=== PATIENT | male | born 1970 | race Caucasian/White ===

== ENCOUNTER 2021-10-05 09:06 | Emergency (ER) | payer OTHER, SELFPAY ==
[2021-10-05 09:07] VITALS: BP 121/73; PULSE 82; RESP 18; TEMP 36.3; O2SAT 100; BMI 54.3
[2021-10-05 09:11] VITALS: BP 121/73; PULSE 82; RESP 18; TEMP 36.3; O2SAT 100
[2021-10-05 10:11] LABS: Absolute Lymphocyte Count 0.92 X10^3/uL (0.83-4.51); Basophil# 0.04 X10^3/uL; Basophil% 0.5 % (0-1); Eosinophil# 0.05 X10^3/uL; Eosinophils% 0.6 % (0-5); Hematocrit 42.5 % (40-54); Hemoglobin 14.5 g/dL (13.0-16.5); Lymphocyte # 0.92 X10^3/ul (0.83-4.51); Lymphocyte % 11.9 % (19-41); Mean Corp Hgb Conc 34.1 g/dL (32-36); Mean Corpuscular Hgb 29.4 pg (27.0-32.0); Mean Platelet Vol. 8.9 fl (6.2-12.0); Monocyte# 0.64 X10^3/uL; Monocyte% 8.3 % (0-10); NRBC Flagged by Analyzer 0 % (0-5); Neutrophil # 6.03 X10^3/uL (2.7-7.7); Neutrophil % 78.3 % (47-70); Platelet Count 269 K/mm3 (150-450); RBC Distribution Width CV 13.2 % (11.6-14.6); RBC Distribution Width SD 40.9 fl (35.1-43.9); Red Blood Count 4.94 M/mm3 (4.6-6.2); White Blood Count 7.7 K/mm3 (4.4-11.0)
[2021-10-05 10:18] LABS: International Normalized Ratio 1.1
[2021-10-05 10:19] LABS: Partial Thromboplast Time 26.5 Seconds (24.1-36.2)
--- NOTE | 2021-10-05 13:48 | EX.ED.DYSGE1 ---
HPI History of Present Illness Chief Complaint: Wound Informant: patient Onset/Context/Timing Onset: Today Current Severity: Moderate Maximum Severity: Moderate Narrative Narrative: Patient presents with bleeding from varicose vein on right leg. Patient states after getting out of the shower this morning he looked down and his right leg was bleeding. No pain to the area. He reports significant blood loss at home. EMS was a tourniquet on his leg. Patient is currently on Xarelto. [facility] Medical History Deep vein thrombosis (DVT) of right lower extremity Lymphedema Peripheral vascular disease Type 2 diabetes mellitus Venous insufficiency Home Medications aspirin 81 mg PO DAILY@0800 11/23/16 [History Last Taken Unknown] lisinopril-hydrochlorothiazide [Zestoretic 20-25 mg Tablet] 1 ea PO DAILY 11/23/16 [History Last Taken Unknown] Allergy/AdvReac Type Severity Reaction Status Date / Time No Known Allergies Allergy Verified 10/05/21 09:11 Social History Smoking Status: Unknown if ever smoked ROS ROS ED Constitutional Constitutional ED: Denies chills or fever(s) Eyes Eyes: Denies change in vision ENT ENT ED: Denies sore throat Cardiovascular Cardiovascular: Denies chest pain Respiratory/Chest Respiratory/Chest: Denies cough or dyspnea Gastrointestinal Gastrointestinal: Denies abdominal pain, diarrhea, nausea or vomiting Genitourinary Genitourinary ED: Denies dysuria Musculoskeletal Musculoskeletal: Denies back pain Integumentary Reports other Details: Varicose veins, bleeding from right lower extremity ; Denies rash Neurologic Neurologic: Denies headache(s) or weakness Allergic/Immunologic Allergic/Immunologic ED: Denies urticaria EXAM Physical Exam Const Vital Signs: 10/05/21 09:07 10/05/21 09:11 10/05/21 14:20 Temperature 97.3 F L 97.3 F L Temperature Source Temporal Temporal Pulse Rate 82 82 84 Respiratory Rate 18 18 16 Blood Pressure 121/73 H 121/73 H 114/62 Blood Pressure Mean 89 89 Pulse Ox 100 100 98 Oxygen Delivery Method Room Air Room Air Positive well nourished and well developed General Appearance ED: well developed HEENT Reports moist mucous membranes Eyes PERRL and EOMs intact bilaterally Neck no lymphadenopathy and supple Chest Wall inspection of chest normal and palpation of chest normal Resp normal respiratory effort and clear to auscultation bilaterally Cardio regular rate and regular rhythm GI non-tender Palpation: soft Extremity Extremity Narrative: Tourniquet placed to the right lower extremity. Dhaval wrap bandage in place over the right lower leg and ankle. Neuro oriented x3 Sensorium / Orientation: alert MDM MDM MDM Narrative Medical decision making narrative: Dhaval wrap was removed from the right lower extremity. Wound is cleansed. There is a very small punctate scab that when cleansed because of brisk bleeding. Direct pressure was held over this area. Tourniquet is slowly released over approximately 15 minutes. Blood pressure is held both proximal and distal to the wounds, lidocaine is infused and 2 sutures placed around the wound. Pressure dressing is then applied and leg is elevated. Over the next couple hours pressure dressing is removed and regular dressing applied. Patient's legs were brought down to bed height and then even dangled at bedside. He had no further bleeding. Patient is to leave dressing in place for the next 3 days. He is referred to vascular surgery for follow-up and evaluation of his varicose veins. Lab Data Labs: Laboratory Results - last 24 hr 10/05/21 10/05/21 10:00 10:00 WBC 7.7 RBC 4.94 Hgb 14.5 Hct 42.5 MCV 86.0 MCH 29.4 MCHC 34.1 RDW Std Deviation 40.9 RDW Coeff of Samuel 13.2 Plt Count 269 MPV 8.9 Immature Gran % (Auto) 0.400 Neut % (Auto) 78.3 H Lymph % (Auto) 11.9 L Isabella % (Auto) 8.3 Eos % (Auto) 0.6 Baso % (Auto) 0.5 Absolute Neuts (auto) 6.0 Absolute Lymphs (auto) 0.92 Nucleated RBC % 0 PT 14.0 INR 1.1 APTT 26.5 Procedures Lacerations Right lower extremity varicose vein: Laceration repair: Lidocaine, Local and Skin sutures Number of Sutures/Pray: 2 Comment: 2 cc lidocaine infused locally around the wound. A single circular stitch with 4-0 Vicryl placed. 1 single simple interrupted stitch then placed across the wound. Pressure dressing applied. Discharge Plan Triage Chief Complaint: Wound ED Provider: Patricia Culp Dx/Rx/DC Orders Clinical Impression: Varicose vein of leg Instructions: ED Varicose Veins, ED Wound Care Prescriptions: No Action lisinopril-hydrochlorothiazide [Zestoretic] 1 EACH tablet 1 ea PO DAILY RF: 0 aspirin 81 MG Tab.Chew 81 mg PO DAILY@0800 RF: 0 Primary Care Provider: Gustavo Potter Referrals: Gustavo Potter MD [Primary Care Provider] - 1 Week Kevin Merchant MD [STAFF PHYSICIAN] - 1-2 Weeks Disposition Disposition: Home, Self Care Discharge Date/Time: 10/05/21 14:21
[2021-10-05 14:20] VITALS: BP 114/62; PULSE 84; RESP 16; O2SAT 98
== END 2021-10-05 14:21 | disposition home or self-care (01) ==
PROVIDERS: Emergency Provider Emergency Medicine; PCP Family Medicine; Visit Provider Emergency Medicine
DX: I83.891 Varicose veins of right lower extremity with other complications (principal)
CPT/HCPCS: 85025; 85610; 85730; 99285; A4216

== ENCOUNTER 2022-03-04 19:47 | Emergency (ER) | payer OTHER, SELFPAY ==
[2022-03-04 19:47] VITALS: BP 128/78; PULSE 111; RESP 15; TEMP 35.8; O2SAT 95; BMI 50.1
--- NOTE | 2022-03-04 20:23 | EX.ED.DYSGE1 ---
HPI History of Present Illness Chief Complaint: Other, Pain/Inj Informant: patient and spouse/S.O. Narrative Narrative: 51-year-old male presenting to the emergency department the bleeding of his right leg. He states that he has had varicose vein bleed in the past. He is on aspirin and Xarelto. His applied compressive dressing and seems to have resolved the bleeding. [facility] Medical History Deep vein thrombosis (DVT) of right lower extremity Lymphedema Peripheral vascular disease Type 2 diabetes mellitus Venous insufficiency Home Medications aspirin 81 mg chewable tablet 81 mg PO DAILY@0800 11/23/16 [History Last Taken Unknown] lisinopril 20 mg-hydrochlorothiazide 25 mg tablet (Zestoretic) 1 ea PO DAILY 11/23/16 [History Last Taken Unknown] rivaroxaban 20 mg tablet (Xarelto) 20 tab PO QHS 03/04/22 [History Last Taken Unknown] Allergy/AdvReac Type Severity Reaction Status Date / Time No Known Allergies Allergy Verified 03/04/22 19:50 Social History (Updated 03/04/22 @ 20:[address] Harshil Casarez DO) Smoking Status: Never smoker substance use type: does not use ROS ROS ED Constitutional Constitutional ED: Denies chills or weight loss Eyes Eyes: Denies change in vision or diplopia ENT ENT ED: Denies ear pain, rhinorrhea or sore throat Cardiovascular Cardiovascular: Denies chest pain, orthopnea, palpitations or racing heartbeat Respiratory/Chest Respiratory/Chest: Denies cough, dyspnea or orthopnea Gastrointestinal Gastrointestinal: Denies abdominal pain, diarrhea, nausea or vomiting Genitourinary Genitourinary ED: Denies dysuria, hematuria or urinary frequency Musculoskeletal Musculoskeletal: Denies arthralgias or myalgias Integumentary Denies abscess or rash Neurologic Neurologic: Denies headache(s) or weakness Psychiatric Psychiatric: Denies anxiety, depression, suicidal ideation or suicidal thoughts Endocrine Endocrinology: Denies polydipsia, polyphagia or polyuria Allergic/Immunologic Allergic/Immunologic ED: Denies mouth swelling, tongue swelling or urticaria EXAM Physical Exam Const Vital Signs: 03/04/22 19:47 Temperature 96.4 F L Temperature Source Temporal Pulse Rate 111 H Respiratory Rate 15 Blood Pressure 128/78 H Blood Pressure Mean 94 Pulse Ox 95 Oxygen Delivery Method Room Air Positive well nourished, well developed and obese General Appearance ED: well developed Nutritional Appearance: obese HEENT Reports moist mucous membranes Eyes PERRL and EOMs intact bilaterally Neck no lymphadenopathy and supple Chest Wall inspection of chest normal and palpation of chest normal Resp normal respiratory effort and clear to auscultation bilaterally Cardio regular rate and regular rhythm GI non-tender Palpation: soft Extremity Extremity Narrative: There is a varicose vein on the right lower leg that has a fresh clot on it. Neuro oriented x3, CN's II-XII intact bilaterally and no sensory deficits noted Sensorium / Orientation: alert Motor Exam: strength 5/5 throughout MDM MDM MDM Narrative Medical decision making narrative: Gelfoam was applied and then Coban. Wound care discussed with patient. Return if worsening or concerns Discharge Plan Triage Chief Complaint: Other, Pain/Inj ED Provider: Harshil Casarez Dx/Rx/DC Orders Clinical Impression: Bleeding from varicose veins of right lower extremity, Anticoagulated Instructions: ED Varicose Veins Prescriptions: No Action lisinopril-hydrochlorothiazide [Zestoretic] 1 EACH tablet 1 ea PO DAILY aspirin 81 MG Tab.Chew 81 mg PO DAILY@0800 Xarelto 20 mg tablet 20 tab PO QHS Label Comments: TAKE 1 TABLET BY MOUTH EVERYDAY AT BEDTIME Primary Care Provider: Gustavo Potter Referrals: Gustavo Potter MD [Primary Care Provider] - As Needed Disposition Disposition: Home, Self Care
[2022-03-04 20:25] VITALS: PULSE 107; RESP 18
== END 2022-03-04 20:27 | disposition home or self-care (01) ==
PROVIDERS: Emergency Provider Emergency Medicine; PCP Family Medicine; Visit Provider Emergency Medicine
DX: I83.891 Varicose veins of right lower extremity with other complications (principal); E66.9 Obesity, unspecified; Z79.02 Long term (current) use of antithrombotics/antiplatelets; Z79.82 Long term (current) use of aspirin
CPT/HCPCS: 99282

== ENCOUNTER 2022-12-28 07:51 | Emergency (ER) | payer OTHER, SELFPAY ==
[2022-12-28 07:52] VITALS: BP 137/77; PULSE 94; RESP 14; TEMP 36.9; O2SAT 97; BMI 52.1
--- NOTE | 2022-12-28 08:01 | ED.VIS.LOWEX ---
HPI History of Present Illness Chief Complaint: Wound Informant: patient and spouse/S.O. Onset/Context/Timing Onset: Today Context: Sudden Onset Timing: Continuous (bleeding) Location: R ankle Current Severity: Gone Maximum Severity: Moderate Relieved by: wrapping w/ pressure dressing Associated Symptoms Associated Symptoms: Negative for Parasthesia, Weakness or Loss of Funtion Narrative Narrative: Patient has history of varicose veins, and he is anticoagulated on Xarelto because of a history of anticardiolipin antibody syndrome and a remote DVT. He was getting out of the shower this morning and as he was using a towel to dry off his right lower extremity, a varicose vein spontaneously started bleeding. He states he has had this happen before. His put a maxi pad on it and used an Dhaval wrap to wrap it very tightly. The bleeding has been controlled since then, but out of concern for this happening before and being on a blood thinner that came right to the emergency department without checking. He states his foot is starting to go numb because the Dhaval wrap is so tight, but he denies pain anywhere. [facility] Medical History Deep vein thrombosis (DVT) of right lower extremity Lymphedema Peripheral vascular disease Type 2 diabetes mellitus Venous insufficiency Home Medications aspirin 81 mg chewable tablet 81 mg PO DAILY@0800 11/23/16 [History Last Taken Unknown] lisinopril 20 mg-hydrochlorothiazide 25 mg tablet (Zestoretic) 1 ea PO DAILY 11/23/16 [History Last Taken Unknown] rivaroxaban 20 mg tablet (Xarelto) 20 tab PO QHS 03/04/22 [History Last Taken Unknown] Allergy/AdvReac Type Severity Reaction Status Date / Time No Known Allergies Allergy Verified 12/28/22 07:53 Social History (Updated 03/04/22 @ 20:[address] Harshil Casarez, ) Smoking Status: Never smoker substance use type: does not use ROS ROS ED Constitutional Constitutional ED: Denies chills or fever(s) Cardiovascular Cardiovascular: Reports leg edema Musculoskeletal Musculoskeletal: Denies extremity pain or neck pain Integumentary Reports wounds; Denies Abrasions or rash Neurologic Neurologic: Denies paresthesias or weakness EXAM Physical Exam Const Vital Signs: 12/28/22 07:52 Temperature 98.4 F Temperature Source Temporal Pulse Rate 94 Respiratory Rate 14 Blood Pressure 137/77 H Blood Pressure Mean 97 Pulse Ox 97 Oxygen Delivery Method Room Air Positive well nourished, well developed and obese General Appearance ED: well developed and NAD Nutritional Appearance: obese Neck full ROM and supple Back/Spine normal ROM and normal to inspection Extremity full ROM Extremity Narrative: No tenderness. Multiple varicosities. General Extremety ED: Yes edema General Extremity: edema bilateral lower extremity Details: moderate Neuro oriented x3, no focal motor deficits and no sensory deficits noted Sensorium / Orientation: alert Psych mental status grossly normal and thought process normal Skin Skin Narrative: Unwrapping the wound medial right ankle, there is a pinpoint area where bleeding recently came from but is not active at this time that is consistent with a bleeding superficial varicose vein. No signs of infection or ulceration. Rashes: no rashes MDM MDM MDM Narrative Medical decision making narrative: Releasing the tight Dhaval wrap resulted in relief of the paresthesias in his foot, there is a brisk cap refill all toes and no signs of acute ischemia. The varicose vein appears to have a small clot on it, it is not actively bleeding but it appears fragile so I am having nursing rewrap it without pressure with a small piece of Surgifoam, given appropriate instructions for leaving this on as long as there is no bleeding for at least 24 hours. Discharge Plan Triage Chief Complaint: Wound ED Provider: Howard Corrigan Dx/Rx/DC Orders Clinical Impression: Bleeding from varicose veins of right lower extremity Instructions: ED Varicose Veins Prescriptions: No Action lisinopril-hydrochlorothiazide [Zestoretic] 1 EACH tablet 1 ea PO DAILY aspirin 81 MG tablet,chewable 81 mg PO DAILY@0800 Xarelto 20 mg tablet 20 tab PO QHS Label Comments: TAKE 1 TABLET BY MOUTH EVERYDAY AT BEDTIME Primary Care Provider: Gustavo Potter Referrals: Gustavo Potter MD [Primary Care Provider] - As Needed (or return to ER for bleeding that you are unable to control at home) Disposition Disposition: Home, Self Care
--- NOTE | 2022-12-28 08:31 | ED.RN ---
PT WALKED TO CAR AND STARTED TO BLEED AGAIN. PRESSURE DRESSING REPLACED PER THIS RN. PT BEING OBSERVED.
== END 2022-12-28 08:11 | disposition home or self-care (01) ==
PROVIDERS: Emergency Provider Emergency Medicine; Referring Provider Emergency Medicine; Visit Provider Emergency Medicine
DX: I83.891 Varicose veins of right lower extremity with other complications (principal); D68.61 Antiphospholipid syndrome; Z79.01 Long term (current) use of anticoagulants; Z86.718 Personal history of other venous thrombosis and embolism; Z79.82 Long term (current) use of aspirin; Z79.899 Other long term (current) drug therapy
CPT/HCPCS: 99282

== ENCOUNTER 2022-12-31 10:40 | Emergency (ER) | payer OTHER, SELFPAY ==
[2022-12-31 10:41] VITALS: BP 131/86; PULSE 86; RESP 18; TEMP 36.6; O2SAT 98; BMI 52.0
--- NOTE | 2022-12-31 11:03 | EX.ED.DYSGE1 ---
HPI <APOLINAR Gann - Last Filed: 12/31/22 11:07> History of Present Illness Chief Complaint: Laceration Narrative Narrative: Patient is a 52-year-old male on aspirin, Xarelto secondary to a deep vein thrombosis presents to the emergency department for an ongoing issue of bleeding from his varicose veins from his right lower extremity. Patient states that this has been ongoing for over 1 year. He has 1 particular spot that continues to bleed every now and then. Patient states that last evening it was bleeding however he was able to get it to stop. This morning in the shower, he was bleeding and he was concerned. He denies any other injury. PFSH <APOLINAR Gann - Last Filed: 12/31/22 11:07> [facility] Medical History Deep vein thrombosis (DVT) of right lower extremity Lymphedema Peripheral vascular disease Type 2 diabetes mellitus Venous insufficiency Home Medications aspirin 81 mg chewable tablet 81 mg PO DAILY@0800 11/23/16 [History Last Taken Unknown] lisinopril 20 mg-hydrochlorothiazide 25 mg tablet (Zestoretic) 1 ea PO DAILY 11/23/16 [History Last Taken Unknown] rivaroxaban 20 mg tablet (Xarelto) 20 tab PO QHS 03/04/22 [History Last Taken Unknown] Allergy/AdvReac Type Severity Reaction Status Date / Time No Known Allergies Allergy Verified 12/31/22 10:43 Social History (Updated 03/04/22 @ 20:[address] Harshil Casarez, DO) Smoking Status: Never smoker substance use type: does not use ROS <APOLINAR Gann - Last Filed: 12/31/22 11:07> ROS ED ROS Narrative Constitutional: Negative for fever, chills, weight loss, weakness Eyes: Negative for vision loss, vision change, double vision ENT: Negative for any sore throat, ear pain, congestion Cardiovascular: Negative for any chest pain, tightness, palpitations Respiratory: Negative for any cough, sputum production, hemoptysis, dyspnea, dyspnea on exertion, orthopnea Gastrointestinal: Negative for any abdominal pain, nausea, vomiting, diarrhea, constipation, blood in stool, blood in vomit : Negative for any urinary frequency, dysuria, retention, blood in urine Muscle skeletal: Negative for any muscle joint pain, stiffness, myalgias, arthralgias, neck pain, back pain Neurological: Negative for any headache, syncope, numbness or tingling, dizziness Skin: Negative for any rashes, lumps, itching, abrasions, lacerations. Positive for bleeding to the right lower extremity Psychiatric: Negative for any depression, anxiety, stress, suicidal ideation, homicidal ideation Hematologic: Negative for any easy bruising, excessive bruising, easy bleeding Allergies: Negative for any eczema, hives, rash EXAM <APOLINAR Gann - Last Filed: 12/31/22 11:07> Physical Exam Narrative Exam Narrative: Vital signs reviewed. Extremities: No peripheral edema, no signs of gross trauma or deformity. Active full range of motion of all extremities. Patient does have vascular issues throughout his lower extremities. This is chronic. Neuro: Cranial nerves II through XII intact, no focal neurological deficits. Skin: Clean dry and intact with no rash, purpura, petechiae, vesicles or pustules. Patient does have a small area where the bleeding was coming from however it has since stopped. Patient does have multiple varicose veins. Backs/flank: No CVA tenderness, no midline spinal tenderness, no deformity. Psych: Normal mood and affect. No SI, HI or acute psychosis. Const Vital Signs: 12/31/22 10:41 Temperature 97.8 F Temperature Source Temporal Pulse Rate 86 Respiratory Rate 18 Blood Pressure 131/86 H Blood Pressure Mean 101 Pulse Ox 98 Oxygen Delivery Method Room Air <Dr. Vivek Ramirez MD - Last Filed: 12/31/22 11:22> Physical Exam Const Vital Signs: 12/31/22 10:41 Temperature 97.8 F Temperature Source Temporal Pulse Rate 86 Respiratory Rate 18 Blood Pressure 131/86 H Blood Pressure Mean 101 Pulse Ox 98 Oxygen Delivery Method Room Air MDM <APOLINAR Gann - Last Filed: 12/31/22 11:07> [facility] Treatment and Re-Evaluation :: Patient appears generally well, patient appears nontoxic, vital signs are stable. Patient presents the emergency department for bleeding from a varicose vein which has since stopped and has been to the emergency department. There is a small area, I did consider performing a suture however any suturing would cause multiple veins to be punctured. Since the bleeding is stopped, I did use 1 silver nitrate stick I rolled over the area. I placed a pressure dressing. Patient will leave this on for further remainder of the day. I was able to put some antibiotic ointment to stop the sticking. Patient does have a follow-up appointment with a vascular surgeon this upcoming week. He was given wound care instructions, he was with his all questions were answered return precautions given. <Dr. Vivek Ramirez MD - Last Filed: 12/31/22 11:22> [facility] Narrative Medical decision making narrative: I have personally performed a face to face assessment of the patient and have reviewed the NIKOLAS Note. I performed a substantive portion of the visit including all aspects of the following. My jovel findings include: History is remarkable for varicose veins with prior episodes of bleeding. Patient is on anticoagulant i.e. Xarelto. Patient presents because of spontaneous bleeding while taking a shower. He has no other complaints Exam is venous stasis dermatitis with significant varicose veins. The bleeding site was easily identified. There is no active bleeding. Medical Decision Making initial thought was to place a suture using 5 oh/4-0 Vicryl. However there is a cluster of veins adjacent to the source of bleeding. Other additions or changes: Patient was treated with pressure dressing and discharged home. He does have an appointment to see vascular surgeon regarding sclerosing of his varicose veins. Discharge Plan Triage Chief Complaint: Laceration ED Midlevel Provider: Dominick De La Cruz ED Provider: Vivek Ramirez Dx/Rx/DC Orders Clinical Impression: Bleeding, Bleeding from varicose veins of right lower extremity Instructions: ED Varicose Veins Prescriptions: No Action lisinopril-hydrochlorothiazide [Zestoretic] 1 EACH tablet 1 ea PO DAILY aspirin 81 MG tablet,chewable 81 mg PO DAILY@0800 Xarelto 20 mg tablet 20 tab PO QHS Label Comments: TAKE 1 TABLET BY MOUTH EVERYDAY AT BEDTIME Primary Care Provider: Atul Higgins Referrals: Atul Higgins DO [Primary Care Provider] - Activity Restrictions/Additional Instructions: Please follow-up with vascular surgeon as planned Disposition Disposition: Home, Self Care
[2022-12-31] MEDS: Silver Nitrate (BKC) 3 EACH TOPICAL (11:24)
== END 2022-12-31 11:26 | disposition home or self-care (01) ==
LOC: ED 11:19
PROVIDERS: Emergency Provider Emergency Medicine; Visit Provider Emergency Medicine
DX: I83.891 Varicose veins of right lower extremity with other complications (principal); Z79.82 Long term (current) use of aspirin; Z79.01 Long term (current) use of anticoagulants; Z86.718 Personal history of other venous thrombosis and embolism
CPT/HCPCS: 99282

== ENCOUNTER → 2023-01-12 | Outpatient (CLI) | payer OTHER, SELFPAY ==
--- NOTE | 2023-01-12 10:52 | VDLE_ITS ---
Reason For Study: LEG SWELLING RIGHT LEFT CFV is compressible, spontaneous, phasic, CFV is compressible, spontaneous, phasic, competent and demonstrates normal competent, and demonstrates normal augmentation. augmentation. FV is compressible, spontaneous, phasic, FV is compressible, spontaneous, phasic, competent and demonstrates normal competent and demonstrates normal augmentation. augmentation. POP V is compressible, spontaneous, phasic, POP V is compressible, spontaneous, phasic, competent and demonstrates normal competent and demonstrates normal augmentation. augmentation. Acute deep vein thrombosis is noted in the T/P Trunk is compressible. T/P Trunk. It is dilated and NONCOMPRESSIBLE. PTV is compressible. LT PerV is compressible. PTV is compressible. ASV from junction is INCOMPETENT for greater RT PerV is compressible. than 0.5 seconds and measures 0.84 x 0.86cm ASV from junction is INCOMPETENT for greater SFJ is INCOMPETENT and measures 1.37 x 1.45 than 0.5 seconds and measures 0.65cm in long cm. SFJ is INCOMPETENT and measures 1.21 x 1.19 GSV proximal thigh measures 0.34 x 0.38 cm. cm. GSV at knee measures 1.00 x 1.11 cm. GSV proximal thigh measures 0.86 x 0.97 cm. GSV INCOMPETENT throughout for greater than GSV at knee measures 0.24 x 0.23 cm. 0.5 seconds GSV INCOMPETENT throughout for greater than [employer] Supervisor Vein INCOMPETENT for greater than 0.5 seconds 0.5 seconds at mid/distal calf approximately [employer] Preparation Supervisor Vein INCOMPETENT for greater than 16cm above ankle. 0.5 seconds at distal calf approximately 6- ASV proximal thigh is INCOMPETENT for 7cm above ankle. greater than 0.5 seconds and measures 0.80 x ASV proximal thigh is INCOMPETENT for greater 0.81 cm. than 0.5 seconds and measures 1.09 x 1.28 cm. SSV proximal calf is competent and measures ASV proximal calf is INCOMPETENT for greater 0.10 x 0.11 cm. than 0.5 seconds and measures 0.55 x 0.60 cm. SSV proximal calf is competent and measures 0.31 x 0.30 cm. Procedure Exam performed in department. The exam was diagnostic. A preliminary report was called and/or faxed to Dr. Reese / Uzma HERNDON. VL/Venous Duplex US - Kenny Extrem Interpretation Summary Acute deep vein thrombosis is noted in the right tibio-peroneal trunk. Deep veins of the left lower extremity are patent and compressible segmentally. There is no evidence of left lower extremity deep vein thrombosis. The left great saphenous vein casandra ears patent and compressible segmentally. Positive for reflux in the right saphenofemoral junction, great saphenous vein, accessory saphenous vein, calf cotton stripper veins. Positive for reflux in the left saphenofemoral junction, great saphenous vein, accessory saphenous vein, calf cotton stripper veins. Ordering Physician: Es Forte Referring Physician: Atul Higgins Performed By: Charlie Baires RVT
== END | disposition home or self-care (01) ==
LOC: CVS 10:50
PROVIDERS: Referring Provider Physician Assistant; Visit Provider Physician Assistant
DX: I83.891 Varicose veins of right lower extremity with other complications (principal); I82.409 Acute embolism and thrombosis of unspecified deep veins of unspecified lower extremity; R60.0 Localized edema
CPT/HCPCS: 93970

== ENCOUNTER 2023-03-09 07:06 | Day surgery (SDC) | payer OTHER, SELFPAY ==
[2023-03-08 08:06] VITALS: BMI 51.8
[2023-03-09 07:18] LABS: Hematocrit 46.3 % (40-54); Hemoglobin 15.2 g/dL (13.0-16.5); Mean Corp Hgb Conc 32.8 g/dL (32-36); Mean Corpuscular Hgb 28.7 pg (27.0-32.0); Mean Corpuscular Volume 87.4 fL (80-94); Mean Platelet Vol. 8.5 fl (6.2-12.0); Platelet Count 321 K/mm3 (150-450); RBC Distribution Width CV 13.4 % (11.6-14.6); White Blood Count 7.1 K/mm3 (4.4-11.0)
--- NOTE | 2023-03-09 07:18 | PCM.HP.STD ---
[facility] - General General Date of Service: 03/09/23 HPI Narrative LINDA JOHNSTON, is a 52 M who presents today for venous glue ablation secondary to RLE varicosity which bleeds recurrently. Venous duplex 01/12/23 was positive for reflux in the right saphenofemoral junction, great saphenous vein, accessory saphenous vein, calf supervisor electric veins. After discussion of risks/benefits/recovery of venous ablation, he is agreeable to proceed with ablation. Patient has a history of anticardiolipin antibody clotting disorder. He has failed warfarin in the past. At the time of this most recent DVT (identified on 01/12/23 duplex), he had been taking his Xarelto as directed without missing doses, no recent injury or significant decrease in activity. He discussed with his PCP and they have decided to switch to Eliquis. Otherwise, no significant medical history. He denies CP, SOB, N/V, F/C, palpitations, new or worsening pain/swelling in BLE. [facility] Medical History Deep vein thrombosis (DVT) of right lower extremity Lymphedema Other cyst of bone, left upper arm Peripheral vascular disease Type 2 diabetes mellitus Venous insufficiency Home Medications aspirin 81 mg chewable tablet 81 mg PO DAILY@0800 11/23/16 [History Last Taken Unknown] lisinopril 20 mg-hydrochlorothiazide 25 mg tablet (Zestoretic) 1 ea PO DAILY 11/23/16 [History Last Taken 03/09/23] rivaroxaban 20 mg tablet (Xarelto) 20 tab PO QHS 03/04/22 [History Last Taken 03/08/23] atorvastatin 20 mg tablet 10 mg PO DAILY 01/05/23 [History Last Taken Unknown] coenzyme Q10 100 mg capsule (CoQ-10) 100 mg PO TID 01/05/23 [History Last Taken Unknown] omeprazole 20 mg capsule,delayed release 20 mg PO DAILY 01/05/23 [History Last Taken Unknown] tirzepatide 5 mg/0.5 mL subcutaneous pen injector (Mounjaro) 5 mg subcut QWEEK 01/05/23 [History Last Taken Unknown] Allergy/AdvReac Type Severity Reaction Status Date / Time No Known Allergies Allergy Verified 01/19/23 14:09 Family History Other Arthritis Cancer Diabetes Hypertension Surgical History H/O hernia repair (~2017) History of cancer surgery (~2017) History of sleeve gastrectomy (~2018) Social History Smoking Status: Never smoker substance use type: does not use ROS ROS Narrative ROS General General: Yes weight change; No appetite, fatigue, colon cancer, breast cancer or weakness HEENT HEENT: No difficulty swallowing, eye injury, eye surgery, swollen glands or hoarseness Endo Endocrine: Yes diabetes mellitus; No thyroid disease, thyroid cancer, Hair loss, heat intolerance or cold intolerance Skin Skin: Yes changing moles; No rash Musc Musculoskeletal: Yes arthritis; No back problems, rheumatoid arthritis, gout or joint pain Cardio Cardiovascular: Yes high blood pressure; No murmur, pacemaker, heart disease, atrial fibrillation, heart attack, heart stent, palpitations, shortness of breat with exertion or chest pain Psych Psychiatric: No depression, anxiety or hearing voices Resp Respiratory: Yes shortness of breath, Yes sleep apnea, No cough, No COPD, No asthma, No emphysema and No wheezing Gastro Gastrointestinal: No abdominal pain, No nausea or vomiting, No diarrhea, No constipation, No blood in stool, Yes acid reflux, No hemorrhoids, No ulcers, No gallbladder problem and No black,tarry stools Harman Hematologic: Yes blood thinners, Yes blood disorders, Yes bleeding, No anemia and Yes blood clots Neuro Neurologic: No system reviewed and no additional complaints, except as documented, No as per HPI, No abnormal gait, No abnormal hearing, No abnormal movements, No abnormal speech, No behavioral changes, No burning sensations, No confusion, No convulsions, No disequilibrium, No dizziness, No localized weakness, No frequent falls, No headache(s), No lack of coordination, No loss of vision, No memory loss, No numbness, No other visual disturbances, No radicular pain, No restless legs, No sensory deficit, No syncope, Yes tingling, No tremor(s), No weakness and No other Vital Signs Vital Signs Vital Signs: Weight Weight: 393 lb Body Mass Index (BMI) 51.8 Physical Exam Narrative Exam Const General: cooperative, comfortable and no acute distress Orientation: alert, awake and oriented x3 HENMT Head: normal to inspection, normocephalic and atraumatic Ears: hearing grossly normal bilaterally and external ears normal Nose: external nose normal Eyes General: appearance normal, both eyes and all related structures EOM: EOM intact bilaterally Neck Neck: normal visual inspection, trachea midline and no anterior neck swelling Resp Effort & Inspection: normal respiratory effort, able to speak in complete sentences, symmetric chest movement, no audible wheezes, not labored, no respiratory distress, no retractions, no stridor and no use of accessory muscles Auscultation: clear to auscultation bilaterally Cardio Rate: regular rate Rhythm: regular rhythm Heart Sounds: no murmurs Bruits: no carotid bruits Pulses: brachial pulses present and radial pulses present Skin General: no rashes or lesions noted, no ecchymosis, no erythema, no mottling, no petechiae, no purpura and no pallor Trauma: no lacerations or abrasions Wounds: wounds noted Other: Very small wound to medial ankle/calf with scab overlying. Varicose/reticular veins in very close proximity to this. Neuro General: patient alert, patient awake, patient oriented x3, gait normal, moves all extremities, no focal motor deficits and CN's II-XI intact bilaterally Cognition: normal cognition Speech: speech normal Sensory Exam: no sensory deficits noted Extremities Pulses: Normal: Right Dorsalis Pedis Pulse, Left Dorsalis Pedis Pulse, Right Posterior Tibial Pulse, Left Posterior Tibial Pulse, Right Radial Pulse and Left Radial Pulse Lower Extremity Edema: +1: Bilateral Veins: Bilateral: Varicose Veins, Bilateral: Reticular Veins, Bilateral: Hemosiderin and Bilateral: Lipodermatosclerosis Psych Appearance: grossly normal Mental Status: mental status grossly normal Mood: congruent mood Affect: normal affect Speech and Movement: speech and movement normal Attitude: cooperative Thought Process: normal Thought Content: normal Judgment: judgment good Results Lab / Micro Data Result Diagrams: 03/09/23 07:10 03/09/23 07:10 Assessment & Plan Assessment/Plan (1) Bleeding from varicose veins of right lower extremity: PLAN: Patient had all of his questions and concerns regarding the procedure addressed and he remains agreeable to proceed with venous ablation with glue. Follow-up in the office in 3-4 weeks after procedure.
[2023-03-09 07:33] LABS: Anion Gap 5 (5-15); BUN 18 mg/dL (7-18); BUN/Creat Ratio 18.3 RATIO (10-20); Calcium,Total 9.3 mg/dL (8.5-10.1); Chloride 100 mmol/L (98-107); Creatinine, Serum 0.98 mg/dL (0.70-1.30); EST Glomerular Filtration Rate 84 mL/min (>60); Est Glom Filt Rate - Afr Amer 102 mL/min (>60); Estimated Creatinine Clearance 97.38 ml/min; Glucose 116 mg/dL (74-106); Potassium 4.1 mmol/L (3.5-5.1); Sodium Level 137 mmol/L (136-145)
--- NOTE | 2023-03-09 09:39 | OP.PCM_ITS ---
Report of Operation Date of Procedure: 03/09/23 Pre-Operative Diagnosis: venous insufficiency with bleeding varicose veins, rig ht lower extremity Post-Operative Diagnosis: same Surgery/Procedure Performed:: glue ablation right greater saphenous vein Description of Surgical Findings:: 75 cm GSV treatment length, < 5 cc glue Surgeon: Ethan Reese Type of Anesthesia: Local and Sedation,Conscious Estimated Blood Loss (mL): 1 Description of Procedure: HPI: Patient is a 52-year-old male with chronic venous insufficiency of the right lower extremity with multiple episodes of bleeding varicosities. He had venous duplex with reflux evaluation the revealed significant diffuse reflux through multiple veins of the right lower extremity. The great saphenous vein was the vessel feeding the territory where the bleeding events had occurred and had multiple varicosities emanating from the inferior aspect. He is taken for glue ablation. Description of procedure: Upon obtaining informed consent and verification correct patient procedure site patient taken to the Legal Assistant where he was positioned prepped and draped in usual sterile fashion. Timeout was performed and conscious sedation administered with Versed. Ultrasound used to evaluate the saphenous vein along the length of this course and a satisfactory access p oint was identified in the mid calf just above the a confluence of multiple varicosities and a almond paste molder. Skin was anesthetized with 1% lidocaine and the vessel accessed in retrograde fashion with a micropuncture needle and wire under ultrasound guidance. This was then exchanged out for the 7 Telugu ablation sheath. Through this the glue delivery guide was advanced to the saphenofemoral junction. Delivery catheter was then advanced via the guide and positioned appropriately inferior to the saphenofemoral junction. Manual pressure was held with the ultrasound probe over the saphenofemoral junction as the initial aliquots of glue were infused. Manual pressure was then held for 3 minutes per novelty maker instructions. Next the glue was infused sequentially along the length of the saphenous vein down to the 5 cm katie on the guide. The guide and catheter then removed after which the sheath was withdrawn and manual pressure held until hemostasis was obtained. Dry sterile dressing and Dhaval wrap were then applied and the patient was taken to the recovery area with anticipated discharge home.
== END 2023-03-09 10:35 | disposition home or self-care (01) ==
LOC: CLSP 07:07
PROVIDERS: Referring Provider Surgery Trauma Surgery; Visit Provider Surgery Trauma Surgery
DX: I83.891 Varicose veins of right lower extremity with other complications (principal); E11.9 Type 2 diabetes mellitus without complications; I87.2 Venous insufficiency (chronic) (peripheral); Z86.718 Personal history of other venous thrombosis and embolism; Z79.82 Long term (current) use of aspirin
CPT/HCPCS: 36415; 36482; 80048; 85027; 99152; 99153; J7040; C1769

== ENCOUNTER → 2023-03-22 | Outpatient (CLI) | payer OTHER, SELFPAY ==
--- NOTE | 2023-03-22 14:40 | VDLE_ITS ---
Reason For Study: S/P Rt GSV chemical ablation RIGHT LEFT GSV is DILATED and NONCOMPRESSIBLE throughout FV is compressible, spontaneous, phasic, vessel. Mixed intraluminal echoes consistent competent and demonstrates normal with recent chemical ablation procedure. augmentation. CFV is compressible, spontaneous, phasic, competent and demonstrates normal augmentation. FV is compressible, spontaneous, phasic, competent and demonstrates normal augmentation. POP V is compressible, spontaneous, phasic, competent and demonstrates normal augmentation. T/P Trunk is compressible. PTV is compressible. RT PerV is compressible. Procedure This is a venous duplex using B-mode, color flow and spectral Doppler. Exam performed in department. The exam was diagnostic. VL/Venous Duplex US, Unilateral Interpretation Summary Deep veins of the right lower extremity are patent and compressible segmentally . There is no evidence of right lower extremity deep vein thrombosis. Right great saphenous vein occluded consistent with recent chemical ablation. Ordering Physician: Es Forte Referring Physician: Atul Higgins Performed By: Charlie Baires RVT
== END | disposition home or self-care (01) ==
LOC: CVS 14:39
PROVIDERS: Referring Provider Physician Assistant; Visit Provider Physician Assistant
DX: I83.891 Varicose veins of right lower extremity with other complications (principal)
CPT/HCPCS: 93971

== ENCOUNTER 2025-08-16 15:26 | Inpatient (IN) | payer OTHER, SELFPAY ==
[2025-08-16] VITALS (7 sets, daily range): BP systolic 108–154; BP diastolic 66–104; PULSE 82–112; RESP 14–20; TEMP 36.6–37; O2SAT 96–100; BMI 47.1; BMI 50.4
--- NOTE | 2025-08-16 15:40 | EDS_ITS ---
HPI History of Present Illness Chief Complaint: Lower Extremity Injury Informant: patient Narrative Narrative: Patient is a 54-year-old male with a history of blood clots and anti-cardiolipin antibody syndrome, presenting with left leg pain, erythema, and swelling. - Reports onset of symptoms approximately 2-3 days ago, coinciding with a period of inactivity due to illness. - Initially experienced flu-like symptoms on Monday, including nausea, fatigue, and feverishness, leading to early departure from work and prolonged rest. - Developed a fever of 102?F on (2d ago), which resolved by last night; current temperature is 98.8?F and has had no symptoms of a fever today, or other systemic symptoms. - Noticed erythema and soreness in the left leg around , with symptoms worsening over time. - Describes pain as tender and exacerbated by ambulation; erythema and swelling noted after removing compression stockings post-work today. progression has been gradual. - Denies chest pain, dyspnea, or syncope. - On Eliquis for anticoagulation due to anti-cardiolipin antibody syndrome and prior DVT. [facility] Medical History (Updated 08/16/25 @ 18:[address] Leatha Ibarra MD) Morbid obesity TOOTIE treated with BiPAP Anticardiolipin antibody syndrome Other cyst of bone, left upper arm Venous insufficiency Lymphedema Type 2 diabetes mellitus Deep vein thrombosis (DVT) of right lower extremity Peripheral vascular disease Home Medications ?Medication ?Instructions ?Recorded ?Last Taken ?Type aspirin 81 mg chewable tablet 81 mg PO DAILY@0800 03/05/04 Unknown History lisinopril 20 1 ea PO DAILY 11/23/1603/09 History mg-hydrochlorothiazide 25 mg tablet (Zestoretic) coenzyme Q10 100 mg capsule 100 mg PO TID 01/05/23 Unk nown History (CoQ-10) omeprazole 20 mg capsule,delayed 20 mg PO DAILY Unknown History release apixaban 5 mg tablet (Eliquis) 5 mg PO BID 03/29/23 Un known History atorvastatin 10 mg tablet 10 mg PO QHS 08/16/25 Unknow n History finasteride 5 mg tablet 5 mg PO DAILY 08/16/25 Unkno wn History pediatric multivitamin no.76 1 tab PO DAILY 08/16/25 U nknown History (Flintstones Complete chewable tablet) semaglutide 2 mg/dose (8 mg/3 mL) 2 mg subcut QWEEK Unknown History subcutaneous pen injector (Ozempic) tamsulosin 0.4 mg capsule 0.8 mg PO QHS 08/16/25 Unkno wn History Allergy/AdvReac Type Severity Reaction Status Date / Time No Known Allergies Allergy Verified 08/16/25 15:27 Family History (Updated 08/16/25 @ 18:[address] Leatha Ibarra MD) Mother Diabetes Father Diabetes Other Arthritis Cancer Hypertension Surgical History History of sleeve gastrectomy (~2017) History of cancer surgery (~2016) H/O hernia repair (~2016) Social History (Updated 08/16/25 @ 18:[address] Leatha Ibarra MD) household members: spouse Smoking Status: Never smoker alcohol intake: current alcohol intake frequency: holidays/special occasions only substance use type: does not use ROS ROS ED Constitutional Constitutional ED: Denies chills or fever(s) Eyes Eyes: Denies change in vision or diplopia ENT ENT ED: Denies rhinorrhea or sore throat Cardiovascular Cardiovascular: Denies chest pain or palpitations Respiratory/Chest Respiratory/Chest: Denies cough or dyspnea Gastrointestinal Gastrointestinal: Denies abdominal pain, diarrhea, nausea or vomiting Genitourinary Genitourinary ED: Denies dysuria or hematuria Musculoskeletal Musculoskeletal: Denies neck pain Integumentary Reports rash; Denies Abrasions or wounds Neurologic Neurologic: Denies paresthesias or weakness Psychiatric Psychiatric: Denies anxiety or suicidal thoughts EXAM Physical Exam Const Vital Signs: 08/16/25 15:26 08/16/25 15:53 08/16/25 16:32 Temperature 98 F 98.4 F 98.4 F Temperature Source Oral Oral Oral Pulse Rate 112 H 92 91 Respiratory Rate 20 H 16 14 Blood Pressure 124/74 H 108/66 111/77 Blood Pressure Mean 90 80 88 Pulse Ox 100 97 98 Oxygen Delivery Method Room Air Room Air Room Air Positive well nourished, well developed and obese Constitutional Narrative: Well-appearing no acute distress General Appearance ED: well developed and NAD Nutritional Appearance: obese HEENT Reports moist mucous membranes normocephalic and atraumatic Eyes PERRL and EOMs intact bilaterally Neck full ROM and supple Resp normal respiratory effort and clear to auscultation bilaterally Cardio regular rate, regular rhythm and no murmurs GI non-tender and non-distended Auscultation: normoactive bowel sounds Palpation: soft Back/Spine normal ROM and normal to inspection General Back: other FROM Extremity normal to inspection Extremity Narrative: Chronic stasis dermatitis without tenderness on the left lower leg. It is more darkened discoloration without any bright erythema. In the right lower leg there is bright erythema that is mildly tender in the distal aspect of the lower leg, less tender more proximally where the erythema becomes patchy and feathered out a little. Multiple varicose veins in the that feel like firm cords or clotted. All compartments are soft nondistended. There is no subcutaneous emphysema. There is no evidence of an abscess or obvious nidus/wound for infection. A lot of the midfoot and hindfoot is spared but in the forefoot he has erythema that is tender as well. Again no subcutaneous emphysema. Full range of motion of the ankle and knee without difficulty. No inguinal lymphadenopathy but his obesity limits as part of the exam not not able to feel this area reliably well. General Extremety ED: Yes edema; Negative for pulses abnormal or tenderness General Extremity: edema bilateral lower extremity Details: moderate (Symmetric to knees); Negative for pulses abnormal Neuro oriented x3, no focal motor deficits and no sensory deficits noted Sensorium / Orientation: alert Motor Exam: strength 5/5 throughout Psych mental status grossly normal and thought process normal Skin no wounds Skin Narrative: Tender erythema right lower leg and foot see above MDM MDM MDM Narrative Medical decision making narrative: Clinically, this appears more consistent with cellulitis than DVT, especially given that he is already anticoagulated on Eliquis. He does have extensive cellulitis extending up the leg, almost to the knee. The exact nidus is unclear, but he reports it began in an area of chronic stasis dermatitis with significant varicose veins. He has circumferential involvement of the lower leg. I administered a dose of empiric Zosyn 3.375 grams IV while we completed the workup. His white blood cell count is normal, with a slight leftward shift but no significant bandemia. He has a slightly elevated anion gap with a suppressed CO2, and his lactate is mildly elevated at 2.1, suggesting a possible significant bacterial infection. However, clinically, he is not septic, and his vital signs are normal. I obtained x-rays of the lower leg (four views). My interpretation shows no subcutaneous emphysema to suggest necrotizing fasciitis. Although this finding argues against necrotizing fasciitis, I cannot completely rule it out; however, I believe the risk is low. Given the aggressive nature of what appears to be a bacterial cellulitis, his recent fever up to 102?F without other significant symptoms, and his baseline lymphedema, I think it is reasonable to admit him for further monitoring and additional IV antibiotics over the next 24 hours. He is amenable to this plan, as discussed with the hospital as per. Lab Data Attestation: I reviewed the patient's lab results. Labs: Laboratory Results - last 24 hr 08/16/25 15:53 WBC 8.4 RBC 4.95 Hgb 14.4 Hct 43.0 MCV 86.9 MCH 29.1 MCHC 33.5 RDW Std Deviation 42.3 RDW Coeff of Samuel 13.3 Plt Count 278 MPV 9.8 Immature Gran % (Auto) 0.400 Neut % (Auto) 77.7 H Lymph % (Auto) 11.3 L Preble % (Auto) 9.8 Eos % (Auto) 0.4 Baso % (Auto) 0.4 Absolute Neuts (auto) 6.5 Absolute Lymphs (auto) 0.95 Nucleated RBC % 0 Sodium 135 Potassium 3.3 Chloride 96 L Carbon Dioxide 22.7 Anion Gap 16 H BUN 22 H Creatinine 1.26 H Estim Creat Clear Calc 104.45 Est GFR (MDRD) Non-Af 67 BUN/Creatinine Ratio 17.5 Glucose 161 H Lactic Acid 2.1 H* Calcium 8.6 Total Bilirubin 0.58 AST 38 ALT 22 Alkaline Phosphatase 85 Total Protein 7.1 Albumin 3.4 L Globulin 3.7 Albumin/Globulin Ratio 0.9 Radiography Diagnostic Testing: Clinical Impression(s) from Imaging Studies Tibia/Fibula X-Ray 08/16/25 16:00 IMPRESSION: Right leg soft tissue swelling. No acute osseous abnormality. Reading Location: [facility] Management Discussion w/another healthcare provider: Hospitalist Discharge Plan Dx/Rx/DC Orders Clinical Impression: Cellulitis of left lower extremity, Lymphedema of both lower extremities, Varicose veins of both lower extremities, Anticoagulated on apixaban, Anti- cardiolipin antibody syndrome Disposition Disposition: Acute Care Hospital [facility] Discharge Date/Time: 08/16/25 19:43
[2025-08-16] MEDS: Piperacil/Tazobactam 3.375 GM in 0.9% Normal Saline (50mL MB+) 50 ML IV (15:52)
--- NOTE | 2025-08-16 16:00 | RAD_ITS ---
PROCEDURE: TIBIA FIBULA 2 VIEWS 08/16/2025 REASON FOR EXAM: PAIN/SWELLING, SUSPECT INFXN TECHNIQUE: Procedure Code: RADTF Modality: DX Procedure: TIBIA FIBULA 2 VIEWS Laterality: COMPARISON: None FINDINGS: Bones: No fracture. No suspicious bone lesion. Joints: Normal alignment. Mild degenerative changes. Soft tissues: Soft tissue swelling. RAD/Tibia & Fibula 2 Views IMPRESSION: Right leg soft tissue swelling. No acute osseous abnormality. Reading Location: [facility]
[2025-08-16 16:02] LABS: Hematocrit 43.0 % (40-54); Hemoglobin 14.4 g/dL (13.0-16.5); Immature Granulocytes Count 0.030 X10^3/uL (0.0-0.0); Mean Corp Hgb Conc 33.5 g/dL (32-36); Mean Corpuscular Volume 86.9 fL (80-94); Mean Platelet Vol. 9.8 fl (6.2-12.0); NRBC Flagged by Analyzer 0 % (0-5); Platelet Count 278 K/mm3 (150-450); RBC Distribution Width CV 13.3 % (11.6-14.6); RBC Distribution Width SD 42.3 fl (35.1-43.9); Red Blood Count 4.95 M/mm3 (4.6-6.2); White Blood Count 8.4 K/mm3 (4.4-11.0)
--- OUTSIDE RECORDS SUMMARY | 2025-08-16 16:08 | XMS RPT_ITS | CCD ---
Author Organization [facility] Care Team Providers Care Remote Advisor Name Role Phone Shania Barajas Primary Care Provider [phone] ATUL HIGGINS DO Primary Care Physician Thierno WEAVER, Jennifer Unavailable Unavailable Shania Barajas MD Primary Care Provider [phone] Darleen Menon DO Unavailable [phone] Atul Higgins Primary Care Provider [phone] Dr. Atul Higgins Referring Provider [phone] KATRINA Forte Attending Provider Dr. Ethan Reese Attending Provider KATRINA Forte Referring Provider Dr. Ethan Reese Referring Provider Dr. Ethan Reese Other Provider Vivek Ramirez Attending Unavailable Atul Higgins Primary Care Unavailable BijoaquinenhEs amin Referring Unavailable Jann, Es Attending Unavailable Atul Higgins Primary Care Unavailable Atul Higgins Primary Care Unavailable Ethan Reese Attending Unavailable Ethan Reese Referring Unavailable Ethan Reese Consulting Unavailable Atul Higgins Referring Unavailable Atul Higgins Primary Care Unavailable Bijoaquinenhluis armandon, Es Attending Unavailable Madeleineenhbrennan, Es Referring Unavailable Madeleineenhbrennan, Es Attending Unavailable Atul Higgins Primary Care Unavailable Atul Higgins Primary Care Unavailable Ethan Reese Attending Unavailable Ethan Reese Referring Unavailable Howard Corrigan Attending Unavailable Howard Corrigan Referring Unavailable Atul Higgins Primary Care Unavailable Atul Higgins Referring Unavailable Ronaldo, Atul Primary Care Unavailable Ethan Reese Attending Unavailable Atul Higgins Referring Unavailable Jann, Es Attending Unavailable Higgins, Atul Primary Care Unavailable Biedenharn, Es Referring Unavailable Higgins, Atul Primary Care Unavailable Ethan Reese Attending Unavailable Jann, Es Referring Unavailable Ronaldo, Atul Primary Care Unavailable Ethan Reese Attending Unavailable Abbey SINCLAIR, Shania Sanchez Primary Care Provider [phone] Sinan DO, Darleen E Unavailable HIGGINS DO ATUL E Attending Unavailable HIGGINS DO, ATUL E Primary Care Unavailable Sinan DO, Darleen E Unavailable SINAN DARLEEN E Attending Unavailable SHANIA BARAJAS Primary Care Unavailable HIGGINS DO, ATUL E Primary Care Unavailable SAGAR SINCLAIR, DR PAPPAS Attending Unavailabl e HIGGINS DO, ATUL E Primary Care Unavailable HIGGINS DOATUL E Attending Unavailable Medications Current Medications Medication Drug Class(es) Dates Sig (Normalized) Sig (Original) 3 ML semaglutide 2.68 MG/ML Pen Injector (2 sources) Start: 01-14-2025 inject 1 dose by subcutaneous injection every week semaglutide 8 mg/3 mL (2 mg dose) subcutaneous solution Dose : 2 mg =, Subcutaneous, qWeek, in the abdomen, thigh, or upper arm dispense 90 day supply filling in lieu of pcp, # 9 mL, 1 Refill(s), [id number], 184.2, cm, 01/14/25 14:04:00 EDT, Height, kg, 01/14/25 14:04:00 EDT, Dosing Weight Start Date: 01/14/25 Status: Ordered Medication Dispense Status: Completed Quantity: 9.0 Unit: mL Total Allowed Fills: 2 Fills Dispensed: 0 Start: 01-14-2025 inject 1 dose by sub cutaneous injection every week semaglutide 8 mg/3 mL (2 mg dose) subcutaneous solution Dose : 2 mg =, Subcutaneous, qWeek, in the abdomen, thigh, or upper arm dispense 90 day supply filling in lieu of pcp, # 9 mL, 1 Refill(s), Pharmacy: [facility][id number], 184.2, cm, 01/14/25 14:04:00 EDT, Height, kg, 01/14/25 14:04:00 EDT, Dosing Weight Start Date: 01/14/25 Status: Ordered Quantity: 9.0 Unit: mL Repeat number: 2 8 hr acetaminophen 650 mg extended release oral tablet (12 sources) Start: 05-30-2019 Tylenol 8 HR A rthritis Pain 650 mg oral tablet, extended release Dose : 1,300 mg = 2 tab(s), Oral, Daily, PRN as needed for fever, # 24 tab(s), 0 Refill(s) Start Date: 05/30/19 Status: Ordered Medication Dispense Status: Completed Quantity: 24.0 Unit: tab(s) Total Allowed Fills: 1 Fills Dispensed: 0 acetaminophen (T ylenol 8 Hour) 650 MG ER tablet Take 1,300 mg by mouth. Active take 650 mg rectal route once da richard acetaminophen (TYLENOL) [address] 650 mg rectally daily 0 Active apixaban 5 mg oral tablet (12 sources) Factor Xa Inhibitor Start: 01-14-2025 Eliquis 5 mg oral tablet Dose : 5 mg = 1 tab(s), Oral, BID, TAKE 1 TABLET BY MOUTH TWICE A DAY, # 200 tab(s), 3 Refill(s), Pharmacy: [id number], 184.2, cm, 01/14/25 14:04:00 EDT, Height, 179.1, kg, 01/14/25 14:04:00 EDT, Dosing Weight Start Date: 01/14/25 Status: Ordered Medication Dispense Status: Completed Quantity: 200.0 Unit: tab(s) Total Allowed Fills: 4 Fills Dispensed: 0 Start: 01-19-2023 End: 09-07-2023 take 1 tablet by mouth twice daily Eliquis 5 MG tablet Indications: Acute deep vein thrombosis (DVT) of tibial vein of right lower extremity (HCC) TAKE 1 TABLET BY MOUTH TWICE A DAY 60 tablet 5 07/18/2023 Active aspirin 81 mg delayed release oral tablet (17 sources) Platelet Aggregation Inhibitor, Nonsteroidal Anti-inflammatory Drug Start: 05-30-2019 aspirin 81 mg ora l delayed release tablet Dose : 81 mg = 1 tab(s), Oral, Daily, 0 Refill(s) Start Date: 05/30/19 Status: Ordered Medication Dispense Status: Completed Total Allowed Fills: 1 Fills Dispensed: 0 Start: 11-23-2016 take 81 mg by mouth once daily Aspirin Active 81 MG PO DAILY@0800 November 23, 2016 1:00am take 1 tablet by lacey th once daily aspirin 81 MG tablet Indications: Preventative Take 81 mg by mouth daily 0 Active atorvastatin 10 mg oral tablet (6 sources) HMG-CoA Reductase Inhibitor Start: 01-05-2023 take 10 mg by mouth once daily Atorvastatin Active 10 MG PO DAILY January 05, 2023 12:00am Start: 11-01-2022 atorvastatin 1 0 mg oral tablet Dose : 10 mg = 1 tab(s), Oral, qDay, # 100 tab(s), 3 Refill(s), Pharmacy: [id number], Type 2 diabetes mellitus with renal complication, 184.2, cm, 10/01/24 14:07:00 EST, Height, kg, 10/01/24 14:07:00 EST, Dosing Weight Start Date: 10/01/24 Status: Ordered Medication Dispense Status: Completed Quantity: 100.0 Unit: tab(s) Total Allowed Fills: 4 Fills Dispensed: 0 Indications: Type 2 diabetes mellitus with other diabetic kidney complication; Biotin (10 sources) Start: 05-30-2019 Biotin 5000 mc g oral capsule Dose : 5,000 mcg = 1 cap(s), Oral, Daily, 0 Refill(s) Start Date: 05/30/19 Status: Ordered Start: 05-07-2019 take 1 capsule by mo [facility] once daily Biotin 5000 MCG CAPS Indications: supplement Take 1 capsule by mouth daily Indications: supplement 0 05/07/2019 Active BiPAP Machine MISC (7 sources) Calcium Carbonate (3 sources) Start: 02-27-2024 Tums mg =, Aleisha wed, qDay, 0 Refill(s) Start Date: 02/27/24 Status: Ordered Medication Dispense Status: Completed Total Allowed Fills: 1 Fills Dispensed: 0 Start: 02-27-2024 Tums mg =, Aleisha wed, qDay, 0 Refill(s) Start Date: 02/27/24 Status: Ordered Repeat number: 1 Start: 11-12-2018 take 1 tablet by lacey th three times daily calcium carbonate (TUMS) 500 MG chewable tablet Indications: supplement Take 1 tablet by mouth 3 times daily 0 11/12/2018 Active calcium citrate 500 mg oral tablet (2 sources) Start: 05-30-2019 take 1 tablet by mouth three times daily Citracal 500 mg oral tablet Dose : 500 mg =, Oral, TID, 0 Refill(s) Start Date: 05/30/19 Status: Ordered Calcium Citrate / Vitamin D (11 sources) Start: 02-26-2019 take 500 mg by mouth three times daily Calcium Citrate-Vitamin D (CALCIUM CITRATE +D PO) Indications: supplement Take 500 mg by mouth 3 times daily Indications: supplement 0 02/26/2019 Active take 500 mg by mouth three times daily Calcium Citrate-Vitamin D (CALCIUM CITRA TE + PO) Take 500 mg by mouth 3 times daily 0 Active Xdfigjp-Obkryhyyb-Bxppdgu D (CITRACAL CALCIUM+D PO) (9 sources) take 3 capsules by mouth three times daily Vavdnwr-Czntcjxkp-Jfsrhlt D (CITRACAL CALCIUM+D PO) Take 3 capsules by mouth 3 times daily. Active take 3 capsules by m outh three times daily Kybskcz-Aagntiypw-Mmngent D (CITRACAL CA LCIUM+D PO) Take 3 capsules by mouth 3 times daily. 0 Active chlorhexidine gluconate 1.2 mg/ml mouthwash (2 sources) Start: 11-19-2024 take 2 doses by mouth three times daily chlorhexidine 0.12% oral rinse liquid Dose = 2 teaspoonful(s), Oral, TID, # 473 mL, 0 Refill(s), Pharmacy: [id number], Dental caries, 184.2, cm, 11/19/24 11:48:00 EST, Height, kg, 11/19/24 11:39:00 EST, Dosing Weight Start Date: 11/19/24 Status: Ordered Medication Dispense Status: Completed Quantity: 473.0 Unit: mL Total Allowed Fills: 1 Fills Dispensed: 0 Indications: Dental caries, unspecified; CoQ10 300 mg oral capsule (3 sources) Start: 06-21-2022 CoQ10 300 mg o ral capsule Dose : 300 mg = 1 cap(s), Oral, qDay, ok for softgel / gummy if capsule not available, # 100 cap(s), 0 Refill(s), Pharmacy: [facility] #[id number], Type 2 diabetes mellitus with renal complication, 183, cm, 06/21/22 11:23:00 EDT, Height Start Date: 06/21/22 Status: Ordered Medication Dispense Status: Completed Quantity: 100.0 Unit: cap(s) Total Allowed Fills: 1 Fills Dispensed: 0 Indications: Type 2 diabetes mellitus with other diabetic kidney complication; Start: 06-21-2022 CoQ10 300 mg o ral capsule Dose : 300 mg = 1 cap(s), Oral, qDay, ok for softgel / gummy if capsule not available, # 100 cap(s), 0 Refill(s), Pharmacy: [facility] #[id number], Type 2 diabetes mellitus with renal complication, 183, cm, 06/21/22 11:23:00 EDT, Height Start Date: 06/21/22 Status: Ordered Quantity: 100.0 Unit: cap(s) Repeat number: 1 Indications: Type 2 diabetes mellitus with other diabetic kidney complication; Start: 06-21-2022 CoQ10 300 mg o ral capsule Dose : 300 mg = 1 cap(s), Oral, qDay, ok for softgel / gummy if capsule not available, # 100 cap(s), 0 Refill(s), [id number], Type 2 diabetes mellitus with renal complication, 183, cm, 06/21/22 11:23:00 EDT, Height Start Date: 06/21/22 Status: Ordered ferrous sulfate 325 mg oral tablet (1 source) Start: 08-03-2018 take 1 tablet by mouth once daily at breakfast ferrous sulfate 325 (65 Fe) MG tablet Indications: Iron Deficiency , Supplement Take 325 mg by mouth daily (with breakfast) 0 08/03/2018 Active finasteride 5 mg oral tablet (4 sources) 5-alpha Reductase Inhibitor Start: 07-09-2024 take 1 tablet by mouth once daily finasteride 5 mg oral tablet TAKE 1 TABLET BY MOUTH EVERY DAY Start Date: 07/16/24 Status: Ordered Medication Dispense Status: Completed Total Allowed Fills: 1 Fills Dispensed: 0 Flintstones with Iron oral tablet, chewable (4 sources) Start: 05-30-2019 take 1 tablet by mouth once daily Flintstones with Iron oral tablet, chewable Dose = 1 tab(s), Chewed, qDay, # 30 tab(s), 0 Refill(s) Start Date: 05/30/19 Status: Ordered Medication Dispense Status: Completed Quantity: 30.0 Unit: tab(s) Total Allowed Fills: 1 Fills Dispensed: 0 Start: 05-30-2019 take 1 tablet by lacey th once daily Flintstones with Iron oral tablet, chewable Dose = 1 tab(s), Chewed, qDay, # 30 tab(s), 0 Refill(s) Start Date: 05/30/19 Status: Ordered Quantity: 30.0 Unit: tab(s) Repeat number: 1 Start: 05-30-2019 take 1 tablet by lacey th once daily Flintstones with Iron oral tablet, chewable Dose = 1 tab(s), Chewed, qDay, # 30 tab(s), 0 Refill(s) Start Date: 05/30/19 Status: Ordered hydroCHLOROthiazide 25 mg oral tablet (2 sources) Thiazide Diuretic take 1 tablet by mouth once daily hydroCHLOROthiazide (HYDRODiuril) 25 MG tablet Take 25 mg by mouth daily. Active hydroCHLOROthiazide 25 mg / lisinopril 20 mg oral tablet (20 sources) Thiazide Diuretic, Angiotensin Converting Enzyme Inhibitor Start: 2024 take 1 tablet by mouth once daily hydrochlorothiazide-lisin opril 25 mg-20 mg oral tablet Dose = 1 tab(s), Oral, qDay, # 100 tab(s), 1 Refill(s), Pharmacy: [id number], 184.2, cm, 11/19/24 11:48:00 EST, Height, kg, 11/19/24 11:39:00 EST, Dosing Weight Start Date: 01/07/25 Status: Ordered Medication Dispense Status: Completed Quantity: 100.0 Unit: tab(s) Total Allowed Fills: 2 Fills Dispensed: 0 Start: 04-08-2016 take 1 tablet by lacey th once daily lisinopril-hydroCHLOROthiazide 20-25 MG tablet Dose = 1 tab(s), Oral, qDay, # 90 tab(s), 3 Refill(s), Pharmacy: [id number], 183, cm, 10/14/21 10:32:00 EST, Height, kg, 10/14/21 10:32:00 EST, Dosing Weight 02/16/2022 Active lisinopril 20 mg oral tablet (2 sources) Angiotensin Converting Enzyme Inhibitor take 1 tablet by mouth once daily lisinopril 20 MG tablet Take 20 mg by mouth daily. Active loratadine 10 mg oral tablet (1 source) Start: 11-12-19 take 1 tablet by mouth once daily loratadine (CLARITIN) 10 MG tablet Take 1 tablet by mouth daily 30 tablet 2 11/12/2018 Active Mounjaro 2.5 mg/0.5 mL subcutaneous solution (1 source) Start: 05-31-20 Mounjaro 2.5 mg/0.5 mL subcutaneous solution Dose : 2.5 mg =, Subcutaneous, qWeek, Provide 4 pens. Rotate injection sites, # 4 EA, 0 Refill(s), Pharmacy: [facility] #[id number], Type 2 diabetes mellitus without complication Morbid obesity, 183, cm, 05/31/22 12:58:00 EDT, Height Start Date: 05/31/22 Status: Ordered Mounjaro 5 mg/0.5 mL subcutaneous solution (1 source) Start: 11-30-19 inject 1 dose by subcutaneous injection every week Mounjaro 5 mg/0.5 mL subcutaneous solution Dose : 5 mg =, Subcutaneous, qWeek, rotate injection sites, # 6 mL, 0 Refill(s), Pharmacy: [facility] #[id number], 183, cm, 11/01/22 13:06:00 EST, Height Start Date: 11/29/22 Status: Ordered omeprazole 20 mg delayed release oral capsule (16 sources) Proton Pump Inhibitor Start: 01-15-20 omeprazole 20 mg oral delayed release capsule Dose : 20 mg = 1 cap(s), Oral, qDay, Hx sleeve gastrectomy, prophylaxis, # 90 cap(s), 1 Refill(s), Pharmacy: [id number], 184.2, cm, 01/14/25 14:04:00 EDT, Height, kg, 01/14/25 14:04:00 EDT, Dosing Weight Start Date: 01/14/25 Status: Ordered Medication Dispense Status: Completed Quantity: 90.0 Unit: cap(s) Total Allowed Fills: 2 Fills Dispensed: 0 Start: 01-10-2025 omeprazole (Pr iLOSEC) [address] capsule 09/27/2024 Active Start: 01-05-2023 take 20 mg by mouth once daily Omeprazole Active 20 MG PO DAILY January 05, 2023 12:00am Start: 11-28-2018 omeprazole 20 mg oral delayed release capsule Dose : 20 mg = 1 cap(s), Oral, qDay, # 30 cap(s), 0 Refill(s) Start Date: 05/30/19 Status: Ordered Omeprazole 20 MG Tablet Delayed Release Dispersible Active Ozempic, 0.25 or 0.5 MG/DOSE, 2 MG/3ML solution pen-injector (2 sources) Start: 04-23-2024 inject 0.5 mg by subcutaneous injection every week Ozempic, 0.25 or 0.5 MG/DOSE, 2 MG/3ML solution pen-injector INJECT 0.5 MG SUBCUTANEOUSLLY EVERY WEEK INSTRUCTED ROTATE INJECTION SITES 04/23/2024 Active Ozempic, 1 MG/DOSE, 4 MG/3ML solution pen-injector (2 sources) Start: 06-10-2024 inject 1 mg by subcutaneous injection every week Ozempic, 1 MG/DOSE, 4 MG/3ML solution pen-injector 1 MG SUBCUTANEOUS EVERY WEEK,X90 DAY(S),INSTR:FILLING IN LIEU OF PCP 06/10/2024 Active Pediatric Multiple Vitamins (CHEWABLE MULTIPLE VITAMINS PO) (2 sources) Pediatric Multip le Vitamins (CHEWABLE MULTIPLE VITAMINS PO) Active PEDIATRIC MULTIVITAMINS-IRON PO (7 sources) Start: 11-12-2018 take 1 tablet by mouth once daily PEDIATRIC MULTIVITAMINS-IRON PO Indications: supplement Take 1 tablet by mouth daily 0 11/12/2018 Active penicillin v potassium 500 mg oral tablet (2 sources) Start: 11-19-2024 take 1 tablet by mouth four times daily penicillin V potassium 500 mg oral tablet TAKE 1 TABLET BY MOUTH 4 TIMES A DAY UNTIL GONE Start Date: 11/19/24 Status: Ordered Medication Dispense Status: Completed Total Allowed Fills: 1 Fills Dispensed: 0 rivaroxaban 20 mg oral tablet (19 sources) Factor Xa Inhibitor Start: 12-08-2021 End: 01-19-2023 take 1 tablet by mouth at bedtime rivaroxaban (Xarelto) 20 MG tablet See Instructions, TAKE 1 TABLET BY MOUTH AT BEDTIME, # 90 tab(s), 3 Refill(s), Pharmacy: [id number], 183, cm, 10/14/21 10:32:00 EST, Height, 187, kg, 10/14/21 10:32:00 EST, Dosing Weight 12/08/2021 Active Start: 06-16-2017 take 1 tablet by lacey once daily at breakfast rivaroxaban (XARELTO) 20 MG TABS tablet Take 1 tablet by mouth daily (with breakfast) 90 tablet 1 06/16/2017 Active sildenafil 25 mg oral tablet (6 sources) Phosphodiesterase 5 Inhibitor Start: 02-28-2023 sildenafil 25 mg oral tablet Dose : 25 mg = 1 tab(s), Oral, qDay, 25 or 50mg dose, 1 hour before sexual activity, # 30 tab(s), 2 Refill(s), Pharmacy: [id number], 183, cm, 02/28/23 13:01:00 EDT, Height Start Date: 02/28/23 Status: Ordered Medication Dispense Status: Completed Quantity: 30.0 Unit: tab(s) Total Allowed Fills: 3 Fills Dispensed: 0 Start: 08-29-2019 take 1-5 tablets by mouth once daily as needed sildenafil 20 mg oral tablet See Instructions, 1 to 5 qd prn, # 30 tab(s), 5 Refill(s), Pharmacy: [facility]/pharmacy #[id number] Start Date: 08/29/19 Status: Ordered tamsulosin hydrochloride 0.4 mg oral capsule (6 sources) alpha-Adrenergic Mariella Start: 07-16-2024 tamsu losin 0.4 mg oral capsule Dose : 0.8 mg = 2 cap(s), TAKE 2 CAPSULE BY MOUTH EVERY DAY Start Date: 07/16/24 Status: Ordered Medication Dispense Status: Completed Total Allowed Fills: 1 Fills Dispensed: 0 Start: 07-09-2024 take 1 capsule by mo [facility] once daily tamsulosin (Flomax) 0.4 MG 24 hr capsule Take 0.8 mg by mouth Nightly. 07/09/2024 Active Start: 08-30-2023 TAMSULOSIN HCL PO 08/30/2023 Active Tirzepatide (Mounjaro) 10 MG/0.5ML solution pen-injector (2 sources) Tirzepatide (Lacey njaro) 10 MG/0.5ML solution pen-injector Active Tirzepatide (Mounjaro) 5 mg/ 0.5 mL pen injector (1 source) Start: 01-05-2023 Tirzepatide (M ounjaro) 5 mg/0.5 mL pen injector Active 5 MG SC EVERY WEEK January 05, 2023 12:00am ubidecarenone 100 mg oral capsule (3 sources) Start: 01-05-2023 Coenzyme Q10 ( Coq-10) 100 mg capsule Active 100 MG PO THREE TIMES A DAY January 05, 2023 12:00am Start: 06-21-2022 take 3 capsules by m out once daily [facility] Coenzyme Q-10 100 MG capsule TAKE 3 SOFTGELS BY MOUTH DAILY 0 06/21/2022 Active ubidecarenone 100 mg / vitamin e 5 unt oral capsule (7 sources) Start: 06-21-2022 take 3 capsules by mouth once daily [facility] Coenzyme Q-10 100 MG capsule TAKE 3 SOFTGELS BY MOUTH DAILY 06/21/2022 Active vitamin b 12 1 mg sublingual tablet (11 sources) Vitamin B12 Start: 05-07-2019 Cyanocobalamin (VITAMIN B-12) 1000 MCG SUBL Indications: supplement Place 1,000 mcg under the tongue every other day Indications: supplement 0 05/07/2019 Active Start: 02-26-2019 Cyanocobalamin (VITAMIN B-12) 500 MCG SUBL Indications: supplement Place 500 mcg under the tongue daily Indications: supplement 0 02/26/2019 Active Start: 11-12-2018 Cyanocobalamin (VITAMIN B-12) 1000 MCG SUBL Indications: supplement Place 1,000 mcg under the tongue once a week 0 11/12/2018 Active Vitamin B12 500 mcg oral tablet (4 sources) Start: 08-29-2023 Vitamin B12 50 0 mcg oral tablet Dose : 500 mcg = 1 tab(s), Oral, qDay, # 90 tab(s), 0 Refill(s), Pharmacy: [facility][id number], 183, cm, 08/29/23 13:52:00 EST, Height, kg, 08/29/23 13:52:00 EST, Dosing Weight Start Date: 08/29/23 Status: Ordered Medication Dispense Status: Completed Quantity: 90.0 Unit: tab(s) Total Allowed Fills: 1 Fills Dispensed: 0 Start: 08-29-2023 Vitamin B12 50 0 mcg oral tablet Dose : 500 mcg = 1 tab(s), Oral, qDay, # 90 tab(s), 0 Refill(s), Pharmacy: [facility]/pharm[facility] #[id number], 183, cm, 08/29/23 13:52:00 EST, Height, kg, 08/29/23 13:52:00 EST, Dosing Weight Start Date: 08/29/23 Status: Ordered Quantity: 90.0 Unit: tab(s) Repeat number: 1 Start: 05-30-2019 Vitamin B12 50 0 mcg oral tablet Dose : 500 mcg = 1 tab(s), Oral, qDay, # 30 tab(s), 0 Refill(s) Start Date: 05/30/19 Status: Ordered VITAMIN D, CHOLECALCIFEROL, PO (7 sources) Start: 11-12-2018 VITAMIN D, CHO LECALCIFEROL, PO Indications: supplement Take 4,000 Int'l Units by mouth daily 0 11/12/2018 Active Vitamin D3 (4 sources) Start: 05-30-2019 Vitamin D3 Dos e : 400 unit(s) = 1 tab(s), Oral, Daily, 0 Refill(s) Start Date: 05/30/19 Status: Ordered Medication Dispense Status: Completed Total Allowed Fills: 1 Fills Dispensed: 0 Start: 05-30-2019 Vitamin D3 Dos e : 400 unit(s) = 1 tab(s), Oral, Daily, 0 Refill(s) Start Date: 05/30/19 Status: Ordered Repeat number: 1 Start: 05-30-2019 Vitamin D3 Dos e : 400 unit(s) = 1 tab(s), Oral, Daily, 0 Refill(s) Start Date: 05/30/19 Status: Ordered Completed/Discontinued Medications Medication Drug Class(es) Dates Sig (Normalized) Sig (Original) warfarin sodium 7.5 mg oral tablet (8 sources) Vitamin K Antagonist Start: 11-23-2016 End: 10-05-2021 Warfarin (Coumadin (Pbkc)) 5 MG tablet Discontinued 5 MG PO DIRECTED November 23, 2016 1:00am October 05, 2021 4:02pm Start: 11-23-2016 End: 10-05-2021 Warfarin (Coumadin (Pbkc)) 7 .5 MG tablet Discontinued 7.5 MG PO DIRECTED November 23, 2016 1:00am October 05, 2021 4:02pm Problems Active Problems Problem Classification Problem Date Documented Date Episodic/Chronic Cancer; other and unspecified primary (20 sources) Malignant melanoma of shoulder; Translations: [Malignant melanoma of unspecified upper limb, including shoulder] Onset: 6 04-16-2016 Chronic Cancer; other and unspecified primary (3 sources) H/O Malignant melanoma 11-01-2022 Episodic Chronic ulcer of skin (4 sources) Ulcer of lower extremity; Translations: [Non-pressure chronic ulcer of unspecified part of right lower leg with fat layer exposed] 12-21-2016 Chronic Coagulation and hemorrhagic disorders (16 sources) Hypercoagulability state; Translations: [Other primary thrombophilia] Onset: 7 11-06-2018 Chronic Diabetes mellitus with complications (3 sources) Renal disorder due to type 2 diabetes mellitus; Translations: [Type 2 diabetes mellitus with other diabetic kidney complication] Chronic Diabetes mellitus without complication (20 sources) Type 2 diabetes mellitus; Translations: [Diabetes mellitus] Onset: 9 11-06-2018 Chronic Disorders of teeth and jaw (2 sources) Dental caries 11-19-2024 Episodic Esophageal disorders (11 sources) Gastroesophageal reflux disease without esophagitis; Translations: [Gastro-esophageal reflux disease without esophagitis] Onset: 0 07-02-2020 Chronic Essential hypertension (20 sources) Hypertensive disorder; Translations: [Benign essential hypertension] Onset: 9 11-06-2018 Chronic Genitourinary symptoms and ill-defined conditions (2 sources) Dribbling of urine 08-29-2023 Chronic Genitourinary symptoms and ill-defined conditions (1 source) Proteinuria; Translations: [Proteinuria, unspecified] Episodic Melanomas of skin (3 sources) Nodular malignant melanoma of skin; Translations: [Malignant melanoma of right upper limb, including shoulder] Onset: 2 08-29-2019 Chronic Nutritional deficiencies (4 sources) Iron deficiency; Translations: [Vitamin D deficiency] Chronic Osteoarthritis (4 sources) Arthritis 05-30-2019 Chronic Other aftercare (1 source) Surgical follow-up; Translations: [Encounter for surgical aftercare following surgery on the circulatory system] 03-09-2023 Episodic Other circulatory disease (2 sources) Bleeding; Translations: [Hemorrhage, not elsewhere classified] 12-31-2022 Episodic Other diseases of veins and lymphatics (4 sources) Lymphedema; Translations: [Lymphedema, not elsewhere classified] 10-05-2021 Chronic Other diseases of veins and lymphatics (4 sources) Peripheral venous insufficiency; Translations: [Venous insufficiency (chronic) (peripheral)] 10-05-2021 Episodic Other diseases of veins and lymphatics (4 sources) Stasis dermatitis 05-31-2022 Episodic Other diseases of veins and lymphatics (1 source) Venous insufficiency (chronic) (peripheral); Translations: [Venous insufficiency (chronic) (peripheral)] Onset: 3 Episodic Other liver diseases (16 sources) Steatosis of liver; Translations: [Fatty (change of) liver, not elsewhere classified] Onset: 9 11-05-2018 Chronic Other liver diseases (1 source) Enzyme level - finding; Translations: [Abnormal levels of other serum enzymes] Episodic Other non-traumatic joint disorders (4 sources) Arthritis of knee 05-11-2020 Chronic Other non-traumatic joint disorders (9 sources) Knee pain; Translations: [Knee pain] 05-09-2018 Episodic Other nutritional; endocrine; and metabolic disorders (11 sources) Body mass index 40+ - severely obese; Translations: [Morbid obesity with BMI of 60.0-69.9, adult] Onset: 9 Resolved: 9 11-05-2018 Chronic Other nutritional; endocrine; and metabolic disorders (18 sources) Morbid obesity; Translations: [Morbid (severe) obesity due to excess calories] Onset: 9 11-12-2018 Chronic Other nutritional; endocrine; and metabolic disorders (4 sources) Obesity; Translations: [Obesity, unspecified] 12-01-2016 Chronic Other screening for suspected conditions (not mental disorders or infectious disease) (5 sources) Serum potassium level below reference range; Translations: [Increased vitamin B] 11-01-2022 Episodic Phlebitis; thrombophlebitis and thromboembolism (20 sources) Deep venous thrombosis of lower extremity; Translations: [Acute embolism and thrombosis of unspecified deep veins of unspecified lower extremity] Onset: 7 12-07-2016 Episodic Phlebitis; thrombophlebitis and thromboembolism (7 sources) Acute deep venous thrombosis of tibial vein of right leg; Translations: [Acute deep vein thrombosis (DVT) of tibial vein of right lower extremity] Onset: 7 12-07-2016 Pulmonary heart disease (4 sources) H/O: pulmonary embolus 05-31-2022 Episodic Residual codes; unclassified (19 sources) Obstructive sleep apnea syndrome; Translations: [Obstructive sleep apnea (adult) (pediatric)] Onset: 9 11-06-2018 Chronic Residual codes; unclassified (4 sources) Edema of lower extremity; Translations: [Localized edema] 12-21-2016 Episodic Residual codes; unclassified (1 source) Localized edema; Translations: [Edema] 01-05-2023 Episodic Residual codes; unclassified (2 sources) Family history of colorectal cancer 11-19-2024 Episodic Unclassified (7 sources) Drug therapy finding; Translations: [On anticoagulant therapy] 11-06-2018 Unclassified (4 sources) Effusion of joint of left knee 05-11-2020 Unclassified (4 sources) History of sleeve gastrectomy 05-31-2022 Unclassified (3 sources) Grade A1 albuminuria 11-01-2022 Unclassified (1 source) Patient encounter status 05-30-2025 Varicose veins of lower extremity (17 sources) 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; Translations: [Varicose veins of right lower extremity with other complications] Onset: 3 05-31-2022 Episodic Past or Other Problems Problem Classification Problem Date Documented Date Episodic/Chronic Abdominal hernia (7 sources) Hernia of anterior abdominal wall; Translations: [Ventral hernia without obstruction or gangrene] Onset: 04-08-2018 Resolved: 11-06-2018 11-06-2018 Episodic Gastritis and duodenitis (16 sources) Superficial gastritis; Translations: [Acute superficial gastritis] Onset: 07-17-2018 07-17-2018 Episodic Nutritional deficiencies (18 sources) Deficiency of multiple nutrient elements; Translations: [Deficiency of multiple nutrient elements] Onset: 11-12-2018 11-12-2018 Episodic Other aftercare (17 sources) Drug therapy finding; Translations: [group home (current) use of anticoagulants] Onset: 11-06-2018 03-12-2022 Episodic Other nutritional; endocrine; and metabolic disorders (16 sources) Autoantibody level - finding; Translations: [Raised antibody titer] Onset: 04-08-2018 04-08-2018 Episodic Unclassified (7 sources) Preprocedural examination done; Translations: [Pre-op exam] Onset: 07-18-2018 Resolved: 08-17-2018 08-17-2018 Results Test Name Value Interpretation Reference Range Facility [id number] 06-18-2025 Vitamin B6 Lvl 7.2 UG/L Normal 3.4-65.2 [facility] Comment on above: Result Comment: This test was developed and its performance characteristics determined by [facility]. It has not been cleared or approved by the Food and Drug Administration. Deficiency: <3.4 Marginal: 3.4 - 5.1 Adequate: >5.1 Performed At: [address] [id number] Nathaniel Hussein MD Ph:[phone] Performed By: #### A DIFF, PSA, TSHR, 004818, LIPID, [id number], GFR, FES, PHOS, CBC, 482784, A1C, 009088, FERR, PRO, 894439, MG, ANEU, 186491, CMP #### [place] [address] #### PRALB, B12, FOL #### [place] [address] B1WBon 06-17-2025 Vitamin B1 Whl Bld 125.5 nmol/L Normal 66.5-200.[address] [facility] Comment on above: Result Comment: This test was developed and its performance characteristics determined by [facility]. It has not been cleared or approved by the Food and Drug Administration. Performed At: [address] [id number] Nathaniel Hussein MD Ph:[phone] Performed By: #### A DIFF, PSA, TSHR, 257104, LIPID, [id number], GFR, FES, PHOS, CBC, 656820, A1C, 029169, FERR, PRO, 804558, MG, ANEU, 551825, CMP #### [place] [address] #### PRALB, B12, FOL #### [address] [address] CUSon 06-17-2025 Copper Lvl 84 UG/DL Normal 69-132 [facility] Comment on above: Result Comment: This test was developed and its performance characteristics determined by [facility]. It has not been cleared or approved by the Food and Drug Administration. Detection Limit = 5 Performed At: [address] [id number] Nathaniel Hussein MD Ph:[phone] Performed By: #### A DIFF, PSA, TSHR, 089701, LIPID, [id number], GFR, FES, PHOS, CBC, 315549, A1C, 777354, FERR, PRO, 234099, MG, ANEU, 331198, CMP #### [address] [address] #### PRALB, B12, FOL #### [address] 06-17-2025 Zinc Lvl 91 UG/DL Normal 44-115 [facility] Comment on above: Result Comment: This test was developed and its performance characteristics determined by [facility]. It has not been cleared or approved by the Food and Drug Administration. Detection Limit = 5 Performed At: [address] [id number] Nathaniel Hussein MD Ph:[phone] Performed By: #### A DIFF, PSA, TSHR, 171116, LIPID, [id number], GFR, FES, PHOS, CBC, 687860, A1C, 673138, FERR, PRO, 989445, MG, ANEU, 951159, CMP #### [address] [address] #### PRALB, B12, FOL #### [place] [address] APOB 06-15-2025 Apolipoprotein B [Mass/Vol] 63 mg/dL Normal <90 [facility] Comment on above: Result Comment: Mayelin lubin < 90 Borderline High 90 - 99 High 100 - 130 Very High >130 ASCVD RISK THERAPEUTIC TARGET CATEGORY APO B (mg/dL) Very High Risk <80 (if extreme risk <70) High Risk <90 Moderate Risk <90 Performed At: [facility] [id number] Nathaniel Hussein MD Ph:[phone] Performed By: #### A DIFF, PSA, TSHR, 526634, LIPID, [id number], GFR, FES, PHOS, CBC, 800669, A1C, 661971, FERR, PRO, 272342, MG, ANEU, 323208, CMP #### [address] [address] #### PRALB, B12, FOL #### [address] [address] LIPOAon 06-13-2025 Lipoprotein a [Moles/Vol] 13.8 nmol/L Normal <75.0 [facility] Comment on above: Result Comment: This test was developed and its performance characteristics determined by [facility]. It has not been cleared or approved by the Food and Drug Administration. Note: Values greater than or equal to 75.0 nmol/L may indicate an independent risk factor for CHD, but must be evaluated with caution when applied to non- populations due to the influence of genetic factors on Lp(a) across ethnicities. Performed At: [facility] [id number] Gail Pappas PhD Ph:[phone] Performed By: #### A DIFF, PSA, TSHR, 740519, LIPID, [id number], GFR, FES, PHOS, CBC, 906391, A1C, 005326, FERR, PRO, 083129, MG, ANEU, 247938, CMP #### [address] [address] #### PRALB, B12, FOL #### [address] [address] .Auto Diffon 06-12-2025 Basophil, Absolute 0.1 10 3/mcL Normal 0.0-0.[address] [facility] Comment on above: Performed By: #### A DIFF, PSA, TSHR, 988965, LIPID, [id number], GFR, FES, PHOS, CBC, 453723, A1C, 593356, FERR, PRO, 578719, MG, ANEU, 644459, CMP #### [address] [address] #### PRALB B12, FOL #### [address] [address] Basophils/100 WBC (Bld) 0.8 % Normal 0.0-2.5 [facility] Comment on above: Performed By: #### A DIFF, PSA, TSHR, 331978, LIPID, [id number], GFR, FES, PHOS, CBC, 802704, A1C, 302181, FERR, PRO, 073052, MG, ANEU, 833940, CMP #### [place] [address] #### PRALB, B12, FOL #### [address] [address] Eosinophil, Absolute 0.1 10 3/mcL Normal 0.0-0.7 [facility] Comment on above: Performed By: #### A DIFF, PSA, TSHR, 498260, LIPID, [id number], GFR, FES, PHOS, CBC, 743208, A1C, 803820, FERR, PRO, 422572, MG, ANEU, 075424, CMP #### [place] [address] #### PRALB, B12, FOL #### [address] [address] Eosinophils/100 WBC (Bld) 0.9 % Normal 0.0-6.0 [facility] Comment on above: Performed By: #### A DIFF, PSA, TSHR, 404326, LIPID, [id number], GFR, FES, PHOS, CBC, 532191, A1C, 382648, FERR, PRO, 423177, MG, ANEU, 610621, CMP #### [address] [place] [address] #### PRALB, B12, FOL #### [address] [address] Lymphocyte, Absolute 1.3 10 3/mcL Normal 0.9-4.3 [facility] Comment on above: Performed By: #### A DIFF, PSA, TSHR, 855609, LIPID, [id number], GFR, FES, PHOS, CBC, 577410, A1C, 466527, FERR, PRO, 611109, MG, ANEU, 661343, CMP #### [address] [address] #### PRALB, B12, FOL #### [address] [address] Lymphocytes/100 WBC (Bld) 21.0 % Normal 20.0-40.0 [facility] Comment on above: Performed By: #### A DIFF, PSA, TSHR, 188818, LIPID, [id number], GFR, FES, PHOS, CBC, 502420, A1C, 447153, FERR, PRO, 212578, MG, ANEU, 754002, CMP #### [place] [address] #### PRALB, B12, FOL #### [address] [address] Monocyte, Absolute 0.4 10 3/mcL Normal 0.1-1.[address] [facility] Comment on above: Performed By: #### A DIFF, PSA, TSHR, 499483, LIPID, [id number], GFR, FES, PHOS, CBC, 303438, A1C, 858268, FERR, PRO, 157179, MG, ANEU, 377815, CMP #### [address] [address] #### PRALB, B12, FOL #### [address] [address] Monocytes/100 WBC (Bld) 6.9 % Normal 2.0-13.0 [facility] Comment on above: Performed By: #### A DIFF, PSA, TSHR, 690533, LIPID, [id number], GFR, FES, PHOS, CBC, 576618, A1C, 010207, FERR, PRO, 574904, MG, ANEU, 525277, CMP #### [address] [address] #### PRALB, B12, FOL #### [address] [address] Neutrophils/100 WBC (Bld) 70.4 % Normal 50.0-75.0 [facility] Comment on above: Performed By: #### A DIFF, PSA, TSHR, 852596, LIPID, [id number], GFR, FES, PHOS, CBC, 098541, A1C, 484842, FERR, PRO, 153746, MG, ANEU, 971214, CMP #### [address] [address] #### PRALB, B12, FOL #### [address] [address] .GFRon 06-12-2025 Estimated Glomerular Filtration Rate 102 ml/min/1.73sqm Normal [facility] Comment on above: Result Comment: Stages of Chronic Kidney Disease (CKD) Stage Description eGFR(ml/min/1.73 sq.m.) CKD 1 Normal kidney function or >=90 normal kindney function with possible kidney damage (ex. Proteinuria) CKD 2 Kidney damage with mild loss 60-89 of kidney function CKD 3a Mild to moderate loss of kidney 45-59 function CKD 3b Moderate to severe loss of 30-44 of kindey function CKD 4 Severe loss of kidney function 15-29 CKD 5 Kidney failure <15 Note: (go live 2024) the eGFR calculation was updated to the 2020 CKD-EPI creatinine equation without a race factor to calculate the eGFR results. Performed By: #### A DIFF, PSA, TSHR, 316000, LIPID, [id number], GFR, FES, PHOS, CBC, 685304, A1C, 118322, FERR, PRO, 463167, MG, ANEU, 006022, CMP #### [address] [address] #### PRALB, B12, FOL #### [address] [address] .NEUABSon 06-12-2025 Neutrophil, Absolute 4.5 10 3/mcL Normal 2.3-8.1 [facility] Comment on above: Performed By: #### A DIFF, PSA, TSHR, 881181, LIPID, [id number], GFR, FES, PHOS, CBC, 400003, A1C, 831721, FERR, PRO, 028536, MG, ANEU, 593134, CMP #### [address] [address] #### PRALB, B12, FOL #### [address] [address] A1Con 06-12-2025 Glucose [Mass/Vol] 134 mg/dL Normal [facility] Comment on above: Result Comment: Ilda mated Average Glucose calculated by equation ((28.7xA1C)-46.7) Estimated average glucose (eAG) is a calculated value from Hemoglobin A1C and is public service representative of the average blood glucose level in the last 2-3 month period. Normal range: less than 114 mg/dL Performed By: #### A DIFF, PSA, TSHR, 869093, LIPID, [id number], GFR, FES, PHOS, CBC, 513505, A1C, 920963, FERR, PRO, 452304, MG, ANEU, 945375, CMP #### [address] [address] #### PRALB, B12, FOL #### [address] [address] HbA1c (Bld) [Mass fraction] 6.3 % Normal 4.3-6.4 [facility] Comment on above: Performed By: #### A DIFF, PSA, TSHR, 045993, LIPID, [id number], GFR, FES, PHOS, CBC, 822529, A1C, 905228, FERR, PRO, 505673, MG, ANEU, 251691, CMP #### [address] [address] #### PRALB, B12, FOL #### [address] [address] B12on 06-12-2025 Cobalamin (Vitamin B12) [Mass/Vol] 642 pg/mL Normal 211-911 [facility] Comment on above: Performed By: #### A DIFF, PSA, TSHR, 082975, LIPID, [id number], GFR, FES, PHOS, CBC, 707925, A1C, 019407, FERR, PRO, 559521, MG, ANEU, 060618, CMP #### [address] [address] #### PRALB, B12, FOL #### [address] [address] CBCon 06-12-2025 Erythrocyte distribution width (RBC) [Ratio] 13.7 % Normal 11.5-15.5 [facility] Comment on above: Performed By: #### A DIFF, PSA, TSHR, 032794, LIPID, [id number], GFR, FES, PHOS, CBC, 458010, A1C, 109578, FERR, PRO, 835971, MG, ANEU, 026846, CMP #### [address] [address] #### PRALB, B12, FOL #### [place] [address] Hematocrit (Bld) [Volume fraction] 43.3 % Normal 40.0-52.0 [facility] Comment on above: Performed By: #### A DIFF, PSA, TSHR, 368668, LIPID, [id number], GFR, FES, PHOS, CBC, 682173, A1C, 351331, FERR, PRO, 055348, MG, ANEU, 026130, CMP #### [address] [address] #### PRALB, B12, FOL #### [place] [address] Hgb 15.0 G/dL Normal 13.0-17.5 [facility] Comment on above: Performed By: #### A DIFF, PSA, TSHR, 730772, LIPID, [id number], GFR, FES, PHOS, CBC, 136758, A1C, 587344, FERR, PRO, 465589, MG, ANEU, 942903, CMP #### [place] [address] #### PRALB, B12, FOL #### [address] [address] MCH (RBC) [Entitic mass] 30.1 pg Normal 27.0-33.0 [facility] Comment on above: Performed By: #### A DIFF, PSA, TSHR, 097820, LIPID, [id number], GFR, FES, PHOS, CBC, 606076, A1C, 413717, FERR, PRO, 966526, MG, ANEU, 289623, CMP #### [place] [address] #### PRALB, B12, FOL #### [address] [address] MCHC 34.8 G/dL Normal 32.0-36.0 [facility] Comment on above: Performed By: #### A DIFF, PSA, TSHR, 377278, LIPID, [id number], GFR, FES, PHOS, CBC, 754925, A1C, 656737, FERR, PRO, 565537, MG, ANEU, 585426, CMP #### [place] [address] #### PRALMarichuy, B12, FOL #### [address] [address] MCV (RBC) [Entitic vol] 86.6 fL Normal 81.0-100.0 [facility] Comment on above: Performed By: #### A DIFF, PSA, TSHR, 308535, LIPID, [id number], GFR, FES, PHOS, CBC, 342837, A1C, 813853, FERR, PRO, 019524, MG, ANEU, 764858, CMP #### [address] [address] #### PRALB, B12, FOL #### [address] [address] Platelet 291 10 3/mcL Normal 150-450 [facility] Comment on above: Performed By: #### A DIFF, PSA, TSHR, 562319, LIPID, [id number], GFR, FES, PHOS, CBC, 332662, A1C, 919219, FERR, PRO, 114000, MG, ANEU, 114774, CMP #### [place] [address] #### PRALB B12, FOL #### [place] [address] Platelet mean volume (Bld) [Entitic vol] 7.3 fL Normal 6.4-10.5 [facility] Comment on above: Performed By: #### A DIFF, PSA, TSHR, 446937, LIPID, [id number], GFR, FES, PHOS, CBC, 266177, A1C, 679543, FERR, PRO, 938798, MG, ANEU, 490396, CMP #### [place] [address] #### PRABRENDA B12, FOL #### [address] [address] RBC 5.00 10 6/mcL Normal 4.50-6.00 [facility] Comment on above: Performed By: #### A DIFF, PSA, TSHR, 722304, LIPID, [id number], GFR, FES, PHOS, CBC, 489809, A1C, 167529, FERR, PRO, 409191, MG, ANEU, 993037, CMP #### [place] [address] #### PRALB, B12, FOL #### [address] [address] WBC 6.3 10 3/mcL Normal 4.5-10.8 [facility] Comment on above: Performed By: #### A DIFF, PSA, TSHR, 175788, LIPID, [id number], GFR, FES, PHOS, CBC, 527163, A1C, 103657, FERR, PRO, 626967, MG, ANEU, 579865, CMP #### [place] [address] #### PRALMarichuy B12, FOL #### [address] [address] CMPon 06-12-2025 Albumin Level 3.4 G/dL Low 3.5-5.0 [facility] Comment on above: Performed By: #### A DIFF, PSA, TSHR, 356284, LIPID, [id number], GFR, FES, PHOS, CBC, 889889, A1C, 813088, FERR, PRO, 868631, MG, ANEU, 895990, CMP #### [place] [address] #### PRALMarichuy B12, FOL #### [place] [address] Albumin/Globulin [Mass ratio] 0.8 {ratio} Low 1.1-2.5 [facility] Comment on above: Performed By: #### A DIFF, PSA, TSHR, 793199, LIPID, [id number], GFR, FES, PHOS, CBC, 054653, A1C, 722800, FERR, PRO, 596845, MG, ANEU, 425408, CMP #### [place] [address] #### PRABRENDA B12, FOL #### [place] [address] ALP [Catalytic activity/Vol] 99 U/L Normal 40-135 [facility] Comment on above: Performed By: #### A DIFF, PSA, TSHR, 753826, LIPID, [id number], GFR, FES, PHOS, CBC, 356892, A1C, 571517, FERR, PRO, 342792, MG, ANEU, 934488, CMP #### [place] [address] #### PRALB, B12, FOL #### [place] [address] ALT [Catalytic activity/Vol] 31 U/L Normal 16-63 [facility] Comment on above: Performed By: #### A DIFF, PSA, TSHR, 510333, LIPID, [id number], GFR, FES, PHOS, CBC, 585931, A1C, 311210, FERR, PRO, 812927, MG, ANEU, 747968, CMP #### [place] [address] #### PRALB, B12, FOL #### [address] [address] AST [Catalytic activity/Vol] 23 U/L Normal 10-40 [facility] Comment on above: Performed By: #### A DIFF, PSA, TSHR, 066749, LIPID, [id number], GFR, FES, PHOS, CBC, 595511, A1C, 712205, FERR, PRO, 135374, MG, ANEU, 293896, CMP #### [place] [address] #### PRALB, B12, FOL #### [place] [address] Bili Total 0.7 mg/dL Normal 0.2-1.0 [facility] Comment on above: Result Comment: Use of this assay is not recommended for patients undergoing treatment with eltrombopag due to the potential for falsely elevated results. Performed By: #### A DIFF, PSA, TSHR, 470752, LIPID, [id number], GFR, FES, PHOS, CBC, 924053, A1C, 676220, FERR, PRO, 359146, MG, ANEU, 394975, CMP #### [place] [address] #### PRALB, B12, FOL #### [address] [address] BUN/Creatinine Ratio 21 ratio Normal 7-[address] [facility] Comment on above: Performed By: #### A DIFF, PSA, TSHR, 143422, LIPID, [id number], GFR, FES, PHOS, CBC, 313026, A1C, 999360, FERR, PRO, 999639, MG, ANEU, 336005, CMP #### [place] [address] #### PRALB, B12, FOL #### [address] [address] Calcium [Mass/Vol] 9.2 mg/dL Normal 8.4-10.2 [facility] Comment on above: Performed By: #### A DIFF, PSA, TSHR, 872199, LIPID, [id number], GFR, FES, PHOS, CBC, 268660, A1C, 550766, FERR, PRO, 041210, MG, ANEU, 648202, CMP #### [address] [address] #### PRALB, B12, FOL #### [address] [address] Chloride [Moles/Vol] 101 mmol/L Normal 98-[address] [facility] Comment on above: Performed By: #### A DIFF, PSA, TSHR, 985218, LIPID, [id number], GFR, FES, PHOS, CBC, 637316, A1C, 769949, FERR, PRO, 215337, MG, ANEU, 884995, CMP #### [address] [address] #### PRALB, B12, FOL #### [address] [address] CO2 [Moles/Vol] 31 mmol/L High 22-29 [facility] Comment on above: Performed By: #### A DIFF, PSA, TSHR, 997214, LIPID, [id number], GFR, FES, PHOS, CBC, 899281, A1C, 948035, FERR, PRO, 145951, MG, ANEU, 881617, CMP #### [address] [address] #### PRALB, B12, FOL #### [address] [address] Creatinine [Mass/Vol] 0.84 mg/dL Normal 0.67-1.17 [facility] Comment on above: Performed By: #### A DIFF, PSA, TSHR, 807161, LIPID, [id number], GFR, FES, PHOS, CBC, 942218, A1C, 570119, FERR, PRO, 751655, MG, ANEU, 978963, CMP #### [address] [address] #### PRALMarichuy B12, FOL #### [address] [address] Electrolyte Balance 6.0 mEq/L Normal 4.0-15.0 [facility] Comment on above: Performed By: #### A DIFF, PSA, TSHR, 250881, LIPID, [id number], GFR, FES, PHOS, CBC, 258915, A1C, 846566, FERR, PRO, 960979, MG, ANEU, 528409, CMP #### [address] [address] #### PRALB, B12, FOL #### [place] [address] Globulin 4.2 G/dL Normal 2.7-4.4 [facility] Comment on above: Performed By: #### A DIFF, PSA, TSHR, 858365, LIPID, [id number], GFR, FES, PHOS, CBC, 920680, A1C, 265919, FERR, PRO, 240742, MG, ANEU, 505979, CMP #### [address] [address] #### PRALMarichuy B12, FOL #### [address] [address] Glucose [Mass/Vol] 120 mg/dL High 70-105 [facility] Comment on above: Performed By: #### A DIFF, PSA, TSHR, 813690, LIPID, [id number], GFR, FES, PHOS, CBC, 269266, A1C, 758994, FERR, PRO, 702145, MG, ANEU, 803655, CMP #### [address] [address] #### PRALB, B12, FOL #### [address] [address] Potassium [Moles/Vol] 3.8 mmol/L Normal 3.5-5.1 [facility] Comment on above: Performed By: #### A DIFF, PSA, TSHR, 150742, LIPID, [id number], GFR, FES, PHOS, CBC, 060007, A1C, 364494, FERR, PRO, 916429, MG, ANEU, 389292, CMP #### [address] [address] #### PRALB, B12, FOL #### [address] [address] Sodium [Moles/Vol] 138 mmol/L Normal 136-145 [facility] Comment on above: Performed By: #### A DIFF, PSA, TSHR, 803429, LIPID, [id number], GFR, FES, PHOS, CBC, 218290, A1C, 899462, FERR, PRO, 059841, MG, ANEU, 350869, CMP #### [address] [address] #### PRALB, B12, FOL #### [address] [address] Total Protein 7.6 G/dL Normal 6.4-8.2 [facility] Comment on above: Performed By: #### A DIFF, PSA, TSHR, 674024, LIPID, [id number], GFR, FES, PHOS, CBC, 076782, A1C, 576642, FERR, PRO, 183796, MG, ANEU, 647894, CMP #### [address] [address] #### PRALB, B12, FOL #### [address] [address] Urea nitrogen [Mass/Vol] 18 mg/dL Normal 7-18 [facility] Comment on above: Performed By: #### A DIFF, PSA, TSHR, 461252, LIPID, [id number], GFR, FES, PHOS, CBC, 471109, A1C, 534623, FERR, PRO, 487057, MG, ANEU, 102700, CMP #### [address] [address] #### PRALB, B12, FOL #### [address] [address] [place] 06-12-2025 Ferritin [Mass/Vol] 53.0 ng/mL Normal 26.0-388.0 [facility] Comment on above: Performed By: #### A DIFF, PSA, TSHR, 258257, LIPID, [id number], GFR, FES, PHOS, CBC, 893866, A1C, 686291, FERR, PRO, 115557, MG, ANEU, 920249, CMP #### [address] [address] #### PRALB, B12, FOL #### [place] [address] FESon 06-12-2025 Iron [Mass/Vol] 88 ug/dL Normal 65-175 [facility] Comment on above: Performed By: #### A DIFF, PSA, TSHR, 945786, LIPID, [id number], GFR, FES, PHOS, CBC, 618428, A1C, 073256, FERR, PRO, 801500, MG, ANEU, 074966, CMP #### [address] [address] #### PRALB, B12, FOL #### [place] [address] Iron Sat 31 % Normal [facility] Comment on above: Performed By: #### A DIFF, PSA, TSHR, 854376, LIPID, [id number], GFR, FES, PHOS, CBC, 598445, A1C, 077591, FERR, PRO, 268980, MG, ANEU, 200563, CMP #### [address] [address] #### PRALB, B12, FOL #### [place] [address] TIBC 286 mcg/dL Normal 250-450 [facility] Comment on above: Performed By: #### A DIFF, PSA, TSHR, 127572, LIPID, [id number], GFR, FES, PHOS, CBC, 646119, A1C, 162309, FERR, PRO, 659946, MG, ANEU, 649936, CMP #### [address] [address] #### PRALB, B12, FOL #### [address] [address] FOLon 06-12-2025 Folate 9.79 ng/mL Normal 5.38-24.00 [facility] Comment on above: Performed By: #### A DIFF, PSA, TSHR, 738300, LIPID, [id number], GFR, FES, PHOS, CBC, 530970, A1C, 402539, FERR, PRO, 207986, MG, ANEU, 527218, CMP #### [address] [address] #### PRALB, B12, FOL #### [place] [id number] LABORATORYOrdered By: SYSTEM SYSTEM on 06-12-2025 Albumin BCP dye [Mass/Vol] 3.4 G/dL Low 3.5 - 5.0 G/dL AO ADM SS Albumin/Globulin [Mass ratio] 0.8 {ratio} Low 1.1 - 2.5 ratio AO ADM SS ALP [Catalytic activity/Vol] 99 U/L Normal 40 - 135 U/L AO ADM SS ALT With P-5'-P [Catalytic activity/Vol] 31 U/L Normal 16 - 63 U/L AO ADM SS AST With P-5'-P [Catalytic activity/Vol] 23 U/L Normal 10 - 40 U/L AO ADM SS Basophils (Bld) [#/Vol] 0.1 103/mcL Normal 0.0 - 0.3 10^3/mcL AO Workflow SS Basophils/100 WBC (Bld) 0.8 % Normal 0.0 - 2.5 % AO Workflow SS Bilirubin [Mass/Vol] 0.7 mg/dL Normal 0.2 - 1 .0 mg/dL AO ADM SS Comment on above: Interpretive Data: U se of this assay is not recommended for patients undergoing treatment with eltrombopag due to the potential for falsely elevated results. Calcium [Mass/Vol] 9.2 mg/dL Normal 8.4 - 10. 2 mg/dL AO ADM SS Chloride [Moles/Vol] 101 mmol/L Normal 98 - 10 7 mmol/L AO ADM SS CO2 [Moles/Vol] 31 mmol/L High 22 - 29 mmol/L AO ADM SS Cobalamin (Vitamin B12) [Mass/Vol] 642 pg/mL Normal 211 - 911 pg/mL AH ADM SS Creatinine [Mass/Vol] 0.84 mg/dL Normal 0.67 - 1.17 mg/dL AO ADM SS Electrolyte Balance 6.0 mEq/L Normal 4.0 - 15 .0 mEq/L AO ADM SS Eosinophil, Absolute 0.1 103/mcL Normal 0.0 - 0 .7 10^3/mcL AO Workflow SS Eosinophils/100 WBC (Bld) 0.9 % Normal 0.0 - 6.0 % AO Workflow SS Erythrocyte distribution width (RBC) [Ratio] 13.7 % Normal 11.5 - 15.5 % AO Workflow SS Estimated Glomerular Filtration Rate 102 ml/min/1.73sqm Invalid Interpretation Code AO Chemistry S Comment on above: Interpretive Data: Stages of Chronic Kidney Disease (CKD) Stage Description eGFR(ml/min/1.73 sq.m.) CKD 1 Normal kidney function or >=90 normal kindney function with possible kidney damage (ex. Proteinuria) CKD 2 Kidney damage with mild loss 60-89 of kidney function CKD 3a Mild to moderate loss of kidney 45-59 function CKD 3b Moderate to severe loss of 30-44 of kindey function CKD 4 Severe loss of kidney function 15-29 CKD 5 Kidney failure <15 Note: (go live 2024) the eGFR calculation was updated to the 2020 CKD-EPI creatinine equation without a race factor to calculate the eGFR results. Ferritin [Mass/Vol] 53.0 ng/mL Normal 26.0 - 3 88.0 ng/mL AO ADM SS Folate [Mass/Vol] 9.79 ng/mL Normal 5.38 - 24. 00 ng/mL AH ADM SS Globulin 4.2 G/dL Normal 2.7 - 4.4 G/dL AO ADM SS Glucose [Mass/Vol] 134 mg/dL Invalid Interpretation Code AO Chemistry S Comment on above: Interpretive Data: E stimated average glucose (eAG) is a calculated value from Hemoglobin A1C and is public service representative of the average blood glucose level in the last 2-3 month period. Normal range: less than 114 mg/dL Glucose [Mass/Vol] 120 mg/dL High 70 - 105 mg/dL AO ADM SS HbA1c (Bld) [Mass fraction] 6.3 % Normal 4.3 - 6.4 % AO ADM SS Hematocrit (Bld) [Volume fraction] 43.3 % Normal 40.0 - 52.0 % AO Workflow SS Hemoglobin (Bld) [Mass/Vol] 15.0 G/dL Normal 13.0 - 17.5 G/dL AO Workflow SS INR Coag (PPP) [Relative time] 1.3 {INR} Invalid Interpretation Code AO HemoHub SS Comment on above: Interpretive Data: Paddy dang [employer] [place] [employer] (CHEST, 1991, 102:312S-25S) recommended therapeutic range for oral anticoagulant therapy is: LOW RISK: Prophylaxis of venous thrombosis INR: 2.0-3.0 Treatment of pulmonary embolism 2.0-3.0 Prevention of systemic embolism 2.0-3.0 HIGH RISK: Mechanical prosthetic valves 2.5-3.5 Iron [Mass/Vol] 88 ug/dL Normal 65 - 175 mcg/dL AO ADM SS Iron binding capacity [Mass/Vol] 286 mcg/dL Normal 250 - 450 mcg/dL AO ADM SS Iron Sat 31 % Invalid Interpretation Code AO ADM SS Lymphocytes (Bld) [#/Vol] 1.3 103/mcL Normal 0.9 - 4.3 10^3/mcL AO Workflow SS Lymphocytes/100 WBC (Bld) 21.0 % Normal 20.0 - 40.0 % AO Workflow SS Magnesium [Mass/Vol] 2.2 mg/dL Normal 1.8 - 2 .4 mg/dL AO ADM SS MCH (RBC) [Entitic mass] 30.1 pg Normal 27.0 - 33.0 pg AO Workflow SS MCHC 34.8 G/dL Normal 32.0 - 36.0 G/dL AO Workflow SS MCV (RBC) [Entitic vol] 86.6 fL Normal 81.0 - 100.0 fL AO Workflow SS Monocytes (Bld) [#/Vol] 0.4 103/mcL Normal 0.1 - 1.4 10^3/mcL AO Workflow SS Monocytes/100 WBC (Bld) 6.9 % Normal 2.0 - 13.0 % AO Workflow SS Neutrophils (Bld) [#/Vol] 4.5 103/mcL Normal 2.3 - 8.1 10^3/mcL AO Workflow SS Neutrophils/100 WBC (Bld) 70.4 % Normal 50.0 - 75.0 % AO Workflow SS Phosphate [Mass/Vol] 3.6 mg/dL Normal 2.7 - 4 .5 mg/dL AO ADM SS Platelet mean volume (Bld) [Entitic vol] 7.3 fL Normal 6.4 - 10.5 fL AO Workflow SS Platelets (Bld) [#/Vol] 291 103/mcL Normal 150 - 450 10^3/mcL AO Workflow SS Potassium [Moles/Vol] 3.8 mmol/L Normal 3.5 - 5.1 mmol/L AO ADM SS Prealbumin [Mass/Vol] 21.6 mg/dL Normal 10.0 - 40.0 mg/dL AH ADM SS Prostate specific Ag [Mass/Vol] 0.12 ng/mL Normal 0.00 - 4.00 ng/mL AO ADM SS Protein [Mass/Vol] 7.6 G/dL Normal 6.4 - 8.2 G/dL AO ADM SS PT Coag (PPP) [Time] 15.0 s High 9.0 - 1 4.4 seconds AO HemoHub SS RBC (Bld) [#/Vol] 5.00 106/mcL Normal 4.50 - 6.0 0 10^6/mcL AO Workflow SS Sodium [Moles/Vol] 138 mmol/L Normal 136 - 145 mmol/L AO ADM SS TSH Qn 2.39 m[IU]/L Normal 0.36 - 3.74 mcIU/mL AO ADM SS Urea nitrogen [Mass/Vol] 18 mg/dL Normal 7 - 18 mg/dL AO ADM SS Urea nitrogen/Creatinine [Mass ratio] 21 ratio Normal 7 - 27 ratio AO ADM SS WBC (Bld) [#/Vol] 6.3 103/mcL Normal 4.5 - 10.8 10^3/mcL AO Workflow SS LABORATORYOrdered By: Carlos Pino on 06-12-2025 Cholesterol [Mass/Vol] 130 mg/dL Normal 0 - 200 mg/dL AO ADM SS Comment on above: Interpretive Data: C holesterol Reference Interval: Less than 200 Desirable 200-239 Borderline high risk 240 and above High risk Cholesterol in HDL [Mass/Vol] 50 mg/dL Normal 40 - 60 mg/dL AO ADM SS Cholesterol in LDL [Mass/Vol] 65 mg/dL Normal 0 - 130 mg/dL AO ADM SS Triglyceride [Mass/Vol] 77 mg/dL Normal 0 - 150 mg/dL AO ADM SS Comment on above: Interpretive Data: T riglyceride Reference Interval: Less than 150 Normal 150-199 Borderline high risk 200-499 High risk 500 or higher Very high risk LIPIDon 06-12-2025 Cholesterol [Mass/Vol] 130 mg/dL Normal 0-200 [facility] Comment on above: Result Comment: Chol esterol Reference Interval: Less than 200 Desirable 200-239 Borderline high risk 240 and above High risk Performed By: #### A DIFF, PSA, TSHR, 288033, LIPID, [id number], GFR, FES, PHOS, CBC, 837364, A1C, 702025, FERR, PRO, 300704, MG, ANEU, 891457, CMP #### [address] [address] #### PRALMarichuy, B12, FOL #### [address] [address] Cholesterol in HDL [Mass/Vol] 50 mg/dL Normal 40-60 [facility] Comment on above: Performed By: #### A DIFF, PSA, TSHR, 657523, LIPID, [id number], GFR, FES, PHOS, CBC, 149242, A1C, 945366, FERR, PRO, 886956, MG, ANEU, 490637, CMP #### [address] [address] #### PRALB, B12, FOL #### [address] [address] Cholesterol in LDL [Mass/Vol] 65 mg/dL Normal 0-130 [facility] Comment on above: Performed By: #### A DIFF, PSA, TSHR, 026308, LIPID, [id number], GFR, FES, PHOS, CBC, 589873, A1C, 628990, FERR, PRO, 175378, MG, ANEU, 105329, CMP #### [address] [address] #### PRALB, B12, FOL #### [address] [address] Triglyceride [Mass/Vol] 77 mg/dL Normal 0-150 [facility] Comment on above: Result Comment: Trig lyceride Reference Interval: Less than 150 Normal 150-199 Borderline high risk 200-499 High risk 500 or higher Very high risk Performed By: #### A DIFF, PSA, TSHR, 920017, LIPID, [id number], GFR, FES, PHOS, CBC, 851645, A1C, 308285, FERR, PRO, 850727, MG, ANEU, 550624, CMP #### [place] [address] #### PRALB, B12, FOL #### [address] [address] MGon 06-12-2025 Magnesium [Mass/Vol] 2.2 mg/dL Normal 1.8-2.[address] [facility] Comment on above: Performed By: #### A DIFF, PSA, TSHR, 970264, LIPID, [id number], GFR, FES, PHOS, CBC, 867539, A1C, 744600, FERR, PRO, 558886, MG, ANEU, 628404, CMP #### [place] [address] #### PRALB, B12, FOL #### [place] [address] PHOSon 06-12-2025 Phosphate [Mass/Vol] 3.6 mg/dL Normal 2.7-4.[address] [facility] Comment on above: Performed By: #### A DIFF, PSA, TSHR, 826712, LIPID, [id number], GFR, FES, PHOS, CBC, 836368, A1C, 946862, FERR, PRO, 285609, MG, ANEU, 356739, CMP #### [place] [address] #### PRALB, B12, FOL #### [place] [address] PRALBon 06-12-2025 Prealbumin [Mass/Vol] 21.6 mg/dL Normal 10.0-40.0 [facility] Comment on above: Performed By: #### A DIFF, PSA, TSHR, 798755, LIPID, [id number], GFR, FES, PHOS, CBC, 986276, A1C, 171153, FERR, PRO, 579249, MG, ANEU, 956033, CMP #### [address] [address] #### GRACY B12, FOL #### [address] [address] PROon 06-12-2025 PT Coag (PPP) [Time] 15.0 s High 9.0-14.[address] [facility] Comment on above: Performed By: #### A DIFF, PSA, TSHR, 205938, LIPID, [id number], GFR, FES, PHOS, CBC, 442448, A1C, 888721, FERR, PRO, 535246, MG, ANEU, 329423, CMP #### [address] [address] #### Meena DUBOSE, FOL #### [place] [address] PT International Ratio 1.3 Normal [facility] Comment on above: Result Comment: [employer] [place] [employer] (CHEST, 1992, 102:312S-25S) recommended therapeutic range for oral anticoagulant therapy is: LOW RISK: Prophylaxis of venous thrombosis INR: 2.0-3.0 Treatment of pulmonary embolism 2.0-3.0 Prevention of systemic embolism 2.0-3.0 HIGH RISK: Mechanical prosthetic valves 2.5-3.5 Performed By: #### A DIFF, PSA, TSHR, 912618, LIPID, [id number], GFR, FES, PHOS, CBC, 486862, A1C, 481028, FERR, PRO, 659057, MG, ANEU, 684903, CMP #### [address] [address] #### PRALMarichuy B12, FOL #### [address] [address] PSAon 06-12-2025 Prostate Specific Antigen 0.12 ng/mL Normal 0.00-4.00 [facility] Comment on above: Performed By: #### A DIFF, PSA, TSHR, 679331, LIPID, [id number], GFR, FES, PHOS, CBC, 996044, A1C, 043753, FERR, PRO, 411334, MG, ANEU, 733321, CMP #### [address] [address] #### PRALB, B12, FOL #### [address] [address] TSHRon 06-12-2025 TSH Qn 2.39 m[IU]/L Normal 0.36-3.74 [facility] Comment on above: Performed By: #### A DIFF, PSA, TSHR, 446675, LIPID, [id number], GFR, FES, PHOS, CBC, 713579, A1C, 081647, FERR, PRO, 303627, MG, ANEU, 898865, CMP #### [address] [address] #### PRALB, B12, FOL #### [place] [address] Final Surgical Pathology Rep [facility] 02-26-2025 Final Surgical Pathology Report . Pathology Reports Accession: Collected Date/Time: Received Date/Time: Pathologist: [id number] 02/24/2025 09:09 EDT 02/25/2025 08:36 EDT SEN CARDOZA MD Final Surgical Pathology Report DIAGNOSIS: A. TRANSVERSE COLON POLYP: - TUBULAR ADENOMA B. HEPATIC FLEXURE POLYP: - TUBULAR ADENOMA CLINICAL INFORMATION: Procedure: COLONOSCOPY WITH POLYPECTOMY Preoperative diagnosis: SCREENING, FAMILY HISTORY OF COLON CANCER Postoperative diagnosis: SCREENING, FAMILY HISTORY OF COLON CANCER SPECIMEN: A TRANSVERSE COLON POLYP B HEPATIC FLEXURE COLON POLYP GROSS DESCRIPTION: All parts labelled with patient name and [id number] A. Received in formalin labeled transverse colon polyp are 4 galicia-brown tissue fragments measuring 0.2 to 0.8 x 0.3 cm greatest dimension. Possible fragments which may not survive processing also identified. TS-1 B. Received in formalin labeled hepatic flexure colon polyp are 4 galicia-brown tissue fragments measuring 0.1 to 0.4 x 0.2 cm greatest dimension. Smallest fragment may not survive processing. TS-1 Matilde Mcdaniel, Grossing Net Front End Developer/ Dr. Harshil Hilario, Pathologist Performed by Matilde Mcdaniel MICROSCOPIC DESCRIPTION: The microscopic examination is performed, except in the case of Gross Only. Verified by Pathology Report verified by [facility] SEN CARDOZA Sign out Date: 02/26/2025 11:10 Performing Lab: [facility], [address] [place], [place] [id number] [facility] Pathology Dept Disclaimer If ancillary studies were utilized, the following Laboratory Developed Test (LDT) disclaimer will apply: Under CLIA requirements, [facility] Pathology Laboratory is qualified to perform high complexity testing. For all ancillary stains, positive and negative controls stain appropriately. Performance characteristics of immunohistochemical and chromogenic in-situ hybridization tests have been determined by [facility] Pathology Laboratory. These tests are used for clinical purposes, They should not be regarded as investigational or for research. Normal [facility] Office Visiton 10-01-2024 Follow-up visit [id number] Any Johnston 1970 Date Provider Department Center 10/01/2024 [facility] None Family History Problem Relation Age of Onset Hypertension Mother Hypertension Brother Arrhythmia Mother Comments: a-fib Obesity Mother Arthritis Mother Cancer Father's Sister Comments: Breast Heart disease Paternal Grandfather Diabetes Maternal Grandmother Hypertension Maternal Grandmother Cancer Mother's Brother Comments: Colon Heart disease Mother Cancer Father Comments: Melanoma Stroke Maternal Grandfather Hypertension Paternal Grandmother Diabetes Brother Diabetes Paternal Grandmother Family Status - Relation Status Age at Mother Alive Brother Father's Sister Paternal Grandfather Maternal Grandmother Mother's Brother Father Alive Maternal Grandfather Paternal Grandmother Brother Level of Service:38549 [place] OFFICE/OUTPATIENT ESTABLISHED LOW MDM 20 MIN Reason for Visit and Comments: Follow-up [980611] - Up coming dental work and would like to know blood thinner medication to continue or not. Getting tooth pulled. 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 Adjuvant therpay was not recommended and he has been monitored ever since. He follows routinely with dermatology. 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 He was treated with coumadin for a few years however later developed a second DVT in right leg in 2016 so the coumadin was changed to Xarelto. He then developed a 3rd episode of DVT in the right LE in December 2022, and Xarelto was changed to Eliquis. 3) s/p gastric bypass surgery Interval History: Arias Johnston is a 54 y.o. male who comes in today for routine annual follow up. He has no new concerns today and feels at his baseline. He is tolerating Eliquis well. His PCP is prescribing the refills. No new VTE. No bleeding. We reviewed his CT Scan from 02/10/23 which was negative for malignancy. He is compliant with dermatology visits and skin checks every 6 months due to his history of melanoma. He denies any unintentional weight loss, chest pain, shortness of breath, headaches, abdominal pain, or swelling. Review of Systems Constitutional: Negative for appetite change, chills, diaphoresis, fatigue, fever and unexpected weight change. HENT: Negative for dental problem, mouth sores, nosebleeds, sneezing, sore throat, tinnitus, trouble swallowing and voice change. Eyes: Negative for photophobia, pain and visual disturbance. Respiratory: Negative for cough, shortness of breath and wheezing. Cardiovascular: Negative for chest pain, palpitations and leg swelling. Gastrointestinal: Negative for abdominal distention, abdominal pain, blood in stool, constipation, diarrhea, nausea and vomiting. Endocrine: Negative for cold intolerance and heat intolerance. Genitourinary: Negative for difficulty urinating, frequency, hematuria and urgency. Musculoskeletal: Negative for arthralgias, back pain, gait problem and myalgias. Skin: Negative for pallor and rash. Allergic/Immunologic: Negative for immunocompromised state. Neurological: Negative for dizziness, syncope, weakness, light-headedness, numbness and headaches. Hematological: Negative for adenopathy. Does not bruise/bleed easily. Psychiatric/Behavioral : Negative for confusion and sleep disturbance. The patient is not nervous/anxious. All other systems reviewed and are negative. 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/2018 Diabetes mellitus (HCC) Disease of blood and blood forming organ anti cardio lipin positive anitbody GERD (gastroesophageal reflux disease) Hernia that strangulated Hepatic steatosis 11/05/2018 History of blood transfusion HTN (hypertension) Knee pain Malignant melanoma of right shoulder (HCC) stage II Multiple open wounds Obesity Pulmonary emboli (HCC) 2004 Skin cancer Stasis dermatitis Umbilical hernia, incarcerated Patient Active Problem List Diagnosis Date Noted Gastroesophageal reflux disease without esophagitis 07/02/2020 Morbid obesity (HCC) 11/12/2018 Deficiency of multiple nutrient elements 11/12/2018 HTN (hypertension) 11/06/2018 Diabetes mellitus (HCC) 11/06/2018 On anticoagulant therapy 11/06/2018 TOOTIE (obstructive sleep apnea) 11/06/2018 Hypercoagulable state (HCC) 11/06/2018 Hepatic steatosis 11/05/2018 Acute superficial gastritis without hemorrhage 07/17/2018 Anticardiolipin antibody positive 04/08/2018 Acute deep vein thrombosis (DVT) of tibial vein of right lower extremity (HCC) 12/07/2016 Deep vein thrombosis (DVT) of proximal vein of left lower extremity (HCC) 12/07/2016 Malignant melanoma of right shoulder (HCC) 04/16/2016 Family History Problem Relation Name Age of Onset Hypertension Mother Hypertension Brother Arrhythmia Mother a-fib Obesity Mother Arthritis Mother Cancer Father's Sister Breast Heart disease Paternal Grandfather Diabetes Maternal Grandmother Hypertension Maternal Grandmother Cancer Mother's Brother Colon Heart disease Mother Cancer Father Melanoma Stroke Maternal Grandfather Hypertension Paternal Grandmother Diabetes Brother Diabetes Paternal Grandmother Social History Tobacco Use Smoking status: Former Current packs/day: 0.00 Types: Cigarettes Quit date: 04/16/1998 Years since quittin.4 Smokeless tobacco: Never Tobacco comments: Quit smoking: Socially Substance Use Topics Alcohol use: Yes Alcohol/week: 2.0 standard drinks of alcohol No Known Allergies Current Outpatient Medications Medication Sig Dispense Refill finasteride (Proscar) 5 MG tablet Take 5 mg by mouth daily. lisinopril-hydroCHLORO thiazide 2 (more content not included)... Normal [facility] .Auto Diffon 02-20-2024 Basophil, Absolute 0.1 10 3/mcL Normal 0.0-0.2 [facility] ([place]) Comment on above: Performed By: #### G FR, LIPID, ADIFF, ANEU, FT4, FERR, PHOS, TSH, CBC, PSA, FES, VIDH, CMP #### [address] [address] #### B12, FOL #### [address] [address] Basophils/100 WBC (Bld) 0.9 % Normal 0.0-2.5 [facility] ([place]) Comment on above: Performed By: #### G FR, LIPID, ADIFF, ANEU, FT4, FERR, PHOS, TSH, CBC, PSA, FES, VIDH, CMP #### [address] [address] #### B12, FOL #### [address] [address] Eosinophil, Absolute 0.1 10 3/mcL Normal 0.0-0.4 [facility] ([place]) Comment on above: Performed By: #### G FR, LIPID, ADIFF, ANEU, FT4, FERR, PHOS, TSH, CBC, PSA, FES, VIDH, CMP #### [address] [address] #### B12, FOL #### [address] [address] Eosinophils/100 WBC (Bld) 1.0 % Normal 0.0-7.0 [facility] ([place]) Comment on above: Performed By: #### G FR, LIPID, ADIFF, ANEU, FT4, FERR, PHOS, TSH, CBC, PSA, FES, VIDH, CMP #### [address] [address] #### B12, FOL #### [address] [address] Lymphocyte, Absolute 1.6 10 3/mcL Normal 0.8-3.9 [facility] ([place]) Comment on above: Performed By: #### G FR, LIPID, ADIFF, ANEU, FT4, FERR, PHOS, TSH, CBC, PSA, FES, VIDH, CMP #### [address] [address] #### B12, FOL #### [address] [address] Lymphocytes/100 WBC (Bld) 24.4 % Normal 10.0-50.0 [facility] ([place]) Comment on above: Performed By: #### G FR, LIPID, ADIFF, ANEU, FT4, FERR, PHOS, TSH, CBC, PSA, FES, VIDH, CMP #### [place] [address] #### B12, FOL #### [address] [address] Monocyte, Absolute 0.6 10 3/mcL Normal 0.2-1.0 [facility] ([place]) Comment on above: Performed By: #### G FR, LIPID, ADIFF, ANEU, FT4, FERR, PHOS, TSH, CBC, PSA, FES, VIDH, CMP #### [place] [address] #### B12, FOL #### [address] [address] Monocytes/100 WBC (Bld) 9.4 % Normal 1.7-13.0 [facility] ([place]) Comment on above: Performed By: #### G FR, LIPID, ADIFF, ANEU, FT4, FERR, PHOS, TSH, CBC, PSA, FES, VIDH, CMP #### [place] [address] #### B12, FOL #### [address] [address] Neutrophils/100 WBC (Bld) 64.3 % Normal 37.0-80.0 [facility] ([place] Comment on above: Performed By: #### G FR, LIPID, ADIFF, ANEU, FT4, FERR, PHOS, TSH, CBC, PSA, FES, VIDH, CMP #### [place] [address] #### B12, FOL #### [address] [address] .GFRon 02-20-2024 GFR 108 ml/min/1.73sqm Normal [facility] ([place]) Comment on above: Result Comment: GFR Population mean for , Non- Americans Ages 20-29 = 116 mL/min/1.73 sq.m. Ages 30-39 = 107 mL/min/1.73 sq.m. Ages 40-49 = 99 mL/min/1.73 sq.m. Ages 50-59 = 93 mL/min/1.73 sq.m. Ages 60-69 = 85 mL/min/1.73 sq.m. Ages 70+ = 75 mL/min/1.73 sq.m. Chronic Kidney Disease: Less than 60 mL/min/1.73 square meters End Stage Renal Disease: Less than 15 mL/min/1.73 square meters Performed By: #### G FR, LIPID, ADIFF, ANEU, FT4, FERR, PHOS, TSH, CBC, PSA, FES, VIDH, CMP #### [address] [address] #### B12, FOL #### [place] [address] GFR Non- 89 ml/min/1.73sqm Normal [facility] ([place]) Comment on above: Result Comment: GFR Population mean for , Non- Americans Ages 20-29 = 116 mL/min/1.73 sq.m. Ages 30-39 = 107 mL/min/1.73 sq.m. Ages 40-49 = 99 mL/min/1.73 sq.m. Ages 50-59 = 93 mL/min/1.73 sq.m. Ages 60-69 = 85 mL/min/1.73 sq.m. Ages 70+ = 75 mL/min/1.73 sq.m. Chronic Kidney Disease: Less than 60 mL/min/1.73 square meters End Stage Renal Disease: Less than 15 mL/min/1.73 square meters Performed By: #### G FR, LIPID, ADIFF, ANEU, FT4, FERR, PHOS, TSH, CBC, PSA, FES, VIDH, CMP #### [address] [address] #### B12, FOL #### [address] [address] .NEUABSon 02-20-2024 Neutrophil, Absolute 4.2 10 3/mcL Normal 2.9-6.2 [facility] ([place]) Comment on above: Performed By: #### G FR, LIPID, ADIFF, ANEU, FT4, FERR, PHOS, TSH, CBC, PSA, FES, VIDH, CMP #### [address] [address] #### B12, FOL #### [address] [address] B12on 02-20-2024 Cobalamin (Vitamin B12) [Mass/Vol] 511 pg/mL Normal 211-911 [facility] ([place]) Comment on above: Performed By: #### G FR, LIPID, ADIFF, ANEU, FT4, FERR, PHOS, TSH, CBC, PSA, FES, VIDH, CMP #### [address] [address] #### B12, FOL #### [address] [address] CBCon 02-20-2024 Erythrocyte distribution width (RBC) [Ratio] 14.4 % Normal 11.5-14.5 [facility] ([place]) Comment on above: Performed By: #### G FR, LIPID, ADIFF, ANEU, FT4, FERR, PHOS, TSH, CBC, PSA, FES, VIDH, CMP #### [address] [address] #### B12, FOL #### [address] [address] Hematocrit (Bld) [Volume fraction] 43.5 % Normal 42.0-52.0 [facility] ([place]) Comment on above: Performed By: #### G FR, LIPID, ADIFF, ANEU, FT4, FERR, PHOS, TSH, CBC, PSA, FES, VIDH, CMP #### [address] [address] #### B12, FOL #### [place] [address] Hgb 14.8 G/dL Normal 14.0-18.0 [facility] ([place]) Comment on above: Performed By: #### G FR, LIPID, ADIFF, ANEU, FT4, FERR, PHOS, TSH, CBC, PSA, FES, VIDH, CMP #### [place] [address] #### B12, FOL #### [place] [address] MCH (RBC) [Entitic mass] 29.5 pg Normal 27.0-31.2 [facility] ([place]) Comment on above: Performed By: #### G FR, LIPID, ADIFF, ANEU, FT4, FERR, PHOS, TSH, CBC, PSA, FES, VIDH, CMP #### [place] [address] #### B12, FOL #### [place] [address] MCHC 34.1 G/dL Normal 31.8-35.4 [facility] ([place]) Comment on above: Performed By: #### G FR, LIPID, ADIFF, ANEU, FT4, FERR, PHOS, TSH, CBC, PSA, FES, VIDH, CMP #### [place] [address] #### B12, FOL #### [place] [address] MCV (RBC) [Entitic vol] 86.7 fL Normal 80.0-94.0 [facility] ([place]) Comment on above: Performed By: #### G FR, LIPID, ADIFF, ANEU, FT4, FERR, PHOS, TSH, CBC, PSA, FES, VIDH, CMP #### [place] [address] #### B12, FOL #### [place] [address] Platelet 317 10 3/mcL Normal 130-400 [facility] ([place]) Comment on above: Performed By: #### G FR, LIPID, ADIFF, ANEU, FT4, FERR, PHOS, TSH, CBC, PSA, FES, VIDH, CMP #### [place] [address] #### B12, FOL #### [place] [address] Platelet mean volume (Bld) [Entitic vol] 7.4 fL Normal 7.4-10.4 [facility] ([place]) Comment on above: Performed By: #### G FR, LIPID, ADIFF, ANEU, FT4, FERR, PHOS, TSH, CBC, PSA, FES, VIDH, CMP #### [place] [address] #### B12, FOL #### [place] [address] RBC 5.02 10 6/mcL Normal 4.04-6.13 [facility] ([place] Comment on above: Performed By: #### G FR, LIPID, ADIFF, ANEU, FT4, FERR, PHOS, TSH, CBC, PSA, FES, VIDH, CMP #### [place] [address] #### B12, FOL #### [place] [address] WBC 6.6 10 3/mcL Normal 4.6-10.8 [facility] [place] Comment on above: Performed By: #### G FR, LIPID, ADIFF, ANEU, FT4, FERR, PHOS, TSH, CBC, PSA, FES, VIDH, CMP #### [place] [address] #### B12, FOL #### [place] [address] CMPon 02-20-2024 Albumin Level 3.5 G/dL Normal 3.5-5.0 [facility] [place] Comment on above: Performed By: #### G FR, LIPID, ADIFF, ANEU, FT4, FERR, PHOS, TSH, CBC, PSA, FES, VIDH, CMP #### [place] [address] #### B12, FOL #### [address] [address] Albumin/Globulin [Mass ratio] 0.9 {ratio} Low 1.1-2.5 [facility] [place] Comment on above: Performed By: #### G FR, LIPID, ADIFF, ANEU, FT4, FERR, PHOS, TSH, CBC, PSA, FES, VIDH, CMP #### [place] [address] #### B12, FOL #### [address] [address] ALP [Catalytic activity/Vol] 84 U/L Normal 40-135 [facility] [place] Comment on above: Performed By: #### G FR, LIPID, ADIFF, ANEU, FT4, FERR, PHOS, TSH, CBC, PSA, FES, VIDH, CMP #### [place] [address] #### B12, FOL #### [address] [address] ALT [Catalytic activity/Vol] 32 U/L Normal 16-63 [facility] [place] Comment on above: Performed By: #### G FR, LIPID, ADIFF, ANEU, FT4, FERR, PHOS, TSH, CBC, PSA, FES, VIDH, CMP #### [place] [address] #### B12, FOL #### [place] [id number] AST [Catalytic activity/Vol] 20 U/L Normal 10-40 [facility] [place] Comment on above: Performed By: #### G FR, LIPID, ADIFF, ANEU, FT4, FERR, PHOS, TSH, CBC, PSA, FES, VIDH, CMP #### [place] [address] #### B12, FOL #### [place] [id number] Bili Total 0.8 mg/dL Normal 0.2-1.0 [facility] [place] Comment on above: Result Comment: Use of this assay is not recommended for patients undergoing treatment with eltrombopag due to the potential for falsely elevated results. Performed By: #### G FR, LIPID, ADIFF, ANEU, FT4, FERR, PHOS, TSH, CBC, PSA, FES, VIDH, CMP #### [place] [address] #### B12, FOL #### [address] [address] BUN/Creatinine Ratio 21 ratio Normal 7-27 [facility] ([place] Comment on above: Performed By: #### G FR, LIPID, ADIFF, ANEU, FT4, FERR, PHOS, TSH, CBC, PSA, FES, VIDH, CMP #### [place] [address] #### B12, FOL #### [address] [address] Calcium [Mass/Vol] 8.9 mg/dL Normal 8.4-10.2 [facility] ([place] Comment on above: Performed By: #### G FR, LIPID, ADIFF, ANEU, FT4, FERR, PHOS, TSH, CBC, PSA, FES, VIDH, CMP #### [address] [address] #### B12, FOL #### [address] [address] Chloride [Moles/Vol] 100 mmol/L Normal 98-107 [facility] [place] Comment on above: Performed By: #### G FR, LIPID, ADIFF, ANEU, FT4, FERR, PHOS, TSH, CBC, PSA, FES, VIDH, CMP #### [place] [address] #### B12, FOL #### [address] [address] CO2 [Moles/Vol] 32 mmol/L High 22-29 [facility] [place] Comment on above: Performed By: #### G FR, LIPID, ADIFF, ANEU, FT4, FERR, PHOS, TSH, CBC, PSA, FES, VIDH, CMP #### [address] [address] #### B12, FOL #### [address] [address] Creatinine [Mass/Vol] 0.89 mg/dL Normal 0.70-1.30 [facility] ([place] Comment on above: Performed By: #### G FR, LIPID, ADIFF, ANEU, FT4, FERR, PHOS, TSH, CBC, PSA, FES, VIDH, CMP #### [place] [address] #### B12, FOL #### [place] [address] Electrolyte Balance 7.0 mEq/L Normal 4.0-15.0 [facility] ([place] Comment on above: Performed By: #### G FR, LIPID, ADIFF, ANEU, FT4, FERR, PHOS, TSH, CBC, PSA, FES, VIDH, CMP #### [place] [address] #### B12, FOL #### [place] [address] Globulin 3.9 G/dL Normal [facility] [place] Comment on above: Performed By: #### G FR, LIPID, ADIFF, ANEU, FT4, FERR, PHOS, TSH, CBC, PSA, FES, VIDH, CMP #### [address] [address] #### B12, FOL #### [address] [address] Glucose [Mass/Vol] 110 mg/dL High 70-105 [facility] ([place] Comment on above: Performed By: #### G FR, LIPID, ADIFF, ANEU, FT4, FERR, PHOS, TSH, CBC, PSA, FES, VIDH, CMP #### [place] [address] #### B12, FOL #### [address] [address] Potassium [Moles/Vol] 4.5 mmol/L Normal 3.5-5.1 [facility] ([place] Comment on above: Performed By: #### G FR, LIPID, ADIFF, ANEU, FT4, FERR, PHOS, TSH, CBC, PSA, FES, VIDH, CMP #### [address] [address] #### B12, FOL #### [address] [address] Sodium [Moles/Vol] 139 mmol/L Normal 136-145 [facility] ([place] Comment on above: Performed By: #### G FR, LIPID, ADIFF, ANEU, FT4, FERR, PHOS, TSH, CBC, PSA, FES, VIDH, CMP #### [place] [address] #### B12, FOL #### [address] [address] Total Protein 7.4 G/dL Normal 6.4-8.2 [facility] [place] Comment on above: Performed By: #### G FR, LIPID, ADIFF, ANEU, FT4, FERR, PHOS, TSH, CBC, PSA, FES, VIDH, CMP #### [address] [address] #### B12, FOL #### [address] [address] Urea nitrogen [Mass/Vol] 19 mg/dL High 7-18 [facility] [place] Comment on above: Performed By: #### G FR, LIPID, ADIFF, ANEU, FT4, FERR, PHOS, TSH, CBC, PSA, FES, VIDH, CMP #### [place] [address] #### B12, FOL #### [address] [address] Perez 02-20-2024 Ferritin [Mass/Vol] 49.0 ng/mL Normal 26.0-388.0 [facility] ([place] Comment on above: Performed By: #### G FR, LIPID, ADIFF, ANEU, FT4, FERR, PHOS, TSH, CBC, PSA, FES, VIDH, CMP #### [address] [address] #### B12, FOL #### [address] 02-20-2024 Iron [Mass/Vol] 114 ug/dL Normal 65-175 [facility] [place] Comment on above: Performed By: #### G FR, LIPID, ADIFF, ANEU, FT4, FERR, PHOS, TSH, CBC, PSA, FES, VIDH, CMP #### [address] [address] #### B12, FOL #### [place] [address] Iron Sat 37 % Normal [facility] [place] Comment on above: Performed By: #### G FR, LIPID, ADIFF, ANEU, FT4, FERR, PHOS, TSH, CBC, PSA, FES, VIDH, CMP #### [place] [address] #### B12, FOL #### [place] [address] TIBC 307 mcg/dL Normal 250-450 [facility] [place] Comment on above: Performed By: #### G FR, LIPID, ADIFF, ANEU, FT4, FERR, PHOS, TSH, CBC, PSA, FES, VIDH, CMP #### [address] [address] #### B12, FOL #### [place] [address] FOLon 02-20-2024 Folate 12.01 ng/mL Normal 5.38-24.00 [facility] [place] Comment on above: Performed By: #### G FR, LIPID, ADIFF, ANEU, FT4, FERR, PHOS, TSH, CBC, PSA, FES, VIDH, CMP #### [address] [address] #### B12, FOL #### [address] [address] FT4on 02-20-2024 Free T4 [Mass/Vol] 0.89 ng/dL Normal 0.76-1.46 [facility] ([place] Comment on above: Performed By: #### G FR, LIPID, ADIFF, ANEU, FT4, FERR, PHOS, TSH, CBC, PSA, FES, VIDH, CMP #### [address] [address] #### B12, FOL #### [address] [address] LIPIDon 02-20-2024 Cholesterol [Mass/Vol] 128 mg/dL Normal 0-200 [facility] [place] Comment on above: Result Comment: Chol esterol Reference Interval: Less than 200 Desirable 200-239 Borderline high risk 240 and above High risk Performed By: #### G FR, LIPID, ADIFF, ANEU, FT4, FERR, PHOS, TSH, CBC, PSA, FES, VIDH, CMP #### [address] [address] #### B12, FOL #### [address] [address] Cholesterol in HDL [Mass/Vol] 51 mg/dL Normal 40-60 [facility] [place] Comment on above: Performed By: #### G FR, LIPID, ADIFF, ANEU, FT4, FERR, PHOS, TSH, CBC, PSA, FES, VIDH, CMP #### [address] [address] #### B12, FOL #### [address] [address] Cholesterol in LDL [Mass/Vol] 63 mg/dL Normal 0-130 [facility] [place] Comment on above: Performed By: #### G FR, LIPID, ADIFF, ANEU, FT4, FERR, PHOS, TSH, CBC, PSA, FES, VIDH, CMP #### [address] [address] #### B12, FOL #### [address] [address] Triglyceride [Mass/Vol] 69 mg/dL Normal 0-150 [facility] [place] Comment on above: Result Comment: Trig lyceride Reference Interval: Less than 150 Normal 150-199 Borderline high risk 200-499 High risk 500 or higher Very high risk Performed By: #### G FR, LIPID, ADIFF, ANEU, FT4, FERR, PHOS, TSH, CBC, PSA, FES, VIDH, CMP #### [address] [address] #### B12, FOL #### [address] [address] MALBRon 02-20-2024 U Creatinine 177.9 mg/dL Normal 39.0-259.0 [facility] [place] Comment on above: Performed By: #### G FR, LIPID, ADIFF, ANEU, FT4, FERR, PHOS, TSH, CBC, PSA, FES, VIDH, CMP #### [address] [address] #### B12, FOL #### [address] [address] U Microalb 1126 mcg/dL Normal [facility] [place] Comment on above: Performed By: #### G FR, LIPID, ADIFF, ANEU, FT4, FERR, PHOS, TSH, CBC, PSA, FES, VIDH, CMP #### [address] [address] #### B12, FOL #### [address] [address] U Ratio Alb/Cre 6 mcg/mg Normal 0-30 [facility] [place] Comment on above: Performed By: #### G FR, LIPID, ADIFF, ANEU, FT4, FERR, PHOS, TSH, CBC, PSA, FES, VIDH, CMP #### [place] [address] #### B12, FOL #### [address] [address] PHOSon 02-20-2024 Phosphate [Mass/Vol] 4.0 mg/dL Normal 2.7-4.5 [facility] ([place] Comment on above: Performed By: #### G FR, LIPID, ADIFF, ANEU, FT4, FERR, PHOS, TSH, CBC, PSA, FES, VIDH, CMP #### [address] [address] #### B12, FOL #### [address] [address] PSAon 02-20-2024 Prostate Specific Antigen 0.26 ng/mL Normal 0.00-4.00 [facility] [place] Comment on above: Performed By: #### G FR, LIPID, ADIFF, ANEU, FT4, FERR, PHOS, TSH, CBC, PSA, FES, VIDH, CMP #### [address] [address] #### B12, FOL #### [address] [address] TSHon 02-20-2024 TSH Qn 2.84 m[IU]/L Normal 0.36-3.74 [facility] [place] Comment on above: Performed By: #### G FR, LIPID, ADIFF, ANEU, FT4, FERR, PHOS, TSH, CBC, PSA, FES, VIDH, CMP #### [address] [address] #### B12, FOL #### [address] [address] VIDHon 02-20-2024 Vit. D 25-Hydroxy 45.2 ng/mL Normal [facility] [place] Comment on above: Result Comment: Inte rpretive Values Based on Total 25([place]) Vitamin D: Deficient <20 ng/mL Insufficient 20 - <30 ng/mL Sufficient 30-100 ng/mL Performed By: #### G FR, LIPID, ADIFF, ANEU, FT4, FERR, PHOS, TSH, CBC, PSA, FES, VIDH, CMP #### [address] [place] [address] [place], [place] [address] #### B12, FOL #### [address] [address] MR/BMSRicoYESENIAEj 03-29-2023 MR/BMS.NILDA [facility] [address] [place] [address] OFFICE VISIT Date of Service: 03/29/23 MR#: [id number] Acct: [id number] Name: ARIAS JOHNSTON Rep #: [id number] : 1970 Provider: Dr. Ethan Reese MD Age/Sex: 52/M Location: [facility] Status: Signed Intake Vital Signs 12/31/22 10:41 03/09/23 07:25 03/29/23 12:57 Height 6 ft 1 in 6 ft 1 in Weight: 393 lb BP 115/72 Blood Pressure Location Lt brachial Position Sitting Respiration 16 Pulse 81 Pulse Source Monitor Temp 98.2 F Temp Source Temporal Pulse Oximetry (%) 95 Oxygen Delivery Method room air Intake Visit Reasons: 3-4 WK FU Chief Complaint: testing results Allergies No Known Allergies Allergy (Verified 03/29/23 12:58) Medications aspirin 81 mg chewable tablet 81 mg PO DAILY@0800 11/23/16 [History Confirmed 03/29/23] lisinopril 20 mg-hydrochlorothiazide 25 mg tablet (Zestoretic) 1 ea PO DAILY 11/23/16 [History Confirmed 03/29/23] atorvastatin 20 mg tablet 10 mg PO DAILY 01/05/23 [History Confirmed 03/29/23] coenzyme Q10 100 mg capsule (CoQ-10) 100 mg PO TID 01/05/23 [History Confirmed 03/29/23] omeprazole 20 mg capsule,delayed release 20 mg PO DAILY 01/05/23 [History Confirmed 03/29/23] tirzepatide 5 mg/0.5 mL subcutaneous pen injector (Mounjaro) 5 mg subcut QWEEK 01/05/23 [History Confirmed 03/29/23] apixaban 5 mg tablet (Eliquis) 5 mg PO BID 03/29/23 [History Confirmed 03/29/23] [facility] Medical History Deep vein thrombosis (DVT) of right lower extremity Lymphedema Other cyst of bone, left upper arm Peripheral vascular disease Type 2 diabetes mellitus Venous insufficiency Surgical History H/O hernia repair ( 2017) History of cancer surgery ( 2017) History of sleeve gastrectomy ( 2018) Family History Other Arthritis Cancer Diabetes Hypertension Social History Smoking Status: Never smoker substance use type: does not use HPI HPI HPI: ARIAS JOHNSTON, is a 52 M who presents to the office today for follow up after right GSV chemical ablation. He has been doing well, lower leg pain/tightness resolved, no further bleeding events. Had some mild discomfort at the GSV in superior aspect of thigh which resolved after a few days. Venous duplex post procedure negative for DVT. ROS General General: Yes weight change; No appetite, fatigue, colon cancer, breast cancer or weakness HEENT HEENT: No difficulty swallowing, eye injury, eye surgery, swollen glands or hoarseness Endo Endocrine: Yes diabetes mellitus; No thyroid disease, thyroid cancer, Hair loss, heat intolerance or cold intolerance Skin Skin: Yes changing moles; No rash Musc Musculoskeletal: Yes arthritis; No back problems, rheumatoid arthritis, gout or joint pain Cardio Cardiovascular: Yes high blood pressure; No murmur, pacemaker, heart disease, atrial fibrillation, heart attack, heart stent, palpitations, shortness of breat with exertion or chest pain Psych Psychiatric: No depression, anxiety or hearing voices Resp Respiratory: Yes shortness of breath, Yes sleep apnea, No cough, No COPD, No asthma, No emphysema and No wheezing Gastro Gastrointestinal: No abdominal pain, No nausea or vomiting, No diarrhea, No constipation, No blood in stool, Yes acid reflux, No hemorrhoids, No ulcers, No gallbladder problem and No black,tarry s tools Harman Hematologic: Yes blood thinners, Yes blood disorders, Yes bleeding, No anemia and Yes blood clots Neuro Neurologic: No system reviewed and no additional complaints, except as documented, No as per HPI, No abnormal gait, No abnormal hearing, No abnormal movements, No abnormal speech, No behavioral changes, No burning sensations, No confusion, No convulsions, No disequilibrium, No dizziness, No localized weakness, No frequent falls, No headache(s), No lack of coordination, No loss of vision, No memory loss, No numbness, No other visual disturbances, No radicular pain, No restless legs, No sensory deficit, No syncope, Yes tingling, No tremor(s), No weakness and No other Exam Const General: cooperative, healthy appearing, comfortable, no acute distress and well developed Nutritional Appearance: well nourished Orientation: alert, awake and oriented x3 HENMT Head: normocephalic and atraumatic Ears: hearing grossly normal bilaterally Nose: external nose normal Eyes General: appearance normal, both eyes and all related structures EOM: EOM intact bilaterally Neck Neck: normal visual inspection, full ROM and trachea midline Resp Effort Inspection: normal respiratory eff (more content not included)... Normal [facility] Venous Duplex US, Unilateral on 03-22-2023 Venous Duplex US, Unilateral [facility] [address] [place] [address] Venous Duplex US, Unilateral 03/22/23 1459 MR#: [id number] Acct: [id number] Name: ARIAS JOHNSTON Rep #: [id number] : 1970 52 From: Ethan Reese MD Attending Dr: KATRINA Haskins Status: RE G CLI Ordering Dr: Es Forte Date: 03/22/23 Location: [facility] Sex: M C Admitted: Reason For Study: S/P Rt GSV chemical ablation RIGHT LEFT GSV is DILATED and NONCOMPRESSIBLE throughout FV is compressible, spontaneous, phasic, vessel. Mixed intraluminal echoes consistent competent and demonstrates normal with recent chemical ablation procedure. augmentation. CFV is compressible, spontaneous, phasic, competent and demonstrates normal augmentation. FV is compressible, spontaneous, phasic, competent and demonstrates normal augmentation. POP V is compressible, spontaneous, phasic, competent and demonstrates normal augmentation. T/P Trunk is compressible. PTV is compressible. RT PerV is compressible. Procedure This is a venous duplex using B-mode, color flow and spectral Doppler. Exam performed in department. The exam was diagnostic. VL/Venous Duplex US, Unilateral Interpretation Summary Deep veins of the right lower extremity are patent and compressible segmentally. There is no evidence of right lower extremity deep vein thrombosis. Right great saphenous vein occluded consistent with recent chemical ablation. Ordering Physician: Es Forte Referring Physician: Atul Higgins Performed By: Charlie Baires, T 03/22/23 1632 Date Ethan Reese MD CC: KATRINA Haskins; Dr. Atul Higgins DO Date Dictated: 03/22/23 1459 Date Transcribed: 03/22/23 163 Guide Dog Mobility Instructor: Signed Normal [facility] Basic Metabolic Profile (BMP )on 03-09-2023 BUN/CRE 18.3 RATIO Normal 10-20 [facility] Comment on above: Performed By: #### L 500.2500, L100.0500 #### [facility] [address] [place], [address] CA,Total 9.3 mg/dL Normal 8.5-10.1 [facility] Comment on above: Performed By: #### L 500.2500, L100.0500 #### [facility] [address] [place], [address] Chloride [Moles/Vol] 100 mmol/L Normal 98-107 [facility] Comment on above: Performed By: #### L 500.2500, L100.0500 #### [facility] [address] [place], [address] CO2 [Moles/Vol] 32.0 mmol/L Normal 21.0-32.0 [facility] Comment on above: Performed By: #### L 500.2500, L100.0500 #### [facility] [address] [place], [address] Creatinine [Mass/Vol] 0.98 mg/dL Normal 0.70-1.30 [facility] Comment on above: Result Comment: The validity of the calculated GFR GFRAA in patients over 70 years has not been determined. Clinical correlation is essential. Performed By: #### L 500.2500, L100.0500 #### [facility] [address] [place], [address] ECRCL 97.38 ml/min Normal [facility] Comment on above: Performed By: #### L 500.2500, L100.0500 #### [facility] [address] [place], [address] EST GFR - AA 102 mL/min Normal >60 [facility] Comment on above: Result Comment: Afri can Citizen Of [place] GFR Calc Performed By: #### L 500.2500, L100.0500 #### [facility] [address] [place], [address] GAP 5 Normal 5-15 [facility] Comment on above: Performed By: #### L 500.2500, L100.0500 #### [facility] [address] [place], [address] GFR/1.73 sq M.predicted among non-blacks MDRD (S/P/Bld) [Vol rate/Area] 84 mL/min/{1.73_m2} Normal >60 [facility] Comment on above: Result Comment: Non- GFR Calc Performed By: #### L 500.2500, L100.0500 #### [facility] [address] [place], [address] Glucose [Mass/Vol] 116 mg/dL High 74-106 [facility] Comment on above: Result Comment: Fast ing Glucose result from 100 to 125 mg/dL suggests IMPAIRED HOMEOSTASIS per A.D.A. criteria. Performed By: #### L 500.2500, L100.0500 #### [facility] [address] [place], [address] Potassium [Moles/Vol] 4.1 mmol/L Normal 3.5-5.1 [facility] Comment on above: Performed By: #### L 500.2500, L100.0500 #### [facility] [address] [place], [address] Sodium [Moles/Vol] 137 mmol/L Normal 136-145 [facility] Comment on above: Performed By: #### L 500.2500, L100.0500 #### [facility] [address] [place], [address] Urea nitrogen [Mass/Vol] 18 mg/dL Normal 7-18 [facility] Comment on above: Performed By: #### L 500.2500, L100.0500 #### [facility] [address] [place], [address] Basophil percentageOrdered B y: Ethan Reese on 03-09-2023 Chloride [Moles/Vol] 100 mmol/L 98-107 [facility] Glucose [Mass/Vol] 116 mg/dL 74-106 [facility] Comment on above: Fasting Glucose resu lt from 100 to 125 mg/dL suggests IMPAIRED HOMEOSTASIS per A.D.A. criteria. Potassium [Moles/Vol] 4.1 mmol/L 3.5-5.1 [facility] Sodium [Moles/Vol] 137 mmol/L 136-145 [facility] WBC (Bld) [#/Vol] 7.1 10*3/uL 4.4-11.0 [facility] Blood erythrocytes count (nu mber/volume)Ordered By: Ethan Reese on 03-09-2023 RBC (Bld) [#/Vol] 5.30 10*6/uL 4.6-6.2 [facility] Blood hemoglobin measurement (mass/volume)Ordered By: Ethan Reese on 03-09-2023 Hemoglobin (Bld) [Mass/Vol] 15.2 g/dL 13.0-16.5 [facility] Blood platelet mean volumeOr dered By: Ethan Reese on 03-09-2023 Platelet mean volume (Bld) [Entitic vol] 8.5 fL 6.2-12.0 [facility] CBC-Complete Blood Cnt No Di ffon 03-09-2023 Erythrocyte distribution width (RBC) [Ratio] 13.4 % Normal 11.6-14.6 [facility] Comment on above: Performed By: #### L 500.2500, L100.0500 #### [facility] [address] [place], [address] Hematocrit (Bld) [Volume fraction] 46.3 % Normal 40-54 [facility] Comment on above: Performed By: #### L 500.2500, L100.0500 #### [facility] [address] [place], [address] Hemoglobin (Bld) [Mass/Vol] 15.2 g/dL Normal 13.0-16.5 [facility] Comment on above: Performed By: #### L 500.2500, L100.0500 #### [facility] [address] [place], [address] MCH (RBC) [Entitic mass] 28.7 pg Normal 27.0-32.0 [facility] Comment on above: Performed By: #### L 500.2500, L100.0500 #### [facility] [address] [place], [address] MCHC (RBC) [Mass/Vol] 32.8 g/dL Normal 32-36 [facility] Comment on above: Performed By: #### L 500.2500, L100.0500 #### [facility] [address] [place], [address] MCV (RBC) [Entitic vol] 87.4 fL Normal 80-94 [facility] Comment on above: Performed By: #### L 500.2500, L100.0500 #### [facility] [address] [place], [address] Platelet mean volume (Bld) [Entitic vol] 8.5 fL Normal 6.2-12.0 [facility] Comment on above: Performed By: #### L 500.2500, L100.0500 #### [facility] [address] [place], [address] Platelets (Bld) [#/Vol] 321 10*3/uL Normal 150-450 [facility] Comment on above: Performed By: #### L 500.2500, L100.0500 #### [facility] [address] [place], [address] RBC (Bld) [#/Vol] 5.30 10*6/uL Normal 4.6-6.2 [facility] Comment on above: Performed By: #### L 500.2500, L100.0500 #### [facility] [address] [place], [address] RDW SD 43.0 fl Normal 35.1-43.9 [facility] Comment on above: Performed By: #### L 500.2500, L100.0500 #### [facility] [address] [place], [address] WBC (Bld) [#/Vol] 7.1 10*3/uL Normal 4.4-11.0 [facility] Comment on above: Performed By: #### L 500.2500, L100.0500 #### [facility] [address] [place], [address] Determination of erythrocyte mean corpuscular volume (MCV)Ordered By: Ethan Reese on 03-09-2023 MCV (RBC) [Entitic vol] 87.4 fL 80-94 [facility] Hematocrit Auto (Bld) [Volum e fraction]Ordered By: Ethan Reese on 03-09-2023 Hematocrit (Bld) [Volume fraction] 46.3 % 40-54 [facility] Laboratory - Chemistry and C hemistry - challengeOrdered By: Ethan Reese on 03-09-2023 CO2 [Moles/Vol] 32.0 mmol/L 21.0-32.0 [facility] Urea nitrogen/Creatinine [Mass ratio] 18.3 mg/mg 10-20 [facility] Laboratory - Hematology and Cell countsOrdered By: Ethan Reese on 03-09-2023 Erythrocyte distribution width (RBC) [Entitic vol] 43.0 fL 35.1-43.9 [facility] Erythrocyte distribution width (RBC) [Ratio] 13.4 % 11.6-14.6 [facility] MCH (RBC) [Entitic mass] 28.7 pg 27.0-32.0 [facility] MCHC Auto (RBC) [Mass/Vol]Or dered By: Ethan Reese on 03-09-2023 MCHC (RBC) [Mass/Vol] 32.8 g/dL 32-36 [facility] No Panel InformationOrdered By: Ethan Reese on 03-09-2023 Estimated Creatinine Clearance Calc 97.38 ml/min [facility] Estimated GFR (MDRD) Amer 102 mL/min >60 [facility] Comment on above: GFR Calc Estimated GFR (MDRD) Non-Af Amer 84 mL/min >60 [facility] Comment on above: Non- GFR Calc Operative Reporton 3 Operative Report [facility] Medical Records Department [address] [place] [address] Operative Report 03/09/23 0939 MR#: [id number] Acct: [id number] Name: ARIAS JOHNSTON Rep #: [id number] : 1970 52 From: Ethan Reese MD PCP: Dr. Atul Higgins, DO Status:[place] [facility] [place] Location: [facility] Report of Operation Date of Procedure: 03/09/23 Pre-Operative Diagnosis: venous insufficiency with bleeding varicose veins, right lower extremity Post-Operative Diagnosis: same Surgery/Procedure Performed:: glue ablation right greater saphenous vein Description of Surgical Findings:: 75 cm GSV treatment length, < 5 cc glue Surgeon: Ethan Reese Type of Anesthesia: Local and Sedation,Conscious Estimated Blood Loss (mL): 1 Description of Procedure: HPI: Patient is a 52-year-old male with chronic venous insufficiency of the right lower extremity with multiple episodes of bleeding varicosities. He had venous duplex with reflux evaluation the revealed significant diffuse reflux through multiple veins of the right lower extremity. The great saphenous vein was the vessel feeding the territory where the bleeding events had occurred and had multiple varicosities emanating from the inferior aspect. He is taken for glue ablation. Description of procedure: Upon obtaining informed consent and verification correct patient procedure site patient taken to the Side Panel Padder where he was positioned prepped and draped in usual sterile fashion. Timeout was performed and conscious sedation administered with Versed. 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 Skin was anesthetized with 1% lidocaine and the vessel accessed in retrograde fashion with a micropuncture needle and wire under ultrasound guidance. This was then exchanged out for the 7 Finnish ablation sheath. Through this the glue delivery guide was advanced to the saphenofemoral junction. Delivery catheter was then advanced via the guide and positioned appropriately inferior to the saphenofemoral junction. Manual pressure was held with the ultrasound probe over the saphenofemoral junction as the initial aliquots of glue were infused. Manual pressure was then held for 3 minutes per access liaison instructions. Next the glue was infused sequentially along the length of the saphenous vein down to the 5 cm katie on the guide. The guide and catheter then removed after which the sheath was withdrawn and manual pressure held until hemostasis was obtained. Dry sterile dressing and Dhaval wrap were then applied and the patient was taken to the recovery area with anticipated discharge home. 03/09/23 1236 Cosigner Signature (if applicable): CC: Dr. Ethan Reese MD; Dr. Atul Higgins DO Signed Normal [facility] Platelets bldOrdered By: Kassi Reese on 03-09-2023 Platelets (Bld) [#/Vol] 321 10*3/uL 150-450 [facility] Serum or plasma calcium jaime urement (mass/volume)Ordered By: Ethan Reese on 03-09-2023 Calcium [Mass/Vol] 9.3 mg/dL 8.5-10.1 [facility] Serum or plasma creatinine m easurement (mass/volume)Ordered By: Ethna Reese on 03-09-2023 Creatinine [Mass/Vol] 0.98 mg/dL 0.70-1.30 [facility] Comment on above: The validity of the calculated GFR & GFRAA in patients over 70 years has not been determined. Clinical correlation is essential. Serum or plasma urea nitroge n measurement (mass/volume)Ordered By: Ethan Reese on 03-09-2023 Urea nitrogen [Mass/Vol] 18 mg/dL 7-18 [facility] Thin prep Papanicolaou smear with manual screeningOrdered By: Ethan Reese on 03-09-2023 Thin prep Papanicolaou smear with manual screening 5 5-15 [facility] CBC W Auto Differential pane l (Bld)on 01-20-2023 Basophils (Bld) [#/Vol] 43 10*3/uL [facility] Basophils/100 WBC (Bld) 0.6 % [facility] Eosinophils (Bld) [#/Vol] 50 10*3/uL [facility] Eosinophils/100 WBC (Bld) 0.7 % [facility] Erythrocyte distribution width (RBC) [Ratio] 12.9 % 11.0 - 15.0 % [facility] [employer] Hematocrit (Bld) [Volume fraction] 45.3 % 38.5 - 50.0 % [facility] [employer] [facility] Hemoglobin (Bld) [Mass/Vol] 15.2 g/dL 13.2 - 17.1 g/dL [facility] Lymphocytes (Bld) [#/Vol] 1562 10*3/uL [facility] Lymphocytes/100 WBC (Bld) 22.0 % [facility] MCH (RBC) [Entitic mass] 28.6 pg 27.0 - 33.0 pg [facility] MCHC (RBC) [Mass/Vol] 33.6 g/dL 32.0 - 36.0 g/dL [facility] MCV (RBC) [Entitic vol] 85.2 fL 80.0 - 100.0 fL [facility] Monocytes (Bld) [#/Vol] 710 10*3/uL [facility] Monocytes/100 WBC (Bld) 10.0 % [facility] Neutrophils (Bld) [#/Vol] 4736 10*3/uL [facility] Neutrophils/100 WBC (Bld) 66.7 % [facility] Platelet mean volume (Bld) [Entitic vol] 9.1 fL 7.5 - 12.5 fL [facility] Platelets (Bld) [#/Vol] 368 10*3/uL [facility] RBC (Bld) [#/Vol] 5.32 10*6/uL [facility] WBC (Bld) [#/Vol] 7.1 10*3/uL [facility] Comprehensive metabolic 1998 panelon 01-20-2023 Albumin [Mass/Vol] 4.2 g/dL 3.6 - 5.1 g/dL [facility] ALP [Catalytic activity/Vol] 77 U/L 35 - 144 U/L [facility] ALT [Catalytic activity/Vol] 16 U/L 9 - 46 U/L [facility] Anion gap [Moles/Vol] 8 mmol/L [facility] AST [Catalytic activity/Vol] 18 U/L 10 - 35 U/L [facility] Bilirubin [Mass/Vol] 0.7 mg/dL 0.2 - 1 .2 mg/dL [facility] Calcium [Mass/Vol] 9.2 mg/dL 8.6 - 10. 3 mg/dL [facility] Chloride [Moles/Vol] 99 mmol/L 98 - 11 0 mmol/L [facility] CO2 [Moles/Vol] 31 mmol/L 20 - 32 mmol/L [facility] Creatinine [Mass/Vol] 0.88 mg/dL 0.70 - 1.30 mg/dL [facility] GFR/1.73 sq M.predicted among non-blacks MDRD (S/P/Bld) [Vol rate/Area] 102 mL/min/{1.73_m2} > OR = 60 mL/min/1.73m 2 [facility] Comment on above: The eGFR is based on the CKD-EPI 2020 equation. To calculate the new eGFR from a previous Creatinine or Cystatin C result, go to https://www.kidney.org/professionals/ kdoqi/gfr%5Fcalculator Glucose [Mass/Vol] 112 mg/dL High 65 - 99 mg/dL [facility] [employer] Comment on above: Fasting reference interval For someone without known diabetes, a glucose value between 100 and 125 mg/dL is consistent with prediabetes and should be confirmed with a follow-up test. Interpretation and review of laboratory results Abnormal [facility] Potassium [Moles/Vol] 4.3 mmol/L 3.5 - 5.3 mmol/L [facility] [employer] [facility] Protein [Mass/Vol] 7.4 g/dL 6.1 - 8.1 g/dL [facility] Sodium [Moles/Vol] 138 mmol/L 135 - 146 mmol/L [facility] Urea nitrogen [Mass/Vol] 20 mg/dL 7 - 25 mg/dL [facility] [employer] [facility] No Panel Informationon 01-20 [facility] MR/BMS.BVEj 01-19-2023 MR/BMS.BVS [facility] Vascular Surgery [address] [place] [address] OFFICE VISIT Date of Service: 01/19/23 MR#: [id number] Acct: [id number] Name: ARIAS JOHNSTON Daniel Rep #: [id number] : 1970 Provider: KATRINA decker Age/Sex: 52/M Location: [facility] Status: Signed Intake Vital Signs 01/19/23 14:07 Weight: 393 lb BP 126/78 H Blood Pressure Location Lt brachial Position Sitting Respiration 16 Pulse 90 Pulse Source Monitor Pulse Oximetry (%) 95 Oxygen Delivery Method room air Intake Visit Reasons: DVT FU Chief Complaint: testing results Is patient in pain?: No Allergies No Known Allergies Allergy (Verified 01/19/23 14:09) [facility] Medical History Deep vein thrombosis (DVT) of right lower extremity Lymphedema Other cyst of bone, left upper arm Peripheral vascular disease Type 2 diabetes mellitus Venous insufficiency Surgical History H/O hernia repair ( 2017) History of cancer surgery ( 2017) History of sleeve gastrectomy ( 2018) Family History Other Arthritis Cancer Diabetes Hypertension Social History Smoking Status: Never smoker substance use type: does not use HPI HPI HPI: ARIAS JOHNSTON, is a 52 M who presents to the office today for discussion of venous ablation and recommendations for anticoagulation. Patient had venous duplex performed on 01/12/23 for evaluation of his varicose veins and incidentally identified DVT in the R TP trunk. Patient has a history of anticardiolipin antibody clotting disorder. He has failed warfarin in the past. At the time of this most recent DVT, he had been taking his Xarelto as directed without missing doses, no recent injury or significant decrease in activity. He discussed with his PCP and they have decided to switch to Eliquis. Regarding the bleeding varicosity, he is here to discuss possible ablation. No worsening of his symptoms. No other interval changes to his medical history. No CP, SOB, palpitations, syncope. ROS General General: Yes weight change; No appetite, fatigue, colon cancer, breast cancer or weakness HEENT HEENT: No difficulty swallowing, eye injury, eye surgery, swollen glands or hoarseness Endo Endocrine: Yes diabetes mellitus; No thyroid disease, thyroid cancer, Hair loss, heat intolerance or cold intolerance Skin Skin: Yes changing moles; No rash Musc Musculoskeletal: Yes arthritis; No back problems, rheumatoid arthritis, gout or joint pain Cardio Cardiovascular: Yes high blood pressure; No murmur, pacemaker, heart disease, atrial fibrillation, heart attack, heart stent, palpitations, shortness of breat with exertion or chest pain Psych Psychiatric: No depression, anxiety or hearing voices Resp Respiratory: Yes shortness of breath, Yes sleep apnea, No cough, No COPD, No asthma, No emphysema and No wheezing Gastro Gastrointestinal: No abdominal pain, No nausea or vomiting, No diarrhea, No constipation, No blood in stool, Yes acid reflux, No hemorrhoids, No ulcers, No gallbladder problem and No black,tarry stools [facility]man Hematologic: Yes blood thinners, Yes blood disorders, Yes bleeding, No anemia and Yes blood clots Neuro Neurologic: No system reviewed and no additional complaints, except as documented, No as per HPI, No abnormal gait, No abnormal hearing, No abnormal movements, No abnormal speech, No behavioral changes, No burning sensations, No confusion, No convulsions, No disequilibrium, No dizziness, No localized weakness, No frequent falls, No headache(s), No lack of coordination, No loss of vision, No memory loss, No numbness, No other visual disturbances, No radicular pain, No restless legs, No sensory deficit, No syncope, Yes tingling, No tremor(s), No weakness and No other Exam Const General: cooperative, comfortable and no acute distress Orientation: alert, awake and oriented x3 HENMT Head: normal to inspection, normocephalic and atraumatic Ears: hearing grossly normal bilaterally and external ears normal Nose: external nose normal Eyes General: appearance normal, both eyes and all related structures EOM: EOM intact bilaterally Neck Neck: normal visual inspection, trachea midline and no anterior neck swelling Resp Effort Inspection: normal respiratory effort, able to speak in complete sentences, symmetric chest movement, no audible wheezes, not labored, no respiratory distress, no retractions, no stridor and no use of accessory muscles Auscultation: clear to auscultation bilaterally Cardio Rate: regular rate Rhythm: regular rhythm Heart Sounds: no murmurs Bruits: no carotid b (more content not included)... Normal [facility] Venous Duplex US - Kenny [facility] 01-12-2023 Venous Duplex US - Kenny [facility] Cardiovascular Services [address] [place] [address] Venous Duplex US - Kenny [facility] 01/12/23 1055 MR#: [id number] Acct: [id number] Name: ARIAS JOHNSTON Rep #: [id number] : 1970 52 From: Ethan Reese MD Attending Dr: KATRINA Haskins Status: RE G CLI Ordering Dr: Es Forte Date: Location: [facility] Sex: M C Admitted: Reason For Study: LEG SWELLING RIGHT LEFT CFV is compressible, spontaneous, phasic, CFV is compressible, spontaneous, phasic, competent and demonstrates normal competent, and demonstrates normal augmentation. augmentation. FV is compressible, spontaneous, phasic, FV is compressible, spontaneous, phasic, competent and demonstrates normal competent and demonstrates normal augmentation. augmentation. POP V is compressible, spontaneous, phasic, POP V is compressible, spontaneous, phasic, competent and demonstrates normal competent and demonstrates normal augmentation. augmentation. Acute deep vein thrombosis is noted in the T/P Trunk is compressible. T/P Trunk. It is dilated and NONCOMPRESSIBLE. PTV is compressible. LT PerV is compressible. PTV is compressible. ASV from junction is INCOMPETENT for greater RT PerV is compressible. than 0.5 seconds and measures 0.84 x 0.86cm ASV from junction is INCOMPETENT for greater SFJ is INCOMPETENT and measures 1.37 x 1.45 than 0.5 seconds and measures 0.65cm in long cm. SFJ is INCOMPETENT and measures 1.21 x 1.19 GSV proximal thigh measures 0.34 x 0.38 cm. cm. GSV at knee measures 1.00 x 1.11 cm. GSV proximal thigh measures 0.86 x 0.97 cm. GSV INCOMPETENT throughout for greater than GSV at knee measures 0.24 x 0.23 cm. 0.5 seconds GSV INCOMPETENT throughout for greater than Obgyn Specialist Vein INCOMPETENT for greater than 0.5 seconds 0.5 seconds at mid/distal calf approximately Obgyn Specialist Vein INCOMPETENT for greater than 16cm above ankle. 0.5 seconds at distal calf approximately 6- ASV proximal thigh is INCOMPETENT for 7cm above ankle. greater than 0.5 seconds and measures 0.80 x ASV proximal thigh is INCOMPETENT for greater 0.81 cm. than 0.5 seconds and measures 1.09 x 1.28 cm. SSV proximal calf is competent and measures ASV proximal calf is INCOMPETENT for greater 0.10 x 0.11 cm. than 0.5 seconds and measures 0.55 x 0.60 cm. SSV proximal calf is competent and measures 0.31 x 0.30 cm. Procedure Exam performed in department. The exam was diagnostic. A preliminary report was called and/or faxed to Dr. Reese / Uzma HERNDON. VL/Venous Duplex US - Kenny Extrem Interpretation Summary Acute deep vein thrombosis is noted in the right tibio-peroneal trunk. Deep veins of the left lower extremity are patent and compressible segmentally. There is no evidence of left lower extremity deep vein thrombosis. The left great saphenous vein appears patent and compressible segmentally. 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 Ordering Physician: Es Forte Referring Physician: Atul Higgins Performed By: Charlie Baires RVT 01/12/23 1438 Date Ethan Reese MD CC: KATRINA Forte; Dr. Atul Higgins, Date Dictated: 01/12/23 1055 Date Transcribed: 01/12/23 1438 Guide Dog Mobility Instructor: Jayce [facility] MR/BMSAria 01-05-2023 MR/JAZZMINE [facility] Vascular Surgery [address] [place] [address]. [address] [place] [address] OFFICE VISIT Date of Service: 01/05/23 MR#: [id number] Acct: [id number] Name: ARIAS JOHNSTON Rep #: [id number] : 1970 Provider: KATRINA decker Age/Sex: 52/M Location: [facility] Status: Signed Intake Vital Signs 12/28/22 07:52 12/31/22 10:41 01/05/23 08:53 Height 6 ft 1 in 6 ft 1 in Weight: 395 lb 394 lb 394 lb BMI 52.1 52.0 BP 137/77 H 131/86 H 109/71 Blood Pressure Location Lt brachial Position Sitting Respiration 14 18 16 Pulse 94 86 85 Pulse Source Monitor Temp 98.4 F 97.8 F Temp Source Temporal Temporal Pulse Oximetry (%) 97 98 96 Oxygen Delivery Method room air Intake Visit Reasons: VARICOSE VEINS Chief Complaint: rt leg varicose vein bleeds Is patient in pain?: No Allergies No Known Allergies Allergy (Verified 01/05/23 08:57) Medications aspirin 81 mg chewable tablet 81 mg PO DAILY@0800 11/23/16 [History Confirmed 01/05/23] lisinopril 20 mg-hydrochlorothiazide 25 mg tablet (Zestoretic) 1 ea PO DAILY 11/23/16 [History Confirmed 01/05/23] rivaroxaban 20 mg tablet (Xarelto) 20 tab PO QHS 03/04/22 [History Confirmed 01/05/23] atorvastatin 20 mg tablet 10 mg PO DAILY 01/05/23 [History Confirmed 01/05/23] coenzyme Q10 100 mg capsule (CoQ-10) 100 mg PO TID 01/05/23 [History Confirmed 01/05/23] omeprazole 20 mg capsule,delayed release 20 mg PO DAILY 01/05/23 [History Confirmed 01/05/23] tirzepatide 5 mg/0.5 mL subcutaneous pen injector (Mounjaro) 5 mg subcut QWEEK 01/05/23 [History Confirmed 01/05/23] [facility] Medical History (Updated 01/05/23 @ 09:19 by Shilpa Figueredo) Deep vein thrombosis (DVT) of right lower extremity Lymphedema Other cyst of bone, left upper arm Peripheral vascular disease Type 2 diabetes mellitus Venous insufficiency Surgical History (Updated 01/05/23 @ 09:19 by Shilpa Figueredo) H/O hernia repair ( 2017) History of cancer surgery ( 2017) History of sleeve gastrectomy ( 2018) Family History (Updated 01/05/23 @ 09:09 by Shilpa Figueredo) Other Arthritis Cancer Diabetes Hypertension Social History (Updated 03/04/22 @ 20:[address] Harshil Casarez, DO) Smoking Status: Never smoker substance use type: does not use HPI HPI HPI: ARIAS JOHNSTON, is a 52 M who presents to the office today for evaluation of bleeding varicose veins. Patient has been evaluated at the [facility] ER 4 times over the last year and reportedly been to other ERs in addition to that for this same bleeding varicosity. He has a very small, punctate wound to the R medial ankle/calf overlying a varicosity which is the source of the recurrent bleeding. He says that typically the bleeding seems to occur after showering, he questions if it is due to hot water or using towel to dry. He denies any known specific trauma to the area. He does have multiple BLE varicosities, he says they do cause some aching pain but not as bothersome for him as the recurrent bleeding. He denies any pelvic/abdominal wall varicosities. He does have BLE edema. He has worn compression in the past, but not recently. He does have a history of VTE. He had bilateral PEs back in [id number] and was ultimately diagnosed with anticardiolipin syndrome. He was initially anticoagulated with coumadin but had recurrence of DVT about 5-6 years ago and was switched to Xarelto which is currently on. He has had no known recurrence of DVT since then. He denies any history of prior venous ablation or other vascular intervention. His medical history is also significant for diabetes, obesity (hx bariatric surgery, now on Mounjaro for weight loss), diagnosis of lymphedema. He reports that he had bariatric surgery several years ago and lost a significant amount of weight after which he noted improved lower extremity edema. He used to also get recurrent cellulitis, but has had no issues since losing that weight. He denies CP, SOB, palpitations, syncope, bleeding in the stool or urine, epistaxis, N/V, F/C. ROS General General: Yes weight change; No appetite, fatigue, colon cancer, breast cancer or weakness HEENT HEENT: No difficulty swallowing, eye injury, eye surgery, swollen glands or hoarseness Endo Endocrine: Yes diabetes mellitus; No thyroid disease, thyroid cancer, Hair loss, heat intolerance or cold intolerance Skin Skin: Yes changing moles; No rash Musc Musculoskeletal: Yes arthritis; No back problems, rheumatoid arthritis, gout or joint pain Cardio Cardiovascular: Yes high blood pressure; No murmur, pacemaker, heart disease, atrial fibrillation, heart attack, heart stent, palpitations, shortness of breat with exertion or chest pain Psych Psychiatric: No depression, anxiety or hearing voices Resp Respiratory: Yes shortness of meet (more content not included)... Normal [facility] Emergency Department Summary on 12-31-2022 Emergency Department Summary [facility] Medical Records Department [address] [place] [address] Emergency Department Summary 12/31/22 MR#: [id number] Acct: [id number] Name: ARIAS JOHNSTON Rep #: [id number] : 1970 52 From: Dominick De La Cruz [employer] PCP: Dr. Atul Higgins DO Status:REG ER Location: ED HPI History of Present Illness Chief Complaint: Laceration Narrative Narrative: Patient is a 52-year-old male on aspirin, Xarelto secondary to a deep vein thrombosis presents to the emergency department for an ongoing issue of bleeding from his varicose veins from his right lower extremity. Patient states that this has been ongoing for over 1 year. He has 1 particular spot that continues to bleed every now and then. Patient states that last evening it was bleeding however he was able to get it to stop. This morning in the shower, he was bleeding and he was concerned. He denies any other injury. [facility] Medical History Deep vein thrombosis (DVT) of right lower extremity Lymphedema Peripheral vascular disease Type 2 diabetes mellitus Venous insufficiency Home Medications aspirin 81 mg chewable tablet 81 mg PO DAILY@0800 11/23/16 [History Last Taken Unknown] lisinopril 20 mg-hydrochlorothiazide 25 mg tablet (Zestoretic) 1 ea PO DAILY 11/23/16 [History Last Taken Unknown] rivaroxaban 20 mg tablet (Xarelto) 20 tab PO QHS 03/04/22 [History Last Taken Unknown] Allergy/AdvReac Type Severity Reaction Status Date / Time No Known Allergies Allergy Verified 12/31/22 10:43 Social History (Updated 03/04/22 @ 20:[address] Harshil Casarez, DO) Smoking Status: Never smoker substance use type: does not use ROS ROS ED ROS Narrative Constitutional: Negative for fever, chills, weight loss, weakness Eyes: Negative for vision loss, vision change, double vision ENT: Negative for any sore throat, ear pain, congestion Cardiovascular: Negative for any chest pain, tightness, palpitations Respiratory: Negative for any cough, sputum production, hemoptysis, dyspnea, dyspnea on exertion, orthopnea Gastrointestinal: Negative for any abdominal pain, nausea, vomiting, diarrhea, constipation, blood in stool, blood in vomit : Negative for any urinary frequency, dysuria, retention, blood in urine Muscle skeletal: Negative for any muscle joint pain, stiffness, myalgias, arthralgias, neck pain, back pain Neurological: Negative for any headache, syncope, numbness or tingling, dizziness Skin: Negative for any rashes, lumps, itching, abrasions, lacerations. Positive for bleeding to the right lower extremity Psychiatric: Negative for any depression, anxiety, stress, suicidal ideation, homicidal ideation Hematologic: Negative for any easy bruising, excessive bruising, easy bleeding Allergies: Negative for any eczema, hives, rash EXAM Physical Exam Narrative Exam Narrative: Vital signs reviewed. Extremities: No peripheral edema, no signs of gross trauma or deformity. Active full range of motion of all extremities. Patient does have vascular issues throughout his lower extremities. This is chronic. Neuro: Cranial nerves II through XII intact, no focal neurological deficits. Skin: Clean dry and intact with no rash, purpura, petechiae, vesicles or pustules. Patient does have a small area where the bleeding was coming from however it has since stopped. Patient does have multiple varicose veins. Backs/flank: No CVA tenderness, no midline spinal tenderness, no deformity. Psych: Normal mood and affect. No SI, HI or acute psychosis. Const Vital Signs: 12/31/22 10:41 Temperature 97.8 F Temperature Source Temporal Pulse Rate 86 Respiratory Rate 18 Blood Pressure 131/86 H Blood Pressure Mean 101 Pulse Ox 98 Oxygen Delivery Method Room Air Physical Exam Const Vital Signs: 12/31/22 10:41 Temperature 97.8 F Temperature Source Temporal Pulse Rate 86 Respiratory Rate 18 Blood Pressure 131/86 H Blood Pressure Mean 101 Pulse Ox 98 Oxygen Delivery Method Room Air [facility] Treatment and Re-Evaluation :: Patient appears generally well, patient appears nontoxic, vital signs are stable. Patient presents the emergency department for bleeding from a varicose vein which has since stopped and has been to the emergency department. There is a small area, I did consider performing a suture however any suturing would cause multiple veins to be punctured. Since the bleeding is stopped, I did use 1 silver nitrate stick I rolled over the area. I placed a pressure dressing. Patient will leave this on for further remainder of the day. I was able to put some antibiotic ointment to stop the sticking. Patient does have a follow-up appointment with a vascular surgeon this upcoming week. He (more content not included)... Normal [facility] Emergency Department Summary on 12-28-2022 Emergency Department Summary [facility] Medical Records Department [address] [place] [address] Emergency Department Summary 12/28/22 MR#: [id number] Acct: [id number] Name: ARIAS JOHNSTON Rep #: [id number] : 1970 52 From: Howard Corrigan MD PCP: Dr. Shania Barajas MD Status:PRE ER Location: ED HPI History of Present Illness Chief Complaint: Wound Informant: patient and spouse/S.O. Onset/Context/Timing Onset: Today Context: Sudden Onset Timing: Continuous (bleeding) Location: R ankle Current Severity: Gone Maximum Severity: Moderate Relieved by: wrapping w/ pressure dressing Associated Symptoms Associated Symptoms: Negative for Parasthesia, Weakness or Loss of Funtion Narrative Narrative: Patient has history of varicose veins, and he is anticoagulated on Xarelto because of a history of anticardiolipin antibody syndrome and a remote DVT. He was getting out of the shower this morning and as he was using a towel to dry off his right lower extremity, a varicose vein spontaneously started bleeding. He states he has had this happen before. His put a maxi pad on it and used an Dhaval wrap to wrap it very tightly. The bleeding has been controlled since then, but out of concern for this happening before and being on a blood thinner that came right to the emergency department without checking. He states his foot is starting to go numb because the Dhaval wrap is so tight, but he denies pain anywhere. [facility] Medical History Deep vein thrombosis (DVT) of right lower extremity Lymphedema Peripheral vascular disease Type 2 diabetes mellitus Venous insufficiency Home Medications aspirin 81 mg chewable tablet 81 mg PO DAILY@0800 11/23/16 [History Last Taken Unknown] lisinopril 20 mg-hydrochlorothiazide 25 mg tablet (Zestoretic) 1 ea PO DAILY 11/23/16 [History Last Taken Unknown] rivaroxaban 20 mg tablet (Xarelto) 20 tab PO QHS 03/04/22 [History Last Taken Unknown] Allergy/AdvReac Type Severity Reaction Status Date / Time No Known Allergies Allergy Verified 12/28/22 07:53 Social History (Updated 03/04/22 @ 20:[address] Harshil Casarez, DO) Smoking Status: Never smoker substance use type: does not use ROS ROS ED Constitutional Constitutional ED: Denies chills or fever(s) Cardiovascular Cardiovascular: Reports leg edema Musculoskeletal Musculoskeletal: Denies extremity pain or neck pain Integumentary Reports wounds; Denies Abrasions or rash Neurologic Neurologic: Denies paresthesias or weakness EXAM Physical Exam Const Vital Signs: 12/28/22 07:52 Temperature 98.4 F Temperature Source Temporal Pulse Rate 94 Respiratory Rate 14 Blood Pressure 137/77 H Blood Pressure Mean 97 Pulse Ox 97 Oxygen Delivery Method Room Air Positive well nourished, well developed and obese General Appearance ED: well developed and NAD Nutritional Appearance: obese Neck full ROM and supple Back/Spine normal ROM and normal to inspection Extremity full ROM Extremity Narrative: No tenderness. Multiple varicosities. General Extremety ED: Yes edema General Extremity: edema bilateral lower extremity Details: moderate Neuro oriented x3, no focal motor deficits and no sensory deficits noted Sensorium / Orientation: alert Psych mental status grossly normal and thought process normal Skin Skin Narrative: Unwrapping the wound medial right ankle, there is a pinpoint area where bleeding recently came from but is not active at this time that is consistent with a bleeding superficial varicose vein. No signs of infection or ulceration. Rashes: no rashes MDM MDM MDM Narrative Medical decision making narrative: Releasing the tight Dhaval wrap resulted in relief of the paresthesias in his foot, there is a brisk cap refill all toes and no signs of acute ischemia. The varicose vein appears to have a small clot on it, it is not actively bleeding but it appears fragile so I am having nursing rewrap it without pressure with a small piece of Surgifoam, given appropriate instructions for leaving this on as long as there is no bleeding for at least 24 hours. Discharge Plan Triage Chief Complaint: Wound ED Provider: Howard Corrigan Dx/Rx/DC Orders Clinical Impression: Bleeding from varicose veins of right lower extremity Instructions: ED Varicose Veins Prescriptions: No Action lisinopril-hydrochloro thiazide [Zestoretic] 1 EACH tablet 1 ea PO DAILY aspirin 81 MG tablet,chewable 81 mg PO DAILY@0800 Xarelto 20 mg tablet 20 tab PO QHS Label Comments: TAKE 1 TABLET BY MOUTH EVERYDAY AT BEDTIME Primary Care Provider: Shania Barajas Referrals: Shania Barajas MD [Primary Care Provider] - As Needed (or return to ER for bleeding that you are unable to control at home) (more content not included)... Normal [facility] LABORATORYOrdered By: Yenny Reese on 11-01-2022 Albumin DL <= 20 mg/L (U) [Mass/Vol] 912 mcg/dL Invalid Interpretation Code AO ADM SS Albumin/Creatinine DL <= 20 mg/L (U) [Mass ratio] 9 mcg/mg Invalid Interpretation Code 0 - 30 mcg/mg AO ADM SS Creatinine (U) [Mass/Vol] 99.6 mg/dL Invalid Interpretation Code 39.0 - 259.0 mg/dL AO ADM SS Cholesterol [Mass/Vol] 133 mg/dL Invalid Interpretation Code 0 - 200 mg/dL AO ADM SS Cholesterol in HDL [Mass/Vol] 48 mg/dL Invalid Interpretation Code 40 - 60 mg/dL AO ADM SS Cholesterol in LDL [Mass/Vol] 67 mg/dL Invalid Interpretation Code 0 - 130 mg/dL AO ADM SS Triglyceride [Mass/Vol] 89 mg/dL Invalid Interpretation Code 0 - 150 mg/dL AO ADM SS LABORATORYOrdered By: [employer] on 11-01-2022 Albumin BCP dye [Mass/Vol] 3.8 G/dL Invalid Interpretation Code 3.5 - 5.0 G/dL AO ADM SS Albumin/Globulin [Mass ratio] 1.0 {ratio} Invalid Interpretation Code 1.1 - 2.5 ratio AO ADM SS ALP [Catalytic activity/Vol] 96 U/L Invalid Interpretation Code 40 - 135 U/L AO ADM SS ALT With P-5'-P [Catalytic activity/Vol] 28 U/L Invalid Interpretation Code 16 - 63 U/L AO ADM SS AST With P-5'-P [Catalytic activity/Vol] 24 U/L Invalid Interpretation Code 10 - 40 U/L AO ADM SS Bili Indirect 0.4 mg/dL Invalid Interpretation Code AO Chemistry S Bilirubin [Mass/Vol] 0.5 mg/dL Invalid Interpretation Code 0.2 - 1.0 mg/dL AO ADM SS Bilirubin.direct [Mass/Vol] 0.1 mg/dL Invalid Interpretation Code 0.0 - 0.2 mg/dL AO ADM SS Cobalamin (Vitamin B12) [Mass/Vol] 1754 pg/mL Invalid Interpretation Code 211 - 911 pg/mL AH ADM SS Globulin 4.0 G/dL Invalid Interpretation Code AO ADM SS Protein [Mass/Vol] 7.8 G/dL Invalid Interpretation Code 6.4 - 8.2 G/dL AO ADM SS LABORATORYOrdered By: Yenny Reese on 06-01-2022 Albumin BCP dye [Mass/Vol] 3.6 G/dL Invalid Interpretation Code 3.5 - 5.0 G/dL AO ADM SS Albumin/Globulin [Mass ratio] 0.9 {ratio} Invalid Interpretation Code 1.1 - 2.5 ratio AO ADM SS ALP [Catalytic activity/Vol] 76 U/L Invalid Interpretation Code 40 - 135 U/L AO ADM SS ALT With P-5'-P [Catalytic activity/Vol] 26 U/L Invalid Interpretation Code 16 - 63 U/L AO ADM SS AST With P-5'-P [Catalytic activity/Vol] 24 U/L Invalid Interpretation Code 10 - 40 U/L AO ADM SS Bilirubin [Mass/Vol] 0.7 mg/dL Invalid Interpretation Code 0.2 - 1.0 mg/dL AO ADM SS Calcium [Mass/Vol] 9.0 mg/dL Invalid Interpretation Code 8.4 - 10.2 mg/dL AO ADM SS Chloride [Moles/Vol] 100 mmol/L Invalid Interpretation Code 98 - 107 mmol/L AO ADM SS Cholesterol [Mass/Vol] 167 mg/dL Invalid Interpretation Code 0 - 200 mg/dL AO ADM SS Cholesterol in HDL [Mass/Vol] 45 mg/dL Invalid Interpretation Code 40 - 60 mg/dL AO ADM SS Cholesterol in LDL [Mass/Vol] 109 mg/dL Invalid Interpretation Code 0 - 130 mg/dL AO ADM SS CO2 [Moles/Vol] 30 mmol/L Invalid Interpretation Code 22 - 29 mmol/L AO ADM SS Creatinine [Mass/Vol] 1.03 mg/dL Invalid Interpretation Code 0.70 - 1.30 mg/dL AO ADM SS Electrolyte Balance 7.0 mEq/L Invalid Interpretation Code 4.0 - 15.0 mEq/L AO ADM SS Free T4 [Mass/Vol] 1.03 ng/dL Invalid Interpretation Code 0.76 - 1.46 ng/dL AO ADM SS Globulin 3.8 G/dL Invalid Interpretation Code AO ADM SS Glucose [Mass/Vol] 121 mg/dL Invalid Interpretation Code 70 - 105 mg/dL AO ADM SS Potassium [Moles/Vol] 4.6 mmol/L Invalid Interpretation Code 3.5 - 5.1 mmol/L AO ADM SS Prostate specific Ag [Mass/Vol] 0.21 ng/mL Invalid Interpretation Code 0.00 - 4.00 ng/mL AO ADM SS Protein [Mass/Vol] 7.4 G/dL Invalid Interpretation Code 6.4 - 8.2 G/dL AO ADM SS Sodium [Moles/Vol] 137 mmol/L Invalid Interpretation Code 136 - 145 mmol/L AO ADM SS Triglyceride [Mass/Vol] 63 mg/dL Invalid Interpretation Code 0 - 150 mg/dL AO ADM SS TSH Qn 2.99 m[IU]/L Invalid Interpretation Code 0.36 - 3.74 mcIU/mL AO ADM SS Urea nitrogen [Mass/Vol] 15 mg/dL Invalid Interpretation Code 7 - 18 mg/dL AO ADM SS Urea nitrogen/Creatinine [Mass ratio] 15 ratio Invalid Interpretation Code 7 - 27 ratio AO ADM SS Vit. D 25-Hydroxy 51.9 ng/mL Invalid Interpretation Code AO ADM SS LABORATORYOrdered By: Radha Ayala on 06-01-2022 Basophil, Absolute 0.0 103/mcL Invalid Interpretation Code 0.0 - 0.2 10^3/mcL AO Workflow SS Basophils/100 WBC (Bld) 0.7 % Invalid Interpretation Code 0.0 - 2.5 % AO Workflow SS Eosinophil, Absolute 0.0 103/mcL Invalid Interpretation Code 0.0 - 0.4 10^3/mcL AO Workflow SS Eosinophils/100 WBC (Bld) 0.8 % Invalid Interpretation Code 0.0 - 7.0 % AO Workflow SS Erythrocyte distribution width (RBC) [Ratio] 14.3 % Invalid Interpretation Code 11.5 - 14.5 % AO Workflow SS HbA1c (Bld) [Mass fraction] 6.4 % Invalid Interpretation Code 4.3 - 6.4 % AO ADM SS Hematocrit (Bld) [Volume fraction] 44.8 % Invalid Interpretation Code 42.0 - 52.0 % AO Workflow SS Hemoglobin (Bld) [Mass/Vol] 15.1 G/dL Invalid Interpretation Code 14.0 - 18.0 G/dL AO Workflow SS Lymphocyte, Absolute 1.3 103/mcL Invalid Interpretation Code 0.8 - 3.9 10^3/mcL AO Workflow SS Lymphocytes/100 WBC (Bld) 23.2 % Invalid Interpretation Code 10.0 - 50.0 % AO Workflow SS MCH (RBC) [Entitic mass] 28.9 pg Invalid Interpretation Code 27.0 - 31.2 pg AO Workflow SS MCHC 33.8 G/dL Invalid Interpretation Code 31.8 - 35.4 G/dL AO Workflow SS MCV (RBC) [Entitic vol] 85.5 fL Invalid Interpretation Code 80.0 - 94.0 fL AO Workflow SS Monocyte, Absolute 0.6 103/mcL Invalid Interpretation Code 0.2 - 1.0 10^3/mcL AO Workflow SS Monocytes/100 WBC (Bld) 9.9 % Invalid Interpretation Code 1.7 - 13.0 % AO Workflow SS Neutrophil, Absolute 3.8 103/mcL Invalid Interpretation Code 2.9 - 6.2 10^3/mcL AO Workflow SS Neutrophils/100 WBC (Bld) 65.4 % Invalid Interpretation Code 37.0 - 80.0 % AO Workflow SS Platelet mean volume (Bld) [Entitic vol] 7.1 fL Invalid Interpretation Code 7.4 - 10.4 fL AO Workflow SS Platelets (Bld) [#/Vol] 333 103/mcL Invalid Interpretation Code 130 - 400 10^3/mcL AO Workflow SS RBC (Bld) [#/Vol] 5.24 106/mcL Invalid Interpretation Code 4.04 - 6.13 10^6/mcL AO Workflow SS WBC (Bld) [#/Vol] 5.8 103/mcL Invalid Interpretation Code 4.6 - 10.8 10^3/mcL AO Workflow SS LABORATORYOrdered By: SYSTEM SYSTEM on 06-01-2022 C peptide [Mass/Vol] 3.28 ng/mL Invalid Interpretation Code 0.81 - 3.85 ng/mL AH ADM SS Cobalamin (Vitamin B12) [Mass/Vol] 1318 pg/mL Invalid Interpretation Code 211 - 911 pg/mL AH ADM SS GFR 92 ml/min/1.73sqm Invalid Interpretation Code AO Chemistry S GFR Non- 76 ml/min/1.73sqm Invalid Interpretation Code AO Chemistry S LABORATORYOrdered By: Heather Huynh on 06-01-2022 HCV Ab IA Ql Non-Reactive (06/01/22 9:13 AM) Invalid Interpretation Code Non-Reactive AH ADM SS HCV Ab IA Ql Nonreactive: Samples with a value < 0.80 are considered nonreactive (negative) for antibodies to HCV.A negative test result does not exclude the possibility of exposure to or infection with HCV. HCV antibodies may be undetectable in some stages of the infection and in some clinical conditions. Invalid Interpretation Code Chemistry S Zinc, Serumon 10-30-2019 Zinc, Serum 89.2 ug/dL Normal 60.0-120.0 [facility] Comment on above: Result Comment: INTE RPRETIVE INFORMATION: Zinc, Serum or Plasma Elevated results may be due to skin or collection-related contamination, including the use of a noncertified metal-free collection/transport tube. If contamination concerns exist due to elevated levels of serum/plasma zinc, confirmation with a second specimen collected in a certified metal-free tube is recommended. Circulating zinc concentrations are dependent on albumin status and are depressed with malnutrition. Zinc may also be lowered with infection, inflammation, stress, oral contraceptives, and . Zinc may be elevated with zinc supplementation or fasting. Elevated zinc concentrations may interfere with copper absorption. Test developed and characteristics determined by [facility]. See Compliance Statement B: [facility] Performed by [facility], [address] [place] [id number] [email or web address], Shashi Anders MD, Lab. Director Performed By: #### H EMOG, IRON3, LIPD2, CMP3, MG3, FERR3, FOLT3, B12 #### [facility] [employer] [facility] [address] [place] [address] #### [id number] #### [facility] [address] [place] [address] #### ZINC2 #### The performing lab is in the report. CBCon 10-28-2019 Erythrocyte distribution width (RBC) [Ratio] 14.1 % 11.5 - 14.5 % [facility] Work Phone: Hematocrit (Bld) [Volume fraction] 48.3 % 40 - 52 % [facility] Work Phone: Hemoglobin (Bld) [Mass/Vol] 15.9 g/dL 13 - 18 g/dL [facility] Work Phone: Interpretation and review of laboratory results Abnormal [facility] Work Phone: MCH (RBC) [Entitic mass] 29.3 pg 26 - 34 pg [facility] Work Phone: MCHC (RBC) [Mass/Vol] 33.0 % 32 - 36 % [facility] Work Phone: MCV (RBC) [Entitic vol] 88.7 fL 80 - 98 fL [facility] Work Phone: Platelet mean volume (Bld) [Entitic vol] 7.2 fL Low 7.4 - 10.4 fL [facility] Work Phone: Platelets (Bld) [#/Vol] 354 10*3/uL 140 - 440 10*3/uL [facility] Work Phone: RBC (Bld) [#/Vol] 5.45 10*6/uL 4.4 - 5.9 10*6/uL [facility] Work Phone: WBC (Bld) [#/Vol] 5.8 10*3/uL 3.6 - 10.7 10*3/uL [facility] Work Phone: Test Performed by [facility] [employer] [facility], [address] [place] [id number] [place] [address] Work Phone: Comp Metabolic Panelon 10-28 ALP [Catalytic activity/Vol] 88 U/L Normal 38-126 [facility] Comment on above: Performed By: #### H EMOG, IRON3, LIPD2, CMP3, MG3, FERR3, FOLT3, B12 #### [facility] [employer] [address] [place] [address] #### [id number] #### [facility] [employer] [address] [place] [address] #### ZINC2 #### The performing lab is in the report. ALT [Catalytic activity/Vol] 35 U/L Normal 13-69 [facility] Comment on above: Performed By: #### H EMOG, IRON3, LIPD2, CMP3, MG3, FERR3, FOLT3, B12 #### [facility] [address] [place] [address] #### [id number] #### [facility] [address] [place] [address] #### ZINC2 #### The performing lab is in the report. Calcium [Mass/Vol] 9.2 mg/dL Normal 8.4-10.4 [facility] Comment on above: Performed By: #### H EMOG, IRON3, LIPD2, CMP3, MG3, FERR3, FOLT3, B12 #### [facility] [address] [place] [address] #### [id number] #### [address] [place] [address] #### ZINC2 #### The performing lab is in the report. Glucose [Mass/Vol] 96 mg/dL Normal 70-100 [facility] Comment on above: Performed By: #### H EMOG, IRON3, LIPD2, CMP3, MG3, FERR3, FOLT3, B12 #### [facility] [place] [address] #### [id number] #### [address] [place] [address] #### ZINC2 #### The performing lab is in the report. Urea nitrogen [Mass/Vol] 18 mg/dL Normal 7-20 [facility] Comment on above: Performed By: #### H EMOG, IRON3, LIPD2, CMP3, MG3, FERR3, FOLT3, B12 #### [facility] [place] [address] #### [id number] #### [facility] [address] [place] [address] #### ZINC2 #### The performing lab is in the report. Anion gap [Moles/Vol] 8 Normal [facility] Comment on above: Performed By: #### H EMOG, IRON3, LIPD2, CMP3, MG3, FERR3, FOLT3, B12 #### [address] [place] [address] #### [id number] #### [place] [address] [place] [address] #### ZINC2 #### The performing lab is in the report. AST [Catalytic activity/Vol] 28 U/L Normal 15-46 [facility] Comment on above: Performed By: #### H EMOG, IRON3, LIPD2, CMP3, MG3, FERR3, FOLT3, B12 #### [facility] [address] #### [id number] #### [address] [place] [address] #### ZINC2 #### The performing lab is in the report. Bilirubin [Mass/Vol] 0.6 mg/dL Normal 0.2-1.3 [facility] Comment on above: Performed By: #### H EMOG, IRON3, LIPD2, CMP3, MG3, FERR3, FOLT3, B12 #### [address] [place] [address] #### [id number] #### [address] [place] [address] #### ZINC2 #### The performing lab is in the report. CO2 [Moles/Vol] 30 mmol/L Normal 22-30 [facility] Comment on above: Performed By: #### H EMOG, IRON3, LIPD2, CMP3, MG3, FERR3, FOLT3, B12 #### [facility] [place] [address] #### [id number] #### [address] [place] [address] #### ZINC2 #### The performing lab is in the report. Creatinine [Mass/Vol] 0.77 mg/dL Normal 0.52-1.25 [facility] Comment on above: Performed By: #### H EMOG, IRON3, LIPD2, CMP3, MG3, FERR3, FOLT3, B12 #### [address] [place] [address] #### [id number] #### [place] [address] [place] [address] #### ZINC2 #### The performing lab is in the report. GFR/1.73 sq M predicted among blacks MDRD (S/P/Bld) [Vol rate/Area] mL/min/{1.73_m2} Normal >60 [facility] Comment on above: Performed By: #### H EMOG, IRON3, LIPD2, CMP3, MG3, FERR3, FOLT3, B12 #### [address] [place] [address] #### [id number] #### [address] [place] [address] #### ZINC2 #### The performing lab is in the report. GFR/1.73 sq M predicted among non-blacks MDRD (S/P/Bld) [Vol rate/Area] mL/min/{1.73_m2} Normal >60 [facility] Comment on above: Result Comment: Sour ce- MDRD equation with creatinine calibration to IDMS(NKDEP) eGFR not recommended for drug dose adjustment Performed By: #### H EMOG, IRON3, LIPD2, CMP3, MG3, FERR3, FOLT3, B12 #### [address] [place] [address] #### [id number] #### [address] [place] [address] #### ZINC2 #### The performing lab is in the report. Protein [Mass/Vol] 7.2 g/dL Normal 6.3-8.2 [facility] Comment on above: Performed By: #### H EMOG, IRON3, LIPD2, CMP3, MG3, FERR3, FOLT3, B12 #### [address] [place] [address] #### [id number] #### [place] [address] [place] [address] #### ZINC2 #### The performing lab is in the report. Chloride [Moles/Vol] 99 mmol/L Normal 98-107 [facility] Comment on above: Performed By: #### H EMOG, IRON3, LIPD2, CMP3, MG3, FERR3, FOLT3, B12 #### [facility] [address] [place] [address] #### [id number] #### [facility] [address] [place] [address] #### ZINC2 #### The performing lab is in the report. Potassium [Moles/Vol] 4.7 mmol/L Normal 3.5-5.1 [facility] Comment on above: Performed By: #### H EMOG, IRON3, LIPD2, CMP3, MG3, FERR3, FOLT3, B12 #### [facility] [address] [facility] [place] [address] #### [id number] #### [place] [address] [place] [address] #### ZINC2 #### The performing lab is in the report. Sodium [Moles/Vol] 137 mmol/L Normal 135-145 [facility] Comment on above: Performed By: #### H EMOG, IRON3, LIPD2, CMP3, MG3, FERR3, FOLT3, B12 #### [facility] [address] [facility] [place] [address] #### [id number] #### [facility] [address] [place] [address] #### ZINC2 #### The performing lab is in the report. Albumin [Mass/Vol] 4.0 g/dL Normal 3.5-5.0 [facility] Comment on above: Performed By: #### H EMOG, IRON3, LIPD2, CMP3, MG3, FERR3, FOLT3, B12 #### [facility] [address] [place] [address] #### [id number] #### [facility] [address] [place] [address] #### ZINC2 #### The performing lab is in the report. Comprehensive Metabolic Pane mallory 10-28-2019 Albumin [Mass/Vol] 4.0 g/dL 3.5 - 5 g/dL [facility] Work Phone: ALP [Catalytic activity/Vol] 88 U/L 38 - 126 U/L [facility] Work Phone: ALT [Catalytic activity/Vol] 35 U/L 13 - 69 U/L [facility] Work Phone: Anion gap [Moles/Vol] 8 mmol/L [facility] Work Phone: AST [Catalytic activity/Vol] 28 U/L 15 - 46 U/L [facility] Work Phone: Bilirubin Ql (U) 0.6 mg/dL 0.2 - 1.3 mg/dL [facility] Work Phone: Calcium [Mass/Vol] 9.2 mg/dL 8.4 - 10. 4 mg/dL [facility] Work Phone: Chloride [Moles/Vol] 99 mmol/L 98 - 10 7 mmol/L [facility] Work Phone: CO2 [Moles/Vol] 30 mmol/L 22 - 30 mmol/L [facility] Work Phone: Creatinine [Mass/Vol] 0.77 mg/dL 0.52 - 1.25 mg/dL [facility] Work Phone: EGFR IF NonAfrican Citizen Of [place] >60.0 >60 mL/min [facility] Work Phone: Comment on above: Source- MDRD equatio n with creatinine calibration to IDMS(NKDEP) eGFR not recommended for drug dose adjustment GFR/1.73 sq M predicted among blacks MDRD (S/P/Bld) [Vol rate/Area] mL/min/{1.73_m2} >60 mL/min [facility] Work Phone: Glucose [Mass/Vol] 96 mg/dL 70 - 100 mg/dL [facility] Work Phone: Potassium [Moles/Vol] 4.7 mmol/L 3.5 - 5.1 mmol/L [facility] Work Phone: Protein [Mass/Vol] 7.2 g/dL 6.3 - 8.2 g/dL [facility] Work Phone: Sodium [Moles/Vol] 137 mmol/L 135 - 145 mmol/L [facility] Work Phone: Urea nitrogen [Mass/Vol] 18 mg/dL 7 - 20 mg/dL [facility] Work Phone: Ferritinon 10-28-2019 Ferritin [Mass/Vol] 77 ng/mL Normal 18-464 [facility] Work Phone: Comment on above: Performed By: #### H EMOG, IRON3, LIPD2, CMP3, MG3, FERR3, FOLT3, B12 #### [facility] [address] [facility] [place] [address] #### VD25H #### [facility] [address] [place] [address] #### ZINC2 #### The performing lab is in the report. Test Performed by [facility], [address] [place] [address]. [address] Work Phone: Folateon 10-28-2019 Folate 11.8 ng/mL Normal 2.8-20.0 [facility] [employer] Comment on above: Performed By: #### H EMOG, IRON3, LIPD2, CMP3, MG3, FERR3, FOLT3, B12 #### [facility] [address] [place] [address]. [place] [address] #### VD25H #### [facility] [address] [place] [address] #### ZINC2 #### The performing lab is in the report. Folate 11.8 ng/mL 2.8 - 20 ng/mL [facility] Work Phone: Hemogramon 10-28-2019 Erythrocyte distribution width (RBC) [Ratio] 14.1 % Normal 11.5-14.5 [facility] [employer] Comment on above: Performed By: #### H EMOG, IRON3, LIPD2, CMP3, MG3, FERR3, FOLT3, B12 #### [facility] [address] [place] [address] #### VD25H #### [facility] [address] [place] [address] #### ZINC2 #### The performing lab is in the report. Hematocrit (Bld) [Volume fraction] 48.3 % Normal 40.0-52.0 [facility] Comment on above: Performed By: #### H EMOG, IRON3, LIPD2, CMP3, MG3, FERR3, FOLT3, B12 #### [facility] [address] [place] [address] #### VD25H #### [facility] [address] [place] [address] #### ZINC2 #### The performing lab is in the report. Hemoglobin (Bld) [Mass/Vol] 15.9 g/dL Normal 13.0-18.0 [facility] Comment on above: Performed By: #### H EMOG, IRON3, LIPD2, CMP3, MG3, FERR3, FOLT3, B12 #### [facility] [place] [address] #### VD25H #### [facility] [address] [place] [address] #### ZINC2 #### The performing lab is in the report. MCH (RBC) [Entitic mass] 29.3 pg Normal 26.0-34.0 [facility] Comment on above: Performed By: #### H EMOG, IRON3, LIPD2, CMP3, MG3, FERR3, FOLT3, B12 #### [facility] [place] [address] #### VD25H #### [facility] [address] [place] [address] #### ZINC2 #### The performing lab is in the report. MCHC (RBC) [Mass/Vol] 33.0 % Normal 32.0-36.0 [facility] Comment on above: Performed By: #### H EMOG, IRON3, LIPD2, CMP3, MG3, FERR3, FOLT3, B12 #### [facility] [address] [place] [address] #### VD25H #### [facility] [address] [facility] [place] [address] #### ZINC2 #### The performing lab is in the report. MCV (RBC) [Entitic vol] 88.7 fL Normal 80.0-98.0 [facility] Comment on above: Performed By: #### H EMOG, IRON3, LIPD2, CMP3, MG3, FERR3, FOLT3, B12 #### [facility] [address] [facility] [place] [address] #### VD25H #### [facility] [address] [place] [address] #### ZINC2 #### The performing lab is in the report. Platelet mean volume (Bld) [Entitic vol] 7.2 fL Low 7.4-10.4 [facility] Comment on above: Performed By: #### H EMOG, IRON3, LIPD2, CMP3, MG3, FERR3, FOLT3, B12 #### [facility] [address] [facility] [place] [address] #### VD25H #### [facility] [address] [facility] [place] [address] #### ZINC2 #### The performing lab is in the report. Platelets (Bld) [#/Vol] 354 10*3/uL Normal 140-440 [facility] Comment on above: Performed By: #### H EMOG, IRON3, LIPD2, CMP3, MG3, FERR3, FOLT3, B12 #### [facility] [address] [facility] [place] [address] #### VD25H #### [facility] [address] [place] [address] #### ZINC2 #### The performing lab is in the report. RBC (Bld) [#/Vol] 5.45 10*6/uL Normal 4.40-5.90 [facility] Comment on above: Performed By: #### H EMOG, IRON3, LIPD2, CMP3, MG3, FERR3, FOLT3, B12 #### [facility] [address] [facility] [place] [address] #### VD25H #### [facility] [address] [place] [address] #### ZINC2 #### The performing lab is in the report. WBC (Bld) [#/Vol] 5.8 10*3/uL Normal 3.6-10.7 [facility] Comment on above: Performed By: #### H EMOG, IRON3, LIPD2, CMP3, MG3, FERR3, FOLT3, B12 #### [facility] [address] [place] [address] #### VD25H #### [facility] [address] [place] [address] #### ZINC2 #### The performing lab is in the report. Ironon 10-28-2019 Iron [Mass/Vol] 102 ug/dL 49 - 181 ug/dL [facility] Work Phone: Test Performed by [facility], [address] [place] [address] Work Phone: Iron, Totalon 10-28-2019 Iron, Total 102 ug/dL Normal 49-181 [facility] Comment on above: Performed By: #### H EMOG, IRON3, LIPD2, CMP3, MG3, FERR3, FOLT3, B12 #### [address] [place] [address] #### VD25H #### [facility] [address] [place] [address] #### ZINC2 #### The performing lab is in the report. Lipid Panelon 10-28-2019 Cholesterol in HDL [Mass/Vol] 40 mg/dL Normal 40-60 [facility] Comment on above: Performed By: #### H EMOG, IRON3, LIPD2, CMP3, MG3, FERR3, FOLT3, B12 #### [facility] [address] [place] [address] #### VD25H #### [facility] [address] [place] [address] #### ZINC2 #### The performing lab is in the report. Cholesterol.total/Cho lesterol in HDL [Mass ratio] 4 Normal [facility] Comment on above: Result Comment: Ref Range: < 3 Low Risk for CHD 3-6 Mod Risk for CHD > 6 High Risk for CHD Performed By: #### H EMOG, IRON3, LIPD2, CMP3, MG3, FERR3, FOLT3, B12 #### [facility] [address] [place] [address] #### VD25H #### [facility] [address] [place] [address] #### ZINC2 #### The performing lab is in the report. Protein [Mass/Vol] 100 mg/dL Abnormal <100 [facility] Comment on above: Performed By: #### H EMOG, IRON3, LIPD2, CMP3, MG3, FERR3, FOLT3, B12 #### [facility] [address] [place] [address] #### VD25H #### [facility] [address] [place] [address] #### ZINC2 #### The performing lab is in the report. Triglyceride [Mass/Vol] 48 mg/dL Normal <150 [facility] Comment on above: Performed By: #### H EMOG, IRON3, LIPD2, CMP3, MG3, FERR3, FOLT3, B12 #### [facility] [place] [address] #### VD25H #### [facility] [address] [place] [address] #### ZINC2 #### The performing lab is in the report. Cholesterol [Mass/Vol] 150 mg/dL Normal < 200 [facility] Comment on above: Performed By: #### H EMOG, IRON3, LIPD2, CMP3, MG3, FERR3, FOLT3, B12 #### [facility] [place] [address] #### VD25H #### [facility] [address] [place] [address] #### ZINC2 #### The performing lab is in the report. Cholesterol [Mass/Vol] 150 mg/dL <200 [facility] Work Phone: Cholesterol in HDL [Mass/Vol] 40 mg/dL 40 - 60 mg/dL [facility] Work Phone: Cholesterol in LDL [Mass/Vol] 100 mg/dL Abnormal <100 [facility] Work Phone: Cholesterol.total/Cho lesterol in HDL [Mass ratio] 4 {ratio} [employer] Work Phone: Comment on above: Ref Range: < 3 Low Risk for CHD 3-6 Mod Risk for CHD > 6 High Risk for CHD Interpretation and review of laboratory results Abnormal [facility] Work Phone: Triglyceride [Mass/Vol] 48 mg/dL <150 [facility] Work Phone: Magnesiumon 10-28-2019 Magnesium [Mass/Vol] 2.0 mg/dL Normal 1.6-2.3 [facility] Comment on above: Performed By: #### H EMOG, IRON3, LIPD2, CMP3, MG3, FERR3, FOLT3, B12 #### [facility] [address] [place] [address] #### VD25H #### [facility] [address] [place] [address] #### ZINC2 #### The performing lab is in the report. Magnesium [Mass/Vol] 2.0 mg/dL 1.6 - 2 .3 mg/dL [facility] Work Phone: Otheron 10-28-2019 Test Performed by [facility], [address] , [address] Work Phone: Test Performed by [facility], [address] , [address] Work Phone: Vit D 25-OH, Totalon 020 Vit D 25-OH, Total 54 ng/mL Normal 30-100 [facility] Comment on above: Result Comment: Ther apy is based on measurement of Total 25- OHD with the following classification levels: Less than 20 ng/mL: Indicative of Vit D deficiency 20-30 ng/mL: Suggests Vit D insufficiency Optimal: Greater than or equal to 30 ng/mL Test performed by [employer] Competitive Immunoassay, measuring Total Vitamin D, not individual fractions. Performed By: #### H EMOG, IRON3, LIPD2, CMP3, MG3, FERR3, FOLT3, B12 #### [facility] [address] [place] [address] #### VD25H #### [facility] [address] [place] [address] #### ZINC2 #### The performing lab is in the report. Vitamin B12on 10-28-2019 Cobalamin (Vitamin B12) [Mass/Vol] 816 pg/mL Normal 239-931 [facility] Comment on above: Performed By: #### H EMOG, IRON3, LIPD2, CMP3, MG3, FERR3, FOLT3, B12 #### [facility] [address] [place] [address] #### VD25H #### [facility] [employer] [facility] [address] [place] [address] #### ZINC2 #### The performing lab is in the report. Cobalamin (Vitamin B12) [Mass/Vol] 816 pg/mL 239 - 931 pg/mL [employer] Work Phone: Vitamin D 25 Hydroxyon 10-28 Vit D, 25-Hydroxy 54 ng/mL 30 - 100 ng/mL [facility] Work Phone: Comment on above: Therapy is based on measurement of Total 25-OHD with the following classification levels: Less than 20 ng/mL: Indicative of Vit D deficiency 20-30 ng/mL: Suggests Vit D insufficiency Optimal: Greater than or equal to 30 ng/mL Test performed by [employer] Competitive Immunoassay, measuring Total Vitamin D, not individual fractions. Test Performed by [facility], [address] [place], [place] [address] [facility] Work Phone: Zinc, Serumon 05-02-2019 Zinc, Serum 79.7 ug/dL Normal 60.0-120.0 [facility] Comment on above: Result Comment: INTE RPRETIVE INFORMATION: Zinc, Serum or Plasma Elevated results may be due to skin or collection-related contamination, including the use of a noncertified metal-free collection/transport tube. If contamination concerns exist due to elevated levels of serum/plasma zinc, confirmation with a second specimen collected in a certified metal-free tube is recommended. Circulating zinc concentrations are dependent on albumin status and are depressed with malnutrition. Zinc may also be lowered with infection, inflammation, stress, oral contraceptives, and . Zinc may be elevated with zinc supplementation or fasting. Elevated zinc concentrations may interfere with copper absorption. Test developed and characteristics determined by [facility]. See Compliance Statement B: [employer] Performed by [employer], [address] [place] [id number] [email or web address], Shashi Anders MD - Lab. Director Performed By: #### H EMOG, IRON3, LIPD2, CMP3, MG3, FERR3, FOLT3, B12 #### [facility] [address] [place] [address] #### VD25H #### [facility] [address] [place] [address] #### ZINC2 #### The performing lab is in the report. CBCon 04-29-2019 Erythrocyte distribution width (RBC) [Ratio] 14.2 % 11.5 - 14.5 % [place] Hematocrit (Bld) [Volume fraction] 42.7 % 40 - 52 % [place] Hemoglobin (Bld) [Mass/Vol] 14.6 g/dL 13 - 18 g/dL [place] Interpretation and review of laboratory results Abnormal [place] MCH (RBC) [Entitic mass] 29.5 pg 26 - 34 pg [place] MCHC (RBC) [Mass/Vol] 34.3 % 32 - 36 % [place] MCV (RBC) [Entitic vol] 86.2 fL 80 - 98 fL [place] Platelet mean volume (Bld) [Entitic vol] 7.0 fL Low 7.4 - 10.4 fL [place] Platelets (Bld) [#/Vol] 358 10*3/uL 140 - 440 10*3/uL [place] RBC (Bld) [#/Vol] 4.96 10*6/uL 4.4 - 5.9 10*6/uL [place] WBC (Bld) [#/Vol] 7.7 10*3/uL 3.6 - 10.7 10*3/uL [place] Test Performed by [facility], [address] [facility]. , [address] Comp Metabolic Panelon 04-29 ALT [Catalytic activity/Vol] 28 U/L Normal 13-69 [facility] Comment on above: Performed By: #### H EMOG, IRON3, LIPD2, CMP3, MG3, FERR3, FOLT3, B12 #### [facility] [address] [place] [address] #### VD25H #### [facility] [address] [place] [address] #### ZINC2 #### The performing lab is in the report. Calcium [Mass/Vol] 9.1 mg/dL Normal 8.4-10.4 [facility] Comment on above: Performed By: #### H EMOG, IRON3, LIPD2, CMP3, MG3, FERR3, FOLT3, B12 #### [facility] [address] [place] [address] #### VD25H #### [facility] [address] [place] [address] #### ZINC2 #### The performing lab is in the report. ALP [Catalytic activity/Vol] 98 U/L Normal 38-126 [facility] Comment on above: Performed By: #### H EMOG, IRON3, LIPD2, CMP3, MG3, FERR3, FOLT3, B12 #### [facility] [address] [facility] [place] [address] #### VD25H #### [facility] [address] [place] [address] #### ZINC2 #### The performing lab is in the report. Anion gap [Moles/Vol] 10 Normal [facility] Comment on above: Performed By: #### H EMOG, IRON3, LIPD2, CMP3, MG3, FERR3, FOLT3, B12 #### [facility] [address] [place] [address] #### VD25H #### [facility] [address] [place] [address] #### ZINC2 #### The performing lab is in the report. AST [Catalytic activity/Vol] 25 U/L Normal 15-46 [facility] Comment on above: Performed By: #### H EMOG, IRON3, LIPD2, CMP3, MG3, FERR3, FOLT3, B12 #### [facility] [place] [address] #### VD25H #### [facility] [address] [place] [address] #### ZINC2 #### The performing lab is in the report. Bilirubin [Mass/Vol] 0.5 mg/dL Normal 0.2-1.3 [facility] Comment on above: Performed By: #### H EMOG, IRON3, LIPD2, CMP3, MG3, FERR3, FOLT3, B12 #### [facility] [place] [address] #### VD25H #### [place] [address] [place] [address] #### ZINC2 #### The performing lab is in the report. CO2 [Moles/Vol] 30 mmol/L Normal 22-30 [facility] Comment on above: Performed By: #### H EMOG, IRON3, LIPD2, CMP3, MG3, FERR3, FOLT3, B12 #### [facility] [address] #### VD25H #### [address] [place] [address] #### ZINC2 #### The performing lab is in the report. Creatinine [Mass/Vol] 0.73 mg/dL Normal 0.52-1.25 [facility] Comment on above: Performed By: #### H EMOG, IRON3, LIPD2, CMP3, MG3, FERR3, FOLT3, B12 #### [facility] [address] [facility] [place] [address] #### VD25H #### [facility] [address] [place] [address] #### ZINC2 #### The performing lab is in the report. GFR/1.73 sq M predicted among blacks MDRD (S/P/Bld) [Vol rate/Area] mL/min/{1.73_m2} Normal >60 [facility] Comment on above: Performed By: #### H EMOG, IRON3, LIPD2, CMP3, MG3, FERR3, FOLT3, B12 #### [address] [place] [address] #### VD25H #### [place] [address] [place] [address] #### ZINC2 #### The performing lab is in the report. GFR/1.73 sq M predicted among non-blacks MDRD (S/P/Bld) [Vol rate/Area] mL/min/{1.73_m2} Normal >60 [facility] Comment on above: Result Comment: Sour ce- MDRD equation with creatinine calibration to IDMS(NKDEP) eGFR not recommended for drug dose adjustment Performed By: #### H EMOG, IRON3, LIPD2, CMP3, MG3, FERR3, FOLT3, B12 #### [facility] [address] [facility] [place] [address] #### VD25H #### [place] [address] [place] [address] #### ZINC2 #### The performing lab is in the report. Glucose [Mass/Vol] 96 mg/dL Normal 70-100 [facility] Comment on above: Performed By: #### H EMOG, IRON3, LIPD2, CMP3, MG3, FERR3, FOLT3, B12 #### [facility] [address] [place] [address] #### VD25H #### [facility] [address] [place] [address] #### ZINC2 #### The performing lab is in the report. Protein [Mass/Vol] 7.3 g/dL Normal 6.3-8.2 [facility] Comment on above: Performed By: #### H EMOG, IRON3, LIPD2, CMP3, MG3, FERR3, FOLT3, B12 #### [facility] [address] [facility] [place] [address] #### VD25H #### [facility] [address] [place] [address] #### ZINC2 #### The performing lab is in the report. Urea nitrogen [Mass/Vol] 16 mg/dL Normal 7-20 [facility] Comment on above: Performed By: #### H EMOG, IRON3, LIPD2, CMP3, MG3, FERR3, FOLT3, B12 #### [facility] [address] [facility] [place] [address] #### VD25H #### [facility] [address] [place] [address] #### ZINC2 #### The performing lab is in the report. Chloride [Moles/Vol] 99 mmol/L Normal 98-107 [facility] Comment on above: Performed By: #### H EMOG, IRON3, LIPD2, CMP3, MG3, FERR3, FOLT3, B12 #### [facility] [address] [facility] [place] [address] #### VD25H #### [facility] [address] [place] [address] #### ZINC2 #### The performing lab is in the report. Potassium [Moles/Vol] 4.4 mmol/L Normal 3.5-5.1 [facility] Comment on above: Performed By: #### H EMOG, IRON3, LIPD2, CMP3, MG3, FERR3, FOLT3, B12 #### [facility] [address] [place] [address] #### VD25H #### [facility] [address] [place] [address] #### ZINC2 #### The performing lab is in the report. Sodium [Moles/Vol] 139 mmol/L Normal 135-145 [facility] Comment on above: Performed By: #### H EMOG, IRON3, LIPD2, CMP3, MG3, FERR3, FOLT3, B12 #### [facility] [address] [place] [address] #### VD25H #### [facility] [address] [place] [address] #### ZINC2 #### The performing lab is in the report. Albumin [Mass/Vol] 3.9 g/dL Normal 3.5-5.0 [facility] Comment on above: Performed By: #### H EMOG, IRON3, LIPD2, CMP3, MG3, FERR3, FOLT3, B12 #### [facility] [address] [place] [address] #### VD25H #### [facility] [address] [place] [address] #### ZINC2 #### The performing lab is in the report. Comprehensive Metabolic Pane mallory 04-29-2019 Albumin [Mass/Vol] 3.9 g/dL 3.5 - 5 g/dL [place] ALP [Catalytic activity/Vol] 98 U/L 38 - 126 U/L [place] ALT [Catalytic activity/Vol] 28 U/L 13 - 69 U/L [place] Anion gap [Moles/Vol] 10 mmol/L [place] AST [Catalytic activity/Vol] 25 U/L 15 - 46 U/L [place] Bilirubin Ql (U) 0.5 mg/dL 0.2 - 1.3 mg/dL [place] Calcium [Mass/Vol] 9.1 mg/dL 8.4 - 10. 4 mg/dL [place] Chloride [Moles/Vol] 99 mmol/L 98 - 10 7 mmol/L [place] CO2 [Moles/Vol] 30 mmol/L 22 - 30 mmol/L [place] Creatinine [Mass/Vol] 0.73 mg/dL 0.52 - 1.25 mg/dL [place] EGFR IF NonAfrican Citizen Of [place] >60.0 >60 mL/min [place] Comment on above: Source- MDRD equatio n with creatinine calibration to IDMS(NKDEP) eGFR not recommended for drug dose adjustment GFR/1.73 sq M predicted among blacks MDRD (S/P/Bld) [Vol rate/Area] mL/min/{1.73_m2} >60 mL/min [place] Glucose [Mass/Vol] 96 mg/dL 70 - 100 mg/dL [place] Potassium [Moles/Vol] 4.4 mmol/L 3.5 - 5.1 mmol/L [place] Protein [Mass/Vol] 7.3 g/dL 6.3 - 8.2 g/dL [place] Sodium [Moles/Vol] 139 mmol/L 135 - 145 mmol/L [place] Urea nitrogen [Mass/Vol] 16 mg/dL 7 - 20 mg/dL [place] Ferritinon 04-29-2019 Ferritin [Mass/Vol] 121 ng/mL Normal 18-464 [facility] Comment on above: Performed By: #### H EMOG, IRON3, LIPD2, CMP3, MG3, FERR3, FOLT3, B12 #### [facility] [address] [place] [address] #### VD25H #### [facility] [address] [place] [address] #### ZINC2 #### The performing lab is in the report. Ferritin [Mass/Vol] 121 ng/mL 18 - 464 ng/mL [place] Test Performed by [facility], [address] , [place], [place] [id number] [place] [address] Folateon 04-29-2019 Folate 11.0 ng/mL Normal 2.8-20.0 [facility] Comment on above: Performed By: #### H EMOG, IRON3, LIPD2, CMP3, MG3, FERR3, FOLT3, B12 #### [facility] [address] [place] [address] #### VD25H #### [address] [place] [address] #### ZINC2 #### The performing lab is in the report. Folate 11 ng/mL 2.8 - 20 ng/mL [place] Hemogramon 04-29-2019 Erythrocyte distribution width (RBC) [Ratio] 14.2 % Normal 11.5-14.5 [facility] Comment on above: Performed By: #### H EMOG, IRON3, LIPD2, CMP3, MG3, FERR3, FOLT3, B12 #### [facility] [address] [facility] [place] [address] #### VD25H #### [address] [place] [address] #### ZINC2 #### The performing lab is in the report. Hematocrit (Bld) [Volume fraction] 42.7 % Normal 40.0-52.0 [facility] Comment on above: Performed By: #### H EMOG, IRON3, LIPD2, CMP3, MG3, FERR3, FOLT3, B12 #### [facility] [address] [facility] [place] [address] #### VD25H #### [facility] [address] [place] [address] #### ZINC2 #### The performing lab is in the report. Hemoglobin (Bld) [Mass/Vol] 14.6 g/dL Normal 13.0-18.0 [facility] Comment on above: Performed By: #### H EMOG, IRON3, LIPD2, CMP3, MG3, FERR3, FOLT3, B12 #### [facility] [address] [facility] [place] [address] #### VD25H #### [address] [place] [address] #### ZINC2 #### The performing lab is in the report. MCH (RBC) [Entitic mass] 29.5 pg Normal 26.0-34.0 [facility] Comment on above: Performed By: #### H EMOG, IRON3, LIPD2, CMP3, MG3, FERR3, FOLT3, B12 #### [facility] [place] [address] #### VD25H #### [facility] [address] [facility] [place] [address] #### ZINC2 #### The performing lab is in the report. MCHC (RBC) [Mass/Vol] 34.3 % Normal 32.0-36.0 [facility] Comment on above: Performed By: #### H EMOG, IRON3, LIPD2, CMP3, MG3, FERR3, FOLT3, B12 #### [facility] [place] [address] #### VD25H #### [address] [address] #### ZINC2 #### The performing lab is in the report. MCV (RBC) [Entitic vol] 86.2 fL Normal 80.0-98.0 [facility] Comment on above: Performed By: #### H EMOG, IRON3, LIPD2, CMP3, MG3, FERR3, FOLT3, B12 #### [facility] [place] [address] #### VD25H #### [facility] [address] [place] [address] #### ZINC2 #### The performing lab is in the report. Platelet mean volume (Bld) [Entitic vol] 7.0 fL Low 7.4-10.4 [facility] Comment on above: Performed By: #### H EMOG, IRON3, LIPD2, CMP3, MG3, FERR3, FOLT3, B12 #### [facility] [place] [address] #### VD25H #### [facility] [address] [place] [address] #### ZINC2 #### The performing lab is in the report. Platelets (Bld) [#/Vol] 358 10*3/uL Normal 140-440 [facility] Comment on above: Performed By: #### H EMOG, IRON3, LIPD2, CMP3, MG3, FERR3, FOLT3, B12 #### [facility] [address] [place] [address] #### VD25H #### [facility] [address] [place] [address] #### ZINC2 #### The performing lab is in the report. RBC (Bld) [#/Vol] 4.96 10*6/uL Normal 4.40-5.90 [facility] Comment on above: Performed By: #### H EMOG, IRON3, LIPD2, CMP3, MG3, FERR3, FOLT3, B12 #### [facility] [address] [place] [address] #### VD25H #### [facility] [address] [place] [address] #### ZINC2 #### The performing lab is in the report. WBC (Bld) [#/Vol] 7.7 10*3/uL Normal 3.6-10.7 [facility] Comment on above: Performed By: #### H EMOG, IRON3, LIPD2, CMP3, MG3, FERR3, FOLT3, B12 #### [facility] [address] [place] [address] #### VD25H #### [facility] [address] [place] [address] #### ZINC2 #### The performing lab is in the report. Ironon 04-29-2019 Iron [Mass/Vol] 69 ug/dL 49 - 181 ug/dL [place], [place] Test Performed by [facility], [facility] , [place], [place] [id number] [place] [address], [place] Iron, Totalon 04-29-2019 Iron, Total 69 ug/dL Normal 49-181 [facility] Comment on above: Performed By: #### H EMOG, IRON3, LIPD2, CMP3, MG3, FERR3, FOLT3, B12 #### [facility] [address] [facility] [place] [address] #### VD25H #### [facility] [address] [place] [address] #### ZINC2 #### The performing lab is in the report. Lipid Panelon 04-29-2019 Cholesterol in HDL [Mass/Vol] 32 mg/dL Low 40-60 [facility] Comment on above: Performed By: #### H EMOG, IRON3, LIPD2, CMP3, MG3, FERR3, FOLT3, B12 #### [facility] [address] [facility] [place] [address] #### VD25H #### [address] [place] [address] #### ZINC2 #### The performing lab is in the report. Cholesterol.total/Cho lesterol in HDL [Mass ratio] 4 Normal [facility] Comment on above: Result Comment: Ref Range: < 3 Low Risk for CHD 3-6 Mod Risk for CHD > 6 High Risk for CHD Performed By: #### H EMOG, IRON3, LIPD2, CMP3, MG3, FERR3, FOLT3, B12 #### [facility] [address] [facility] [place] [address] #### VD25H #### [facility] [address] [place] [address] #### ZINC2 #### The performing lab is in the report. Protein [Mass/Vol] 79 mg/dL Normal <100 [facility] Comment on above: Performed By: #### H EMOG, IRON3, LIPD2, CMP3, MG3, FERR3, FOLT3, B12 #### [facility] [address] [facility] [place] [address] #### VD25H #### [address] [place] [address] #### ZINC2 #### The performing lab is in the report. Triglyceride [Mass/Vol] 104 mg/dL Normal <150 [facility] Comment on above: Performed By: #### H EMOG, IRON3, LIPD2, CMP3, MG3, FERR3, FOLT3, B12 #### [facility] [address] [place] [address] #### VD25H #### [facility] [address] [place] [address] #### ZINC2 #### The performing lab is in the report. Cholesterol [Mass/Vol] 132 mg/dL Normal < 200 [facility] Comment on above: Performed By: #### H EMOG, IRON3, LIPD2, CMP3, MG3, FERR3, FOLT3, B12 #### [facility] [address] [place] [address] #### VD25H #### [facility] [address] [place] [address] #### ZINC2 #### The performing lab is in the report. Cholesterol [Mass/Vol] 132 mg/dL <200 [place], [place] Cholesterol in HDL [Mass/Vol] 32 mg/dL Low 40 - 60 mg/dL [place], [place] Cholesterol in LDL [Mass/Vol] 79 mg/dL <100 [place], [place] Cholesterol.total/Cho lesterol in HDL [Mass ratio] 4 {ratio} [place], [place] Comment on above: Ref Range: < 3 Low Risk for CHD 3-6 Mod Risk for CHD > 6 High Risk for CHD Interpretation and review of laboratory results Abnormal [place], [place] Triglyceride [Mass/Vol] 104 mg/dL <150 [place], [place] Magnesiumon 04-29-2019 Magnesium [Mass/Vol] 1.9 mg/dL Normal 1.6-2.3 [facility] Comment on above: Performed By: #### H EMOG, IRON3, LIPD2, CMP3, MG3, FERR3, FOLT3, B12 #### [facility] [address] [place] [address] #### VD25H #### [facility] [address] [place] [address] #### ZINC2 #### The performing lab is in the report. Magnesium [Mass/Vol] 1.9 mg/dL 1.6 - 2 .3 mg/dL [facility], [place] Otheron 04-29-2019 Test Performed by [facility], [address] , [place], [place] [id number] [place] [address], [place] Test Performed by [facility], [address] , [address], [place] Vit D 25-OH, Totalon 019 Vit D 25-OH, Total 44 ng/mL Normal 30-100 [facility] Comment on above: Result Comment: Ther apy is based on measurement of Total 25- OHD with the following classification levels: Less than 20 ng/mL: Indicative of Vit D deficiency 20-30 ng/mL: Suggests Vit D insufficiency Optimal: Greater than or equal to 30 ng/mL Test performed by [employer] Competitive Immunoassay, measuring Total Vitamin D, not individual fractions. Performed By: #### H EMOG, IRON3, LIPD2, CMP3, MG3, FERR3, FOLT3, B12 #### [facility] [address] [place] [address] #### VD25H #### [facility] [address] [address] #### ZINC2 #### The performing lab is in the report. Vitamin B12on 04-29-2019 Cobalamin (Vitamin B12) [Mass/Vol] 838 pg/mL Normal 239-931 [facility] Comment on above: Performed By: #### H EMOG, IRON3, LIPD2, CMP3, MG3, FERR3, FOLT3, B12 #### [facility] [address] [place] [address] #### VD25H #### [facility] [address] [place] [address] #### ZINC2 #### The performing lab is in the report. Cobalamin (Vitamin B12) [Mass/Vol] 838 pg/mL 239 - 931 pg/mL [facility], [place] Vitamin D 25 Hydroxyon 04-29 Vit D, 25-Hydroxy 44 ng/mL 30 - 100 ng/mL [place], [place] Comment on above: Therapy is based on measurement of Total 25-OHD with the following classification levels: Less than 20 ng/mL: Indicative of Vit D deficiency 20-30 ng/mL: Suggests Vit D insufficiency Optimal: Greater than or equal to 30 ng/mL Test performed by [employer] Competitive Immunoassay, measuring Total Vitamin D, not individual fractions. Test Performed by [employer] [facility], [address], [place], [place] [address] [place], [place] Zinc, Serumon 03-02-2019 Zinc, Serum 82.2 ug/dL Normal 60.0-120.0 [facility] Comment on above: Result Comment: INTE RPRETIVE INFORMATION: Zinc, Serum or Plasma Elevated results may be due to skin or collection-related contamination, including the use of a noncertified metal-free collection/transport tube. If contamination concerns exist due to elevated levels of serum/plasma zinc, confirmation with a second specimen collected in a certified metal-free tube is recommended. Circulating zinc concentrations are dependent on albumin status and are depressed with malnutrition. Zinc may also be lowered with infection, inflammation, stress, oral contraceptives, and . Zinc may be elevated with zinc supplementation or fasting. Elevated zinc concentrations may interfere with copper absorption. Test developed and characteristics determined by [facility]. See Compliance Statement B: [employer] Performed by [facility], [address] [place] [address] [email or web address], Shashi Anders MD - Lab. Director Performed By: #### H EMOG, MG3, CMP3, IRON3, FERR3, B12, FOLT3 #### [facility] [address] [place] [address] Comp Metabolic Panelon 02-26 Calcium [Mass/Vol] 9.6 mg/dL Normal 8.4-10.4 [facility] Comment on above: Performed By: #### H EMOG, MG3, CMP3, IRON3, FERR3, B12, FOLT3 #### [facility] [address] [place] [address] ALP [Catalytic activity/Vol] 79 U/L Normal 38-126 [facility] Comment on above: Performed By: #### H EMOG, MG3, CMP3, IRON3, FERR3, B12, FOLT3 #### [place] [address] [place], [place] ALT [Catalytic activity/Vol] 22 U/L Normal 13-69 [facility] Comment on above: Performed By: #### H EMOG, MG3, CMP3, IRON3, FERR3, B12, FOLT3 #### [address] [place], [place] Anion gap [Moles/Vol] 14 Normal [facility] Comment on above: Performed By: #### H EMOG, MG3, CMP3, IRON3, FERR3, B12, FOLT3 #### [address] [address] [place], [place] AST [Catalytic activity/Vol] 39 U/L Normal 15-46 [facility] Comment on above: Performed By: #### H EMOG, MG3, CMP3, IRON3, FERR3, B12, FOLT3 #### [address] [place], [place] Bilirubin [Mass/Vol] 0.6 mg/dL Normal 0.2-1.3 [facility] Comment on above: Performed By: #### H EMOG, MG3, CMP3, IRON3, FERR3, B12, FOLT3 #### [address] [place], [place] CO2 [Moles/Vol] 30 mmol/L Normal 22-30 [facility] Comment on above: Performed By: #### H EMOG, MG3, CMP3, IRON3, FERR3, B12, FOLT3 #### [address] [place] [place], [place] Creatinine [Mass/Vol] 0.85 mg/dL Normal 0.52-1.25 [facility] Comment on above: Performed By: #### H EMOG, MG3, CMP3, IRON3, FERR3, B12, FOLT3 #### [address] [place] [address] [place], [place] GFR/1.73 sq M predicted among blacks MDRD (S/P/Bld) [Vol rate/Area] mL/min/{1.73_m2} Normal >60 [facility] Comment on above: Performed By: #### H EMOG, MG3, CMP3, IRON3, FERR3, B12, FOLT3 #### [address] [place] [address] [place], [place] GFR/1.73 sq M predicted among non-blacks MDRD (S/P/Bld) [Vol rate/Area] mL/min/{1.73_m2} Normal >60 [facility] Comment on above: Result Comment: Sour ce- MDRD equation with creatinine calibration to IDMS(NKDEP) eGFR not recommended for drug dose adjustment Performed By: #### H EMOG, MG3, CMP3, IRON3, FERR3, B12, FOLT3 #### [address] Glucose [Mass/Vol] 89 mg/dL Normal 70-100 [facility] Comment on above: Performed By: #### H EMOG, MG3, CMP3, IRON3, FERR3, B12, FOLT3 #### [address] Protein [Mass/Vol] 7.9 g/dL Normal 6.3-8.2 [facility] Comment on above: Performed By: #### H EMOG, MG3, CMP3, IRON3, FERR3, B12, FOLT3 #### [address] Urea nitrogen [Mass/Vol] 23 mg/dL High 7-20 [facility] Comment on above: Performed By: #### H EMOG, MG3, CMP3, IRON3, FERR3, B12, FOLT3 #### [address] Potassium [Moles/Vol] 4.6 mmol/L Normal 3.5-5.1 [facility] Comment on above: Performed By: #### H EMOG, MG3, CMP3, IRON3, FERR3, B12, FOLT3 #### [address] [address] [address] [place], [place] Sodium [Moles/Vol] 140 mmol/L Normal 135-145 [facility] Comment on above: Performed By: #### H EMOG, MG3, CMP3, IRON3, FERR3, B12, FOLT3 #### [address] [address] [place], [place] Albumin [Mass/Vol] 4.2 g/dL Normal 3.5-5.0 [facility] Comment on above: Performed By: #### H EMOG, MG3, CMP3, IRON3, FERR3, B12, FOLT3 #### [address] [address] [place], [place] Chloride [Moles/Vol] 96 mmol/L Low 98-107 [facility] Comment on above: Performed By: #### H EMOG, MG3, CMP3, IRON3, FERR3, B12, FOLT3 #### [address] [address] [place], [place] Ferritinon 02-26-2019 Ferritin [Mass/Vol] 117 ng/mL Normal 18-464 [facility] Comment on above: Performed By: #### H EMOG, MG3, CMP3, IRON3, FERR3, B12, FOLT3 #### [address] Folateon 02-26-2019 Folate 8.7 ng/mL Normal 2.8-20.0 [facility] Comment on above: Performed By: #### H EMOG, MG3, CMP3, IRON3, FERR3, B12, FOLT3 #### [address] [place] [address] [place], [place] Hemogramon 02-26-2019 Erythrocyte distribution width (RBC) [Ratio] 14.5 % Normal 11.5-14.5 [facility] Comment on above: Performed By: #### H EMOG, MG3, CMP3, IRON3, FERR3, B12, FOLT3 #### [address] [place] [address] [place], [place] Hematocrit (Bld) [Volume fraction] 44.3 % Normal 40.0-52.0 [facility] Comment on above: Performed By: #### H EMOG, MG3, CMP3, IRON3, FERR3, B12, FOLT3 #### [address] Hemoglobin (Bld) [Mass/Vol] 15.2 g/dL Normal 13.0-18.0 [facility] Comment on above: Performed By: #### H EMOG, MG3, CMP3, IRON3, FERR3, B12, FOLT3 #### [address] MCH (RBC) [Entitic mass] 30.0 pg Normal 26.0-34.0 [facility] Comment on above: Performed By: #### H EMOG, MG3, CMP3, IRON3, FERR3, B12, FOLT3 #### [address] MCHC (RBC) [Mass/Vol] 34.3 % Normal 32.0-36.0 [facility] Comment on above: Performed By: #### H EMOG, MG3, CMP3, IRON3, FERR3, B12, FOLT3 #### [address] MCV (RBC) [Entitic vol] 87.6 fL Normal 80.0-98.0 [facility] Comment on above: Performed By: #### H EMOG, MG3, CMP3, IRON3, FERR3, B12, FOLT3 #### [address] Platelet mean volume (Bld) [Entitic vol] 8.4 fL Normal 7.4-10.4 [facility] Comment on above: Performed By: #### H EMOG, MG3, CMP3, IRON3, FERR3, B12, FOLT3 #### [address] Platelets (Bld) [#/Vol] 342 10*3/uL Normal 140-440 [facility] Comment on above: Performed By: #### H EMOG, MG3, CMP3, IRON3, FERR3, B12, FOLT3 #### [address] [place] [address] [place], [place] RBC (Bld) [#/Vol] 5.05 10*6/uL Normal 4.40-5.90 [facility] Comment on above: Performed By: #### H EMOG, MG3, CMP3, IRON3, FERR3, B12, FOLT3 #### [address] [address] [place], [place] WBC (Bld) [#/Vol] 9.6 10*3/uL Normal 3.6-10.7 [facility] Comment on above: Performed By: #### H EMOG, MG3, CMP3, IRON3, FERR3, B12, FOLT3 #### [address] [address] [place], [place] Iron, Totalon 02-26-2019 Iron, Total 60 ug/dL Normal 49-181 [facility] Comment on above: Performed By: #### H EMOG, MG3, CMP3, IRON3, FERR3, B12, FOLT3 #### [address] [place], [place] Magnesiumon 02-26-2019 Magnesium [Mass/Vol] 2.0 mg/dL Normal 1.6-2.3 [facility] Comment on above: Performed By: #### H EMOG, MG3, CMP3, IRON3, FERR3, B12, FOLT3 #### [address] [place] [address] [place], [place] Vitamin B12on 02-26-2019 Cobalamin (Vitamin B12) [Mass/Vol] 657 pg/mL Normal 239-931 [facility] Comment on above: Performed By: #### H EMOG, MG3, CMP3, IRON3, FERR3, B12, FOLT3 #### [address] [address] [place], [place] Zinc, Serumon 01-11-2019 Zinc, Serum 87 ug/dL Normal 60-120 [facility] Comment on above: Result Comment: INTE RPRETIVE INFORMATION: Zinc, Serum or Plasma Circulating zinc concentrations are dependent on albumin status and are depressed with malnutrition. Zinc may also be lowered with infection, inflammation, stress, oral contraceptives, and . Zinc may be elevated with zinc supplementation or fasting. Elevated zinc concentrations may interfere with copper absorption. Test developed and characteristics determined by [facility]. See Compliance Statement B: [employer] Performed by [facility], [address] [place] [address] [email or web address], Shashi Anders MD - Lab. Director Performed By: #### H EMOG, MG3, CMP3, IRON3, FERR3, B12, FOLT3 #### [address] Comp Metabolic Panelon 01-08 ALT [Catalytic activity/Vol] 34 U/L Normal 13-69 [facility] Comment on above: Performed By: #### H EMOG, MG3, CMP3, IRON3, FERR3, B12, FOLT3 #### [address] Calcium [Mass/Vol] 9.1 mg/dL Normal 8.4-10.4 [facility] Comment on above: Performed By: #### H EMOG, MG3, CMP3, IRON3, FERR3, B12, FOLT3 #### [address] ALP [Catalytic activity/Vol] 81 U/L Normal 38-126 [facility] Comment on above: Performed By: #### H EMOG, MG3, CMP3, IRON3, FERR3, B12, FOLT3 #### [address] Anion gap [Moles/Vol] 9 Normal [facility] Comment on above: Performed By: #### H EMOG, MG3, CMP3, IRON3, FERR3, B12, FOLT3 #### [address] AST [Catalytic activity/Vol] 39 U/L Normal 15-46 [facility] Comment on above: Performed By: #### H EMOG, MG3, CMP3, IRON3, FERR3, B12, FOLT3 #### [address] [address] [place], [place] Bilirubin [Mass/Vol] 0.8 mg/dL Normal 0.2-1.3 [facility] Comment on above: Performed By: #### H EMOG, MG3, CMP3, IRON3, FERR3, B12, FOLT3 #### [address] [address] [place], [place] CO2 [Moles/Vol] 32 mmol/L High 22-30 [facility] Comment on above: Performed By: #### H EMOG, MG3, CMP3, IRON3, FERR3, B12, FOLT3 #### [address] Creatinine [Mass/Vol] 0.76 mg/dL Normal 0.52-1.25 [facility] Comment on above: Performed By: #### H EMOG, MG3, CMP3, IRON3, FERR3, B12, FOLT3 #### [address] [address] [place], [place] GFR/1.73 sq M predicted among blacks MDRD (S/P/Bld) [Vol rate/Area] mL/min/{1.73_m2} Normal >60 [facility] Comment on above: Performed By: #### H EMOG, MG3, CMP3, IRON3, FERR3, B12, FOLT3 #### [address], [place] GFR/1.73 sq M predicted among non-blacks MDRD (S/P/Bld) [Vol rate/Area] mL/min/{1.73_m2} Normal >60 [facility] Comment on above: Result Comment: Sour ce- MDRD equation with creatinine calibration to IDMS(NKDEP) eGFR not recommended for drug dose adjustment Performed By: #### H EMOG, MG3, CMP3, IRON3, FERR3, B12, FOLT3 #### [address] Glucose [Mass/Vol] 90 mg/dL Normal 70-100 [facility] Comment on above: Performed By: #### H EMOG, MG3, CMP3, IRON3, FERR3, B12, FOLT3 #### [address], [place] Protein [Mass/Vol] 7.7 g/dL Normal 6.3-8.2 [facility] Comment on above: Performed By: #### H EMOG, MG3, CMP3, IRON3, FERR3, B12, FOLT3 #### [address] [address], [place] Urea nitrogen [Mass/Vol] 17 mg/dL Normal 7-20 [facility] Comment on above: Performed By: #### H EMOG, MG3, CMP3, IRON3, FERR3, B12, FOLT3 #### [address] Potassium [Moles/Vol] 3.8 mmol/L Normal 3.5-5.1 [facility] Comment on above: Performed By: #### H EMOG, MG3, CMP3, IRON3, FERR3, B12, FOLT3 #### [address] Sodium [Moles/Vol] 139 mmol/L Normal 135-145 [facility] Comment on above: Performed By: #### H EMOG, MG3, CMP3, IRON3, FERR3, B12, FOLT3 #### [address] Albumin [Mass/Vol] 4.0 g/dL Normal 3.5-5.0 [facility] Comment on above: Performed By: #### H EMOG, MG3, CMP3, IRON3, FERR3, B12, FOLT3 #### [address] Chloride [Moles/Vol] 97 mmol/L Low 98-107 [facility] Comment on above: Performed By: #### H EMOG, MG3, CMP3, IRON3, FERR3, B12, FOLT3 #### [address] Ferritinon 01-08-2019 Ferritin [Mass/Vol] 89 ng/mL Normal 18-464 [facility] Comment on above: Performed By: #### H EMOG, MG3, CMP3, IRON3, FERR3, B12, FOLT3 #### [facility] [address] [place] [address] Folateon 01-08-2019 Folate 9.3 ng/mL Normal 2.8-20.0 [facility] Comment on above: Performed By: #### H EMOG, MG3, CMP3, IRON3, FERR3, B12, FOLT3 #### [facility] [address] [place], [place] Iron, Totalon 01-08-2019 Iron, Total 66 ug/dL Normal 49-181 [facility] Comment on above: Performed By: #### M G3, IRON3, CMP3, FERR3, FOLT3, B12 #### [address] [address] [address] [place], [place] Magnesiumon 01-08-2019 Magnesium [Mass/Vol] 2.1 mg/dL Normal 1.6-2.3 [facility] Comment on above: Performed By: #### M G3, IRON3, CMP3, FERR3, FOLT3, B12 #### [address] [address], [place] Vitamin B12on 01-08-2019 Cobalamin (Vitamin B12) [Mass/Vol] 594 pg/mL Normal 239-931 [facility] Comment on above: Performed By: #### H EMOG, MG3, CMP3, IRON3, FERR3, B12, FOLT3 #### [address] [place] [address] Zinc, Serumon 12-08-2018 Zinc, Serum 99 ug/dL Normal 60-120 [facility] Comment on above: Result Comment: INTE RPRETIVE INFORMATION: Zinc, Serum or Plasma Circulating zinc concentrations are dependent on albumin status and are depressed with malnutrition. Zinc may also be lowered with infection, inflammation, stress, oral contraceptives, and . Zinc may be elevated with zinc supplementation or fasting. Elevated zinc concentrations may interfere with copper absorption. Test developed and characteristics determined by [facility]. See Compliance Statement B: [employer]/ Performed by [facility], [address] [place] [address] [email or web address], Shashi Anders MD - Lab. Director Performed By: #### [employer] #### The performing lab is in the report. Comp Metabolic Panelon 12-06 Calcium [Mass/Vol] 9.2 mg/dL Normal 8.4-10.4 [facility] Comment on above: Performed By: #### H EMOG, MG3, CMP3, IRON3, FERR3, B12, FOLT3 #### [address] [address] [place], [place] Glucose [Mass/Vol] 116 mg/dL High 70-100 [facility] Comment on above: Performed By: #### H EMOG, MG3, CMP3, IRON3, FERR3, B12, FOLT3 #### [address] [address] [place], [place] ALP [Catalytic activity/Vol] 77 U/L Normal 38-126 [facility] Comment on above: Performed By: #### H EMOG, MG3, CMP3, IRON3, FERR3, B12, FOLT3 #### [address] ALT [Catalytic activity/Vol] 57 U/L Normal 13-69 [facility] Comment on above: Performed By: #### H EMOG, MG3, CMP3, IRON3, FERR3, B12, FOLT3 #### [address] [address] [place], [place] Anion gap [Moles/Vol] 12 Normal [facility] Comment on above: Performed By: #### H EMOG, MG3, CMP3, IRON3, FERR3, B12, FOLT3 #### [address] AST [Catalytic activity/Vol] 41 U/L Normal 15-46 [facility] Comment on above: Performed By: #### H EMOG, MG3, CMP3, IRON3, FERR3, B12, FOLT3 #### [address], [place] Bilirubin [Mass/Vol] 1.0 mg/dL Normal 0.2-1.3 [facility] Comment on above: Performed By: #### H EMOG, MG3, CMP3, IRON3, FERR3, B12, FOLT3 #### [address] CO2 [Moles/Vol] 31 mmol/L High 22-30 [facility] Comment on above: Performed By: #### H EMOG, MG3, CMP3, IRON3, FERR3, B12, FOLT3 #### [address] Creatinine [Mass/Vol] 0.78 mg/dL Normal 0.52-1.25 [facility] Comment on above: Performed By: #### H EMOG, MG3, CMP3, IRON3, FERR3, B12, FOLT3 #### [address] GFR/1.73 sq M predicted among blacks MDRD (S/P/Bld) [Vol rate/Area] mL/min/{1.73_m2} Normal >60 [facility] Comment on above: Performed By: #### H EMOG, MG3, CMP3, IRON3, FERR3, B12, FOLT3 #### [address] GFR/1.73 sq M predicted among non-blacks MDRD (S/P/Bld) [Vol rate/Area] mL/min/{1.73_m2} Normal >60 [facility] Comment on above: Result Comment: Sour ce- MDRD equation with creatinine calibration to IDMS(NKDEP) eGFR not recommended for drug dose adjustment Performed By: #### H EMOG, MG3, CMP3, IRON3, FERR3, B12, FOLT3 #### [address] Protein [Mass/Vol] 7.8 g/dL Normal 6.3-8.2 [facility] Comment on above: Performed By: #### H EMOG, MG3, CMP3, IRON3, FERR3, B12, FOLT3 #### [address] [place], [place] Urea nitrogen [Mass/Vol] 19 mg/dL Normal 7-20 [facility] Comment on above: Performed By: #### H EMOG, MG3, CMP3, IRON3, FERR3, B12, FOLT3 #### [address] [address] [place], [place] Potassium [Moles/Vol] 3.4 mmol/L Low 3.5-5.1 [facility] Comment on above: Performed By: #### H EMOG, MG3, CMP3, IRON3, FERR3, B12, FOLT3 #### [address] [address] [place], [place] Albumin [Mass/Vol] 4.1 g/dL Normal 3.5-5.0 [facility] Comment on above: Performed By: #### H EMOG, MG3, CMP3, IRON3, FERR3, B12, FOLT3 #### [address] [place], [place] Chloride [Moles/Vol] 96 mmol/L Low 98-107 [facility] Comment on above: Performed By: #### H EMOG, MG3, CMP3, IRON3, FERR3, B12, FOLT3 #### [address] [place], [place] Sodium [Moles/Vol] 139 mmol/L Normal 135-145 [facility] Comment on above: Performed By: #### H EMOG, MG3, CMP3, IRON3, FERR3, B12, FOLT3 #### [address] [place], [place] Ferritinon 12-06-2018 Ferritin [Mass/Vol] 92 ng/mL Normal 18-464 [facility] Comment on above: Performed By: #### H EMOG, MG3, CMP3, IRON3, FERR3, B12, FOLT3 #### [address] [address] [place], [place] Folateon 12-06-2018 Folate 9.0 ng/mL Normal 2.8-20.0 [facility] Comment on above: Performed By: #### H EMOG, MG3, CMP3, IRON3, FERR3, B12, FOLT3 #### [address] Hemogramon 12-06-2018 Erythrocyte distribution width (RBC) [Ratio] 16.8 % High 11.5-14.5 [facility] Comment on above: Performed By: #### H EMOG, MG3, CMP3, IRON3, FERR3, B12, FOLT3 #### [address] [address] [place], [place] Hematocrit (Bld) [Volume fraction] 44.6 % Normal 40.0-52.0 [facility] Comment on above: Performed By: #### H EMOG, MG3, CMP3, IRON3, FERR3, B12, FOLT3 #### [address] Hemoglobin (Bld) [Mass/Vol] 15.3 g/dL Normal 13.0-18.0 [facility] Comment on above: Performed By: #### H EMOG, MG3, CMP3, IRON3, FERR3, B12, FOLT3 #### [address] MCH (RBC) [Entitic mass] 28.4 pg Normal 26.0-34.0 [facility] Comment on above: Performed By: #### H EMOG, MG3, CMP3, IRON3, FERR3, B12, FOLT3 #### [address] MCHC (RBC) [Mass/Vol] 34.3 % Normal 32.0-36.0 [facility] Comment on above: Performed By: #### H EMOG, MG3, CMP3, IRON3, FERR3, B12, FOLT3 #### [address] MCV (RBC) [Entitic vol] 83.0 fL Normal 80.0-98.0 [facility] Comment on above: Performed By: #### H EMOG, MG3, CMP3, IRON3, FERR3, B12, FOLT3 #### [address] [place], [place] Platelet mean volume (Bld) [Entitic vol] 8.1 fL Normal 7.4-10.4 [facility] Comment on above: Performed By: #### H EMOG, MG3, CMP3, IRON3, FERR3, B12, FOLT3 #### [address] [place], [place] Platelets (Bld) [#/Vol] 317 10*3/uL Normal 140-440 [facility] Comment on above: Performed By: #### H EMOG, MG3, CMP3, IRON3, FERR3, B12, FOLT3 #### [address] [address] [place], [place] RBC (Bld) [#/Vol] 5.38 10*6/uL Normal 4.40-5.90 [facility] Comment on above: Performed By: #### H EMOG, MG3, CMP3, IRON3, FERR3, B12, FOLT3 #### [address] [place], [place] WBC (Bld) [#/Vol] 6.4 10*3/uL Normal 3.6-10.7 [facility] Comment on above: Performed By: #### H EMOG, MG3, CMP3, IRON3, FERR3, B12, FOLT3 #### [address] [address] [place], [place] Iron, Totalon 12-06-2018 Iron, Total 88 ug/dL Normal 49-181 [facility] Comment on above: Performed By: #### H EMOG, MG3, CMP3, IRON3, FERR3, B12, FOLT3 #### [address] [place], [place] Magnesiumon 12-06-2018 Magnesium [Mass/Vol] 2.0 mg/dL Normal 1.6-2.3 [facility] Comment on above: Performed By: #### H EMOG, MG3, CMP3, IRON3, FERR3, B12, FOLT3 #### [facility] [address] [place] [address] Vitamin B12on 12-06-2018 Cobalamin (Vitamin B12) [Mass/Vol] 635 pg/mL Normal 239-931 [facility] Comment on above: Performed By: #### H EMOG, MG3, CMP3, IRON3, FERR3, B12, FOLT3 #### [facility] [employer] [address] [place] [address] Vital Signs Date Time Vital Sign Value Performing Clinician Facility 10-01-2024 11:42-0500 Body height 185.4 cm Darleen Sinan DO Work Phone: [facility] [employer] 10-01-2024 11:42-0500 Body mass index (BMI) [Ratio] 53.34 kg/m2 Darleen Sinan DO Work Phone: [facility] [employer] 10-01-2024 11:42-0500 Body temperature 97.39 [degF] Darleen Sinan DO Work Phone: [facility] [employer] 10-01-2024 11:42-0500 Body weight 183.39 kg Darleen Sinan DO Work Phone: [facility] [employer] 10-01-2024 11:42-0500 Diastolic blood pressure 67 mm[Hg] Darleen Sinan DO Work Phone: [facility] [employer] 10-01-2024 11:42-0500 Heart rate 73 /min Darleen Sinan DO Work Phone: [facility] [employer] 10-01-2024 11:42-0500 SaO2% (BldA) [Mass fraction] 98 % Darleen Sinan DO Work Phone: [facility] [employer] 10-01-2024 11:42-0500 Systolic blood pressure 120 mm[Hg] Darleen Sinan DO Work Phone: [facility] [employer] 09-07-2023 09:00-0500 Body height 185.4 cm Darleen Sinan DO Work Phone: [facility] [employer] 09-07-2023 09:00-0500 Body mass index (BMI) [Ratio] 51.4 kg/m2 Darleen Sinan DO Work Phone: [facility] [employer] 09-07-2023 09:00-0500 Body temperature 97.81 [degF] Darleen Sinan DO Work Phone: [facility] [employer] 09-07-2023 09:00-0500 Body weight 176.72 kg Darleen Sinan DO Work Phone: [facility] [employer] 09-07-2023 09:00-0500 Diastolic blood pressure 71 mm[Hg] Darleen Sinan DO Work Phone: [facility] 09-07-2023 09:00-0500 Heart rate 79 /min Darleen Sinan DO Work Phone: [facility] 09-07-2023 09:00-0500 SaO2% (BldA) [Mass fraction] 98 % Darleen Sinan DO Work Phone: [facility] 09-07-2023 09:00-0500 Systolic blood pressure 116 mm[Hg] Darleen Sinan DO Work Phone: [facility] 03-09-2023 07:25-0400 Body height 185.[address] Atul Higgins Work Phone: [facility] 03-09-2023 07:25-0400 Body weight 178.[address] Atul Higgins Work Phone: [facility] 03-08-2023 08:06-0400 Body mass index (BMI) [Ratio] 51.8 kg/m2 Dr. Atul Higgins Work Phone: [facility] 01-19-2023 14:07-0400 Body weight 178.[address] Atul Higgins Work Phone: [facility] 01-19-2023 14:07-0400 Diastolic blood pressure 78 mm[Hg] Dr. Atul Higgins Work Phone: [facility] 01-19-2023 14:07-0400 Heart rate 90 /min Dr. Atul Higgins Work Phone: [facility] 01-19-2023 14:07-0400 Respiratory rate 16 /min Dr. Atul Higgins Work Phone: [facility] 01-19-2023 14:07-0400 SaO2% (BldA) [Mass fraction] 95 % Dr. Atul Higgins Work Phone: [facility] 01-19-2023 14:07-0400 Systolic blood pressure 126 mm[Hg] Dr. Atul Higgins Work Phone: [facility] 01-19-2023 09:20-0400 Body height 185.4 cm Darleen Sinan DO Work Phone: [facility] 01-19-2023 09:20-0400 Body mass index (BMI) [Ratio] 52.02 kg/m2 Darleen Sinan DO Work Phone: [facility] [employer] 01-19-2023 09:20-0400 Body temperature 98.1 [degF] Darleen Sinan DO Work Phone: [facility] [employer] 01-19-2023 09:20-0400 Body weight 178.85 kg Darleen Sinan DO Work Phone: [facility] [employer] 01-19-2023 09:20-0400 Diastolic blood pressure 81 mm[Hg] Darleen Sinan DO Work Phone: [facility] [employer] 01-19-2023 09:20-0400 Heart rate 72 /min Darleen Sinan DO Work Phone: [facility] [employer] 01-19-2023 09:20-0400 SaO2% (BldA) [Mass fraction] 95 % Darleen Sinan DO Work Phone: [facility] [employer] 01-19-2023 09:20-0400 Systolic blood pressure 136 mm[Hg] Darleen Sinan DO Work Phone: [facility] 01-05-2023 08:53-0400 Body weight 178.[address] Atul Higgins Work Phone: [facility] 01-05-2023 08:53-0400 Diastolic blood pressure 71 mm[Hg] Dr. Atul Higgins Work Phone: [facility] 01-05-2023 08:53-0400 Heart rate 85 /min Dr. Atul Higgins Work Phone: [facility] 01-05-2023 08:53-0400 Respiratory rate 16 /min Dr. Atul Higgins Work Phone: [facility] 01-05-2023 08:53-0400 SaO2% (BldA) [Mass fraction] 96 % Dr. Atul Higgins Work Phone: [facility] 01-05-2023 08:53-0400 Systolic blood pressure 109 mm[Hg] Dr. Atul Higgins Work Phone: [facility] 12-31-2022 10:41-0400 Body height 185.[address] [facility] 12-31-2022 10:41-0400 Body mass index (BMI) [Ratio] 52 kg/m2 [facility] 12-31-2022 10:41-0400 Body temperature 97.8 [degF] [facility] 12-31-2022 10:41-0400 Body weight 178.[address] [facility] 12-31-2022 10:41-0400 Diastolic blood pressure 86 mm[Hg] [facility] 12-31-2022 10:41-0400 Heart rate 86 /min [facility] 12-31-2022 10:41-0400 Respiratory rate 18 /min [facility] 12-31-2022 10:41-0400 SaO2% (BldA) [Mass fraction] 98 % [facility] 12-31-2022 10:41-0400 Systolic blood pressure 131 mm[Hg] [facility] 12-28-2022 07:52-0400 Body height 185.[address] [facility] 12-28-2022 07:52-0400 Body mass index (BMI) [Ratio] 52.1 kg/m2 [facility] 12-28-2022 07:52-0400 Body temperature 98.4 [degF] [facility] 12-28-2022 07:52-0400 Body weight 179.[address] [facility] 12-28-2022 07:52-0400 Diastolic blood pressure 77 mm[Hg] [facility] 12-28-2022 07:52-0400 Heart rate 94 /min [facility] 12-28-2022 07:52-0400 Respiratory rate 14 /min [facility] 12-28-2022 07:52-0400 SaO2% (BldA) [Mass fraction] 97 % [facility] 12-28-2022 07:52-0400 Systolic blood pressure 137 mm[Hg] [facility] 09-21-2022 09:25-0500 Body height 185.4 cm Darleen Sinan DO Work Phone: [facility] 09-21-2022 09:25-0500 Body mass index (BMI) [Ratio] 52.39 kg/m2 Darleen Sinan DO Work Phone: [facility] 09-21-2022 09:25-0500 Body temperature 97.5 [degF] Darleen Sinan DO Work Phone: [facility] [employer] 09-21-2022 09:25-0500 Body weight 180.12 kg Darleen Sinan DO Work Phone: [facility] 09-21-2022 09:25-0500 Diastolic blood pressure 64 mm[Hg] Darleen Sinan DO Work Phone: [facility] [employer] 09-21-2022 09:25-0500 Heart rate 69 /min Darleen Sinan DO Work Phone: [facility] [employer] 09-21-2022 09:25-0500 SaO2% (BldA) [Mass fraction] 96 % Darleen Sinan DO Work Phone: [facility] 09-21-2022 09:25-0500 Systolic blood pressure 121 mm[Hg] Darleen Menon DO Work Phone: [facility] 03-04-2022 20:25-0400 Heart rate 107 /min [facility] Work Phone: 03-04-2022 20:25-0400 Respiratory rate 18 /min [facility] Work Phone: 03-04-2022 19:47-0400 Body height 185.[address] [facility] Work Phone: 03-04-2022 19:47-0400 Body mass index (BMI) [Ratio] 50.1 kg/m2 [facility] Work Phone: 03-04-2022 19:47-0400 Body temperature 96.4 [degF] [facility] Work Phone: 03-04-2022 19:47-0400 Body weight 172.[address] [facility] Work Phone: 03-04-2022 19:47-0400 Diastolic blood pressure 78 mm[Hg] [facility] Work Phone: 03-04-2022 19:47-0400 SaO2% (BldA) [Mass fraction] 95 % [facility] Work Phone: 03-04-2022 19:47-0400 Systolic blood pressure 128 mm[Hg] [facility] Work Phone: Encounters Encounter Date Encounter Type Care Provider Facility Start: 06-12-2025 End: 06-12-2025 ambulatory ATUL HIGGINS DO [facility] Start: 06-12-2025 End: 06-12-2025 Patient encounter procedure ATUL HIGGINS DO [facility] Start: 02-24-2025 End: 02-24-2025 ambulatory ATUL HIGGINS DO [facility] Start: 02-24-2025 End: 02-24-[address] CONCHITA KEITH MD [facility] Start: 10-01-2024 End: 10-01-2024 Office outpatient visit 15 minutes Darleen E Sinan DO Work Phone: [facility] [place] Comment on above: Acute deep vein thro mbosis (DVT) of tibial vein of right lower extremity (HCC) (Primary Dx); Malignant melanoma of right shoulder (HCC) Start: 10-01-2024 End: 10-01-2024 ambulatory DARLEEN E SINAN [facility] Start: 02-20-2024 End: 02-20-2024 ambulatory ATUL HIGGINS DO Facility:[facility] Start: 09-07-2023 End: 09-07-2023 Office outpatient visit 25 minutes Darleen E Sinan DO Work Phone: [facility] Comment on above: Acute deep vein thro mbosis (DVT) of tibial vein of right lower extremity (HCC) (Primary Dx); Malignant melanoma of right shoulder (HCC) Start: 07-18-2023 Refill Darleen E Goebe l DO Work Phone: [facility] Comment on above: Acute deep vein thro mbosis (DVT) of tibial vein of right lower extremity (HCC) Start: 07-16-2023 Refill Darleen E Goebe l DO Work Phone: [facility] Comment on above: Acute deep vein thro mbosis (DVT) of tibial vein of right lower extremity (HCC) Start: 03-29-2023 End: 03-29-2023 ambulatory Atul Higgins Facility:[facility] Start: 03-22-2023 ambulatory Es Rojas lity:[facility] Start: 03-22-2023 Non-patient / Non-visit Dr. Jonnathan Higgins Work Phone: [facility] Start: 03-22-2023 End: 03-22-[address] Atul Higgins Work Phone: [facility] Work Phone: Start: 03-22-2023 End: 03-22-[address] Atul Higgins Work Phone: [facility] Work Phone: Start: 03-09-2023 End: 03-09-2023 ambulatory Atul Higgins Facility:[facility] Start: 03-09-2023 Non-patient / Non-visit Dr. Jonnathan Higgins Work Phone: [facility] Start: 03-09-2023 End: 03-09-2023 Admission to same day surgery center Dr. Atul Higgins Work Phone: [facility]-Side Panel Padder/Special Procedures Work Phone: Start: 01-19-2023 End: 01-19-2023 ambulatory Atul Higgins Facility:[facility] Start: 01-19-2023 End: 01-19-[address] Atul Higgins Work Phone: [facility] Work Phone: Start: 01-19-2023 End: 01-19-2023 Office outpatient visit 25 minutes Darleen Menon DO Work Phone: [facility] Comment on above: Malignant melanoma o f right shoulder (HCC) (Primary Dx); Acute deep vein thrombosis (DVT) of tibial vein of right lower extremity (HCC); On anticoagulant therapy Start: 01-12-2023 End: 01-12-2023 ambulatory [facility] Facility:[facility] Start: 01-12-2023 Non-patient / Non-visit Dr. Jonnathan Higgins Work Phone: [facility] Start: 01-12-2023 End: 01-12-[address] Atul Higgins Work Phone: [facility]Cardiov[facility] Work Phone: Start: 01-05-2023 End: 01-05-2023 ambulatory Atul Higgins Facility:[facility] Start: 01-05-2023 End: 01-05-[address] Atul Higgins Work Phone: [facility] Work Phone: Start: 12-31-2022 End: 12-31-2022 Emergency department patient visit Vivek Ramirez Facility:[facility] Start: 12-31-2022 End: 12-31-2022 Emergency department patient visit [facility] Start: 12-28-2022 End: 12-28-2022 Emergency department patient visit Howard Corrigan Facility:[facility] Start: 12-28-2022 End: 12-28-2022 Emergency department patient visit [facility] Start: 11-01-2022 End: 11-01-2022 Patient encounter procedure ATUL HIGGINS DO [facility] Start: 11-01-2022 End: 11-01-2022 Well adult monitoring check done ATUL HIGGINS DO [facility] Start: 09-21-2022 End: 09-21-2022 Office outpatient visit 25 minutes Darleen Menon DO Work Phone: [facility] [place] Comment on above: Malignant melanoma o f right shoulder (HCC) (Primary Dx); Acute deep vein thrombosis (DVT) of tibial vein of right lower extremity (HCC); On anticoagulant therapy Start: 06-01-2022 End: 06-01-2022 Patient encounter procedure ATUL HIGGINS DO [facility] Start: 03-04-2022 End: 03-04-2022 Emergency department patient visit [facility] Start: 08-25-2020 End: 08-25-2020 Subsequent hospital visit by physician Darleen Menon Work Phone: [facility] Start: 07-02-2020 End: 07-02-2020 Subsequent hospital visit by physician Esther Rios Work Phone: [facility] Start: 11-07-2019 End: 11-07-2019 Subsequent hospital visit by physician Augie Berkowitz Work Phone: [facility] Start: 10-28-2019 End: 10-28-2019 Subsequent hospital visit by physician Beverley Wright Work Phone: [facility] Comment on above: Iron deficiency; Vitamin D deficiency; Deficiency of multiple nutrient elements; Low serum potassium Start: 07-29-2019 End: 07-29-2019 Subsequent hospital visit by physician Anthony Rizo Work Phone: [facility] Start: 05-07-2019 End: 05-07-2019 Subsequent hospital visit by physician Beverley Wright Work Phone: [facility] Start: 04-29-2019 End: 04-29-2019 Subsequent hospital visit by physician Beverley Wright Work Phone: [facility] Comment on above: Iron deficiency; Vitamin D deficiency; Deficiency of multiple nutrient elements; Type 2 diabetes mellitus with other neurologic complication, unspecified whether senior care insulin use (HCC); Low serum potassium; TOOTIE (obstructive sleep apnea); Morbid obesity with BMI of 50.0-59.9, adult ([facility]) Procedures Date Procedure Procedure Detail Performing Clinician Start: 09-06-2023 Adult depression scr eening assessment Darleen Sinan DO Work Phone: Start: 01-19-2023 Complete blood count with white cell differential, automated Darleen E Sinan DO Work Phone: Start: 01-19-2023 Comprehensive metabo lic panel Darleen E Sinan DO Work Phone: Start: 01-18-2023 Adult depression scr eening assessment Darleen Sinan DO Work Phone: Start: 04-28-2020 Lipid 1996 panel - S nigel or Plasma Darleen Sinan DO Work Phone: Start: 10-28-2019 Blood count complete automated Beverley R Bridle Work Phone: Start: 10-28-2019 25 hydroxy includes fractions if performed Beverley R Bridle Work Phone: Start: 10-28-2019 Assay of ferritin Beverley R Bridle Work Phone: Start: 10-28-2019 Assay of folic acid serum Beverley R Bridle Work Phone: Start: 10-28-2019 Assay of iron Beverley R B ridle Work Phone: Start: 10-28-2019 Assay of magnesium Leis a R Bridle Work Phone: Start: 10-28-2019 Comprehensive metabo lic panel Beverley R Bridle Work Phone: Start: 10-28-2019 Cyanocobalamin vitamin b-12 Beverley R Bridle Work Phone: Start: 10-28-2019 Lipid panel Beverley R Br idle Work Phone: Start: 04-29-2019 25 hydroxy includes fractions if performed Beverley R Bridle Work Phone: Start: 04-29-2019 Assay of ferritin Beverley R Bridle Work Phone: Start: 04-29-2019 Assay of folic acid serum Beverley R Bridle Work Phone: Start: 04-29-2019 Assay of iron Beverley R B ridle Work Phone: Start: 04-29-2019 Assay of magnesium Leis a R Bridle Work Phone: Start: 04-29-2019 Blood count complete automated Beverley R Bridle Work Phone: Start: 04-29-2019 Comprehensive metabo lic panel Beverley R Bridle Work Phone: Start: 04-29-2019 Cyanocobalamin vitamin b-12 Beverley R Bridle Work Phone: Start: 04-29-2019 Lipid panel Beverley R Br idle Work Phone: Start: 11-05-2018 Bypass of stomach TAUL HIGGINS DO Start: 11-05-2018 Total gastrectomy ATUL HIGGINS DO Start: 04-09-2018 Bilateral inguinal h ernia repair ATUL HIGGINS DO Start: 05-20-2016 Excision of melanoma SC ALEJANDRA HIGGINS DO Comment on above: right shoulder Start: 09-18-1970 Bone graft ATUL GOMEZ DO Plan of Treatment Date Care Activity Detail Author Start: 2043 RSV Immunization for Adults (1 - 1-dose 75+ series) RSV Immunization for Adults (1 - 1-dose 75+ series) [facility] Start: 2028 RSV Immunization age d 60 or older (1 - 1-dose 60+ series) RSV Immunization aged 60 or older (1 - 1-dose 60+ series) [facility] Start: 09-06-2024 Depression Screening Depression Scre ening [facility] Start: 09-05-2024 End: 09-05-2024 Patient encounter procedure 09/05/2024 8:30 AM EST Office Visit [facility] [address] [place] [address] Darleen Menon DO [address] [place] [address] [facility] Start: 05-19-2024 COVID-19 Vaccine ( season) COVID-19 Vaccine ( season) [facility] Start: 05-19-2024 Influenza vaccination Influenza Vacc ine (#1) [facility] Start: 01-20-2024 Diabetes: Estimated Glomerular Filtration Rate for Kidney Health Diabetes: Estimated Glomerular Filtration Rate for Kidney Health [facility] Start: 01-19-2024 Depression Screening Depression Scre ening [facility] Start: 09-21-2023 End: 09-21-2023 Patient encounter procedure 09/21/2023 8:30 AM EST Office Visit [facility] [address] [place] [address] SinanDarleen hair DO [address] [place] [address] [facility] Start: 07-25-2023 End: 07-25-2023 Patient encounter procedure 07/25/2023 Office Visit Hematology and Oncology Darleen Menon DO [address] [place] [address] [facility] Start: 05-19-2023 COVID-19 Vaccine () COVID-19 Vaccine () [facility] Start: 05-19-2023 Influenza vaccination Influenza Vacc ine (#1) [facility] Start: 01-19-2023 End: 01-20-2024 CBC W Auto Differential panel - Blood CBC auto differential Lab Routine Malignant melanoma of right shoulder (HCC) Expected: 01/19/2023 (Approximate), Expires: 01/20/2024 [facility] Work Phone: Comment on above: Expected: 01/19/2023 (Approximate), Expires: 01/20/2024 Start: 01-19-2023 End: 01-20-2024 Comprehensive metabolic 1998 panel - Serum or Plasma Comprehensive metabolic panel Lab Routine Malignant melanoma of right shoulder (HCC) Expected: 01/19/2023 (Approximate), Expires: 01/20/2024 [facility] Comment on above: Expected: 01/19/2023 (Approximate), Expires: 01/20/2024 Start: 01-19-2023 End: 01-20-2024 CT Abdomen and Pelvis WO and W contrast IV CT chest abdomen pelvis with contrast Imaging Routine Malignant melanoma of right shoulder (HCC) Acute deep vein thrombosis (DVT) of tibial vein of right lower extremity (HCC) Expected: 01/19/2023, Expires: 01/20/2024 [facility] Comment on above: Expected: 01/19/2023 , Expires: 01/20/2024 Start: 11-26-2021 COVID-19 Vaccine (4 - Booster for Moderna series) COVID-19 Vaccine (4 - Booster for Moderna series) [facility] Start: 11-26-2021 COVID-19 Vaccine (4 - Moderna series) COVID-19 Vaccine (4 - Moderna series) [facility] Start: 08-25-2021 End: 08-25-2021 Office Visit 08/25/2021 Office Visit Hematology and Oncology Sinan Darleen ManuelDO [address] [place] [address] [phone] [facility] On[facility] [place] Start: 04-28-2021 Creatinine measurement Creatinine mo [place]itoring [place] Start: 04-28-2021 Lipid panel [facility] Start: 04-28-2021 Potassium monitoring Potassium monit [place] Start: 11-19-2020 End: 11-19-2020 Initial consult 11/19/2020 Initial consult Plastic Surgery Preet Dickens MD [address] [place], [place] [id number] [facility]astic Surgery [place] Start: 10-28-2020 Creatinine monitoring Creatinine mon [place], [place] Start: 10-28-2020 Lipid screen Lipid screen [place], [place] Start: 10-28-2020 Potassium monitoring Pot[place] monit [place] Start: 08-03-2020 End: 08-03-2020 Office Visit [facility] Oncology [place] Start: 05-19-2020 Influenza vaccination Flu vaccine (# 1) [place] Start: 04-29-2020 Creatinine monitoring Creatinine [place] Start: 04-29-2020 Lipid screen Lipid [place] Start: 04-29-2020 Potassium monitoring Pot[place]it [place] Start: 02-27-2020 Creatinine monitoring Creatinine [place] Start: 02-27-2020 Potassium monitoring Pot[place] Start: 11-07-2019 End: 11-07-2019 Office Visit 11/07/2019 Office Visit Bariatrics Augie Berkowitz MD [address] [facility] [place] [address] [phone] [facility] Start: 10-11-2019 A1C test (Diabetic o r Prediabetic) A1C test (Diabetic or Prediabetic) [place] Start: 10-11-2019 HbA1c (Bld) [Mass fraction] A1C test (Diabetic or Prediabetic) [place] Start: 08-02-2019 Lipid screen Lipid screen [place], [place] Start: 07-30-2019 End: 07-30-2019 Office Visit 07/30/2019 Office Visit Hematology and Oncology [facility] Oncology [place] Start: 05-19-2019 Influenza vaccination Flu vaccine (# 1) [place] Start: 05-07-2019 End: 05-07-2019 Office Visit 05/07/2019 Office Visit Bariatrics Beverley Wright, [employer] - DONOR SPECIALIST [address] [place] [address] [phone] [facility] Start: 2018 Colon cancer screen colonoscopy Colon cancer screen colonoscopy [place] Start: 2018 Screening for malign ant neoplasm of colon Colon cancer screen colonoscopy [place] Start: 2018 Shingles Vaccine (1 of 2) Shingles V accine (1 of 2) [place] Start: 2018 Zoster Vaccines (1 of 2) Zoster Vacc anna (1 of 2) [facility] Start: 12-12-2015 Pneumococcal Vaccine : 50+ Years (2 of 2 - PCV) Pneumococcal Vaccine: 50+ Years (2 of 2 - PCV) [facility] Start: 12-12-2015 Pneumococcal Vaccine : Pediatrics (0 to 5 Years) and At-Risk Patients (6 to 64 Years) (2 - PCV) Pneumococcal Vaccine: Pediatrics (0 to 5 Years) and At-Risk Patients (6 to 64 Years) (2 - PCV) [facility] Start: 12-12-2015 Pneumococcal Vaccine : Pediatrics (0 to 5 Years) and At-Risk Patients (6 to 64 Years) (2 of 2 - PCV) Pneumococcal Vaccine: Pediatrics (0 to 5 Years) and At-Risk Patients (6 to 64 Years) (2 of 2 - PCV) [facility] Start: 1987 DTaP/Tdap/Td vaccine (1 - Tdap) DTaP/Tdap/Td vaccine (1 - Tdap) [place] Start: 1987 DTaP/Tdap/Td Vaccine s (1 - Tdap) DTaP/Tdap/Td Vaccines (1 - Tdap) [facility] Start: 1987 Hepatitis A Vaccines (1 of 2 - Risk 2-dose series) Hepatitis A Vaccines (1 of 2 - Risk 2-dose series) [facility] Start: 1987 Hepatitis B Vaccine (1 of 3 - Risk 3-dose series) Hepatitis B Vaccine (1 of 3 - Risk 3-dose series) [place] Start: 1987 Hepatitis B Vaccines (1 of 3 - 19+ 3-dose series) Hepatitis B Vaccines (1 of 3 - 19+ 3-dose series) [facility] Start: 1987 Urine screening for protein Diabetes: Urine Protein Screening [facility] Start: 1986 Diabetes: Urine Albumin-Creatinine Ratio for Kidney Health Diabetes: Urine Albumin-Creatinine Ratio for Kidney Health [facility] Start: 1986 Diabetic microalbumi cammy test Diabetic microalbuminuria test [place], [place] Start: 1986 Hepatitis C screening Hepatitis C Sc reening [facility] Start: 1983 HIV screen HIV screen [place], [place] Start: 1983 HIV screening HIV screen [facility] [place] Start: 1979 DTaP/Tdap/Td vaccine (1 - Tdap) DTaP/Tdap/Td vaccine (1 - Tdap) [place] Start: 1978 [object Object] Diabetic foot exam [place], [place] Start: 1978 Diabetic foot examination [facility] Start: 1978 Diabetic retinal exam Diabetic retin al exam [place] Start: 1978 Glaucoma screening Diabetes: R etinopathy Screening [facility] Start: 1978 Preventive dental service Diabetes: Dental Exam [facility] Start: 1974 Pneumococcal 0-64 ye ars Vaccine (1 of 1 - PPSV23) Pneumococcal 0-64 years Vaccine (1 of 1 - PPSV23) [place] Start: 1969 Hepatitis A Vaccines (1 of 2 - Risk 2-dose series) Hepatitis A Vaccines (1 of 2 - Risk 2-dose series) [facility] Start: 03-11-1969 Examination of skin Derm Melanoma Sk in Check [facility] Start: 1968 Hemoglobin A1c measurement Diabetes: Hemoglobin A1C [facility] Start: 1968 Hepatitis B Vaccines (1 of 3 - 3-dose series) Hepatitis B Vaccines (1 of 3 - 3-dose series) [facility] Start: 1968 HIV screening HIV Screening [facility] Start: 1968 Screening for malign ant neoplasm of colon [facility] Patient Education ED Varicose Veins [facility] Work Phone: Patient referral [facility] Work Phone: End: 04-29-2019 Zinc Zinc Lab Routine Once for 1 Occurrences starting 04/29/2019 until 04/29/2019 [place] Comment on above: Once for 1 Occurrenc es starting 04/29/2019 until 04/29/2019 Zinc [place], [place] End: 10-28-2019 Zinc Zinc Lab Routine Iron deficiency Vitamin D deficiency Deficiency of multiple nutrient elements Low serum potassium 1 Occurrences starting 10/28/2019 until 10/28/2019 [facility] Work Phone: Comment on above: 1 Occurrences starti ng 10/28/2019 until 10/28/2019 Immunizations Immunization Date Immunization Notes Care Provider Carlos peacock 05-30-2025 tetanus toxoid, redu hyacinth diphtheria toxoid, and acellular pertussis vaccine, adsorbed; Translations: [Boostrix (Tdap)] ATUL HIGGINS DO [facility] 07-16-2024 influenza, injectabl e, quadrivalent, contains preservative; Translations: [Fluarix PF Prefilled Syringe ] DR CONCHITA KEITH MD [facility] 08-29-2023 influenza, injectabl e, quadrivalent, contains preservative; Translations: [Fluarix PF Quadrivalent ] DR CONCHITA KEITH MD [facility] 06-21-2022 influenza, injectabl e, quadrivalent, contains preservative; Translations: [Fluarix PF Quadrivalent ] TAUL HIGGINS DO [facility] 06-21-2022 influenza virus vacc ine, unspecified formulation Darleen Menon DO Work Phone: [facility] 10-01-2021 influenza virus vacc ine, unspecified formulation ATUL HIGGINS DO [facility] 10-01-2021 SARS-CoV-2 (COVID-19 ) mRNA-1273 vaccine ATUL HIGGINS DO [facility] 01-20-2021 SARS-CoV-2 (COVID-19 ) mRNA-1273 vaccine ATUL HIGGINS DO [facility] 12-23-2020 SARS-CoV-2 (COVID-19 ) mRNA-1273 vaccine ATUL HIGGINS DO [facility] 06-01-2020 influenza, injectabl e, quadrivalent, preservative free; Translations: [Fluarix PF Quadrivalent ] ATUL HIGGINS DO [facility] 08-15-2018 influenza virus vacc ine, unspecified formulation ATUL HIGGINS DO [facility] 07-08-2017 influenza virus vacc ine, unspecified formulation ATUL HIGGINS DO [facility] 05-26-2016 influenza virus vacc ine, unspecified formulation ATUL HIGGINS DO [facility] 06-18-2015 influenza virus vacc ine, unspecified formulation ATUL HIGGINS DO [facility] 12-11-2014 pneumococcal polysaccharide vaccine, 23 valent ATUL ROEINS DO [facility] 08-11-2014 influenza virus vacc ine, unspecified formulation ATUL HIGGINS DO [facility] 06-27-2013 influenza virus vacc ine, unspecified formulation ATUL HIGGINS DO [facility] 03-04-2009 measles/mumps/rubell a virus vaccine ATUL HIGGINS DO [facility] Payers Date Payer Category Payer Unknown [id number] 2022 Self-pay [id number] 2022 Private Health Insurance 2f [id number] 2022 Commercial Managed C [facility] - [facility] [employer] [id number] 2022 Unknown [employer] [id number] 2022-Present [address] [place] [address] Commercial [id number] 2018 Unknown [employer] xxxxxxxxxxx 2018-Present [phone] [address] [place], [facility] xxxxxxxxxxx [id number] 2018 Unknown [employer] xxxxxxxxxxx 2018-Present [phone] [address] [place], [facility] xxxxxxxxxxx [id number] 2018 Unknown [employer] [id number] 2018-Present [phone] PO [facility] [address] [place], [place] [address] [id number] 2016 Unknown [id number] 1968 Unknown [id number] 1968 Unknown [id number] .627 1968 Unknown [id number] .627 Unknown [id number] .462 Unknown [id number] .462 Unknown [id number] .462 Unknown [id number] [id number] .462 Unknown [id number] [id number] .462 Unknown [id number] 2.16.840.1.231631.3.579.2 .462 Unknown [id number] [id number] .462 Unknown [id number] [id number] .462 Unknown [id number] [id number] .462 Unknown [id number] [id number] .462 Unknown [id number] .462 Social History Date Type Detail Facility Start: 02-26-2019 End: 05-30-2019 Tobacco smoking status NDIS Former smoker [facility] Comment on above: no tobacco smoke exp osure End: 04-16-1998 History of tobacco use Current [place] End: 04-16-1998 History of tobacco use Cigar [place] Start: 02-26-2019 End: 10-01-2024 Alcohol intake Not Currently [place] Start: 05-10-2018 Tobacco Comment Socially [place] Start: 07-18-2018 Alcohol Comment occas maybe on ce every few months [place] Sex Assigned At [place] on file [place] Start: 05-07-2019 End: 07-31-2019 Alcohol intake Ex-drinker (finding) [facility] Start: 11-07-2019 End: 10-01-2024 Alcohol intake Current drinker of alcohol (finding) [place] Start: 11-07-2019 History SDOH Alcohol Frequency 4 [place] Start: 07-02-2020 End: 09-21-2022 Tobacco use and exposure Never used [place] Start: 03-04-2022 End: 03-09-2023 Tobacco smoking status NDIS Unknown if ever smoked [facility] Start: 1970 Sex Assigned At Male [facility] End: 04-16-1998 History of tobacco use Cigarette Smoker [facility] Start: 01-19-2023 End: 10-01-2024 Alcohol intake [facility] Start: 09-11-2022 End: 01-19-2023 Exposure to SARS-CoV-2 (event) Not sure [facility] Start: 09-17-2022 Gender identity Identifies as male gender (finding) [facility] Start: 09-17-2022 Sexual orientation Heterosexual (fin ding) [facility] Start: 03-13-2019 End: 04-18-2022 Sex Male (finding) [facility] Sexual Orientation Linda Joyceltman [place] [facility] Procedure Code Equipment Code Equipment Origin al Text Equipment Identifier Dates Varicose vein adhesive-treatment kit ([id number] FDA Start: 03-09-2023 Mental Status Date Assessment Result Facility 03-04-2022 Cognitive function Level Of Cons ciousness Awake;Alert;Appropriate;Follow s Commands [facility] Work Phone: Clinical Notes 09-21-2022 to 02-24-2025 Note Date & Type Note Facility 02-24-2025 Evaluation + Plan note Extrac robson from: Title:Clinical Document Author:CONCHITA KEITH Date:02/24/25 [place] ADMISSION HISTORY AN D PHYSICIAL CHIEF COMPLAINT: HISTORY OF PRESENT ILLNESS: REVIEW OF SYSTEMS: ACTIVE PROBLEMS: (18) Arthritis (7872905) Arthritis of left knee (7031555250) Benign essential hypertension (0896634) BMI 50.0-59.9, adult (6224915436) Dental caries (181191908) Dribbling urine (474907125) Elevated vitamin B12 level (351830678) Family history of rectal cancer (2985061404) Grade A1 albuminuria (4938042904) History of DVT (deep vein thrombosis), several, 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 heme 2023 (1958694451) History of melanoma, right shoulder s/p removal (787785660) History of pulmonary embolism (153312437) Knee effusion, left (4444487809) TOOTIE treated with BiPAP (740393276) S/P laparoscopic sleeve gastrectomy, 2017 (1159858913) Stasis dermatitis (44934471) Type 2 diabetes mellitus with obesity (3347685879) Varicose vein of leg (835198609) MEDICATIONS: Active Inpt Meds: None Active PRN Meds: None One Time Meds: None Active IV Meds: Lactated Ringers Infusion 1,000 mL (LR 1,000 mL) Start: 02/24/25 8:02:00 EDT, Rate: 50 mL/hr, 02/24/25 8:02:00 EDT ALLERGIES: (1) NKA FAMILY HISTORY: SOCIAL HISTORY: PHYSICAL EXAM: VITALS: EccegyAfceVYZbgorFGPrI6RJY8MnbnXj(kg) 02/24 08:09----[id number]/96600.0 24 Hr Tmax: No Data Available 36 Hr Tmax: No Data Available Vital Signs are the last 5 in the past 48 hours. Weights display the last 5 within 7 days. Initial Wt: 02/24 181.0 kg 398 lb Current Wt: 02/24 181.0 kg 398 lb GENERAL: HEENT: CARDIOVASCULAR: RESPIRATORY: ABDOMEN: EXREMETIES: NEUROLOGICAL: PSYCHIATRIC: LABS: No 36hr Lab Data DIAGNOSTICS: IMPRESSION: PLAN: History and Physical Update I have examined the patient; reviewed the H&P and there are no changes to the H&P unless noted below. Future Appointments Appointment Date:04/15/2025 02:00:00 PM Scheduled Provider:ATUL HIGGINS DO Location:[facility] Appointment Type: Wellness Annual Future Scheduled Tests Laboratory* Copper, Serum 01/14/25 * Zinc, Plasma or Serum 01/14/25 * Vitamin B6, Plasma 01/14/25 * Vitamin B1 (Thiamine), Blood 01/14/25 * Lipoprotein (a) 01/14/25 * Apolipoprotein B 01/14/25 * TSH with Reflex to FT4 01/14/25 * Ferritin 01/14/25 * Folate Level 01/14/25 * Magnesium Level 01/14/25 * Phosphorus Level 01/14/25 * Prostate Specific Antigen 01/14/25 * Vitamin B12 Level 01/14/25 * A1C Hemoglobin 01/14/25 * Complete Blood Count 01/14/25 * Lipid Profile 01/14/25 * Iron Studies 01/14/25 * Albumin/Creatinine Ratio, Random Urine 01/14/25 * Prealbumin 01/14/25 * Prothrombin Time - Panel 01/14/25 * Complete Metabolic Panel 01/14/25 [facility] Lindastalin Devlin 06-09-2025 Hospital Discharge instructions Patient Education 02/24/2025 09:11:47 Moderate Conscious Sedation, Adult, Care After Moderate Conscious Sedation, Adult, Care After These instructions provide you with information about caring for yourself after your procedure. Your health care provider may also give you more specific instructions. Your treatment has been plannedaccording to current medical practices, but problems sometimes occur. Call your health care provider if you have any problems or questions after your procedure. What can I expect after the procedure? After your procedure, it is common: To feel sleepy for several hours. To feel clumsy and have poor balance for several hours. To have poor judgment for several hours. To vomit if you eat too soon. Follow these instructions at home: For at least 24 hours after the procedure: Do not: ?Participate in activities where you could fall or become injured. ?Drive. ?Use heavy machinery. ?Drink alcohol. ?Take sleeping pills or medicines that cause drowsiness. ?Make important decisions or sign legal documents. ?Take care of children on your own. Rest. Eating and drinking Follow the diet recommended by your health care provider. If you vomit: ?Drink water, juice, or soup when you can drink without vomiting. ?Make sure you have little or no nausea before eating solid foods. General instructions Have a responsible adult stay with you until you are awake and alert. Take uwsa-jcs-wxhmrqi and prescription medicines only as told by your health care provider. If you smoke, do not smoke without supervision. Keep all follow-up visits as told by your health care provider. This is important. Contact a health care provider if: You keep feeling nauseous or you keep vomiting. You feel light-headed. You develop a rash. You have a fever. Get help right away if: You have trouble breathing. This information is not intended to replace advice given to you by your health care provider. Make sure you discuss any questions you have with your health care provider. Document Released: 06/25/2014 Document Revised: 08/17/2018 Document Reviewed: 12/24/2016 [employer] Patient Education 2020 [employer] 02/24/2025 09:11:43 Colonoscopy, Adult, Care After, Nbjh-cs-Viqj Colonoscopy, Adult, Care After This sheet gives you information about how to care for yourself after your procedure. Your doctor may also give you more specific instructions. If you have problems or questions, call your doctor. What can I expect after the procedure? After the procedure, it is common to have: A small amount of blood in your poop for 24 hours. Some gas. Mild cramping or bloating in your belly. Follow these instructions at home: General instructions For the first 24 hours after the procedure: ?Do not drive or use machinery. ?Do not sign important documents. ?Do not drink alcohol. ?Do your daily activities more slowly than normal. ?Eat foods that are soft and easy to digest. Take ajyz-aow-ffuohaw or prescription medicines only as told by your doctor. To help cramping and bloating: Try walking around. Put heat on your belly (abdomen) as told by your doctor. Use a heat source that your doctor recommends, such as a moist heat pack or a heating pad. ?Put a towel between your skin and the heat source. ?Leave the heat on for 20 30 minutes. ?Remove the heat if your skin turns bright red. This is especially important if you cannot feel pain, heat, or cold. You can get burned. Eating and drinking Drink enough fluid to keep your pee (urine) clear or pale yellow. Return to your normal diet as told by your doctor. Avoid heavy or fried foods that are hard to digest. Avoid drinking alcohol for as long as told by your doctor. Contact a doctor if: You have blood in your poop (stool) 2 3 days after the procedure. Get help right away if: You have more than a small amount of blood in your poop. You see large clumps of tissue (blood clots) in your poop. Your belly is swollen. You feel sick to your stomach (nauseous). You throw up (vomit). You have a fever. You have belly pain that gets worse, and medicine does not help your pain. Summary After the procedure, it is common to have a small amount of blood in your poop. You may also have mild cramping and bloating in your belly. For the first 24 hours after the procedure, do not drive or use machinery, do not sign important documents, and do not drink alcohol. Get help right away if you have a lot of blood in your poop, feel sick to your stomach, have a fever, or have more belly pain. This information is not intended to replace advice given to you by your health care provider. Make sure you discuss any questions you have with your health care provider. Document Released: 10/07/2011 Document Revised: 07/05/2018 Document Reviewed: 05/29/2017 [employer] Patient Education 2020 [employer] 02/24/2025 09:11:41 Colon Polyps Colon Polyps Polyps are tissue growths inside the body. Polyps can grow in many places, including the large intestine (colon). A polyp may be a round bump or a mushroom-shaped growth. You could have one polyp or several. Most colon polyps are noncancerous (benign). However, some colon polyps can become cancerous over time. Finding and removing the polyps early can help prevent this. What are the causes? The exact cause of colon polyps is not known. What increases the risk? You are more likely to develop this condition if you: Have a family history of colon cancer or colon polyps. Are older than 50 or older than 45 if you are . Have inflammatory bowel disease, such as ulcerative colitis or Crohn's disease. Have certain hereditary conditions, such as: ?Familial adenomatous polyposis. ?Wilson syndrome. ?Turcot syndrome. ?Peutz Jeghers syndrome. Are overweight. Smoke cigarettes. Do not get enough exercise. Drink too much alcohol. Eat a diet that is high in fat and red meat and low in fiber. Had childhood cancer that was treated with abdominal radiation. What are the signs or symptoms? Most polyps do not cause symptoms. If you have symptoms, they may include: Blood coming from your rectum when having a bowel movement. Blood in your stool. The stool may look dark red or black. Abdominal pain. A change in bowel habits, such as constipation or diarrhea. How is this diagnosed? This condition is diagnosed with a colonoscopy. This is a procedure in which a lighted, flexible scope is inserted into the anus and then passed into the colon to examine the area. Polyps are sometimes found when a colonoscopy is done as part of routine cancer screening tests. How is this treated? Treatment for this condition involves removing any polyps that are found. Most polyps can be removed during a colonoscopy. Those polyps will then be tested for cancer. Additional treatment may be needed depending on the results of testing. Follow these instructions at home: Lifestyle Maintain a healthy weight, or lose weight if recommended by your health care provider. Exercise every day or as told by your health care provider. Do not use any products that contain nicotine or tobacco, such as cigarettes and e-cigarettes. If you need help quitting, ask your health care provider. If you drink alcohol, limit how much you have: ?0 1 drink a day for women. ? 0 2 drinks a day for men. Be aware of how much alcohol is in your drink. In the [place] one drink equals one 12 oz bottle of beer (355 mL), one 5 oz glass of wine (148 mL), or one 1 oz shot of hard liquor (44 mL). Eating and drinking Eat foods that are high in fiber, such as fruits, vegetables, and whole grains. Eat foods that are high in calcium and vitamin D, such as milk, cheese, yogurt, eggs, liver, fish, and broccoli. Limit foods that are high in fat, such as fried foods and desserts. Limit the amount of red meat and processed meat you eat, such as hot dogs, sausage, chandler, and lunch meats. General instructions Keep all follow-up visits as told by your health care provider. This is important. ?This includes having regularly scheduled colonoscopies. ?Talk to your health care provider about when you need a colonoscopy. Contact a health care provider if: You have new or worsening bleeding during a bowel movement. You have new or increased blood in your stool. You have a change in bowel habits. You lose weight for no known reason. Summary Polyps are tissue growths inside the body. Polyps can grow in many places, including the colon. Most colon polyps are noncancerous (benign), but some can become cancerous over time. This condition is diagnosed with a colonoscopy. Treatment for this condition involves removing any polyps that are found. Most polyps can be removed during a colonoscopy. This information is not intended to replace advice given to you by your health care provider. Make sure you discuss any questions you have with your health care provider. Document Released: 05/31/2005 Document Revised: 12/20/2018 Document Reviewed: 12/20/2018 BookitNow! Patient Education 2020 [employer]. Follow Up Care 01/20/2025 14:02:41 With:CONCHITA KEITH MD [facility] [address] [facility] [address] [place] [phone] When: Unknown Comments:Repeat colonoscopy in 3 years. [facility] 06-09-2025 Summary of episode note Discharge Instructions Thank you for allowing [facility] to assist you with your healthcare needs. The following is importantdischarge information regarding your hospital visit. Your Care Team ATUL HIGGINS DO What to do next Scheduled Follow-Up Appointments Appointment Type When With Where Contact Information [facility] Annual 04/15/2025 02:00 PM EDT ATUL HIGGINS DO [facility] [address] [phone] Confirmed Follow Up Appointments Follow Up with CONCHITA KEITH MD Where:[address] [facility] [address] [address] [place] [phone] Additional Information: Repeat colonoscopy in 3 years. Someone Will Contact You Regarding These Home Health Referrals No home referrals have been ordered for you. No one will call you. Allergies NKA Medications Please ask your primary doctor or pharmacist before taking any other medication not listed, including over the counter drugs, herbal medications, vitamins and or supplements as they may interact withyour home medications. What How Much When Why Instructions Last Dose Unchanged acetaminophen (Tylenol 8 HR Arthritis Pain 650 mg oral tablet, extended release) 2 tab(s) by mouth Every day as needed for as needed for fever Unchanged apixaban (Eliquis 5 mg oral tablet) 1 tab(s) by mouth Two (2) times a day TAKE 1 TABLET BY MOUTH TWICE A DAY Unchanged aspirin (aspirin 81 mg oral delayed release tablet) 1 tab(s) by mouth Every day Unchanged atorvastatin (atorvastatin 10 mg oral tablet) 1 tab(s) by mouth Once a day Type 2 diabetes mellitus with renal complication Unchanged calcium carbonate (Tums) Chewed Once a day Unchanged chlorhexidine topical (chlorhexidine 0.12% oral rinse liquid) 2 teaspoonful(s) by mouth Three (3) times a day Dental caries Unchanged cholecalciferol (Vitamin D3) 400 unit(s) by mouth Every day Unchanged cyanocobalamin (Vitamin B12 500 mcg oral tablet) 1 tab(s) by mouth Once a day Unchanged finasteride (finasteride 5 mg oral tablet) TAKE 1 TABLET BY MOUTH EVERY DAY Unchanged hydrochlorothiazide-lisinopril (hydrochlorothiazide-lisinopril 25 mg- 20 mg oral tablet) 1 tab(s) by mouth Once a day Unchanged multivitamin with iron (Flintstones with Iron oral tablet, chewable) 1 tab(s) Chewed Once a day Unchanged omeprazole (omeprazole 20 mg oral delayed release capsule) 1 cap by mouth Once a day Hx sleeve gastrectomy, prophylaxis Unchanged penicillin V potassium (penicillin V potassium 500 mg oral tablet) TAKE 1 TABLET BY MOUTH 4 TIMES A DAY UNTIL GONE Unchanged semaglutide (semaglutide 8 mg/ 3 mL (2 mg dose) subcutaneous solution) 2 Milligram Subcutaneous Every week in the abdomen, thigh, or upper arm dispense 90 day supply filling in lieu of pcp Unchanged sildenafil (sildenafil 25 mg oral tablet) 1 tab(s) by mouth Once a day 25 or 50mg dose, 1 hour before sexual activity Unchanged tamsulosin (tamsulosin 0.4 mg oral capsule) 2 cap TAKE 2 CAPSULE BY MOUTH EVERY DAY Unchanged ubiquinone (CoQ10 300 mg oral capsule) 1 cap by mouth Once a day Type 2 diabetes mellitus with renal complication ok for softgel / gummy if capsule not available Please take this list to your next doctor s visit. Bring all medications you take, including over the counter medications, herbals and other supplements with you to your doctor s visit. Patients and families are reminded to discard old lists and to update any records with all medication providers or retail pharmacies. Education Materials Moderate Conscious Sedation, Adult, Care After These instructions provide you with information about caring for yourself after your procedure. Your health care provider may also give you more specific instructions. Your treatment has been plannedaccording to current medical practices, but problems sometimes occur. Call your health care provider if you have any problems or questions after your procedure. What can I expect after the procedure? After your procedure, it is common: To feel sleepy for several hours. To feel clumsy and have poor balance for several hours. To have poor judgment for several hours. To vomit if you eat too soon. Follow these instructions at home: For at least 24 hours after the procedure: Do not: ? Participate in activities where you could fall or become injured. ? Drive. ? Use heavy machinery. ? Drink alcohol. ? Take sleeping pills or medicines that cause drowsiness. ? Make important decisions or sign legal documents. ? Take care of children on your own. Rest. Eating and drinking Follow the diet recommended by your health care provider. If you vomit: ? Drink water, juice, or soup when you can drink without vomiting. ? Make sure you have little or no nausea before eating solid foods. General instructions Have a responsible adult stay with you until you are awake and alert. Take uane-wzn-ciywioy and prescription medicines only as told by your health care provider. If you smoke, do not smoke without supervision. Keep all follow-up visits as told by your health care provider. This is important. Contact a health care provider if: You keep feeling nauseous or you keep vomiting. You feel light-headed. You develop a rash. You have a fever. Get help right away if: You have trouble breathing. This information is not intended to replace advice given to you by your health care provider. Make sure you discuss any questions you have with your health care provider. Document Released: 06/25/2014 Document Revised: 08/17/2018 Document Reviewed: 12/24/2016 BookitNow! Patient Education 2020 [employer]kss. Colonoscopy, Adult, Care After This sheet gives you information about how to care for yourself after your procedure. Your doctor may also give you more specific instructions. If you have problems or questions, call your doctor. What can I expect after the procedure? After the procedure, it is common to have: A small amount of blood in your poop for 24 hours. Some gas. Mild cramping or bloating in your belly. Follow these instructions at home: General instructions For the first 24 hours after the procedure: ? Do not drive or use machinery. ? Do not sign important documents. ? Do not drink alcohol. ? Do your daily activities more slowly than normal. ? Eat foods that are soft and easy to digest. Take bxon-tsl-kwrlmfj or prescription medicines only as told by your doctor. To help cramping and bloating: Try walking around. Put heat on your belly (abdomen) as told by your doctor. Use a heat source that your doctor recommends, such as a moist heat pack or a heating pad. ? Put a towel between your skin and the heat source. ? Leave the heat on for 20 30 minutes. ? Remove the heat if your skin turns bright red. This is especially important if you cannot feel pain, heat, or cold. You can get burned. Eating and drinking Drink enough fluid to keep your pee (urine) clear or pale yellow. Return to your normal diet as told by your doctor. Avoid heavy or fried foods that are hard to digest. Avoid drinking alcohol for as long as told by your doctor. Contact a doctor if: You have blood in your poop (stool) 2 3 days after the procedure. Get help right away if: You have more than a small amount of blood in your poop. You see large clumps of tissue (blood clots) in your poop. Your belly is swollen. You feel sick to your stomach (nauseous). You throw up (vomit). You have a fever. You have belly pain that gets worse, and medicine does not help your pain. Summary After the procedure, it is common to have a small amount of blood in your poop. You may also have mild cramping and bloating in your belly. For the first 24 hours after the procedure, do not drive or use machinery, do not sign important documents, and do not drink alcohol. Get help right away if you have a lot of blood in your poop, feel sick to your stomach, have a fever, or have more belly pain. This information is not intended to replace advice given to you by your health care provider. Make sure you discuss any questions you have with your health care provider. Document Released: 10/07/2011 Document Revised: 07/05/2018 Document Reviewed: 05/29/2017 BookitNow! Patient Education 2020 BookitNow! Inc. Colon Polyps Polyps are tissue growths inside the body. Polyps can grow in many places, including the large intestine (colon). A polyp may be a round bump or a mushroom-shaped growth. You could have one polyp or several. Most colon polyps are noncancerous (benign). However, some colon polyps can become cancerous over time. Finding and removing the polyps early can help prevent this. What are the causes? The exact cause of colon polyps is not known. What increases the risk? You are more likely to develop this condition if you: Have a family history of colon cancer or colon polyps. Are older than 50 or older than 45 if you are . Have inflammatory bowel disease, such as ulcerative colitis or Crohn's disease. Have certain hereditary conditions, such as: ? Familial adenomatous polyposis. ? Wilson syndrome. ? Turcot syndrome. ? Peutz Jeghers syndrome. Are overweight. Smoke cigarettes. Do not get enough exercise. Drink too much alcohol. Eat a diet that is high in fat and red meat and low in fiber. Had childhood cancer that was treated with abdominal radiation. What are the signs or symptoms? Most polyps do not cause symptoms. If you have symptoms, they may include: Blood coming from your rectum when having a bowel movement. Blood in your stool. The stool may look dark red or black. Abdominal pain. A change in bowel habits, such as constipation or diarrhea. How is this diagnosed? This condition is diagnosed with a colonoscopy. This is a procedure in which a lighted, flexible scope is inserted into the anus and then passed into the colon to examine the area. Polyps are sometimes found when a colonoscopy is done as part of routine cancer screening tests. How is this treated? Treatment for this condition involves removing any polyps that are found. Most polyps can be removed during a colonoscopy. Those polyps will then be tested for cancer. Additional treatment may be needed depending on the results of testing. Follow these instructions at home: Lifestyle Maintain a healthy weight, or lose weight if recommended by your health care provider. Exercise every day or as told by your health care provider. Do not use any products that contain nicotine or tobacco, such as cigarettes and e-cigarettes. If you need help quitting, ask your health care provider. If you drink alcohol, limit how much you have: ? 0 1 drink a day for women. ? 0 2 drinks a day for men. Be aware of how much alcohol is in your drink. In the [place] one drink equals one 12 oz bottle of beer (355 mL), one 5 oz glass of wine (148 mL), or one 1 oz shot of hard liquor (44 mL). Eating and drinking Eat foods that are high in fiber, such as fruits, vegetables, and whole grains. Eat foods that are high in calcium and vitamin D, such as milk, cheese, yogurt, eggs, liver, fish, and broccoli. Limit foods that are high in fat, such as fried foods and desserts. Limit the amount of red meat and processed meat you eat, such as hot dogs, sausage, chandler, and lunch meats. General instructions Keep all follow-up visits as told by your health care provider. This is important. ? This includes having regularly scheduled colonoscopies. ? Talk to your health care provider about when you need a colonoscopy. Contact a health care provider if: You have new or worsening bleeding during a bowel movement. You have new or increased blood in your stool. You have a change in bowel habits. You lose weight for no known reason. Summary Polyps are tissue growths inside the body. Polyps can grow in many places, including the colon. Most colon polyps are noncancerous (benign), but some can become cancerous over time. This condition is diagnosed with a colonoscopy. Treatment for this condition involves removing any polyps that are found. Most polyps can be removed during a colonoscopy. This information is not intended to replace advice given to you by your health care provider. Make sure you discuss any questions you have with your health care provider. Document Released: 05/31/2005 Document Revised: 12/20/2018 Document Reviewed: 12/20/2018 BookitNow! Patient Education 2020 [employer]kss. Additional Information VACCINATE! IT SAVES LIVES! Members of the community who have not yet received the COVID-19 vaccine and would like to receive it can visit one of [facility] vaccine clinics. There are many vaccine clinic locations within the [facility]. For locations and available times, please visit https://gettheshot.coronavirus.[place].gov/. It is important to note that some COVID mobile vaccine clinics are held outdoors and may be canceled in rainy or stormy conditions. To learn more about pediatric vaccinations (ages 5-11), we invite you to visit the [facility] webpage. https://www.[facility].org/pages/3932-Ahkjm-Csazogljtpl-Zlebdhbnhl-Rtkbu-Vfe stions.htmlTo learn more about the COVID-19 vaccine, we invite you to visit the CDC website for a list of frequently asked questions.https://www.cdc.gov/coronavirus/2019-ncov/vaccines/faq.html [email or web address] Patient Portal Access Instructions: Stay connected with your healthcare team and access your personal medical information anytime with the [facility] Patient Portal. Please follow the directions below to create your [employer] account: 1.Access the email account you provided upon registration to the hospital/physician office.2.Look for an invitation email from [facility].3.Open the email and access the invitation link: [facility]itation to [facility].4.Fill in the required man to create your account. To access your account, visit [email or web address]. Click the blue button labeled Access Patient Portal and then log in with the username and password that you created in the steps above. You will be able to view your test results, lab results, a summary of your visits, upcoming appointments and more. There is also a convenient messaging option where you can send secure messages to your p rovider. In addition, you will have the ability to download any documents or summaries to your computer and/or send the information securely to a physician. Remember that your healthcare information is confidential, so carefully consider who you will allowto register on the [facility] (PRIMP) Patient Portal for access to your information. You can also access the [facility] Patient Portal on the [facility] nikolas. Simply click on Patient Portal and then log into your account. If you would like to receive a full copy of your medical records, please contact the [facility] Medical Records Department by calling [phone], Monday through Monday between 8 a.m. and 4:30 p.m. HOW TO SAFELY DISPOSE OF PRESCRIPTION MEDICATIONS Please use one of the following methods to safely dispose of your unused medications. 1.Use a drug disposal kit: the drug disposal pouch allows you to safely discard your old and unuseddrugs. Ask your nurse to give you one when you are discharged.2.Visit a local take-back location: Many local pharmacies and police departments have programs that collect old and unwanted prescriptiondrugs. Call your local pharmacy or go to http://bit.[employer]/9O0Ip6p to find one close to you.3.Make use of household items: Use cat litter or old coffee grounds to dispose medications if other options arenot available. Mix your drugs with these household products, seal them in an airtight container andthrow it into the garbage. Call [facility]: [phone] to be sure your drugs can be disposed of in this way. Some medicines may require a different approach.4.Never flush your medications down the toilet. IF YOU HAVE BEEN PRESCRIBED AN OPIOID FOR PAIN If you have been prescribed an opioid (such as hydrocodone, oxycodone or morphine), it is critical to understand the possible side effects and risks of opioid pain medications. Even when taken as directed, opioids can have several side effects including: Tolerance, meaning you might need to take more of a medication for the same pain relief. Nausea, vomiting and/or constipation. Sleepiness, dizziness, dry mouth, confusion, depression or itching. Physical dependence, meaning you have withdrawal symptoms when a medication is stopped, can develop within a few days. KNOW YOUR RESPONSIBILITIES It is important to know exactly how much and how often to take the opioid pain medications you are prescribed. Never take opioids in higher amounts or more often than prescribed. Do not combine opioids with alcohol or other drugs that cause drowsiness, such as benzodiazepines, also known as benzos, including diazepam and alprazolam, muscle relaxants or sleep aids. Never sell or share prescription opioids. This is illegal. Store opioids in a secure place and out of reach of others (including children, family, friends and visitors). The last page of this document has been signed and retained as a CHART COPY. Signatures Patient Education Materials Moderate Conscious Sedation, Adult, Care After Colonoscopy, Adult, Care After, Vpal-vn-Rmty Colon Polyps Medication Leaflets My discharge plan and instructions have been reviewed and explained to me and I,ARIAS JOHNSTON understand my current condition and have read and understand these discharge instructions. I have received a written copy of the plan/instructions. If I have questions, I am aware that I should contact my doctor. 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 The colonoscope was passedinto the rectum and advanced up to the left colon. In the transverse colon was small sessile polyp 2 mm this was removed with cold biopsy forcep. At the hepatic flexure was another small sessile polyp 2 mm this was removed with cold biopsy forcep. Down the right colon cecum was visualized there were no base the cecum the patient had an excellent preparation. Could not advance the scope past the ileocecal valve due to redundancy in the left colon. The colonoscope was withdrawn back across the right colon there were no obvious large polyps seen the transverse colon there was additional small sessile polyp 2 mm this was removed with cold biopsy forcep. The splenic flexure down to the left colon there were no obvious large polyps seen there was diverticulosis in the sigmoid area. Retro-flexion performed in the rectum revealed no abnormalities in the rectal mucosa the colon was decompressed the patient tolerated the procedure well. Post-Procedure Exam High risk screening colonoscopy colonoscopy with biopsy. Findings Small sessile polyps removed with cold biopsy forceps Complications None apparent Total Time Approximately 25-minute Assessment/Plan Orders: Lactated Ringers Infusion 1,000 mL(LR 1,000 mL), 1000 mL, Intravenous Bedrest, 02/24/25 9:09:00 EDT, Strict, continuous, Constant order, Lying on side until alert or as ordered Bedrest, 02/24/25 9:09:00 EDT, Strict, continuous, Constant order, Lying on side until alert or as ordered Call Parameters, 02/24/25 9:09:00 EDT, Notify for vomiting, severe pain, signs of bleeding, severe abdominal pain, distention or rigidity, Constant order Communication Order (scheduled), 02/24/25 8:02:00 EDT, Once, 02/24/25 8:02:00 EDT, Pathology TissueRequest Communication Order (scheduled), 02/24/25 8:02:00 EDT, Once, 02/24/25 8:02:00 EDT, Urine Test or waiver for women of child bearing age Communication Order (scheduled), 02/24/25 8:02:00 EDT, Once, 02/24/25 8:02:00 EDT, Fasting Blood Sugar priot to procedure of patient is diabetic Diet Order, 02/24/25 9:09:00 EDT, Start Meal: Next meal, Clear Liquid Diet, Post exam or after gag reflex returns if EGD, Constant Order, : N/A, : N/A Discharge, 02/24/25 8:02:00 EDT, Discharged to: Home, when able to ambulate and after being seen byphysician Discharge Activity, NO activity restrictions, 02/24/25 9:09:00 EDT Discharge Diet, Follow the post-operative/post-procedure diet instructions provided by your physician's office., 02/24/25 9:09:00 EDT Discharge Wound Care, Follow the post-operative/post-procedure wound care instructions provided by your physician's office., 02/24/25 9:09:00 EDT Pathology Tissue Request, 02/24/25 9:01:00 EDT, Collected, Routine, Nurse Collect, AP Specimen, TISSUE, SEE CHART, COLONOSCOPY WITH POLYPECTOMY, SCREENING, FAMILY HISTORY OF COLON CANCER, SCREENING, FAMILY HISTORY OF COLON CANCER, Preferred Lab: [facility], [id number] Post Procedure Assessment, 02/24/25 9:09:00 EDT, Stop Date 02/24/25 9:09:00 EDT, [facility] in [facility] until Miriam Score of 12 or Preprocedure Sign Consent, 02/24/25 8:02:00 EDT, Once, For Colonoscopy Vital Signs, 02/24/25 9:09:00 EDT, q15min, 1 hour(s), 02/24/25 10:00:00 EDT Vital Signs, 02/24/25 9:09:00 EDT, q30min, 1 hour(s), 02/24/25 10:00:00 EDT Vital Signs PRN, 02/24/25 9:09:00 EDT, PRN order Follow Up/Recommendation Follow-up the pathology of polyps consider repeat colonoscopy in 4 years Digitally Signed by CONCHITA KEITH MD on 02/24/2025 09:12 AM [facility]06-09-2025 Anesthesiology Consult note Patient: ARIAS JOHNSTON Age: 54 years Sex: Male : 1970 Associated Diagnoses: None Author: SHAYLEE ACEVES Assessment Postanesthesia assessment Vitals: Vital signs from flowsheet : Vital Signs 02/24/2025 9:09 EDT Heart Rate Monitored 79 bpm Respiratory Rate 17 br/min Systolic Blood Pressure Non-Invasive 137 mmHg Diastolic Blood Pressure Non-Invasive 84 mmHg 02/24/2025 9:05 EDT Heart Rate Monitored 78 bpm bpm Respiratory Rate - Anes 17 br/min br/min Systolic Blood Pressure Non-Invasive 137 mmHg mmHg Diastolic Blood Pressure Non-Invasive 84 mmHg mmHg 02/24/2025 9:00 EDT Heart Rate Monitored 85 bpm bpm Respiratory Rate - Anes 15 br/min br/min Systolic Blood Pressure Non-Invasive 117 mmHg mmHg Diastolic Blood Pressure Non-Invasive 81 mmHg mmHg 02/24/2025 8:55 EDT Heart Rate Monitored 82 bpm bpm Respiratory Rate - Anes 14 br/min br/min Systolic Blood Pressure Non-Invasive 123 mmHg mmHg Diastolic Blood Pressure Non-Invasive 59 mmHg mmHg 02/24/2025 8:50 EDT Heart Rate Monitored 88 bpm bpm Respiratory Rate - Anes 11 br/min br/min Systolic Blood Pressure Non-Invasive 127 mmHg mmHg Diastolic Blood Pressure Non-Invasive 79 mmHg mmHg 02/24/2025 8:09 EDT Apical Heart Rate 91 bpm Respiratory Rate 15 br/min Systolic Blood Pressure Non-Invasive 132 mmHg Diastolic Blood Pressure Non-Invasive 79 mmHg . Mental status: alert & oriented x 4. Respiratory function: lungs are clear to auscultation. Respiratory support: none. CV function: Normal rate. Cardiovascular support: none. Pain. Nausea status: see nursing documentation of medications. Postoperative hydration status: within normal limits. Digitally Signed by SHAYLEE ACEVES on 02/24/2025 09:11 AM [facility]06-09-2025 Note [place] ADMISSION HISTORY AND PHYSICIAL CHIEF COMPLAINT: HISTORY OF PRESENT ILLNESS: REVIEW OF SYSTEMS: ACTIVE PROBLEMS: (18) Arthritis (7189417) Arthritis of left knee ([id number]) Benign essential hypertension (0953440) BMI 50.0-59.9, adult ([id number]) Dental caries ([id number]) Dribbling urine ([id number]) Elevated vitamin B12 level ([id number]) Family history of rectal cancer ([id number]) Grade A1 albuminuria (2461886094) History of DVT (deep vein thrombosis), several, senior care Eliquis Rx by PCP stopped heme 2023 ([id number]) History of melanoma, right shoulder s/p removal (392415621) History of pulmonary embolism (963795577) Knee effusion, left (6604422643) TOOTIE treated with BiPAP ([id number]) S/P laparoscopic sleeve gastrectomy, 2017 ([id number]) Stasis dermatitis (90493141) Type 2 diabetes mellitus with obesity (3519368319) Varicose vein of leg (590880400) MEDICATIONS: Active Inpt Meds: None Active PRN Meds: None One Time Meds: None Active IV Meds: Lactated Ringers Infusion 1,000 mL (LR 1,000 mL) Start: 02/24/25 8:02:00 EDT, Rate: 50 mL/hr, 02/24/25 8:02:00 EDT ALLERGIES: (1) NKA FAMILY HISTORY: SOCIAL HISTORY: PHYSICAL EXAM: VITALS: [id number](kg) 02/24 08:09----[id number]/[id number] 24 Hr Tmax: No Data Available 36 Hr Tmax: No Data Available Vital Signs are the last 5 in the past 48 hours. Weights display the last 5 within 7 days. Initial Wt: 02/24 181.0 kg 398 lb Current Wt: 02/24 181.0 kg 398 lb GENERAL: HEENT: CARDIOVASCULAR: RESPIRATORY: ABDOMEN: EXREMETIES: NEUROLOGICAL: PSYCHIATRIC: LABS: No 36hr Lab Data DIAGNOSTICS: IMPRESSION: PLAN: History and Physical Update I have examined the patient; reviewed the H&P and there are no changes to the H&P unless noted below. Digitally Signed by CONCHITA KEITH MD on 02/24/2025 08:47 AM [facility]06-09-2025 Anesthesiology Consult note Patient: ARIAS JOHNSTON Age: 54 years Sex: Male : 1970 Associated Diagnoses: None Author: SHAYLEE ACEVES DRILL RUNNER-MANAGER OF TAX Preoperative Information Time of last food or liquid consumption: 02/23/2025 14:00:00 Anesthesia history Patient's history: negative. Family's history: negative. Review of Systems Ear/Nose/Mouth/Throat: Negative except as documented in history of present illness. Respiratory: Negative except as documented in history of present illness. Cardiovascular: Negative except as documented in history of present illness. Gastrointestinal: Negative except as documented in history of present illness. Genitourinary: Negative except as documented in history of present illness. Endocrine: Negative except as documented in history of present illness. Musculoskeletal: Negative except as documented in history of present illness. Integumentary: Negative except as documented in history of present illness. Neurologic: Negative except as documented in history of present illness. Health Status Allergies: Allergic Reactions (Selected) NKA, Allergies (1) ActiveSeverityReaction NKANone Documented Current medications: (Selected) Inpatient Medications Ordered LR 1,000 mL: 50 mL/hr, Intravenous Prescriptions Prescribed CoQ10 300 mg oral capsule: 300 mg, 1 cap(s), Oral, qDay, ok for softgel / gummy if capsule not available, 100 cap(s), 0 Refill(s) Eliquis 5 mg oral tablet: 5 mg, 1 tab(s), Oral, BID, TAKE 1 TABLET BY MOUTH TWICE A DAY, 200 tab(s), 3 Refill(s) Vitamin B12 500 mcg oral tablet: 500 mcg, 1 tab(s), Oral, qDay, 90 tab(s), 0 Refill(s) atorvastatin 10 mg oral tablet: 10 mg, 1 tab(s), Oral, qDay, 100 tab(s), 3 Refill(s) chlorhexidine 0.12% oral rinse liquid: 2 teaspoonful(s), Oral, TID, 473 mL, 0 Refill(s) hydrochlorothiazide-lisinopril 25 mg-20 mg oral tablet: 1 tab(s), Oral, qDay, 100 tab(s), 1 Refill(s) omeprazole 20 mg oral delayed release capsule: 20 mg, 1 cap(s), Oral, qDay, Hx sleeve gastrectomy, prophylaxis, 90 cap(s), 1 Refill(s) semaglutide 8 mg/3 mL (2 mg dose) subcutaneous solution: 2 mg, Subcutaneous, qWeek, in the abdomen,thigh, or upper arm dispense 90 day supply filling in lieu of pcp, 9 mL, 1 Refill(s) sildenafil 25 mg oral tablet: 25 mg, 1 tab(s), Oral, qDay, 25 or 50mg dose, 1 hour before sexual activity, 30 tab(s), 2 Refill(s) Documented Medications Documented Flintstones with Iron oral tablet, chewable: 1 tab(s), Chewed, qDay, 30 tab(s), 0 Refill(s) Tums: mg, Chewed, qDay, 0 Refill(s) Tylenol 8 HR Arthritis Pain 650 mg oral tablet, extended release: 1,300 mg, 2 tab(s), Oral, Daily, PRN: as needed for fever, 24 tab(s), 0 Refill(s) Vitamin D3: 400 unit(s), 1 tab(s), Oral, Daily, 0 Refill(s) aspirin 81 mg oral delayed release tablet: 81 mg, 1 tab(s), Oral, Daily, 0 Refill(s) finasteride 5 mg oral tablet: TAKE 1 TABLET BY MOUTH EVERY DAY penicillin V potassium 500 mg oral tablet: TAKE 1 TABLET BY MOUTH 4 TIMES A DAY UNTIL GONE tamsulosin 0.4 mg oral capsule: 0.8 mg, 2 cap(s), TAKE 2 CAPSULE BY MOUTH EVERY DAY, Medications (1) Active Scheduled: (0) Continuous: (1) Lactated Ringers Infusion 1,000 mL 1,000 mL, Intravenous, 50 mL/hr PRN: (0) Problem list: Medical Arthritis / SNOMED CT 3577087 / Confirmed Arthritis of left knee / SNOMED CT 3161834965 / Confirmed Benign essential hypertension / SNOMED CT 8633455 / Confirmed BMI 50.0-59.9, adult / SNOMED CT 3984500260 / Confirmed Dental caries / SNOMED CT 159854567 / Confirmed Dribbling urine / SNOMED CT 652068412 / Confirmed Knee effusion, left / SNOMED CT 7009833762 / Confirmed Family history of rectal cancer / SNOMED CT 5933303930 / Confirmed Grade A1 albuminuria / SNOMED CT 8222512780 / Confirmed History of melanoma, right shoulder s/p removal / SNOMED CT 650402919 / Confirmed History of pulmonary embolism / SNOMED CT 392372819 / Confirmed History of DVT (deep vein thrombosis), several, senior care Eliquis Rx by PCP stopped heme 2023 / SNOMED CT 5313537966 / Confirmed S/P laparoscopic sleeve gastrectomy, 2017 / SNOMED CT 3067089563 / Confirmed Elevated vitamin B12 level / SNOMED CT 560519457 / Confirmed TOOTIE treated with BiPAP / SNOMED CT 628737009 / Confirmed Stasis dermatitis / SNOMED CT 28488235 / Confirmed Type 2 diabetes mellitus with obesity / SNOMED CT 6525098037 / Confirmed Varicose vein of leg / SNOMED CT 854106435 / Confirmed Canceled: Severe obesity (BMI >= 40) / SNOMED CT 0319362084 Canceled: DVT (deep venous thrombosis) / SNOMED CT 917169131 Canceled: Diabetes / SNOMED CT 897359472 Canceled: Grade A2 albuminuria / SNOMED CT 1087697801 Canceled: Left knee pain / SNOMED CT 95459428 Canceled: Morbid obesity / SNOMED CT 468272477 Canceled: Nodular melanoma / SNOMED CT 415497890 Canceled: Pulmonary embolism / SNOMED CT 98065370 Canceled: Type 2 diabetes mellitus with renal complication / SNOMED CT 259254376 Canceled: Type 2 diabetes mellitus with albuminuria / SNOMED CT 799224238 Canceled: Type 2 diabetes mellitus without complication / SNOMED CT 834600148, Active Problems (18) Arthritis Arthritis of left knee Benign essential hypertension BMI 50.0-59.9, adult Dental caries Dribbling urine Elevated vitamin B12 level Family history of rectal cancer Grade A1 albuminuria History of DVT (deep vein thrombosis), several, 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 Family History: Cancer Brother (Wilver) Comments: 10/01/2024 14:11 Opal Greenwood rectal cancer Diabetes Brother (Wilver) Procedure history: Complete gastrectomy ([id number]) on 11/05/2018 at 48 Years. Gastric bypass (8952837373) on 11/05/2018 at 48 Years. Bilateral inguinal hernia repair (707275882) on 04/09/2018 at 47 Years. Excision of melanoma (423876134) on 05/20/2016 at 45 Years. Comments: 05/30/2019 9:43 EDT - CHERY Tang right shoulder Bone graft ([id number]) in 1971 at 1 Years. 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 Nutrition/Health 01/14/2025 Caffeine intake amount: 1-2 servings per day Physical Examination Vital Signs 02/24/2025 8:09 EDT Apical Heart Rate 91 bpm Respiratory Rate 15 br/min Systolic Blood Pressure Non-Invasive 132 mmHg Diastolic Blood Pressure Non-Invasive 79 mmHg Vital Signs (last 24 hrs) Last Charted Heart Rate [id number] bpm (FEB 24 08:09) NDD269 mmHg (FEB 24 08:09) DBP79 mmHg (FEB 24 08:09) Measurements from flowsheet : Measurements 02/24/2025 8:09 EDT Height 180 cm Admission Weight 181 kg [place] Body Weight 74.99 kg Pain assessment: Pain Assessment 02/24/2025 8:09 EDT Primary Pain Intensity 0 Pain Scale Type 0-10 Pain scale . General: Alert and oriented. Airway: Normal neck range of motion. Mallampati classification: II (soft palate, fauces, uvula visible). Head: Normocephalic. Dentition Evaluation: Intact, Own teeth. Neck: Full range of motion. Respiratory: Lungs are clear to auscultation. Cardiovascular: Normal rate. Heart Sounds: Normal. Gastrointestinal: Soft. Musculoskeletal Normal range of motion. Integumentary: Intact, Warm, Dry. Neurologic: Alert, Oriented. Review / Management Results review: No qualifying data available , Lab results 02/24/2025 8:25 EDT Lactated Ringers Injection Begin Bag 1,000 mL mL 02/24/2025 8:23 EDT Hand 02/24/2025 22 gauge Peripheral IV Activity: Insert new site Peripheral IV Dressing Condition: Clean, Dry, Intact Peripheral IV Dressing Activity: Applied Peripheral IV Number of Attempts: 1 02/24/2025 8:15 EDT Urinary Elimination Voiding, no difficulties IV Present Present Allergies No Anesthesia Extension Set Applied Yes Bellows Tester On Yes Colon Prep Results Excellent Consent Form Signed Yes Patient Dressed In Hospital gown History & Physical Update On Chart Yes History & Physical On Chart Yes Bowel Prep Completed Yes Belongings At Bedside Shirt, Shoes, Shorts, T-shirt, Undergarments NPO Status Maintained Patient ID Band on and Verified Yes Implants Verified No Site Verified by Patient/Family Yes Anesthesia Consent Signed Yes Last Fluid Intake 02/24/2025 5:30 Last Food Intake 02/23/2025 8:16 Last Void 02/24/2025 7:00 02/24/2025 8:09 EDT Height 180 cm Admission Weight 181 kg [place] Body Weight 74.99 kg Apical Heart Rate 91 bpm Respiratory Rate 15 br/min Systolic Blood Pressure Non-Invasive 132 mmHg Diastolic Blood Pressure Non-Invasive 79 mmHg Primary Pain Intensity 0 Pain Scale Type 0-10 Pain scale Cardiac Rhythm Sinus rhythm Oxygen Therapy Room air Oxygen Saturation 97 % Continuous IV Infusions lr Ambulation Ambulation in Sim Arrival Mode Ambulatory Position Supine Accompanied By On Arrival Family GI Prep Sutab GI Prep Completed Yes GI Prep Results Yellow, Clear Miriam Motor (2) Moves 4 extremities voluntarily or on command Miriam Respirations (2) Spontaneous respiration without support, RR > 10 Miriam Blood Pressure (2) BP 20% above or below preanesthetic level Miriam Pulse (2) Pulse 20% above or below preanesthetic level Miriam Oxygen Saturation (2) 94% or more Miriam Level of Consciousness (2) Fully awake Miriam III Score 12 Positioning Repositions self Activity Status ADL Awake, Up ad simran Standard Safety ID band on, Call device within reach, Bed in low position, Wheels locked, Safety level maintained . Assessment and Plan Citizen Of [place] Society of Anesthesiologists (ASA) physical status classification: Class III. Anesthetic Preoperative Plan Premedication: intravenous. Anesthetic technique: MAC. Induction: intravenously. Maintenance airway: Mask. Risks discussed: nausea, vomiting, headache, sore throat, dental injury, hypotension, allergic reaction, serious complications. Informed consent: signed by patient. 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 Adjuvant therpay was not recommended and he has been monitored ever since. He follows routinely with dermatology. 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 He was treated with coumadin for a few years however later developed a second DVT in right leg in 2016 so the coumadin was changed to Xarelto. He then developed a 3rd episode of DVT in the right LE in December 2022, and Xarelto was changed to Eliquis. 3) s/p gastric bypass surgery Interval History: Arias Johnston is a 54 y.o. male who comes in today for routine annual follow up. He has no new concerns today and feels at his baseline. He is tolerating Eliquis well. His PCP is prescribing the refills. No new VTE. No bleeding. We reviewed his CT Scan from 02/10/23 which was negative for malignancy. He is compliant with dermatology visits and skin checks every 6 months due to his history of melanoma. He denies any unintentional weight loss, chest pain, shortness of breath, headaches, abdominal pain, or swelling. Review of Systems Constitutional: Negative for appetite change, chills, diaphoresis, fatigue, fever and unexpected weight change. HENT: Negative for dental problem, mouth sores, nosebleeds, sneezing, sore throat, tinnitus, trouble swallowing and voice change. Eyes: Negative for photophobia, pain and visual disturbance. Respiratory: Negative for cough, shortness of breath and wheezing. Cardiovascular: Negative for chest pain, palpitations and leg swelling. Gastrointestinal: Negative for abdominal distention, abdominal pain, blood in stool, constipation, diarrhea, nausea and vomiting. Endocrine: Negative for cold intolerance and heat intolerance. Genitourinary: Negative for difficulty urinating, frequency, hematuria and urgency. Musculoskeletal: Negative for arthralgias, back pain, gait problem and myalgias. Skin: Negative for pallor and rash. Allergic/Immunologic: Negative for immunocompromised state. Neurological: Negative for dizziness, syncope, weakness, light-headedness, numbness and headaches. Hematological: Negative for adenopathy. Does not bruise/bleed easily. Psychiatric/Behavioral: Negative for confusion and sleep disturbance. The patient is not nervous/anxious. All other systems reviewed and are negative. 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/2018 Diabetes mellitus (HCC) Disease of blood and blood forming organ anti cardio lipin positive anitbody GERD (gastroesophageal reflux disease) Hernia that strangulated Hepatic steatosis 11/05/2018 History of blood transfusion HTN (hypertension) Knee pain Malignant melanoma of right shoulder (HCC) stage II Multiple open wounds Obesity Pulmonary emboli (HCC) 2003 Skin cancer Stasis dermatitis Umbilical hernia, incarcerated Patient Active Problem List Diagnosis Date Noted Gastroesophageal reflux disease without esophagitis 07/02/2020 Morbid obesity (HCC) 11/12/2018 Deficiency of multiple nutrient elements 11/12/2018 HTN (hypertension) 11/06/2018 Diabetes mellitus (HCC) 11/06/2018 On anticoagulant therapy 11/06/2018 TOOTIE (obstructive sleep apnea) 11/06/2018 Hypercoagulable state (HCC) 11/06/2018 Hepatic steatosis 11/05/2018 Acute superficial gastritis without hemorrhage 07/17/2018 Anticardiolipin antibody positive 04/08/2018 Acute deep vein thrombosis (DVT) of tibial vein of right lower extremity (HCC) 12/07/2016 Deep vein thrombosis (DVT) of proximal vein of left lower extremity (HCC) 12/07/2016 Malignant melanoma of right shoulder (HCC) 04/16/2016 Family History Problem Relation Name Age of Onset Hypertension Mother Hypertension Brother Arrhythmia Mother a-fib Obesity Mother Arthritis Mother Cancer Father's Sister Breast Heart disease Paternal Grandfather Diabetes Maternal Grandmother Hypertension Maternal Grandmother Cancer Mother's Brother Colon Heart disease Mother Cancer Father Melanoma Stroke Maternal Grandfather Hypertension Paternal Grandmother Diabetes Brother Diabetes Paternal Grandmother Social History Tobacco Use Smoking status: Former Current packs/day: 0.00 Types: Cigarettes Quit date: 04/16/1998 Years since quittin.4 Smokeless tobacco: Never Tobacco comments: Quit smoking: Socially Substance Use Topics Alcohol use: Yes Alcohol/week: 2.0 standard drinks of alcohol No Known Allergies Current Outpatient Medications Medication Sig Dispense Refill finasteride (Proscar) 5 MG tablet Take 5 mg by mouth daily. lisinopril-hydroCHLOROthiazide 20-25 MG tablet Dose = 1 tab(s), Oral, qDay, # 90 tab(s), 3 Refill(s), Pharmacy: [facility]/pharmacy #[id number], 183, cm, 10/14/21 10:32:00 EST, Height, kg, 10/14/21 10:32:00 EST, Dosing Weight omeprazole (PriLOSEC) [address] capsule Ozempic, 0.25 or 0.5 MG/DOSE, 2 MG/3ML solution pen-injector INJECT 0.5 MG SUBCUTANEOUSLLY EVERY WEEK INSTRUCTED ROTATE INJECTION SITES Ozempic, 1 MG/DOSE, 4 MG/3ML solution pen-injector 1 MG SUBCUTANEOUS EVERY WEEK,X90 DAY(S),INSTR:FILLING IN LIEU OF PCP rivaroxaban (Xarelto) 20 MG tablet See Instructions, TAKE 1 TABLET BY MOUTH AT BEDTIME, # 90 tab(s), 3 Refill(s), Pharmacy: [facility]/pharmacy #[id number], 183, cm, 10/14/21 10:32:00 EST, Height, 187, kg, 10/14/21 10:32:00 EST, Dosing Weight sildenafil (Viagra) 25 MG tablet TAKE 1 TABLET BY MOUTH EVERY DAY TAKE 25MG OR 50MG DOSE, 1 HOUR BEFORE SEXUAL ACTIVITY tamsulosin (Flomax) 0.4 MG 24 hr capsule Take 0.8 mg by mouth Nightly. TAMSULOSIN HCL PO acetaminophen (Tylenol 8 Hour) 650 MG ER tablet Take 1,300 mg by mouth. aspirin (Aspir-Low) 81 MG EC tablet atorvastatin (Lipitor) 10 MG tablet Take 10 mg by mouth daily. biotin 5000 MCG capsule Uxbgitx-Jkxssyylz-Jbamqog D (CITRACAL CALCIUM+D PO) Take 3 capsules by mouth 3 times daily. [facility] Coenzyme Q-10 100 MG capsule TAKE 3 SOFTGELS BY MOUTH DAILY Eliquis 5 MG tablet TAKE 1 TABLET BY MOUTH TWICE A DAY 60 tablet 5 hydroCHLOROthiazide (HYDRODiuril) 25 MG tablet Take 25 mg by mouth daily. lisinopril 20 MG tablet Take 20 mg by mouth daily. lisinopril-hydroCHLOROthiazide 20-25 MG tablet Take 1 tablet by mouth daily. Omeprazole 20 MG Tablet Delayed Release Dispersible Pediatric Multiple Vitamins (CHEWABLE MULTIPLE VITAMINS PO) Tirzepatide (Mounjaro) 10 MG/0.5ML solution pen-injector No current facility-administered medications for this visit. Blood pressure 120/67, pulse 73, temperature 36.3 C (97.4 F), temperature source Temporal, height 1.854 m (6' 1), weight (!) 183 kg (404 lb 4.8 oz), SpO2 98%. ECO Physical Exam Vitals and nursing note reviewed. Constitutional: General: He is not in acute distress. Appearance: Normal appearance. He is obese. He is not ill-appearing. HENT: Head: Normocephalic and atraumatic. Nose: Nose normal. Mouth/Throat: Pharynx: Oropharynx is clear. No oropharyngeal exudate or posterior oropharyngeal erythema. Eyes: General: No scleral icterus. Extraocular Movements: Extraocular movements intact. Conjunctiva/sclera: Conjunctivae normal. Pupils: Pupils are equal, round, and reactive to light. Cardiovascular: Rate and Rhythm: Normal rate and regular rhythm. Heart sounds: Normal heart sounds. No murmur heard. Pulmonary: Effort: Pulmonary effort is normal. No respiratory distress. Breath sounds: Normal breath sounds. No wheezing. Abdominal: General: Abdomen is flat. Bowel sounds are normal. There is no distension. Palpations: Abdomen is soft. There is no mass. Tenderness: There is no abdominal tenderness. There is no guarding. Musculoskeletal: General: No swelling or tenderness. Normal range of motion. Cervical back: Normal range of motion and neck supple. Right lower leg: Edema present. Left lower leg: Edema present. Lymphadenopathy: Cervical: No cervical adenopathy. Skin: General: Skin is warm and dry. Findings: No bruising or rash. Neurological: General: No focal deficit present. Mental Status: He is alert and oriented to person, place, and time. Mental status is at baseline. Psychiatric: Mood and Affect: Mood normal. Thought Content: Thought content normal. No visits with results within 1 Month(s) from this visit. Latest known visit with results is: Office Visit on 01/19/2023 Component Date Value Ref Range Status White Blood Cell Count 01/19/2023 7.1 3.8 - 10.8 Thousand/uL Final RBC 01/19/2023 5.32 4.20 - 5.80 Million/uL Final HEMOGLOBIN 01/19/2023 15.2 13.2 - 17.1 g/dL Final HEMATOCRIT 01/19/2023 45.3 38.5 - 50.0 % Final MCV 01/19/2023 85.2 80.0 - 100.0 fL Final MCH 01/19/2023 28.6 27.0 - 33.0 pg Final MCHC 01/19/2023 33.6 32.0 - 36.0 g/dL Final RDW 01/19/2023 12.9 11.0 - 15.0 % Final Platelet Count 01/19/2023 368 140 - 400 Thousand/uL Final Mean Platelet Volume (MPV) 01/19/2023 9.1 7.5 - 12.5 fL Final Absolute Neutrophils 01/19/2023 4,736 1,500 - 7,800 cells/uL Final ABSOLUTE LYMPHOCYTES - [facility] 01/19/2023 1,562 850 - 3,900 cells/uL Final Monocytes Absolute 01/19/2023 710 200 - 950 cells/uL Final ABSOLUTE EOSINOPHILS - [facility] 01/19/2023 50 15 - 500 cells/uL Final ABSOLUTE BASOPHILS - [facility] 01/19/2023 43 0 - 200 cells/uL Final Neutrophils Relative 01/19/2023 66.7 % Final Lymphocytes Absolute 01/19/2023 22.0 % Final MONOCYTES - [facility] 01/19/2023 10.0 % Final EOSINOPHILS - [facility] 01/19/2023 0.7 % Final BASOPHILS - [facility] 01/19/2023 0.6 % Final GLUCOSE 01/19/2023 112 (H) 65 - 99 mg/dL Final Comment: Fasting reference interval For someone without known diabetes, a glucose value between 100 and 125 mg/dL is consistent with prediabetes and should be confirmed with a follow-up test. Urea Nitrogen (BUN) 01/19/2023 20 7 - 25 mg/dL Final Creatinine 01/19/2023 0.88 0.70 - 1.30 mg/dL Final EGFR 01/19/2023 102 > OR = 60 mL/min/1.73m2 Final Comment: The eGFR is based on the CKD-EPI 2020 equation. To calculate the new eGFR from a previous Creatinine or Cystatin C result, go to https://www.kidney.org/professionals/ kdoqi/gfr%5Fcalculator SODIUM 01/19/2023 138 135 - 146 mmol/L Final POTASSIUM 01/19/2023 4.3 3.5 - 5.3 mmol/L Final CHLORIDE 01/19/2023 99 98 - 110 mmol/L Final Carbon Dioxide (CO2) 01/19/2023 31 20 - 32 mmol/L Final ELECTROLYTE BALANCE 01/19/2023 8 7 - 17 mmol/L (calc) Final CALCIUM 01/19/2023 9.2 8.6 - 10.3 mg/dL Final PROTEIN, TOTAL - [facility] 01/19/2023 7.4 6.1 - 8.1 g/dL Final ALBUMIN - [facility] 01/19/2023 4.2 3.6 - 5.1 g/dL Final BILIRUBIN, TOTAL - [facility] 01/19/2023 0.7 0.2 - 1.2 mg/dL Final ALKALINE PHOSPHATASE 01/19/2023 77 35 - 144 U/L Final AST - [facility] 01/19/2023 18 10 - 35 U/L Final ALT - [facility] 01/19/2023 16 9 - 46 U/L Final Imaging Results: CT chest abdomen pelvis with contrast Narrative: Patient Name: ARIAS JOHNSTON : 1970 [facility]#: [id number] Exam Date/Time: 02/10/2023 09:04 Procedure: CT CHEST ABDOMEN PELVIS W CONTRAST Ordering Provider: MENON TERESA Reason For Exam: history of melanoma, unintentional weight loss, concern for recurernt disease, CT CHEST, ABDOMEN, AND PELVIS WITH CONTRAST CLINICAL INDICATION: Melanoma, unintentional weight loss, concern for recurrent disease Serial, axial CT images were obtained through the chest, abdomen, and pelvis after intravenous contrast. Dose reduction was employed with automated exposure control. 75 milliliters of Isovue 370 contrast was given intravenously. Oral contrast was given for this examination. Coronal and sagittal reformatted images were also made available for interpretation. COMPARISON: 04/07/2018 CT abdomen and pelvis CHEST: No focal consolidation is seen within the lungs. There is no pleural effusion or pneumothorax. A couple of small 3 to 4 mm subpleural nodules within the anterior aspect of the right middle lobe on axial images 59 and 50 of 114 are unchanged when compared to the prior examination. No new pulmonary nodules are seen. There is no hilar, mediastinal, or axillary lymphadenopathy. The heart size is within normal limits. There is no pericardial effusion. The thoracic aorta appears normal in caliber. No lytic or blastic lesions are seen on the bone windows. Impression: No suspicious pulmonary nodules are identified. A couple of small 3 to 4 mm subpleural nodules within the anterior aspect of the right lung appears stable when compared to the study from 04/07/2018, consistent with a benign process. No new pulmonary nodules are seen. No lymphadenopathy or mass is identified within the chest. ABDOMEN AND PELVIS: There is decreased density of liver parenchyma consistent with fatty infiltration. No focal hepaticlesions are seen. The gallbladder, spleen, pancreas, adrenal glands and kidneys appear within normal limits. The abdominal aorta is normal in caliber. There is no retroperitoneal, pelvic, or inguinal lymphadenopathy. The urinary bladder appears grossly normal. The prostate does not appear enlarged. Postoperative changes consistent with sleeve gastrectomy are noted. Diverticulosis of the distal colon is noted. The large and small bowel otherwise appears within normal limits without evidence of wall thickening or dilatation. There is no free fluid within the abdomen or pelvis. There is no free air under the diaphragm. No lytic or blastic lesions are seen on the bone windows. IMPRESSION: No lymphadenopathy or suspicious mass is identified within the abdomen or pelvis. Fatty infiltration of the liver. Mild colonic diverticulosis without evidence of diverticulitis. Postoperative changes consistent with sleeve gastrectomy are noted. Report Dictated on Electronically Signed By: Wilver Darling Electronically Signed Date/Time: 02/10/2023 9:01 PM EDT - I have reviewed all pertinent laboratory, imaging, and pathology results with the patient and/or family members present. Assessment/Plan: Diagnosis Plan 1. Acute deep vein thrombosis (DVT) of tibial vein of right lower extremity (HCC) 2. Malignant melanoma of right shoulder (HCC) - history of melanoma: Today, we again reviewed the diagnosis, staging, natural history, prognosis,and treatment course to date for his melanoma. NCCN guidelines were reviewed. He will continue to follow up with dermatology every 6 months for skin exams. Signs and symptoms of disease recurrence were reviewed with the patient and he was instructed to call with any concerns. Most recent CT c/a/p from January 2023 was negative for malignancy. Will obtain imaging as needed. 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 He will continue on Eliquis 5mg PO BID. Of note, he has failed coumadin and Xarelto in the past. Potential side effects and anticipated benefits of Eliquis were reviewed with the patient and they agreed to proceed with treatment. Signs and symptoms of recurrent VTE were reviewed with the patient and he was instructed to call with any concerns. He wishes to follow up with his PCP for further management. Monitor CBC and CMP annually. For his upcoming dental procedure, would recommend to hold the Eliquis 2 days prior to the procedure and then he can resume it once hemostasis is achieved. All questions were answered to the satisfaction of the patient and/or family. Return to office as needed. He will follow up with his PCP as directed. 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 Adjuvant therpay was not recommended and he has been monitored ever since. 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 He was treated with coumadin for a few years however later developed a second DVT in right leg in 2016 so the coumadin was changed to Xarelto. He then developed a 3rd episode of DVT in the right LE in December 2022, and Xarelto was changed to Eliquis. 3) gastric bypass surgery Interval History: Arias Johnston is a 52 y.o. male who comes in today for routine follow up. He has no new concerns today and feels at his baseline. He is tolerating Eliquis well. No new VTE. No bleeding. We reviewedhis CT Scan from 02/10/23 which was negative for malignancy. He is compliant with dermatology visitsand skin checks every 6 months. He denies any unintentional weight loss, chest pain, shortness of breath, headaches, abdominal pain, or swelling. Review of Systems Constitutional: Negative for appetite change, chills, diaphoresis, fatigue, fever and unexpected weight change. HENT: Negative for dental problem, mouth sores, nosebleeds, sneezing, sore throat, tinnitus, trouble swallowing and voice change. Eyes: Negative for photophobia, pain and visual disturbance. Respiratory: Negative for cough, shortness of breath and wheezing. Cardiovascular: Negative for chest pain, palpitations and leg swelling. Gastrointestinal: Negative for abdominal distention, abdominal pain, blood in stool, constipation, diarrhea, nausea and vomiting. Endocrine: Negative for cold intolerance and heat intolerance. Genitourinary: Negative for difficulty urinating, frequency, hematuria and urgency. Musculoskeletal: Negative for arthralgias, back pain, gait problem and myalgias. Skin: Negative for pallor and rash. Allergic/Immunologic: Negative for immunocompromised state. Neurological: Negative for dizziness, syncope, weakness, light-headedness, numbness and headaches. Hematological: Negative for adenopathy. Does not bruise/bleed easily. Psychiatric/Behavioral: Negative for confusion and sleep disturbance. The patient is not nervous/anxious. All other systems reviewed and are negative. 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/2018 Diabetes mellitus (HCC) Disease of blood and blood forming organ anti cardio lipin positive anitbody GERD (gastroesophageal reflux disease) Hernia that strangulated Hepatic steatosis 11/05/2018 History of blood transfusion HTN (hypertension) Knee pain Malignant melanoma of right shoulder (HCC) stage II Multiple open wounds Obesity Pulmonary emboli (HCC) 2004 Skin cancer Stasis dermatitis Umbilical hernia, incarcerated Patient Active Problem List Diagnosis Date Noted Gastroesophageal reflux disease without esophagitis 07/02/2020 Morbid obesity (HCC) 11/12/2018 Deficiency of multiple nutrient elements 11/12/2018 HTN (hypertension) 11/06/2018 Diabetes mellitus (HCC) 11/06/2018 On anticoagulant therapy 11/06/2018 TOOTIE (obstructive sleep apnea) 11/06/2018 Hypercoagulable state (HCC) 11/06/2018 Hepatic steatosis 11/05/2018 Acute superficial gastritis without hemorrhage 07/17/2018 Anticardiolipin antibody positive 04/08/2018 Acute deep vein thrombosis (DVT) of tibial vein of right lower extremity (HCC) 12/07/2016 Deep vein thrombosis (DVT) of proximal vein of left lower extremity (HCC) 12/07/2016 Malignant melanoma of right shoulder (HCC) 04/16/2016 Family History Problem Relation Name Age of Onset Hypertension Mother Hypertension Brother Arrhythmia Mother a-fib Obesity Mother Arthritis Mother Cancer Father's Sister Breast Heart disease Paternal Grandfather Diabetes Maternal Grandmother Hypertension Maternal Grandmother Cancer Mother's Brother Colon Heart disease Mother Cancer Father Melanoma Stroke Maternal Grandfather Hypertension Paternal Grandmother Diabetes Brother Diabetes Paternal Grandmother Social History Tobacco Use Smoking status: Former Types: Cigarettes Quit date: 04/16/1998 Years since quittin.4 Smokeless tobacco: Never Tobacco comments: Quit smoking: Socially Substance Use Topics Alcohol use: Yes Alcohol/week: 2.0 standard drinks of alcohol No Known Allergies Current Outpatient Medications Medication Sig Dispense Refill Bovrgjv-Olfxbelpu-Lrtrrwk D (CITRACAL CALCIUM+D PO) Take 3 capsules by mouth 3 times daily. [facility] Coenzyme Q-10 100 MG capsule TAKE 3 SOFTGELS BY MOUTH DAILY Eliquis 5 MG tablet TAKE 1 TABLET BY MOUTH TWICE A DAY 60 tablet 5 lisinopril-hydroCHLOROthiazide 20-25 MG tablet Take 1 tablet by mouth daily. No current facility-administered medications for this visit. Blood pressure 116/71, pulse 79, temperature 36.6 C (97.8 F), temperature source Temporal, height 1.854 m (6' 1), weight (!) 177 kg (389 lb 9.6 oz), SpO2 98%. ECO Physical Exam Vitals and nursing note reviewed. Constitutional: General: He is not in acute distress. Appearance: Normal appearance. He is obese. He is not ill-appearing. HENT: Head: Normocephalic and atraumatic. Nose: Nose normal. Mouth/Throat: Pharynx: Oropharynx is clear. No oropharyngeal exudate or posterior oropharyngeal erythema. Eyes: General: No scleral icterus. Extraocular Movements: Extraocular movements intact. Conjunctiva/sclera: Conjunctivae normal. Pupils: Pupils are equal, round, and reactive to light. Cardiovascular: Rate and Rhythm: Normal rate and regular rhythm. Heart sounds: Normal heart sounds. No murmur heard. Pulmonary: Effort: Pulmonary effort is normal. No respiratory distress. Breath sounds: Normal breath sounds. No wheezing. Abdominal: General: Abdomen is flat. Bowel sounds are normal. There is no distension. Palpations: Abdomen is soft. There is no mass. Tenderness: There is no abdominal tenderness. There is no guarding. Musculoskeletal: General: No swelling or tenderness. Normal range of motion. Cervical back: Normal range of motion and neck supple. Right lower leg: Edema present. Left lower leg: Edema present. Lymphadenopathy: Cervical: No cervical adenopathy. Skin: General: Skin is warm and dry. Findings: No bruising or rash. Neurological: General: No focal deficit present. Mental Status: He is alert and oriented to person, place, and time. Mental status is at baseline. Psychiatric: Mood and Affect: Mood normal. Thought Content: Thought content normal. No visits with results within 1 Month(s) from this visit. Latest known visit with results is: Office Visit on 01/19/2023 Component Date Value Ref Range Status White Blood Cell Count 01/19/2023 7.1 3.8 - 10.8 Thousand/uL Final RBC 01/19/2023 5.32 4.20 - 5.80 Million/uL Final HEMOGLOBIN 01/19/2023 15.2 13.2 - 17.1 g/dL Final HEMATOCRIT 01/19/2023 45.3 38.5 - 50.0 % Final MCV 01/19/2023 85.2 80.0 - 100.0 fL Final MCH 01/19/2023 28.6 27.0 - 33.0 pg Final MCHC 01/19/2023 33.6 32.0 - 36.0 g/dL Final RDW 01/19/2023 12.9 11.0 - 15.0 % Final Platelet Count 01/19/2023 368 140 - 400 Thousand/uL Final Mean Platelet Volume (MPV) 01/19/2023 9.1 7.5 - 12.5 fL Final Absolute Neutrophils 01/19/2023 4,736 1,500 - 7,800 cells/uL Final ABSOLUTE LYMPHOCYTES - [facility] 01/19/2023 1,562 850 - 3,900 cells/uL Final Monocytes Absolute 01/19/2023 710 200 - 950 cells/uL Final ABSOLUTE EOSINOPHILS - [facility] 01/19/2023 50 15 - 500 cells/uL Final ABSOLUTE BASOPHILS - [facility] 01/19/2023 43 0 - 200 cells/uL Final Neutrophils Relative 01/19/2023 66.7 % Final Lymphocytes Absolute 01/19/2023 22.0 % Final MONOCYTES - [facility] 01/19/2023 10.0 % Final EOSINOPHILS - [facility] 01/19/2023 0.7 % Final BASOPHILS - [facility] 01/19/2023 0.6 % Final GLUCOSE 01/19/2023 112 (H) 65 - 99 mg/dL Final Comment: Fasting reference interval For someone without known diabetes, a glucose value between 100 and 125 mg/dL is consistent with prediabetes and should be confirmed with a follow-up test. Urea Nitrogen (BUN) 01/19/2023 20 7 - 25 mg/dL Final Creatinine 01/19/2023 0.88 0.70 - 1.30 mg/dL Final EGFR 01/19/2023 102 > OR = 60 mL/min/1.73m2 Final Comment: The eGFR is based on the CKD-EPI 2020 equation. To calculate the new eGFR from a previous Creatinine or Cystatin C result, go to https://www.kidney.org/professionals/ kdoqi/gfr%5Fcalculator SODIUM 01/19/2023 138 135 - 146 mmol/L Final POTASSIUM 01/19/2023 4.3 3.5 - 5.3 mmol/L Final CHLORIDE 01/19/2023 99 98 - 110 mmol/L Final Carbon Dioxide (CO2) 01/19/2023 31 20 - 32 mmol/L Final ELECTROLYTE BALANCE 01/19/2023 8 7 - 17 mmol/L (calc) Final CALCIUM 01/19/2023 9.2 8.6 - 10.3 mg/dL Final PROTEIN, TOTAL - [facility] 01/19/2023 7.4 6.1 - 8.1 g/dL Final ALBUMIN - [facility] 01/19/2023 4.2 3.6 - 5.1 g/dL Final BILIRUBIN, TOTAL - [facility] 01/19/2023 0.7 0.2 - 1.2 mg/dL Final ALKALINE PHOSPHATASE 01/19/2023 77 35 - 144 U/L Final AST - [facility] 01/19/2023 18 10 - 35 U/L Final ALT - [facility] 01/19/2023 16 9 - 46 U/L Final Imaging Results: CT chest abdomen pelvis with contrast Narrative: Patient Name: ARIAS JOHNSTON : 1970 [facility]#: [id number] Exam Date/Time: 02/10/2023 09:04 Procedure: CT CHEST ABDOMEN PELVIS W CONTRAST Ordering Provider: MENON TERESA Reason For Exam: history of melanoma, unintentional weight loss, concern for recurernt disease, CT CHEST, ABDOMEN, AND PELVIS WITH CONTRAST CLINICAL INDICATION: Melanoma, unintentional weight loss, concern for recurrent disease Serial, axial CT images were obtained through the chest, abdomen, and pelvis after intravenous contrast. Dose reduction was employed with automated exposure control. 75 milliliters of Isovue 370 contrast was given intravenously. Oral contrast was given for this examination. Coronal and sagittal reformatted images were also made available for interpretation. COMPARISON: 04/07/2018 CT abdomen and pelvis CHEST: No focal consolidation is seen within the lungs. There is no pleural effusion or pneumothorax. A couple of small 3 to 4 mm subpleural nodules within the anterior aspect of the right middle lobe on axial images 59 and 50 of 114 are unchanged when compared to the prior examination. No new pulmonary nodules are seen. There is no hilar, mediastinal, or axillary lymphadenopathy. The heart size is within normal limits. There is no pericardial effusion. The thoracic aorta appears normal in caliber. No lytic or blastic lesions are seen on the bone windows. Impression: No suspicious pulmonary nodules are identified. A couple of small 3 to 4 mm subpleural nodules within the anterior aspect of the right lung appears stable when compared to the study from 04/07/2018, consistent with a benign process. No new pulmonary nodules are seen. No lymphadenopathy or mass is identified within the chest. ABDOMEN AND PELVIS: There is decreased density of liver parenchyma consistent with fatty infiltration. No focal hepaticlesions are seen. The gallbladder, spleen, pancreas, adrenal glands and kidneys appear within normal limits. The abdominal aorta is normal in caliber. There is no retroperitoneal, pelvic, or inguinal lymphadenopathy. The urinary bladder appears grossly normal. The prostate does not appear enlarged. Postoperative changes consistent with sleeve gastrectomy are noted. Diverticulosis of the distal colon is noted. The large and small bowel otherwise appears within normal limits without evidence of wall thickening or dilatation. There is no free fluid within the abdomen or pelvis. There is no free air under the diaphragm. No lytic or blastic lesions are seen on the bone windows. IMPRESSION: No lymphadenopathy or suspicious mass is identified within the abdomen or pelvis. Fatty infiltration of the liver. Mild colonic diverticulosis without evidence of diverticulitis. Postoperative changes consistent with sleeve gastrectomy are noted. Report Dictated on Electronically Signed By: Wilver Darling Electronically Signed Date/Time: 02/10/2023 9:01 PM EDT - I have reviewed all pertinent laboratory, imaging, and pathology results with the patient and/or family members present. Assessment/Plan: Diagnosis Plan 1. Acute deep vein thrombosis (DVT) of tibial vein of right lower extremity (HCC) 2. Malignant melanoma of right shoulder (HCC) - history of melanoma: Today, we again reviewed the diagnosis, staging, natural history, prognosis,and treatment course to date for his melanoma. NCCN guidelines were reviewed. He will continue to follow up with dermatology every 6 months for skin exams. Signs and symptoms of disease recurrence were reviewed with the patient and he was instructed to call with any concerns. Most recent CT c/a/p from January 2023 was negative for malignancy. Will obtain imaging as needed. 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 Continue on Eliquis 5mg PO BID. Of note, he has failed coumadin and Xarelto in the past. Potential side effects and anticipated benefits of Eliquis were reviewed with the patient and they agreed to proceed with treatment. Signs and symptoms of recurrent VTE were reviewed with the patient and he was instructed to call with any concerns. He has follow up with vascular surgery later today. Monitor CBC and CMP annually. All questions were answered to the satisfaction of the patient and/or family. Return to office in 12 months Darleen Menon DO Hematology/Medical Oncology documented in this [facility]10-31-2023 Telephone encounter Note* Telephone Encounter - Cat Vidal RN - 07/18/2023 8:11 AM EDT Refill request received for Eliquis. [id number] Miscellaneous Notes* Telephone Encounter - Cat Vidal RN - 07/18/2023 8:11 AM EDT Refill request received for Eliquis. Prescription pended. documented in this [facility]10-30-2023 Telephone encounter Note* Telephone Encounter - Cat Vidal RN - 07/17/2023 12:50 PM EDT Refill request received for Eliquis. [facility] pended. [id number] Miscellaneous Notes* Telephone Encounter - Cat Vidal RN - 07/17/2023 12:50 PM EDT Refill request received for Eliquis. Prescription is pended. documented in this [facility]06-22-2023 [facility] Medical Records Department [address] [place] [id number] History Physical Exam 03/09/23 0718 MR#: [id number] Acct: [id number] Name: ARIAS JOHNSTON Rep #: [id number] : 1970 52 From: Es HERNDON PCP: Dr. Atul Higgins, DO [place] [place] Location: [facility] HPI - General General Date of Service: 03/09/23 HPI Narrative ARIAS PRESTON, is a 52 M who presents today for venous glue ablation secondary to RLE varicosity which bleeds recurrently. 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 After discussion of risks/benefits/recovery of venous ablation, he is agreeable to proceed with ablation. Patient has a history of anticardiolipin antibody clotting disorder. He has failed warfarin in the past. At the time of this most recent DVT (identified on 01/12/23 duplex), he had been taking his Xarelto as directed without missing doses, no recent injury or significant decrease in activity. He discussed with his PCP and they have decided to switch to Eliquis. Otherwise, no significant medical history. He denies CP, SOB, N/V, F/C, palpitations, new or worsening pain/swelling in BLE. [facility] Medical History Deep vein thrombosis (DVT) of right lower extremity Lymphedema Other cyst of bone, left upper arm Peripheral vascular disease Type 2 diabetes mellitus Venous insufficiency Home Medications aspirin 81 mg chewable tablet 81 mg PO DAILY@0800 11/23/16 [History Last Taken Unknown] lisinopril 20 mg-hydrochlorothiazide 25 mg tablet (Zestoretic) 1 ea PO DAILY 11/23/16 [History Last Taken 03/09/23] rivaroxaban 20 mg tablet (Xarelto) 20 tab PO QHS 03/04/22 [History Last Taken 03/08/23] atorvastatin 20 mg tablet 10 mg PO DAILY 01/05/23 [History Last Taken Unknown] coenzyme Q10 100 mg capsule (CoQ-10) 100 mg PO TID 01/05/23 [History Last Taken Unknown] omeprazole 20 mg capsule,delayed release 20 mg PO DAILY 01/05/23 [History Last Taken Unknown] tirzepatide 5 mg/0.5 mL subcutaneous pen injector (Mounjaro) 5 mg subcut QWEEK 01/05/23 [History Last Taken Unknown] Allergy/AdvReac Type Severity Reaction Status Date / Time No Known Allergies Allergy Verified 01/19/23 14:09 Family History Other Arthritis Cancer Diabetes Hypertension Surgical History H/O hernia repair ( 2017) History of cancer surgery ( 2017) History of sleeve gastrectomy ( 2018) Social History Smoking Status: Never smoker substance use type: does not use ROS ROS Narrative ROS General General: Yes weight change; No appetite, fatigue, colon cancer, breast cancer or weakness HEENT HEENT: No difficulty swallowing, eye injury, eye surgery, swollen glands or hoarseness Endo Endocrine: Yes diabetes mellitus; No thyroid disease, thyroid cancer, Hair loss, heat intolerance or cold intolerance Skin Skin: Yes changing moles; No rash Musc Musculoskeletal: Yes arthritis; No back problems, rheumatoid arthritis, gout or joint pain Cardio Cardiovascular: Yes high blood pressure; No murmur, pacemaker, heart disease, atrial fibrillation, heart attack, heart stent, palpitations, shortness of breat with exertion or chest pain Psych Psychiatric: No depression, anxiety or hearing voices Resp Respiratory: Yes shortness of breath, Yes sleep apnea, No cough, No COPD, No asthma, No emphysema and No wheezing Gastro Gastrointestinal: No abdominal pain, No nausea or vomiting, No diarrhea, No constipation, No blood in stool, Yes acid reflux, No hemorrhoids, No ulcers, No gallbladder problem and No black,tarry stools Harman Hematologic: Yes blood thinners, Yes blood disorders, Yes bleeding, No anemia and Yes blood clots Neuro Neurologic: No system reviewed and no additional complaints, except as documented, No as per HPI, No abnormal gait, No abnormal hearing, No abnormal movements, No abnormal speech, No behavioral changes, No burning sensations, No confusion, No convulsions, No disequilibrium, No dizziness, No localized weakness, No frequent falls, No headache(s), No lack of coordination, No loss of vision, No memory loss, No numbness, No other visual disturbances, No radicular pain, No restless legs, No sensory deficit, No syncope, Yes tingling, No tremor(s), No weakness and No other Vital Signs Vital Signs Vital Signs: Weight Weight: 393 lb Body Mass Index (BMI) 51.8 Physical Exam Narrative Exam Const General: cooperative, comfortable and no acute distress Orientation: alert, awake and oriented x3 HENMT Head: normal to inspection, normocephalic and atraumatic (more content not included)...[facility]05-04-2023 History of Present illness Narrative* Darleen Menon, - 01/19/2023 9:15 AM EDT Hematology/Oncology Follow up Visit Diagnosis/Treatment Summary: 1) 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 Adjuvant therpay was not recommended and he has been monitored ever since. 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 He was treated with coumadin for a few years however later developed a second DVT in right leg in 2016 so the coumadin was changed to Xarelto. He then developed a 3rd episode of DVT in the right LE in December 2022, and Xarelto was changed to Eliquis. 3) gastric bypass surgery Interval History: Arias Johnston is a 52 y.o. male who comes in today for urgent follow up. He had swelling of the right LE and went to his local ER on 01/12/23, where a new right LE DVT was found via doppler ultrasound. He reports he has been compliant with the Xarelto and has not missed any doses. He has lost weight and is worried about recurrence of melanoma. He is due for a skin exam with dermatology. He is seeing vascular surgery for management of varicose veins and has follow up with them later today. Review of Systems Constitutional: Negative for appetite change, chills, diaphoresis, fatigue, fever and unexpected weight change. HENT: Negative for dental problem, mouth sores, nosebleeds, sneezing, sore throat, tinnitus, trouble swallowing and voice change. Eyes: Negative for photophobia, pain and visual disturbance. Respiratory: Negative for cough, shortness of breath and wheezing. Cardiovascular: Negative for chest pain, palpitations and leg swelling. Gastrointestinal: Negative for abdominal distention, abdominal pain, blood in stool, constipation, diarrhea, nausea and vomiting. Endocrine: Negative for cold intolerance and heat intolerance. Genitourinary: Negative for difficulty urinating, frequency, hematuria and urgency. Musculoskeletal: Negative for arthralgias, back pain, gait problem and myalgias. Skin: Negative for pallor and rash. Allergic/Immunologic: Negative for immunocompromised state. Neurological: Negative for dizziness, syncope, weakness, light-headedness, numbness and headaches. Hematological: Negative for adenopathy. Does not bruise/bleed easily. Psychiatric/Behavioral: Negative for confusion and sleep disturbance. The patient is not nervous/anxious. All other systems reviewed and are negative. 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/2018 Diabetes mellitus (HCC) Disease of blood and blood forming organ anti cardio lipin positive anitbody GERD (gastroesophageal reflux disease) Hernia that strangulated Hepatic steatosis 11/05/2018 History of blood transfusion HTN (hypertension) Knee pain Malignant melanoma of right shoulder (HCC) stage II Multiple open wounds Obesity Pulmonary emboli (HCC) 2003 Skin cancer Stasis dermatitis Umbilical hernia, incarcerated Patient Active Problem List Diagnosis Date Noted Gastroesophageal reflux disease without esophagitis 07/02/2020 Morbid obesity (HCC) 11/12/2018 Deficiency of multiple nutrient elements 11/12/2018 HTN (hypertension) 11/06/2018 Diabetes mellitus (HCC) 11/06/2018 On anticoagulant therapy 11/06/2018 TOOTIE (obstructive sleep apnea) 11/06/2018 Hypercoagulable state (HCC) 11/06/2018 Hepatic steatosis 11/05/2018 Acute superficial gastritis without hemorrhage 07/17/2018 Anticardiolipin antibody positive 04/08/2018 Acute deep vein thrombosis (DVT) of tibial vein of right lower extremity (HCC) 12/07/2016 Deep vein thrombosis (DVT) of proximal vein of left lower extremity (HCC) 12/07/2016 Malignant melanoma of right shoulder (HCC) 04/16/2016 Family History Problem Relation Name Age of Onset Hypertension Mother Hypertension Brother Arrhythmia Mother a-fib Obesity Mother Arthritis Mother Cancer Father's Sister Breast Heart disease Paternal Grandfather Diabetes Maternal Grandmother Hypertension Maternal Grandmother Cancer Mother's Brother Colon Heart disease Mother Cancer Father Melanoma Stroke Maternal Grandfather Hypertension Paternal Grandmother Diabetes Brother Diabetes Paternal Grandmother Social History Tobacco Use Smoking status: Former Types: Cigarettes Quit date: 04/16/1998 Years since quittin.7 Smokeless tobacco: Never Tobacco comments: Quit smoking: Socially Substance Use Topics Alcohol use: Yes Alcohol/week: 2.0 standard drinks No Known Allergies Current Outpatient Medications Medication Sig Dispense Refill apixaban (Eliquis) 5 MG tablet Take 1 tablet (5 mg) by mouth 2 times daily. 60 tablet 5 Ndstxgm-Wkocrkegi-Fdtgsez D (CITRACAL CALCIUM+D PO) Take 3 capsules by mouth 3 times daily. [facility] Coenzyme Q-10 100 MG capsule TAKE 3 SOFTGELS BY MOUTH DAILY lisinopril-hydroCHLOROthiazide 20-25 MG tablet Take 1 tablet by mouth daily. No current facility-administered medications for this visit. Blood pressure 136/81, pulse 72, temperature 98.1 F (36.7 C), temperature source Temporal, height 6' 1 (1.854 m), weight (!) 394 lb 4.8 oz (179 kg), SpO2 95 %. ECO Physical Exam Vitals and nursing note reviewed. Constitutional: General: He is not in acute distress. Appearance: Normal appearance. He is obese. He is not ill-appearing. HENT: Head: Normocephalic and atraumatic. Nose: Nose normal. Mouth/Throat: Pharynx: Oropharynx is clear. No oropharyngeal exudate or posterior oropharyngeal erythema. Eyes: General: No scleral icterus. Extraocular Movements: Extraocular movements intact. Conjunctiva/sclera: Conjunctivae normal. Pupils: Pupils are equal, round, and reactive to light. Cardiovascular: Rate and Rhythm: Normal rate and regular rhythm. Heart sounds: Normal heart sounds. No murmur heard. Pulmonary: Effort: Pulmonary effort is normal. No respiratory distress. Breath sounds: Normal breath sounds. No wheezing. Abdominal: General: Abdomen is flat. Bowel sounds are normal. There is no distension. Palpations: Abdomen is soft. There is no mass. Tenderness: There is no abdominal tenderness. There is no guarding. Musculoskeletal: General: No swelling or tenderness. Normal range of motion. Cervical back: Normal range of motion and neck supple. Right lower leg: Edema present. Left lower leg: Edema present. Lymphadenopathy: Cervical: No cervical adenopathy. Skin: General: Skin is warm and dry. Findings: No bruising or rash. Neurological: General: No focal deficit present. Mental Status: He is alert and oriented to person, place, and time. Mental status is at baseline. Psychiatric: Mood and Affect: Mood normal. Thought Content: Thought content normal. No visits with results within 1 Month(s) from this visit. Latest known visit with results is: [facility] Encounter on 04/28/2020 Component Date Value Ref Range Status CHOLESTEROL 04/28/2020 154 0 - 200 mg/dL Final Comment: Cholesterol Reference Interval: Less than 200 Desirable 200-239 Borderline high risk 240 and above High risk TRIGLYCERIDE 04/28/2020 45 0 - 150 mg/dL Final Comment: Triglyceride Reference Interval: Less than 150 Normal 150-199 Borderline high risk 200-499 High risk 500 or higher Very high risk HDL CHOLESTEROL 04/28/2020 49 40 - 60 mg/dL Final LDL Cholesterol 04/28/2020 96 0 - 130 mg/dL Final FERRITIN 04/28/2020 70.6 26.0 - 388.0 ng/mL Final Auto WBC 04/28/2020 5.90 4.60 - 10.80 10 3/mcL Final RBC 04/28/2020 5.17 4.04 - 6.13 10 6/mcL Final Hemoglobin 04/28/2020 15.1 14.0 - 18.0 G/dL Final External Hematocrit 04/28/2020 45.8 42.0 - 52.0 % Final [facility] MEAN CORPUSCULAR VOLU* 04/28/2020 88.6 80.0 - 94.0 fL Final MCH 04/28/2020 29.3 27.0 - 31.2 pg Final [facility] MEAN CORPUSCULAR HEMO* 04/28/2020 33.0 31.8 - 35.4 G/dL Final [facility] RED CELL DISTRIBUTION* 04/28/2020 13.9 11.5 - 14.5 % Final Platelets 04/28/2020 331 130 - 400 10 3/mcL Final [facility] MEAN PLATELET VOLUME 04/28/2020 7.0 (L) 7.4 - 10.4 fL Final [facility] VITAMIN D 25-HYDROXY 04/28/2020 42.6 ng/mL Final Comment: Interpretive Values Based on Total 25(OH)D: Severe Deficiency <20 ng/mL Mild to Moderate Deficiency 20-30 ng/mL Optimum Levels 30-100 ng/mL Toxicity Possible >100 ng/mL GLUCOSE 04/28/2020 108 (H) 70 - 105 mg/dL Final SODIUM 04/28/2020 136 136 - 145 mmol/L Final POTASSIUM 04/28/2020 4.6 3.5 - 5.1 mmol/L Final CHLORIDE 04/28/2020 100 98 - 107 mmol/L Final CARBON DIOXIDE 04/28/2020 32 (H) 22 - 29 mmol/L Final [facility] ELECTROLYTE BALANCE 04/28/2020 4.0 mEq/L Final UREA NITROGEN 04/28/2020 23 (H) 7 - 18 mg/dL Final CREATININE 04/28/2020 0.90 0.70 - 1.30 mg/dL Final [facility] BUN / CREAT RATIO 04/28/2020 26 7 - 27 ratio Final CALCIUM 04/28/2020 9.5 8.4 - 10.2 mg/dL Final TOTAL PROTEIN 04/28/2020 7.2 6.4 - 8.2 G/dL Final ALBUMIN 04/28/2020 3.5 3.5 - 5.0 G/dL Final [facility] GLOBULIN 04/28/2020 3.7 G/dL Final A/G RATIO 04/28/2020 0.9 (L) 1.1 - 2.5 ratio Final BILIRUBIN, TOTAL 04/28/2020 0.7 0.2 - 1.0 mg/dL Final Comment: Use of this assay is not recommended for patients undergoing treatment with eltrombopag due to the potential for falsely elevated results. [facility] ALK PHOSPHATASE 04/28/2020 85 40 - 135 U/L Final AST (SGOT) 04/28/2020 19 10 - 40 U/L Final ALT (SGPT), POC 04/28/2020 30 10 - 35 U/L Final Iron, Ur 04/28/2020 100 65 - 175 mcg/dL Final MAGNESIUM 04/28/2020 2.1 1.8 - 2.4 mg/dL Final Neutrophils Absolute (External) 04/28/2020 4.00 2.85 - 6.16 10 3/mcL Final FOLATE 04/28/2020 12.89 5.38 - 24.00 ng/mL Final ZINC, SERUM 04/28/2020 96 55 - 150 UG/DL Final Comment: This test was developed and its performance characteristics determined by [facility] [place] [place] ( [facility]). It has not been cleared or approved by the FDA. [facility] is regulated under CLIA as qualified to perform high complexity testing. This test is used for clinical purposes. It should not be regarded as investigational or for research. Performed By: [facility] [address] [place] [address] Medical Bill Processor: Jose Robb III, M.D. CLIA#: [id number] Phone#: [id number] 04/28/2020 108 ml/min/1.73sqm Final Comment: GFR Population mean for , Non- Americans Ages 20-29 = 116 mL/min/1.73 sq.m. Ages 30-39 = 107 mL/min/1.73 sq.m. Ages 40-49 = 99 mL/min/1.73 sq.m. Ages 50-59 = 93 mL/min/1.73 sq.m. Ages 60-69 = 85 mL/min/1.73 sq.m. Ages 70+ = 75 mL/min/1.73 sq.m. Chronic Kidney Disease: Less than 60 mL/min/1.73 square meters End Stage Renal Disease: Less than 15 mL/min/1.73 square meters GFR NON 04/28/2020 89 ml/min/1.73sqm Final Comment: GFR Population mean for , Non- Americans Ages 20-29 = 116 mL/min/1.73 sq.m. Ages 30-39 = 107 mL/min/1.73 sq.m. Ages 40-49 = 99 mL/min/1.73 sq.m. Ages 50-59 = 93 mL/min/1.73 sq.m. Ages 60-69 = 85 mL/min/1.73 sq.m. Ages 70+ = 75 mL/min/1.73 sq.m. Chronic Kidney Disease: Less than 60 mL/min/1.73 square meters End Stage Renal Disease: Less than 15 mL/min/1.73 square meters VITAMIN B12 04/28/2020 932 (H) 211 - 911 pg/mL Final Neutrophils Relative 04/28/2020 67.4 37.0 - 80.0 % Final Lymphocyte % 04/28/2020 22.8 10.0 - 50.0 % Final [facility] [employer] MONOCYTES RELATIVE PE* 04/28/2020 8.2 1.7 - 13.0 % Final [facility] [employer] EOSINOPHILS RELATIVE * 04/28/2020 0.8 0.0 - 7.0 % Final [facility] [employer] BASOPHILS RELATIVE PE* 04/28/2020 0.8 0.0 - 2.5 % Final [facility] [employer] LYMPHOCYTES ABSOLUTE 04/28/2020 1.30 0.77 - 3.85 10 3/mcL Final [facility] MONOCYTES ABSOLUTE 04/28/2020 0.50 0.15 - 1.00 10 3/mcL Final Eosinophils Absolute 04/28/2020 0.00 0.00 - 0.40 10 3/mcL Final Basophils Absolute 04/28/2020 0.00 0.00 - 0.19 10 3/mcL Final Imaging Results: As per hPI - I have reviewed all pertinent laboratory, imaging, and pathology results with the patient and/or family members present. Assessment/Plan: Diagnosis Plan 1. Malignant melanoma of right shoulder (HCC) CBC auto differential Comprehensive metabolic panel CBC auto differential Comprehensive metabolic panel CT chest abdomen pelvis with contrast 2. Acute deep vein thrombosis (DVT) of tibial vein of right lower extremity (HCC) apixaban (Eliquis) [address] chest abdomen pelvis with contrast 3. On anticoagulant therapy - See details as outlined above - history of melanoma: Today, we again reviewed the diagnosis, staging, natural history, prognosis,and treatment course to date for his melanoma. NCCN guidelines were reviewed. He will continue to follow up with dermatology every 6 months for skin checks as directed. Due to unintentional weight loss and new DVT, will assess for recurrent disease with a CT c/a/p. See orders. Signs and symptoms ofdisease recurrence were reviewed with the patient and he was instructed to call with any concerns. 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 He developed a new DVT rightLE while on Xarelto, so we will change therapy to Eliquis 5mg PO BID. Of note, he has failed coumadin in the past as well. Potential side effects and anticipated benefits of Eliquis were reviewed with the patient and they agreed to proceed with treatment. Signs and symptoms of recurrent VTE were reviewed with the patient and he was instructed to call with any concerns. He has follow up with vascular surgery later today. All questions were answered to the satisfaction of the patient and/or family. 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 Adjuvant therpay was not recommended and he has been monitored ever since. 2) history of bilateral PE and DVT in 2004 where he was found to be strongly positive for IgM anticardiolpin antibody. He was treated with coumadin for a few years however later developed a second DVT in right leg in 2017 so the coumadin was changed to Xarelto. 3) gastric bypass surgery Interval History: Arias Johnston is a 52 y.o. male who comes in today for annual routine follow up of melanoma and recurrent VTE as outlined above. Since his last visit with me 1 year ago, he has no new complaints today. He saw dermatology recently and had a skin biopsy, which was benign. There has been no evidenceof recurrent melanoma. He is compliant with the Xarelto and tolerating it well. He denies any recurrent VTE or bleeding complications. He reports that with the gastric bypass surgery he was bridged with lovenox and did well. He has no other complaints today and denies any fatigue, fevers, chills, recent infections, bleeding, blood in stools, headaches, vision changes, chest pain, shortness of breath, nausea, vomiting, diarrhea, constipation, abdominal pain, bone pain, weight loss, weakness, numbness, or tingling or changes in coordination or gait. Review of Systems Constitutional: Negative for appetite change, chills, diaphoresis, fatigue, fever and unexpected weight change. HENT: Negative for dental problem, mouth sores, nosebleeds, sneezing, sore throat, tinnitus, trouble swallowing and voice change. Eyes: Negative for photophobia, pain and visual disturbance. Respiratory: Negative for cough, shortness of breath and wheezing. Cardiovascular: Negative for chest pain, palpitations and leg swelling. Gastrointestinal: Negative for abdominal distention, abdominal pain, blood in stool, constipation, diarrhea, nausea and vomiting. Endocrine: Negative for cold intolerance and heat intolerance. Genitourinary: Negative for difficulty urinating, frequency, hematuria and urgency. Musculoskeletal: Negative for arthralgias, back pain, gait problem and myalgias. Skin: Negative for pallor and rash. Allergic/Immunologic: Negative for immunocompromised state. Neurological: Negative for dizziness, syncope, weakness, light-headedness, numbness and headaches. Hematological: Negative for adenopathy. Does not bruise/bleed easily. Psychiatric/Behavioral: Negative for confusion and sleep disturbance. The patient is not nervous/anxious. All other systems reviewed and are negative. 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/2018 Diabetes mellitus (HCC) Disease of blood and blood forming organ anti cardio lipin positive anitbody GERD (gastroesophageal reflux disease) Hernia that strangulated Hepatic steatosis 11/05/2018 History of blood transfusion HTN (hypertension) Knee pain Malignant melanoma of right shoulder (HCC) stage II Multiple open wounds Obesity Pulmonary emboli (HCC) 2003 Skin cancer Stasis dermatitis Umbilical hernia, incarcerated Patient Active Problem List Diagnosis Date Noted Gastroesophageal reflux disease without esophagitis 07/02/2020 Morbid obesity (CMS/HCC) (HCC) 11/12/2018 Deficiency of multiple nutrient elements 11/12/2018 HTN (hypertension) 11/06/2018 Diabetes mellitus (HCC) 11/06/2018 On anticoagulant therapy 11/06/2018 TOOTIE (obstructive sleep apnea) 11/06/2018 Hypercoagulable state (CMS/HCC) (HCC) 11/06/2018 Hepatic steatosis 11/05/2018 Acute superficial gastritis without hemorrhage 07/17/2018 Anticardiolipin antibody positive 04/08/2018 Acute deep vein thrombosis (DVT) of tibial vein of right lower extremity (HCC) 12/07/2016 Deep vein thrombosis (DVT) of proximal vein of left lower extremity (HCC) 12/07/2016 Malignant melanoma of right shoulder ([facility]) 04/16/2016 Family History Problem Relation Name Age of Onset Hypertension Mother Hypertension Brother Arrhythmia Mother a-fib Obesity Mother Arthritis Mother Cancer Father's Sister Breast Heart disease Paternal Grandfather Diabetes Maternal Grandmother Hypertension Maternal Grandmother Cancer Mother's Brother Colon Heart disease Mother Cancer Father Melanoma Stroke Maternal Grandfather Hypertension Paternal Grandmother Diabetes Brother Diabetes Paternal Grandmother Social History Tobacco Use Smoking status: Former Types: Cigarettes Quit date: 04/16/1998 Years since quittin.4 Smokeless tobacco: Never Tobacco comments: Quit smoking: Socially Substance Use Topics Alcohol use: Yes Alcohol/week: 2.0 standard drinks No Known Allergies Current Outpatient Medications Medication Sig Dispense Refill Orozasl-Pxlwpjqld-Yhaxnxy D (CITRACAL CALCIUM+D PO) Take 3 capsules by mouth 3 times daily. [facility] Coenzyme Q-10 100 MG capsule TAKE 3 SOFTGELS BY MOUTH DAILY lisinopril-hydroCHLOROthiazide 20-25 MG tablet Take 1 tablet by mouth daily. Xarelto 20 MG tablet Take 20 mg by mouth Nightly. No current facility-administered medications for this visit. Blood pressure 121/64, pulse 69, temperature 97.5 F (36.4 C), temperature source Temporal, height 6' 1 (1.854 m), weight (!) 397 lb 1.6 oz (180 kg), SpO2 96 %. ECO Exam limited today due to COVID19 pandemic and to decrease risk of exposure to myself and patient. Appropriate PPE was worn during all aspects of the patient encounter. GEN: no acute distress, AA, OX3. Appears well Skin: no rashes HEENT: MMM, no conjunctival icterus EXT: no swelling No visits with results within 1 Month(s) from this visit. Latest known visit with results is: [facility] Encounter on 04/28/2020 Component Date Value Ref Range Status CHOLESTEROL 04/28/2020 154 0 - 200 mg/dL Final Comment: Cholesterol Reference Interval: Less than 200 Desirable 200-239 Borderline high risk 240 and above High risk TRIGLYCERIDE 04/28/2020 45 0 - 150 mg/dL Final Comment: Triglyceride Reference Interval: Less than 150 Normal 150-199 Borderline high risk 200-499 High risk 500 or higher Very high risk HDL CHOLESTEROL 04/28/2020 49 40 - 60 mg/dL Final LDL Cholesterol 04/28/2020 96 0 - 130 mg/dL Final FERRITIN 04/28/2020 70.6 26.0 - 388.0 ng/mL Final Auto WBC 04/28/2020 5.90 4.60 - 10.80 10 3/mcL Final RBC 04/28/2020 5.17 4.04 - 6.13 10 6/mcL Final Hemoglobin 04/28/2020 15.1 14.0 - 18.0 G/dL Final External Hematocrit 04/28/2020 45.8 42.0 - 52.0 % Final [facility] MEAN CORPUSCULAR VOLU* 04/28/2020 88.6 80.0 - 94.0 fL Final MCH 04/28/2020 29.3 27.0 - 31.2 pg Final [facility] MEAN CORPUSCULAR HEMO* 04/28/2020 33.0 31.8 - 35.4 G/dL Final [facility] RED CELL DISTRIBUTION* 04/28/2020 13.9 11.5 - 14.5 % Final Platelets 04/28/2020 331 130 - 400 10 3/mcL Final [facility] MEAN PLATELET VOLUME 04/28/2020 7.0 (L) 7.4 - 10.4 fL Final [facility] VITAMIN D 25-HYDROXY 04/28/2020 42.6 ng/mL Final Comment: Interpretive Values Based on Total 25(OH)D: Severe Deficiency <20 ng/mL Mild to Moderate Deficiency 20-30 ng/mL Optimum Levels 30-100 ng/mL Toxicity Possible >100 ng/mL GLUCOSE 04/28/2020 108 (H) 70 - 105 mg/dL Final SODIUM 04/28/2020 136 136 - 145 mmol/L Final POTASSIUM 04/28/2020 4.6 3.5 - 5.1 mmol/L Final CHLORIDE 04/28/2020 100 98 - 107 mmol/L Final CARBON DIOXIDE 04/28/2020 32 (H) 22 - 29 mmol/L Final [facility] ELECTROLYTE BALANCE 04/28/2020 4.0 mEq/L Final UREA NITROGEN 04/28/2020 23 (H) 7 - 18 mg/dL Final CREATININE 04/28/2020 0.90 0.70 - 1.30 mg/dL Final [facility] BUN / CREAT RATIO 04/28/2020 26 7 - 27 ratio Final CALCIUM 04/28/2020 9.5 8.4 - 10.2 mg/dL Final TOTAL PROTEIN 04/28/2020 7.2 6.4 - 8.2 G/dL Final ALBUMIN 04/28/2020 3.5 3.5 - 5.0 G/dL Final [facility] GLOBULIN 04/28/2020 3.7 G/dL Final A/G RATIO 04/28/2020 0.9 (L) 1.1 - 2.5 ratio Final BILIRUBIN, TOTAL 04/28/2020 0.7 0.2 - 1.0 mg/dL Final Comment: Use of this assay is not recommended for patients undergoing treatment with eltrombopag due to the potential for falsely elevated results. [facility] ALK PHOSPHATASE 04/28/2020 85 40 - 135 U/L Final AST (SGOT) 04/28/2020 19 10 - 40 U/L Final ALT (SGPT), POC 04/28/2020 30 10 - 35 U/L Final Iron, Ur 04/28/2020 100 65 - 175 mcg/dL Final MAGNESIUM 04/28/2020 2.1 1.8 - 2.4 mg/dL Final Neutrophils Absolute (External) 04/28/2020 4.00 2.85 - 6.16 10 3/mcL Final FOLATE 04/28/2020 12.89 5.38 - 24.00 ng/mL Final ZINC, SERUM 04/28/2020 96 55 - 150 UG/DL Final Comment: This test was developed and its performance characteristics determined by [facility] [place] Kevin [facility]en [facility]ology [facility] Laboratory [facility] [place] ([facility]). It has not been cleared or approved by the FDA. [facility] is regulated under CLIA as qualified to perform high complexity testing. This test is used for clinical purposes. It should not be regarded as investigational or for research. Performed By: [facility] [address] [place] [address] Medical Bill Processor: Jose Robb III, M.D. CLIA#: [id number] Phone#: [id number] 04/28/2020 108 ml/min/1.73sqm Final Comment: GFR Population mean for , Non- Americans Ages 20-29 = 116 mL/min/1.73 sq.m. Ages 30-39 = 107 mL/min/1.73 sq.m. Ages 40-49 = 99 mL/min/1.73 sq.m. Ages 50-59 = 93 mL/min/1.73 sq.m. Ages 60-69 = 85 mL/min/1.73 sq.m. Ages 70+ = 75 mL/min/1.73 sq.m. Chronic Kidney Disease: Less than 60 mL/min/1.73 square meters End Stage Renal Disease: Less than 15 mL/min/1.73 square meters GFR NON 04/28/2020 89 ml/min/1.73sqm Final Comment: GFR Population mean for , Non- Americans Ages 20-29 = 116 mL/min/1.73 sq.m. Ages 30-39 = 107 mL/min/1.73 sq.m. Ages 40-49 = 99 mL/min/1.73 sq.m. Ages 50-59 = 93 mL/min/1.73 sq.m. Ages 60-69 = 85 mL/min/1.73 sq.m. Ages 70+ = 75 mL/min/1.73 sq.m. Chronic Kidney Disease: Less than 60 mL/min/1.73 square meters End Stage Renal Disease: Less than 15 mL/min/1.73 square meters VITAMIN B12 04/28/2020 932 (H) 211 - 911 pg/mL Final Neutrophils Relative 04/28/2020 67.4 37.0 - 80.0 % Final Lymphocyte % 04/28/2020 22.8 10.0 - 50.0 % Final [facility] MONOCYTES RELATIVE PE* 04/28/2020 8.2 1.7 - 13.0 % Final [facility] EOSINOPHILS RELATIVE * 04/28/2020 0.8 0.0 - 7.0 % Final [facility] BASOPHILS RELATIVE PE* 04/28/2020 0.8 0.0 - 2.5 % Final [facility] LYMPHOCYTES ABSOLUTE 04/28/2020 1.30 0.77 - 3.85 10 3/mcL Final [facility] MONOCYTES ABSOLUTE 04/28/2020 0.50 0.15 - 1.00 10 3/mcL Final Eosinophils Absolute 04/28/2020 0.00 0.00 - 0.40 10 3/mcL Final Basophils Absolute 04/28/2020 0.00 0.00 - 0.19 10 3/mcL Final Imaging Results: none - I have reviewed all pertinent laboratory, imaging, and pathology results with the patient and/or family members present. Assessment/Plan: Diagnosis Plan 1. Malignant melanoma of right shoulder (HCC) 2. Acute deep vein thrombosis (DVT) of tibial vein of right lower extremity (HCC) 3. On anticoagulant therapy - See details as outlined above - history of melanoma: Today, we again reviewed the diagnosis, staging, natural history, prognosis,and treatment course to date for his melanoma. NCCN guidelines were reviewed. There is no evidence of disease recurrence to date and he has achieved remission. He will continue to follow up with dermatology every 6 months for skin checks as directed. Signs and symptoms of disease recurrence were reviewed with the patient and he was instructed to call with any concerns. - history of recurrent VTE: indefinite anticoagulation is recommended and he will continue with Xarelto 20mg PO daily. Of note, he has failed coumadin in the past. Potential side effects and anticipated benefits of Xarelto were reviewed with the patient and they agreed to proceed with treatment. Signs and symptoms of recurrent VTE were reviewed with the patient and he was instructed to call with any concerns. All questions were answered to the satisfaction of the patient and/or family. Return to office as needed. Ok for him to follow up with his PCP and I will be hapy to see him again in the future should the need arise. Darleen Menon DO Hematology/Medical Oncology documented in this [facility] summary Author Dr. Corrigan [facility] December 28, 2022 8:07am Note Date/Time December 28, 2022 8:0 2am [facility] Medical Records Department [address] [place] [address] Emergency Department Summary 12/28/22 MR#: [id number] Acct: [id number] Name: ARIAS JOHNSTON Rep #:[id number] : 1970 52 From: Howard Corrigan MD PCP: Dr. Shania Barajas MD Status:PRE ER Location: ED HPI History of Present Illness Chief Complaint: Wound Informant: patient and spouse/S.O. Onset/Context/Timing Onset: Today Context: Sudden Onset Timing: Continuous (bleeding) Location: R ankle Current Severity: Gone Maximum Severity: Moderate Relieved by: wrapping w/ pressure dressing Associated Symptoms Associated Symptoms: Negative for Parasthesia, Weakness or Loss of Funtion Narrative Narrative: Patient has history of varicose veins, and he is anticoagulated on Xarelto because of a history of anticardiolipin antibody syndrome and a remote DVT. He was getting out of the shower this morning and as he was using a towel to dry off his right lower extremity, a varicose vein spontaneously started bleeding. He states he has had this happen before. His put a maxi pad on it and usedan Dhaval wrap to wrap it very tightly. The bleeding has been controlled since then, but out of concern for this happening before and being on a blood thinner that came right to the emergency department without checking. He states his foot is starting to go numb because the Dhaval wrap is so tight, but he denies pain anywhere. [facility] Medical History Deep vein thrombosis (DVT) of right lower extremity Lymphedema Peripheral vascular disease Type 2 diabetes mellitus Venous insufficiency Home Medications aspirin 81 mg chewable tablet 81 mg PO DAILY@0800 11/23/16 [History Last Taken Unknown] lisinopril 20 mg-hydrochlorothiazide 25 mg tablet (Zestoretic) 1 ea PO DAILY 11/23/16 [History Last Taken Unknown] rivaroxaban 20 mg tablet (Xarelto) 20 tab PO QHS 03/04/22 [History Last Taken Unknown] Allergy/AdvReac Type Severity Reaction Status Date / Time No Known Allergies Allergy Verified 12/28/22 07:53 Social History (Updated 03/04/22 @ 20:[address] Harshil Casarez, DO) Smoking Status: Never smoker substance use type: does not use ROS ROS ED Constitutional Constitutional ED: Denies chills or fever(s) Cardiovascular Cardiovascular: Reports leg edema Musculoskeletal Musculoskeletal: Denies extremity pain or neck pain Integumentary Reports wounds; Denies Abrasions or rash Neurologic Neurologic: Denies paresthesias or weakness EXAM Physical Exam Const Vital Signs: 12/28/22 07:52 Temperature 98.4 F Temperature Source Temporal Pulse Rate 94 Respiratory Rate 14 Blood Pressure 137/77 H Blood Pressure Mean 97 Pulse Ox 97 Oxygen Delivery Method Room Air Positive well nourished, well developed and obese General Appearance ED: well developed and NAD Nutritional Appearance: obese Neck full ROM and supple Back/Spine normal ROM and normal to inspection Extremity full ROM Extremity Narrative: No tenderness. Multiple varicosities. General Extremety ED: Yes edema General Extremity: edema bilateral lower extremity Details: moderate Neuro oriented x3, no focal motor deficits and no sensory deficits noted Sensorium / Orientation: alert Psych mental status grossly normal and thought process normal Skin Skin Narrative: Unwrapping the wound medial right ankle, there is a pinpoint area where bleedingrecently came from but is not active at this time that is consistent with a bleeding superficial varicose vein. No signs of infection or ulceration. Rashes: no rashes MDM MDM MDM Narrative Medical decision making narrative: Releasing the tight Dhaval wrap resulted in relief of the paresthesias in his foot,there is a brisk cap refill all toes and no signs of acute ischemia. The varicose vein appears to have a small clot on it, it is not actively bleeding but it appears fragile so I am having nursing rewrap it without pressure with a small piece of Surgifoam, given appropriate instructions for leaving this on as long as there is no bleeding for at least 24 hours. Discharge Plan Triage Chief Complaint: Wound ED Provider: Howard Corrigan Dx/Rx/DC Orders Clinical Impression: Bleeding from varicose veins of right lower extremity Instructions: ED Varicose Veins Prescriptions: No Action lisinopril-hydrochlorothiazide [Zestoretic] 1 EACH tablet 1 ea PO DAILY aspirin 81 MG tablet,chewable 81 mg PO DAILY@0800 Xarelto 20 mg tablet 20 tab PO QHS Label Comments: TAKE 1 TABLET BY MOUTH EVERYDAY AT BEDTIME Primary Care Provider: Shania aBrajas Referrals: Shania Barajas MD [Primary Care Provider] - As Needed (or return to ER for bleeding that you are unable to control at home) Disposition Disposition: Home, Self Care What to do if you have Problems For any increased pain, shortness of breath, bleeding, nausea or vomiting, chestpain, or any unexpected problems, contact your Primary Care Provider. Call [facility] ([phone]) or report to the closest Emergency Room. Call 911 if necessary. 12/28/22 0807 <Electronically signed by Howard Corrigan MD> Cosigner Signature (if applicable): CC: Dr. Shania Barajas MD ~ Signed [facility] Work Phone: Discharge summary Author Dr. Ramirez [facility] December 31, 2022 11:22am Note Date/Time December 31, 2022 11: 07am [facility] Medical Records Department [address] [place] [id number] Emergency Department Summary 12/31/22 MR#: [id number] Acct: [id number] Name: ARIAS JOHNSTON Rep #:[id number] : 1970 52 From: Dominick De La Cruz [employer] PCP: Dr. Atul Higgins, DO Status:REG ER Location: ED HPI <APOLINAR Gann - Last Filed: 12/31/22 11:07> History of Present Illness Chief Complaint: Laceration Narrative Narrative: Patient is a 52-year-old male on aspirin, Xarelto secondary to a deep vein thrombosis presents to the emergency department for an ongoing issue of bleedingfrom his varicose veins from his right lower extremity. Patient states that this has been ongoing for over 1 year. He has 1 particular spot that continues to bleed every now and then. Patient states that last evening it was bleeding however he was able to get it to stop. This morning in the shower, he was bleeding and he was concerned. He denies any other injury. [facility] <APOLINAR Gann - Last Filed: 12/31/22 11:07> [facility] Medical History Deep vein thrombosis (DVT) of right lower extremity Lymphedema Peripheral vascular disease Type 2 diabetes mellitus Venous insufficiency Home Medications aspirin 81 mg chewable tablet 81 mg PO DAILY@0800 11/23/16 [History Last Taken Unknown] lisinopril 20 mg-hydrochlorothiazide 25 mg tablet (Zestoretic) 1 ea PO DAILY 11/23/16 [History Last Taken Unknown] rivaroxaban 20 mg tablet (Xarelto) 20 tab PO QHS 03/04/22 [History Last Taken Unknown] Allergy/AdvReac Type Severity Reaction Status Date / Time No Known Allergies Allergy Verified 12/31/22 10:43 Social History (Updated 03/04/22 @ 20:[address] Harshil Casarez, ) Smoking Status: Never smoker substance use type: does not use ROS <APOLINAR Gann - Last Filed: 12/31/22 11:07> ROS ED ROS Narrative Constitutional: Negative for fever, chills, weight loss, weakness Eyes: Negative for vision loss, vision change, double vision ENT: Negative for any sore throat, ear pain, congestion Cardiovascular: Negative for any chest pain, tightness, palpitations Respiratory: Negative for any cough, sputum production, hemoptysis, dyspnea, dyspnea on exertion, orthopnea Gastrointestinal: Negative for any abdominal pain, nausea, vomiting, diarrhea, constipation, blood in stool, blood in vomit : Negative for any urinary frequency, dysuria, retention, blood in urine Muscle skeletal: Negative for any muscle joint pain, stiffness, myalgias, arthralgias, neck pain, back pain Neurological: Negative for any headache, syncope, numbness or tingling, dizziness Skin: Negative for any rashes, lumps, itching, abrasions, lacerations. Positivefor bleeding to the right lower extremity Psychiatric: Negative for any depression, anxiety, stress, suicidal ideation, homicidal ideation Hematologic: Negative for any easy bruising, excessive bruising, easy bleeding Allergies: Negative for any eczema, hives, rash EXAM <APOLINAR Gann - Last Filed: 12/31/22 11:07> Physical Exam Narrative Exam Narrative: Vital signs reviewed. Extremities: No peripheral edema, no signs of gross trauma or deformity. Activefull range of motion of all extremities. Patient does have vascular issues throughout his lower extremities. This is chronic. Neuro: Cranial nerves II through XII intact, no focal neurological deficits. Skin: Clean dry and intact with no rash, purpura, petechiae, vesicles or pustules. Patient does have a small area where the bleeding was coming from however it has since stopped. Patient does have multiple varicose veins. Backs/flank: No CVA tenderness, no midline spinal tenderness, no deformity. Psych: Normal mood and affect. No SI, HI or acute psychosis. Const Vital Signs: 12/31/22 10:41 Temperature 97.8 F Temperature Source Temporal Pulse Rate 86 Respiratory Rate 18 Blood Pressure 131/86 H Blood Pressure Mean 101 Pulse Ox 98 Oxygen Delivery Method Room Air <Dr. Vivek Ramirez MD - Last Filed: 12/31/22 11:22> Physical Exam Const Vital Signs: 12/31/22 10:41 Temperature 97.8 F Temperature Source Temporal Pulse Rate 86 Respiratory Rate 18 Blood Pressure 131/86 H Blood Pressure Mean 101 Pulse Ox 98 Oxygen Delivery Method Room Air [facility] <APOLINAR Gann - Last Filed: 12/31/22 11:07> [facility] Treatment and Re-Evaluation :: Patient appears generally well, patient appears nontoxic, vital signs are stable. Patient presents the emergency department for bleeding from a varicose vein which has since stopped and has been to the emergency department. There nusrat small area, I did consider performing a suture however any suturing would cause multiple veins to be punctured. Since the bleeding is stopped, I did use 1 silver nitrate stick I rolled over the area. I placed a pressure dressing. Patient will leave this on for further remainder of the day. I was able to put some antibiotic ointment to stop the sticking. Patient does have a follow-up appointment with a vascular surgeon this upcoming week. He was given wound careinstructions, he was with his all questions were answered return precautions given. <Dr. Vivek Ramirez MD - Last Filed: 12/31/22 11:22> [facility] MDM Narrative Medical decision making narrative: I have personally performed a face to face assessment of the patient and have reviewed the NIKOLAS Note. I performed a substantive portion of the visit including all aspects of the following. My jovel findings include: History is remarkable for varicose veins with prior episodes of bleeding. Patient is on anticoagulant i.e. Xarelto. Patient presents because of spontaneous bleeding while taking a shower. He has no other complaints Exam is venous stasis dermatitis with significant varicose veins. The bleeding site was easily identified. There is no active bleeding. Medical Decision Making initial thought was to place a suture using 5 oh/4-0 Vicryl. However there is a cluster of veins adjacent to the source of bleeding. Other additions or changes: Patient was treated with pressure dressing and discharged home. He does have an appointment to see vascular surgeon regarding sclerosing of his varicose veins. Discharge Plan Triage Chief Complaint: Laceration ED Midlevel Provider: Dominick De La Cruz ED Provider: Vivek Ramirez Dx/Rx/DC Orders Clinical Impression: Bleeding, Bleeding from varicose veins of right lower extremity Instructions: ED Varicose Veins Prescriptions: No Action lisinopril-hydrochlorothiazide [Zestoretic] 1 EACH tablet 1 ea PO DAILY aspirin 81 MG tablet,chewable 81 mg PO DAILY@0800 Xarelto 20 mg tablet 20 tab PO QHS Label Comments: TAKE 1 TABLET BY MOUTH EVERYDAY AT BEDTIME Primary Care Provider: Atul Higgins Referrals: Atul Higgins DO [Primary Care Provider] - Activity Restrictions/Additional Instructions: Please follow-up with vascular surgeon as planned Disposition Disposition: Home, Self Care What to do if you have Problems For any increased pain, shortness of breath, bleeding, nausea or vomiting, chestpain, or any unexpected problems, contact your Primary Care Provider. Call [facility] ([phone]) or report to the closest Emergency Room. Call 911 if necessary. 12/31/22 1107 <Electronically signed by Dominick JIANG> Cosigner Signature (if applicable): 12/31/22 1122 <Electronically signed by Slim SINCLAIR> CC: Dr. Atul Higgins, DO ~ Signed [facility] Work Phone: Evaluation + Plan note Future Appointments Appointment Date:06/21/2022 11:30:00 AM Scheduled Provider:ATUL HIGGINS DO Location:[facility] Appointment Type:PC OV Follow Up Diagnostic Tests Pending * Glutamic Acid Decarboxylase 06/01/22 Future Scheduled Tests Laboratory* Microalbumin Level Urine 05/31/22 [facility] Evaluation + Plan note Future Appointments Appointment Date:02/28/2023 01:00:00 PM Scheduled Provider:ATUL HIGGINS DO Location:[facility] Appointment Type:PC OV [facility] Evaluation + Plan note Future Appointments Appointment Date:07/11/2025 08:45:00 AM Scheduled Provider:ATUL HIGGINS DO Location:[facility] Appointment Type: OV Diagnostic Tests Pending * Lipoprotein (a) 06/12/25 * Vitamin B6, Plasma 06/12/25 * Vitamin B1 (Thiamine), Blood 06/12/25 * Copper, Serum 06/12/25 * Apolipoprotein B 06/12/25 * Zinc, Plasma or Serum 06/12/25 Future Scheduled Tests Laboratory* Albumin/Creatinine Ratio, Random Urine 01/14/25 [facility] Evaluation noteNo assessment information available [facility] Work Phone: Evavbdnxva note* Diagnosis Malignant melanoma of right shoulder (HCC)- Primary Acute deep vein thrombosis (DVT) of tibial vein of right lower extremity (HCC) On anticoagulant therapy [facility] Malignant melanoma of right shoulder (HCC)- Primary Acute deep vein thrombosis (DVT) of tibial vein of right lower extremity (HCC) On anticoagulant therapy documented in this encounter [facility] note* Diagnosis Onset Date Resolution Status Bleeding from varicose veins of right lower extremity acute Deep venous thrombosis of leg acute Edema leg chronic Bleeding from varicose veins of right lower extremity acute Bleeding from varicose veins of right lower extremity acute [facility] Work Phone: Evaluation note* Diagnosis Acute deep vein thrombosis (DVT) of tibial vein of right lower extremity (HCC) documented in this encounter [facility] note* Diagnosis Acute deep vein thrombosis (DVT) of tibial vein of right lower extremity (HCC)- Primary Malignant melanoma of right shoulder (HCC) documented in this encounter [facility] note* Diagnosis Malignant melanoma of right shoulder (HCC)- Primary Acute deep vein thrombosis (DVT) of tibial vein of right lower extremity (HCC) On anticoagulant therapy documented in this encounter [facility] note* Diagnosis Acute deep vein thrombosis (DVT) of tibial vein of right lower extremity (HCC)- Primary Malignant melanoma of right shoulder (HCC) [facility] Narrative No data available for this section [facility] Hospital Discharge instructions No data available for this section [facility] Hospital Discharge instructions Additional Instructions Please follow-up with vascular surgeon as [facility] Work Phone: Progress note No data available for this section [facility] Assessments Diagnosis Iron deficiency Other disorders of iron metabolism Vitamin D deficiency Unspecified vitamin D deficiency Deficiency of multiple nutrient elements Other nutritional deficiency Type 2 diabetes mellitus with other neurologic complication, unspecified whether long wall mining machine helper insulin use ([facility]) Low serum potassium TOOTIE (obstructive sleep apnea) Obstructive sleep apnea (adult) (pediatric) Morbid obesity with BMI of 50.0-59.9, adult (HCC) Diagnosis Iron deficiency Other disorders of iron metabolism Vitamin D deficiency Unspecified vitamin D deficiency Deficiency of multiple nutrient elements Other nutritional deficiency Low serum potassium Advance Directives No Advanced Directives Records FoundDocuments on File Type Date Recorded 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 Advance Directives and Living Will Power of Physician Compensation Analyst Latest Code Status on File Code Status Date Activated Date Inactivated Comments Full Code 11/06/2018 8:23 AM 11/06/2018 6:56 PM Full Code 11/05/2018 4:11 PM 11/06/2018 8:23 AM Full Code 11/04/2018 11:12 AM 11/05/2018 4:11 PM Full Code 04/09/2018 10:50 PM 04/12/2018 6:33 PM Full Code 04/08/2018 3:08 AM 04/09/2018 10:50 PM Documents on File Type Date Recorded 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 ACP-Advance Directive ACP-Power of Physician Compensation Analyst Advance Directive Response Recorded Date/ Time Living Will No March 04, 2022 7:56pm Power of Physician Compensation Analyst No March 04 7:56pm Advance Directive Response Recorded Date/ Time Living Will No December 28, 2022 8:05am Power of Physician Compensation Analyst No December 28 8:05am Advance Directive Response Recorded Date/ Time Living Will No December 31, 2022 11:25am Power of Physician Compensation Analyst No December 31 11:25am Advance Directive Response Recorded Date/ Time Advance Directives No March 09 7:25am Living Will No March 09, 2023 7:25am Power of Physician Compensation Analyst No March 09 7:25am Summary Purpose Family History No Family History Records Found Relationship Condition Age at Onset Recorded Date/T johana Not Specified Diabetes mellitus Unknown Arthritis Unknown Malignant neoplasm Unknown Hypertension Unknown Chief Complaint and Reason for Visit Chief Complaint PAIN OTHER Chief Complaint right leg Chief Complaint right leg lac Chief Complaint right leg lac VARICOSE VEINS BILAT LOWER EXT SWELLING DVT FU ABD VD ABD VD SWELLING RIGHT LEG Reason for Visit Bleeding from varico se veins of right lower extremity Deep venous thrombosis of leg Edema leg Bleeding from varicose veins of right lower extremity Bleeding from varicose veins of right lower extremity Reason for Referral Specialty Diagnoses / Procedures Referred By Contac t Referred To Contact Radiology Diagnoses Malignant melanoma of right shoulder (HCC) Acute deep vein thrombosis (DVT) of tibial vein of right lower extremity (HCC) Procedures CT chest abdomen pelvis with contrast Darleen Menon DO [address] [place] [address] Referral ID Status Reason Start Date Expiration Date V isits Requested Visits Authorized [id number] Pending Review 01/19/2023 07/18/2023 1 1 Additional Source Comments (unrecognized sect ion and content) No Status Records FoundNo Status Records FoundNo Status Records FoundNo Status Records FoundNo Status Records FoundNo Status Records Found INFORMATION SOURCE (unrecogn ized section and content) DATE CREATED AUTHOR 10/30/2019 [facility] DATE CREATED AUTHOR AUTHOR'S ORGANIZ ATION 11/12/2019 [facility] DATE CREATED AUTHOR AUTHOR'S ORGANIZ ATION 04/27/[address] [facility] DATE CREATED AUTHOR AUTHOR'S ORGANIZ ATION 02/23/2024 [facility] ([place] DATE CREATED AUTHOR AUTHOR'S ORGANIZ ATION 10/04/2024 [facility] DATE CREATED AUTHOR AUTHOR'S ORGANIZ ATION 06/21/2025 [facility] Goals (unrecognized section and content) Goals may be documented in a n alternate section No data available for this section No data available for this sectionGoals may be documented in an alternate sectionGoals may be documented in an alternate sectionGoals may be documented in an alternate section No data available for this section No data available for this section Care Team (unrecognized sect ion and content) Care Team Personnel Name: Jordyn Parmery Rodriguez PT Position: P3 Scheduling - Senior Revenue Accountant Advanced Member Role: Other Name: Brenda Galloway Position: Quality Review Member Role: Drill Operator Name: ATUL HIGGINS DO Position: P4 Physician - Primary Care Member Role: Primary Care Physician Address: Address: [address] [place] [id number] Care Team Related Persons Name: CARLOTTA JOHNSTON Address: [address] [place], [place] [id number] Name: CARLOTTA JOHNSTON Address: Home [address] [place], [place] [id number] Care Team Personnel Name: Jordyn Pa PT Position: P3 Scheduling - Senior Revenue Accountant Advanced Member Role: Other Name: Brenda Galloway Position: Quality Review Member Role: Drill Operator Name: ATUL HIGGINS DO Position: P4 Physician - Primary Care Member Role: Primary Care Physician Address: Address: [address] [place] [address] [facility] [place], [place] [address] Care Team Related Persons Name: CARLOTTA JOHNSTON Address: Home [address] [place], [place] [id number] [place] Name: CARLOTTA JOHNSTON Address: Home [address] [place], [place] [phone] [place] Care Teams (unrecognized sec tion and content) Team Status: Active Member Role Status Dates Dr. Shania Barajas MD Family Provider Active Dr. Atul Higgins DO Primary Care Provider Active Team Status: Inactive Member Role Status Dates Dr. Howard Corrigan MD Referring Provider, Emergency Provider Active Dr. Atul Higgins DO Primary Care Provider Active Team Status: Inactive Member Role Status Dates Dr. Atul Higgins DO Primary Care Provider Active Dr. Vivek Ramierz MD Emergency Provider Active Remote Advisor Relationship Specialty Start Date End Date Shania Barajas MD [address] [place] [phone] PCP - General 04/18/16 Darleen Menon DO [address] [place] [address] Consulting Physician Hematology and Oncology 09/21/22 Remote Advisor Relationship Specialty Start Date End Date Shania Barajas MD [address] [place] [phone] PCP - General 04/18/16 Darleen Menon DO [address] [place] [address] Consulting Physician Hematology and Oncology 09/21/22 Team Status: Inactive Member Role Status Dates Dr. Atul Higgins DO Primary Care Provider, Referrin g Provider Active KATRINA Haskins Attending Provider Active Team Status: Active Member Role Status Dates Dr. Atul Higgins DO Primary Care Provider Active Dr. Ethan Reese MD Attending Provider Active KATRINA Haskins Referring Provider Active Team Status: Active Member Role Status Dates Dr. Atul Higgins DO Primary Care Provider Active Dr. Ethan Reese MD Referring Provider, Other Provide r Active KATRINA Haskins Attending Provider Active Team Status: Active Member Role Status Dates Dr. Atul Higgins DO Primary Care Provider Active Dr. Ethan Reese MD Attending Provider Active Team Status: Inactive Member Role Status Dates Dr. Howard Corrigan MD Attending Provid er, Referring Provider, Emergency Provider Active Dr. Atul Higgins DO Primary Care Provider Active Team Status: Inactive Member Role Status Dates Dr. Atul Higgins DO Primary Care Provider Active Dr. Vivek Ramirez MD Attending Provider, Emergency Provi juan Active Team Status: Inactive Member Role Status Dates Dr. Atul Higgins DO Primary Care Provider Active KATRINA Haskins Attending Provider, Referring Provider Active Team Status: Inactive Member Role Status Dates Dr. Atul Higgins DO Primary Care Provider Active Dr. Ethan Reese MD Attending Provider, Referring Pro vider Active Remote Advisor Relationship Specialty Start Date End Date Shania Barajas MD [address] [place] [phone] PCP - General 04/18/16 Darleen Menon DO [address] [address] Consulting Physician Hematology and Oncology 09/21/22 Remote Advisor Relationship Specialty Start Date End Date Shania Barajas MD [address] [place] [phone] PCP - General 04/18/16 Darleen Menon DO [address] [address] Consulting Physician Hematology and Oncology 09/21/22 Remote Advisor Relationship Specialty Start Date End Date Shania Barajas MD [address] [place] [phone] PCP - General 04/18/16 Darleen Menon DO [address] [place] [address] Consulting Physician Hematology and Oncology 09/21/22 Remote Advisor Relationship Specialty Start Date End Date Shania Barajas MD [address] [place] [phone] PCP - General 04/18/16 Darleen Menon DO [address] [place] [address] Consulting Physician Hematology and Oncology 09/21/22 Reason for Visit (unrecogniz ed section and content) Reason Comments follow up from ER visit on last week Reason Onset Date Comments Med Refill 07/18/2023 Reason Comments Med Refill Reason Comments Follow-up Reason Comments Follow-up Up coming dental wor k and would like to know blood thinner medication to continue or not. Getting tooth pulled. FOR RECORDS PERTAINING TO PATIENTS WHO ARE OR HAVE BEEN ENROLLED IN A CHEMICAL DEPENDENCY/SUBSTANCEABUSE PROGRAM, SOME INFORMATION MAY BE OMITTED. This clinical summary was aggregated from multiple sources. Caution should be exercised in using it in the provision of clinical care. This summary normalizes information from multiple sources, and as a consequence, information in this document may materially change the coding, format and clinical context of patient data. In addition, data may be omitted in some cases. CLINICAL DECISIONS SHOULD BE BASED ON THE PRIMARY CLINICAL RECORDS. [email or web address] provides no warranty or guarantee of the accuracy or completeness of information in this document.
[2025-08-16 16:24] LABS: AST(SGOT) 38 U/L (<=37); Alanine Aminotransfer ALT/SGPT 22 U/L (<=46); Albumin, Serum 3.4 g/dL (3.5-5.0); Alkaline Phosphatase 85 U/L (40-129); Anion Gap 16 (5-15); BUN 22 mg/dL (4-19); BUN/Creat Ratio 17.5 RATIO (10-20); Calcium,Total 8.6 mg/dL (7.6-11.0); Carbon Dioxide 22.7 mmol/L (21.0-32.0); Chloride 96 mmol/L (98-108); Estimated Creatinine Clearance 104.45 ml/min (50-250); Globulin 3.7 g/dL (2.2-4.2); Glucose 161 mg/dL (70-99); Potassium 3.3 mmol/L (3.3-5.1)
--- NOTE | 2025-08-16 17:20 | HP.PCM.HOS_ITS ---
HPI - General General Date of Admission: 08/16/25 Date of Service: 08/16/25 Chief Complaint: RLE edema, redness. HPI Narrative The patient is a 54 y/o M w/ PMHx: BPH with obstructive pathology, GERD, Diabetes mellitus type II, HTN, HLD, Chronic BL LE Lymphedema, TOOTIE on BIPAP q HS, Hx VTE with anticardiolipin antibody syndrome who presents to [facility] ED on 08/16/2025 with right lower extremity discomfort, erythema and swelling symptoms beginning 2 to 3 days prior with increased in activity secondary to recent onset Monday of subjective fever, chills, nausea, fatigue and malaise with fevers reportedly up to 102 with then onset of erythema and soreness to the right leg on with worsening symptoms following with pain worsened with ambulation and palpation reportedly on is given underlying DVT history prompting eventual ED evaluation to be cautious. Workup in the ED included T98, heart rate 112, BP 124/74, respiratory rate 20, under percent room air with most recent repeat vitals T90.4, heart rate 91, BP 111/77, respiratory rate 14, 98% on room air, CBC with WBC 8.4, hemoglobin 14.4, platelet 278 without marked shift, CMP with chloride 96, anion gap 16, BUN/creatinine 22/1.26, GFR 67, glucose 161, hepatic profile not marked appearing, lactic acid 2.1, plain film of the the left lower extremity tib-fib with no evidence of any subcutaneous emphysema to suggest any kind of necrotizing fasciitis however final read pending upon request evaluation of patient. In the ED patient ministered Zosyn 3.375 g IV x 1. [facility] Medical History (Updated 08/16/25 @ 18:[address] Leatha Ibarra MD) Morbid obesity TOOTIE treated with BiPAP Anticardiolipin antibody syndrome Other cyst of bone, left upper arm Venous insufficiency Lymphedema Type 2 diabetes mellitus Deep vein thrombosis (DVT) of right lower extremity Peripheral vascular disease Home Medications ?Medication ?Instructions ?Recorded ?Last Taken ?Type aspirin 81 mg chewable tablet 81 mg PO DAILY@0800 03/0 05/04 Unknown History lisinopril 20 1 ea PO DAILY 11/23/1603/09 History mg-hydrochlorothiazide 25 mg tablet (Zestoretic) coenzyme Q10 100 mg capsule 100 mg PO TID 01/05/23 Unk nown History (CoQ-10) omeprazole 20 mg capsule,delayed 20 mg PO DAILY Unknown History release apixaban 5 mg tablet (Eliquis) 5 mg PO BID 03/29/23 Un known History atorvastatin 10 mg tablet 10 mg PO QHS 08/16/25 Unknow n History finasteride 5 mg tablet 5 mg PO DAILY 08/16/25 Unkno wn History pediatric multivitamin no.76 1 tab PO DAILY 08/16/25 U nknown History (Flintstones Complete chewable tablet) semaglutide 2 mg/dose (8 mg/3 mL) 2 mg subcut QWEEK Unknown History subcutaneous pen injector (Ozempic) tamsulosin 0.4 mg capsule 0.8 mg PO QHS 08/16/25 Unkno wn History Allergy/AdvReac Type Severity Reaction Status Date / Time No Known Allergies Allergy Verified 08/16/25 15:27 Family History (Updated 08/16/25 @ 18:[address] Leatha Ibarra MD) Mother Diabetes Father Diabetes Other Arthritis Cancer Hypertension Surgical History History of sleeve gastrectomy (~2018) History of cancer surgery (~2017) H/O hernia repair (~2017) Social History (Updated 08/16/25 @ 18:[address] Leatha Ibarra MD) household members: spouse Smoking Status: Never smoker alcohol intake: current alcohol intake frequency: holidays/special occasions only substance use type: does not use ROS ROS Narrative Admission Review of Systems: CONSTITUTIONAL: No weight loss, + fever, chills, weakness or fatigue. HEENT: Eyes: No visual loss, blurred vision, double vision or yellow sclerae. Ears, Nose, Throat: No hearing loss, sneezing, congestion, runny nose or sore throat. SKIN: No rash or itching, lesions, wounds except + acute right lower extremity erythema, acute on chronic bilateral extremity stasis skin changes, occasional stage ecchymoses, abrasion. CARDIOVASCULAR: + Increased acute on chronic edema RLE. No chest pain, chest pressure or chest discomfort, palpitations, edema, orthopnea, syncopal events. RESPIRATORY: No shortness of breath, cough or sputum, wheezing, hemoptysis. GASTROINTESTINAL: + anorexia, nausea. No vomiting or diarrhea, abdominal pain, melena, BRBPR. GENITOURINARY: No dysuria, frequency, urgency or retention. NEUROLOGICAL: No headache, dizziness, syncope, paralysis, ataxia, numbness or tingling in the extremities, focal weakness, change in bowel or bladder control, seizure. MUSCULOSKELETAL: + muscle, back pain, joint pain or stiffness. HEMATOLOGIC: No anemia, bleeding or bruising. LYMPHATICS: No enlarged nodes. No history of splenectomy. PSYCHIATRIC: No history of depression or anxiety. ENDOCRINOLOGIC: No reports of sweating, cold or heat intolerance. No polyuria or polydipsia. ALLERGIES: No history of asthma, hives, eczema or rhinitis. Vital Signs Vital Signs Vital Signs: 08/16/25 15:26 08/16/25 15:53 08/16/25 16:32 Temperature 98 F 98.4 F 98.4 F Temperature Source Oral Oral Oral Pulse Rate 112 H 92 91 Respiratory Rate 20 H 16 14 Blood Pressure 124/74 H 108/66 111/77 Blood Pressure Mean 90 80 88 Pulse Ox 100 97 98 Oxygen Delivery Method Room Air Room Air Room Air Weight Weight: 357 lb 8 oz Body Mass Index (BMI) 47.1 Physical Exam Narrative Physical Examination: General: Awake, alert, oriented x 3 and cooperative, seated upright in the ED bed, fatigued but otherwise no acute distress. Skin: Normal color, normal turgor, no icterus, no cyanosis except notable bilateral lower extremity venous stasis skin changes, occasional stage ecchymoses, abrasion, notable right lower extremity ankle to proximal villatoro notably increased erythema compared to left lower extremity, increased edema and notable warmth to touch. HEENT: AT/NC, EOMI, PERRLA, mildly dry MM, no carotid bruits, difficult to assess JVD given very thickened neck. Lungs: Diminished, distant breath sounds likely secondary to habitus, appropriate effort, no evidence of distress no rales, ronchi or wheezing. Heart: Regular rate and rhythm; no gallop, rub audible. Abdomen: Soft, morbidly obese, no tenderness with palpation, difficult to discern distention and HSM given habitus, distant BS. Extremities: No cyanosis, no clubbing, see skin. Neurological: Patient awake, alert, oriented as noted cognitive function intact; pupils equally reactive to light and accommodation, cranial nerves grossly normal, moving all 4 extremities, no focal deficits, strength moderately globally decreased. Psychiatric: Affect appears fatigued otherwise normal, no acute evidence of depressive or anxiety feelings. Results Lab / Micro Data 08/16/25 15:53 08/16/25 15:53 Labs: Laboratory Results - last 24 hr 08/16/25 15:53: WBC 8.4, RBC 4.95, Hgb 14.4, Hct 43.0, MCV 86.9, MCH 29.1, MCHC 33.5, RDW Std Deviation 42.3, RDW Coeff of Samuel 13.3, Plt Count 278, MPV 9.8, Immature Gran % (Auto) 0.400, Neut % (Auto) 77.7 H, Lymph % (Auto) 11.3 L, [place] % (Auto) 9.8, Eos % (Auto) 0.4, Baso % (Auto) 0.4, Absolute Neuts (auto) 6.5, Absolute Lymphs (auto) 0.95, Nucleated RBC % 0, Sodium 135, Potassium 3.3, C hloride 96 L, Carbon Dioxide 22.7, Anion Gap 16 H, BUN 22 H, Creatinine 1.26 H, Estim Creat Clear Calc 104.45, Est GFR (MDRD) Non-Af 67, BUN/Creatinine Ratio 17.5, Glucose 161 H, Lactic Acid 2.1 H*, Calcium 8.6, Total Bilirubin 0.58, AST 38, ALT 22, Alkaline Phosphatase 85, Total Protein 7.1, Albumin 3.4 L, Globulin 3.7, Albumin/Globulin Ratio 0.9 Assessment & Plan Assessment/Plan (1) Cellulitis of right lower extremity: PLAN: Plan The patient is a 54 y/o M w/ PMHx: BPH with obstructive pathology, GERD, Diabetes mellitus type II, HTN, HLD, Chronic BL LE Lymphedema, TOOTIE on BIPAP q HS, Hx VTE with anticardiolipin antibody syndrome who presents to [facility] ED on 08/16/2025 with right lower extremity discomfort, erythema and swelling symptoms beginning 2 to 3 days prior with increased in activity. Secondary to recent flulike symptoms started on Monday previous to current presentation with subjective fever, chills, nausea, fatigue and malaise with fevers reportedly up to 102 with then onset of erythema and soreness to the left leg on with worsening symptoms following with pain worsened with ambulation and palpation reportedly on Eliquis given underlying DVT history prompting eventual ED evaluation. #1. Acute right lower extremity Cellulitis complicated by bilateral lower extremity lymphedema: Will admit to medical surgical floor, maintain on IV vancomycin and Zosyn given severity of presentation per cellulitic order set with MRSA screen requested, will continue to trend CBC, continue affected extremity elevation above heart when seated and in bed, monitor erythema outline with VS checks, will continue oral NOAC therapy. #2. Possible Recent concurrent Acute Viral Syndrome: Symptoms have seemed to ashlye with primarily decreased appetite, nausea, subjective fevers and chills at that time, however certainly could have been a prelude to his right lower extremity cellulitis, will continue symptomatic care as needed. #2. History of VTE with anticardiolipin antibody syndrome: Will continue patient on NOAC syndrome, presentation concerning for as noted infectious left lower extremity as an etiology for the increased edema, however if not clinically improving low threshold to obtain duplex ultrasound. #3. Hypertension: Continue home regimen including lisinopril, hydrochlorothiazide with hold parameters as needed, PRN hydralazine. #4. Hyperlipidemia: Will continue patient on statin therapy. #5. Diabetes mellitus type II: Hold patient Ozempic, maintain on ADA diet, accu checks w/ ISS. #6. BPH with obstructive pathology: Will continue patient home Flomax and finasteride heart regimen, monitor for retention. #7. GERD: Will continue patient home PPI. #8. TOOTIE: Uses BiPAP nightly, spouse will bring in his own home machine. #9. DVT prophylaxis: Continue patient home NOAC regimen. Charges/Coding Visit Charges Inpatient E&M: 95279 Init Hosp L3
--- OUTSIDE RECORDS SUMMARY | 2025-08-16 18:21 | XMS RPT_ITS | CCD ---
Author Organization [facility] Care Team Providers Care Rod Mill Tender Name Role Phone Shania Barajas Primary Care Provider ATUL HIGGINS DO Primary Care Physician Thierno WEAVER, Jennifer Unavailable Unavailable Shania Barajas MD Primary Care Provider Darleen Menon DO Unavailable [phone] Atul Higgins Primary Care Provider Dr. Autl Higgins Referring Provider [phone] KATRINA Forte Attending Provider Dr. Ethan Reese Attending Provider [phone] KATRINA Forte Referring Provider Dr. Ethan Reese [...] Abbey SINCLAIR, Shania Sanchez Primary Care Provider [phone] Sinan DO, Darleen E Unavailable HIGGINS DO [...] pcp, # 9 mL, 1 Refill(s), [id number], 184.2, cm, 01/14/25 14:04:00 EDT, Height, [...] pcp, # 9 mL, 1 Refill(s), Pharm[facility]: [facility], 184.2, cm, 01/14/25 14:04:00 EDT, Height, [...] DAY, # 200 tab(s), 3 Refill(s), Pharmacy: [facility] #4[facility], 184.2, cm, 01/14/25 14:04:00 EDT, Height, [...] qDay, # 100 tab(s), 3 Refill(s), Pharmacy: [facility] #[facility], Type 2 diabetes mellitus with renal [...] Start: 05-07-2019 take 1 capsule by mo [facility] once daily Biotin 5000 MCG CAPS Indications: [...] by mouth 3 times daily 0 Active Lquhbxy-Vjztrqhfg-Nshgnsx D (CITRACAL CALCIUM+D PO) (9 sources) take 3 capsules by mouth three times daily Asevndo-Fuongkjzt-Vpxjymz D (CITRACAL CALCIUM+D PO) Take 3 capsules by mouth 3 times daily. Active take 3 capsules by m outh three times daily Vhducts-Oimdriuyu-Vfnsiwq D (CITRACAL CA LCIUM+D PO) Take 3 capsules by mouth 3 times daily. 0 Active chlorhexidine gluconate 1.2 mg/ml mouthwash (2 sources) Start: 11-19-2024 take 2 doses by mouth three times daily chlorhexidine 0.12% oral rinse liquid Dose = 2 teaspoonful(s), Oral, TID, # 473 mL, 0 Refill(s), Pharmacy: [facility], Dental caries, 184.2, cm, 11/19/24 11:48:00 [...] available, # 100 cap(s), 0 Refill(s), Pharmacy: [facility], Type 2 diabetes mellitus with renal [...] available, # 100 cap(s), 0 Refill(s), Pharmacy: [facility], Type 2 diabetes mellitus with renal [...] available, # 100 cap(s), 0 Refill(s), [facility] Type 2 diabetes mellitus with renal [...] qDay, # 100 tab(s), 1 Refill(s), Pharmacy: [facility], 184.2, cm, 11/19/24 11:48:00 EST, Height, kg, 11/19/24 11:39:00 EST, Dosing Weight Start Date: 01/07/25 Status: Ordered Medication Dispense Status: Completed Quantity: 100.0 Unit: tab(s) Total Allowed Fills: 2 Fills Dispensed: 0 Start: 04-08-2016 take 1 tablet by lacye th once daily lisinopril-hydroCHLOROthiazide 20-25 MG tablet Dose = 1 tab(s), Oral, qDay, # 90 tab(s), 3 Refill(s), Pharm[facility]: [facility], 183, cm, 10/14/21 10:32:00 EST, Height, [...] sites, # 4 EA, 0 Refill(s), Pharmacy: [facility], Type 2 diabetes mellitus without complication Morbid obesity, 183, cm, 05/31/22 12:58:00 EDT, Height Start Date: 05/31/22 Status: Ordered Mounjaro 5 mg/0.5 mL subcutaneous solution (1 source) Start: 11-30-19 inject 1 dose by subcutaneous injection every week Mounjaro 5 mg/0.5 mL subcutaneous solution Dose : 5 mg =, Subcutaneous, qWeek, rotate injection sites, # 6 mL, 0 Refill(s), Pharmacy: [facility], 183, cm, 11/01/22 13:06:00 EST, Height Start Date: 11/29/22 Status: Ordered omeprazole 20 mg delayed release oral capsule (16 sources) Proton Pump Inhibitor Start: 01-15-20 omeprazole 20 mg oral delayed release capsule Dose : 20 mg = 1 cap(s), Oral, qDay, Hx sleeve gastrectomy, prophylaxis, # 90 cap(s), 1 Refill(s), Pharm[facility]: [facility], 184.2, cm, 01/14/25 14:04:00 EDT, Height, [...] BEDTIME, # 90 tab(s), 3 Refill(s), Pharm[facility]: [facility], 183, cm, 10/14/21 10:32:00 EST, Height, [...] activity, # 30 tab(s), 2 Refill(s), Pharmacy: [facility], 183, cm, 02/28/23 13:01:00 EDT, Height Start Date: 02/28/23 Status: Ordered Medication Dispense Status: Completed Quantity: 30.0 Unit: tab(s) Total Allowed Fills: 3 Fills Dispensed: 0 Start: 08-29-2019 take 1-5 tablets by mouth once daily as needed sildenafil 20 mg oral tablet See Instructions, 1 to 5 qd prn, # 30 tab(s), 5 Refill(s), Pharm[facility]: [facility] Start Date: 08/29/19 Status: Ordered tamsulosin hydrochloride 0.4 mg oral capsule (6 sources) alpha-Adrenergic Mariella Start: 07-16-2024 tamsu losin 0.4 mg oral capsule Dose : 0.8 mg = 2 cap(s), TAKE 2 CAPSULE BY MOUTH EVERY DAY Start Date: 07/16/24 Status: Ordered Medication Dispense Status: Completed Total Allowed Fills: 1 Fills Dispensed: 0 Start: 07-09-2024 take 1 capsule by mo [facility] once daily tamsulosin (Flomax) 0.4 MG 24 [...] qDay, # 90 tab(s), 0 Refill(s), [facility]: [facility], 183, cm, 08/29/23 13:52:00 EST, Height, kg, 08/29/23 13:52:00 EST, Dosing Weight Start Date: 08/29/23 Status: Ordered Medication Dispense Status: Completed Quantity: 90.0 Unit: tab(s) Total Allowed Fills: 1 Fills Dispensed: 0 Start: 08-29-2023 Vitamin B12 50 0 mcg oral tablet Dose : 500 mcg = 1 tab(s), Oral, qDay, # 90 tab(s), 0 Refill(s), [facility]: [facility], 183, cm, 08/29/23 13:52:00 EST, Height, [...] aftercare (17 sources) Drug therapy finding; Translations: [half-way (current) use of anticoagulants] Onset: 11-06-2018 03-12-2022 Episodic Other nutritional; endocrine; and metabolic disorders (16 sources) Autoantibody level - finding; Translations: [Raised antibody titer] Onset: 04-08-2018 04-08-2018 Episodic Unclassified (7 sources) Preprocedural examination done; Translations: [Pre-op exam] Onset: 07-18-2018 Resolved: 08-17-2018 08-17-2018 Results Test Name Value Interpretation Reference Range Facility [id number] 06-18-2025 Vitamin B6 Lvl 7.2 UG/L Normal 3.4-65.2 [facility] Comment on above: Result Comment: This test was developed and its performance characteristics determined by [facility]. It has not been cleared or approved by the Food and Drug Administration. Deficiency: <3.4 Marginal: 3.4 - 5.1 Adequate: >5.1 Performed At: [address] [id number] Nathaniel Hussein MD Ph:[phone] Performed By: #### A DIFF, PSA, TSHR, 323468, LIPID, [id number], GFR, FES, PHOS, CBC, 674303, A1C, 625729, FERR, PRO, 208362, MG, ANEU, 189035, CMP #### [place] [address] #### PRALB, B12, FOL #### [place] [address] B1WBon 06-17-2025 Vitamin B1 Whl Bld 125.5 nmol/L Normal 66.5-200.0 [facility] Comment on above: Result Comment: This test was developed and its performance characteristics determined by [facility]. It has not been cleared or approved by the Food and Drug Administration. Performed At: [address] [id number] Nathaniel Hussein MD Ph:[phone] Performed By: #### A DIFF, PSA, TSHR, 368253, LIPID, [id number], GFR, FES, PHOS, CBC, 948709, A1C, 930987, FERR, PRO, 294331, MG, ANEU, 686654, CMP #### [place] [address] #### PRALB, B12, FOL #### [address] [address] CUSon 06-17-2025 Copper Lvl 84 UG/DL Normal 69-132 [facility] Comment on above: Result Comment: This test was developed and its performance characteristics determined by [facility]. It has not been cleared or approved by the Food and Drug Administration. Detection Limit = 5 Performed At: [address] [id number] Nathaniel Hussein MD Ph:[phone] Performed By: #### A DIFF, PSA, TSHR, 221563, LIPID, [id number], GFR, FES, PHOS, CBC, 495710, A1C, 968453, FERR, PRO, 772231, MG, ANEU, 736238, CMP #### [address] [address] #### PRALB, B12, FOL #### [address] 06-17-2025 Zinc Lvl 91 UG/DL Normal 44-115 [facility] Comment on above: Result Comment: This test was developed and its performance characteristics determined by [facility]. It has not been cleared or approved by the Food and Drug Administration. Detection Limit = 5 Performed At: [address] [id number] Nathaniel Hussein MD Ph:[phone] Performed By: #### A DIFF, PSA, TSHR, 156189, LIPID, [id number], GFR, FES, PHOS, CBC, 745511, A1C, 456437, FERR, PRO, 772035, MG, ANEU, 316891, CMP #### [address] [address] #### PRALB, B12, FOL #### [place] [address] APOB 06-15-2025 Apolipoprotein B [Mass/Vol] 63 mg/dL Normal <90 [facility] Comment on above: Result Comment: Mayelin lubin < 90 Borderline High 90 - 99 High 100 - 130 Very High >130 ASCVD RISK THERAPEUTIC TARGET CATEGORY APO B (mg/dL) Very High Risk <80 (if extreme risk <70) High Risk <90 Moderate Risk <90 Performed At: [facility] [id number] Nathaniel Hussein MD Ph:[phone] Performed By: #### A DIFF, PSA, TSHR, 202453, LIPID, [id number], GFR, FES, PHOS, CBC, 690508, A1C, 668563, FERR, PRO, 544336, MG, ANEU, 513866, CMP #### [address] [address] #### PRALB, B12, FOL #### [address] [address] LIPOAon 06-13-2025 Lipoprotein a [Moles/Vol] 13.8 nmol/L Normal <75.0 [facility] Comment on above: Result Comment: This test was developed and its performance characteristics determined by [facility]. It has not been cleared or approved by the Food and Drug Administration. Note: Values greater than or equal to 75.0 nmol/L may indicate an independent risk factor for CHD, but must be evaluated with caution when applied to non- populations due to the influence of genetic factors on Lp(a) across ethnicities. Performed At: [facility] [id number] Gail Pappas PhD Ph:[phone] Performed By: #### A DIFF, PSA, TSHR, 085122, LIPID, [id number], GFR, FES, PHOS, CBC, 422475, A1C, 703508, FERR, PRO, 216311, MG, ANEU, 346809, CMP #### [address] [address] #### PRALB, B12, FOL #### [address] [address] .Auto Diffon 06-12-2025 Basophil, Absolute 0.1 10 3/mcL Normal 0.0-0.3 [facility] Comment on above: Performed By: #### A DIFF, PSA, TSHR, 391550, LIPID, [id number], GFR, FES, PHOS, CBC, 356080, A1C, 197677, FERR, PRO, 700992, MG, ANEU, 174751, CMP #### [address] [address] #### PRALB B12, FOL #### [address] [address] Basophils/100 WBC (Bld) 0.8 % Normal 0.0-2.5 [facility] Comment on above: Performed By: #### A DIFF, PSA, TSHR, 750780, LIPID, [id number], GFR, FES, PHOS, CBC, 692835, A1C, 231468, FERR, PRO, 838831, MG, ANEU, 012121, CMP #### [place] [address] #### PRALB, B12, FOL #### [address] [address] Eosinophil, Absolute 0.1 10 3/mcL Normal 0.0-0.7 [facility] Comment on above: Performed By: #### A DIFF, PSA, TSHR, 166098, LIPID, [id number], GFR, FES, PHOS, CBC, 230850, A1C, 829395, FERR, PRO, 381642, MG, ANEU, 385388, CMP #### [place] [address] #### PRALB, B12, FOL #### [address] [address] Eosinophils/100 WBC (Bld) 0.9 % Normal 0.0-6.0 [facility] Comment on above: Performed By: #### A DIFF, PSA, TSHR, 270275, LIPID, [id number], GFR, FES, PHOS, CBC, 425707, A1C, 443465, FERR, PRO, 498564, MG, ANEU, 604815, CMP #### [address] [place] [address] #### PRALB, B12, FOL #### [address] [address] Lymphocyte, Absolute 1.3 10 3/mcL Normal 0.9-4.3 [facility] Comment on above: Performed By: #### A DIFF, PSA, TSHR, 216209, LIPID, [id number], GFR, FES, PHOS, CBC, 526008, A1C, 018648, FERR, PRO, 419849, MG, ANEU, 195256, CMP #### [address] [address] #### PRALB, B12, FOL #### [address] [address] Lymphocytes/100 WBC (Bld) 21.0 % Normal 20.0-40.0 [facility] Comment on above: Performed By: #### A DIFF, PSA, TSHR, 039237, LIPID, [id number], GFR, FES, PHOS, CBC, 345312, A1C, 835238, FERR, PRO, 588616, MG, ANEU, 001174, CMP #### [place] [address] #### PRALB, B12, FOL #### [address] [address] Monocyte, Absolute 0.4 10 3/mcL Normal 0.1-1.4 [facility] Comment on above: Performed By: #### A DIFF, PSA, TSHR, 860311, LIPID, [id number], GFR, FES, PHOS, CBC, 833690, A1C, 964272, FERR, PRO, 079016, MG, ANEU, 248403, CMP #### [address] [address] #### PRALB, B12, FOL #### [address] [address] Monocytes/100 WBC (Bld) 6.9 % Normal 2.0-13.0 [facility] Comment on above: Performed By: #### A DIFF, PSA, TSHR, 880968, LIPID, [id number], GFR, FES, PHOS, CBC, 150975, A1C, 870674, FERR, PRO, 994582, MG, ANEU, 588359, CMP #### [address] [address] #### PRALB, B12, FOL #### [address] [address] Neutrophils/100 WBC (Bld) 70.4 % Normal 50.0-75.0 [facility] Comment on above: Performed By: #### A DIFF, PSA, TSHR, 245864, LIPID, [id number], GFR, FES, PHOS, CBC, 131515, A1C, 781225, FERR, PRO, 130517, MG, ANEU, 414301, CMP #### [address] [address] #### PRALB, B12, FOL #### [address] [address] .GFRon 06-12-2025 Estimated Glomerular Filtration Rate 102 ml/min/1.73sqm Normal [facility] Comment on above: Result Comment: Stages of [...] Performed By: #### A DIFF, PSA, TSHR, 464864, LIPID, [id number], GFR, FES, PHOS, CBC, 395806, A1C, 516789, FERR, PRO, 975521, MG, ANEU, 162284, CMP #### [address] [address] #### PRALB, B12, FOL #### [address] [address] .NEUABSon 06-12-2025 Neutrophil, Absolute 4.5 10 3/mcL Normal 2.3-8.1 [facility] Comment on above: Performed By: #### A DIFF, PSA, TSHR, 094438, LIPID, [id number], GFR, FES, PHOS, CBC, 849179, A1C, 161291, FERR, PRO, 356043, MG, ANEU, 744200, CMP #### [address] [address] #### PRALB, B12, FOL #### [address] [address] A1Con 06-12-2025 Glucose [Mass/Vol] 134 mg/dL Normal [facility] Comment on above: Result Comment: Ilda mated Average Glucose calculated by equation ((28.7xA1C)-46.7) Estimated average glucose (eAG) is a calculated value from Hemoglobin A1C and is insurance verification representative of the average blood glucose level in the last 2-3 month period. Normal range: less than 114 mg/dL Performed By: #### A DIFF, PSA, TSHR, 488914, LIPID, [id number], GFR, FES, PHOS, CBC, 790717, A1C, 401013, FERR, PRO, 382021, MG, ANEU, 412961, CMP #### [address] [address] #### PRALB, B12, FOL #### [address] [address] HbA1c (Bld) [Mass fraction] 6.3 % Normal 4.3-6.4 [facility] Comment on above: Performed By: #### A DIFF, PSA, TSHR, 930499, LIPID, [id number], GFR, FES, PHOS, CBC, 711518, A1C, 584710, FERR, PRO, 256344, MG, ANEU, 623829, CMP #### [address] [address] #### PRALB, B12, FOL #### [address] [address] B12on 06-12-2025 Cobalamin (Vitamin B12) [Mass/Vol] 642 pg/mL Normal 211-911 [facility] Comment on above: Performed By: #### A DIFF, PSA, TSHR, 911719, LIPID, [id number], GFR, FES, PHOS, CBC, 964260, A1C, 839234, FERR, PRO, 654182, MG, ANEU, 069851, CMP #### [address] [address] #### PRALB, B12, FOL #### [address] [address] CBCon 06-12-2025 Erythrocyte distribution width (RBC) [Ratio] 13.7 % Normal 11.5-15.5 [facility] Comment on above: Performed By: #### A DIFF, PSA, TSHR, 261589, LIPID, [id number], GFR, FES, PHOS, CBC, 613063, A1C, 171261, FERR, PRO, 682393, MG, ANEU, 448047, CMP #### [address] [address] #### PRALB, B12, FOL #### [place] [address] Hematocrit (Bld) [Volume fraction] 43.3 % Normal 40.0-52.0 [facility] Comment on above: Performed By: #### A DIFF, PSA, TSHR, 873112, LIPID, [id number], GFR, FES, PHOS, CBC, 170898, A1C, 218201, FERR, PRO, 089194, MG, ANEU, 415460, CMP #### [address] [address] #### PRALB, B12, FOL #### [place] [address] Hgb 15.0 G/dL Normal 13.0-17.5 [facility] Comment on above: Performed By: #### A DIFF, PSA, TSHR, 462284, LIPID, [id number], GFR, FES, PHOS, CBC, 819535, A1C, 679160, FERR, PRO, 274769, MG, ANEU, 548913, CMP #### [place] [address] #### PRALB, B12, FOL #### [address] [address] MCH (RBC) [Entitic mass] 30.1 pg Normal 27.0-33.0 [facility] Comment on above: Performed By: #### A DIFF, PSA, TSHR, 113185, LIPID, [id number], GFR, FES, PHOS, CBC, 245690, A1C, 094540, FERR, PRO, 864704, MG, ANEU, 910231, CMP #### [place] [address] #### PRALB, B12, FOL #### [address] [address] MCHC 34.8 G/dL Normal 32.0-36.0 [facility] Comment on above: Performed By: #### A DIFF, PSA, TSHR, 650818, LIPID, [id number], GFR, FES, PHOS, CBC, 057742, A1C, 359766, FERR, PRO, 054986, MG, ANEU, 612152, CMP #### [place] [address] #### PRALMarichuy, B12, FOL #### [address] [address] MCV (RBC) [Entitic vol] 86.6 fL Normal 81.0-100.0 [facility] Comment on above: Performed By: #### A DIFF, PSA, TSHR, 396238, LIPID, [id number], GFR, FES, PHOS, CBC, 590969, A1C, 692084, FERR, PRO, 905005, MG, ANEU, 692840, CMP #### [address] [address] #### PRALB, B12, FOL #### [address] [address] Platelet 291 10 3/mcL Normal 150-450 [facility] Comment on above: Performed By: #### A DIFF, PSA, TSHR, 667893, LIPID, [id number], GFR, FES, PHOS, CBC, 956604, A1C, 349428, FERR, PRO, 813468, MG, ANEU, 283913, CMP #### [place] [address] #### PRALB B12, FOL #### [place] [address] Platelet mean volume (Bld) [Entitic vol] 7.3 fL Normal 6.4-10.5 [facility] Comment on above: Performed By: #### A DIFF, PSA, TSHR, 538559, LIPID, [id number], GFR, FES, PHOS, CBC, 450690, A1C, 605472, FERR, PRO, 117723, MG, ANEU, 972128, CMP #### [place] [address] #### PRABRENDA B12, FOL #### [address] [address] RBC 5.00 10 6/mcL Normal 4.50-6.00 [facility] Comment on above: Performed By: #### A DIFF, PSA, TSHR, 966411, LIPID, [id number], GFR, FES, PHOS, CBC, 976555, A1C, 137658, FERR, PRO, 058339, MG, ANEU, 701456, CMP #### [place] [address] #### PRALB, B12, FOL #### [address] [address] WBC 6.3 10 3/mcL Normal 4.5-10.8 [facility] Comment on above: Performed By: #### A DIFF, PSA, TSHR, 346490, LIPID, [id number], GFR, FES, PHOS, CBC, 289823, A1C, 206968, FERR, PRO, 389862, MG, ANEU, 392902, CMP #### [place] [address] #### PRALMarichuy B12, FOL #### [address] [address] CMPon 06-12-2025 Albumin Level 3.4 G/dL Low 3.5-5.0 [facility] Comment on above: Performed By: #### A DIFF, PSA, TSHR, 452511, LIPID, [id number], GFR, FES, PHOS, CBC, 679238, A1C, 831333, FERR, PRO, 051648, MG, ANEU, 284672, CMP #### [place] [address] #### PRALMarichuy B12, FOL #### [place] [address] Albumin/Globulin [Mass ratio] 0.8 {ratio} Low 1.1-2.5 [facility] Comment on above: Performed By: #### A DIFF, PSA, TSHR, 151188, LIPID, [id number], GFR, FES, PHOS, CBC, 432463, A1C, 488396, FERR, PRO, 270294, MG, ANEU, 699959, CMP #### [place] [address] #### PRABRENDA B12, FOL #### [place] [address] ALP [Catalytic activity/Vol] 99 U/L Normal 40-135 [facility] Comment on above: Performed By: #### A DIFF, PSA, TSHR, 292793, LIPID, [id number], GFR, FES, PHOS, CBC, 262468, A1C, 948643, FERR, PRO, 580679, MG, ANEU, 192298, CMP #### [place] [address] #### PRALB, B12, FOL #### [place] [address] ALT [Catalytic activity/Vol] 31 U/L Normal 16-63 [facility] Comment on above: Performed By: #### A DIFF, PSA, TSHR, 146491, LIPID, [id number], GFR, FES, PHOS, CBC, 531706, A1C, 221168, FERR, PRO, 609641, MG, ANEU, 850323, CMP #### [place] [address] #### PRALB, B12, FOL #### [address] [address] AST [Catalytic activity/Vol] 23 U/L Normal 10-40 [facility] Comment on above: Performed By: #### A DIFF, PSA, TSHR, 691506, LIPID, [id number], GFR, FES, PHOS, CBC, 805051, A1C, 759762, FERR, PRO, 818080, MG, ANEU, 837224, CMP #### [place] [address] #### PRALB, B12, FOL #### [place] [address] Bili Total 0.7 mg/dL Normal 0.2-1.0 [facility] Comment on above: Result Comment: Use of this assay is not recommended for patients undergoing treatment with eltrombopag due to the potential for falsely elevated results. Performed By: #### A DIFF, PSA, TSHR, 738317, LIPID, [id number], GFR, FES, PHOS, CBC, 839719, A1C, 359044, FERR, PRO, 493760, MG, ANEU, 431809, CMP #### [place] [address] #### PRALB, B12, FOL #### [address] [address] BUN/Creatinine Ratio 21 ratio Normal 7-27 [facility] Comment on above: Performed By: #### A DIFF, PSA, TSHR, 925276, LIPID, [id number], GFR, FES, PHOS, CBC, 152206, A1C, 823545, FERR, PRO, 102138, MG, ANEU, 343845, CMP #### [place] [address] #### PRALB, B12, FOL #### [address] [address] Calcium [Mass/Vol] 9.2 mg/dL Normal 8.4-10.2 [facility] Comment on above: Performed By: #### A DIFF, PSA, TSHR, 030306, LIPID, [id number], GFR, FES, PHOS, CBC, 865290, A1C, 219164, FERR, PRO, 316045, MG, ANEU, 319030, CMP #### [address] [address] #### PRALB, B12, FOL #### [address] [address] Chloride [Moles/Vol] 101 mmol/L Normal 98-107 [facility] Comment on above: Performed By: #### A DIFF, PSA, TSHR, 539500, LIPID, [id number], GFR, FES, PHOS, CBC, 717679, A1C, 027969, FERR, PRO, 700703, MG, ANEU, 493189, CMP #### [address] [address] #### PRALB, B12, FOL #### [address] [address] CO2 [Moles/Vol] 31 mmol/L High 22-29 [facility] Comment on above: Performed By: #### A DIFF, PSA, TSHR, 692984, LIPID, [id number], GFR, FES, PHOS, CBC, 950941, A1C, 618006, FERR, PRO, 158084, MG, ANEU, 340924, CMP #### [address] [address] #### PRALB, B12, FOL #### [address] [address] Creatinine [Mass/Vol] 0.84 mg/dL Normal 0.67-1.17 [facility] Comment on above: Performed By: #### A DIFF, PSA, TSHR, 246339, LIPID, [id number], GFR, FES, PHOS, CBC, 052102, A1C, 121605, FERR, PRO, 295434, MG, ANEU, 873944, CMP #### [address] [address] #### PRALMarichuy B12, FOL #### [address] [address] Electrolyte Balance 6.0 mEq/L Normal 4.0-15.0 [facility] Comment on above: Performed By: #### A DIFF, PSA, TSHR, 443633, LIPID, [id number], GFR, FES, PHOS, CBC, 089666, A1C, 356063, FERR, PRO, 563507, MG, ANEU, 104888, CMP #### [address] [address] #### PRALB, B12, FOL #### [place] [address] Globulin 4.2 G/dL Normal 2.7-4.4 [facility] Comment on above: Performed By: #### A DIFF, PSA, TSHR, 652206, LIPID, [id number], GFR, FES, PHOS, CBC, 262789, A1C, 133333, FERR, PRO, 545675, MG, ANEU, 461292, CMP #### [address] [address] #### PRALMarichuy B12, FOL #### [address] [address] Glucose [Mass/Vol] 120 mg/dL High 70-105 [facility] Comment on above: Performed By: #### A DIFF, PSA, TSHR, 145944, LIPID, [id number], GFR, FES, PHOS, CBC, 864228, A1C, 156942, FERR, PRO, 461716, MG, ANEU, 573897, CMP #### [address] [address] #### PRALB, B12, FOL #### [address] [address] Potassium [Moles/Vol] 3.8 mmol/L Normal 3.5-5.1 [facility] Comment on above: Performed By: #### A DIFF, PSA, TSHR, 752458, LIPID, [id number], GFR, FES, PHOS, CBC, 557685, A1C, 537068, FERR, PRO, 918725, MG, ANEU, 054666, CMP #### [address] [address] #### PRALB, B12, FOL #### [address] [address] Sodium [Moles/Vol] 138 mmol/L Normal 136-145 [facility] Comment on above: Performed By: #### A DIFF, PSA, TSHR, 266751, LIPID, [id number], GFR, FES, PHOS, CBC, 042388, A1C, 782501, FERR, PRO, 553597, MG, ANEU, 156728, CMP #### [address] [address] #### PRALB, B12, FOL #### [address] [address] Total Protein 7.6 G/dL Normal 6.4-8.2 [facility] Comment on above: Performed By: #### A DIFF, PSA, TSHR, 692220, LIPID, [id number], GFR, FES, PHOS, CBC, 017474, A1C, 965346, FERR, PRO, 449185, MG, ANEU, 380831, CMP #### [address] [address] #### PRALB, B12, FOL #### [address] [address] Urea nitrogen [Mass/Vol] 18 mg/dL Normal 7-18 [facility] Comment on above: Performed By: #### A DIFF, PSA, TSHR, 034843, LIPID, [id number], GFR, FES, PHOS, CBC, 338777, A1C, 703228, FERR, PRO, 627152, MG, ANEU, 076064, CMP #### [address] [address] #### PRALB, B12, FOL #### [address] [address] Perez 06-12-2027 Ferritin [Mass/Vol] 53.0 ng/mL Normal 26.0-388.0 [facility] Comment on above: Performed By: #### A DIFF, PSA, TSHR, 147947, LIPID, [id number], GFR, FES, PHOS, CBC, 472988, A1C, 458251, FERR, PRO, 263782, MG, ANEU, 440730, CMP #### [address] [address] #### PRALB, B12, FOL #### [place] [address] FESon 06-12-2025 Iron [Mass/Vol] 88 ug/dL Normal 65-175 [facility] Comment on above: Performed By: #### A DIFF, PSA, TSHR, 284919, LIPID, [id number], GFR, FES, PHOS, CBC, 578927, A1C, 343517, FERR, PRO, 837703, MG, ANEU, 408804, CMP #### [address] [address] #### PRALB, B12, FOL #### [place] [address] Iron Sat 31 % Normal [facility] Comment on above: Performed By: #### A DIFF, PSA, TSHR, 671734, LIPID, [id number], GFR, FES, PHOS, CBC, 610855, A1C, 666160, FERR, PRO, 659866, MG, ANEU, 322041, CMP #### [address] [address] #### PRALB, B12, FOL #### [place] [address] TIBC 286 mcg/dL Normal 250-450 [facility] Comment on above: Performed By: #### A DIFF, PSA, TSHR, 903617, LIPID, [id number], GFR, FES, PHOS, CBC, 698268, A1C, 165342, FERR, PRO, 399784, MG, ANEU, 844134, CMP #### [address] [address] #### PRALB, B12, FOL #### [address] [address] FOLon 06-12-2025 Folate 9.79 ng/mL Normal 5.38-24.00 [facility] Comment on above: Performed By: #### A DIFF, PSA, TSHR, 437582, LIPID, [id number], GFR, FES, PHOS, CBC, 991786, A1C, 233619, FERR, PRO, 209851, MG, ANEU, 882812, CMP #### [address] [address] #### PRALB, B12, FOL #### [place] [id number] LABORATORYOrdered By: SYSTEM SYSTEM on 06-12-2025 Albumin [...] calculated value from Hemoglobin A1C and is insurance verification representative of the average blood glucose level [...] Comment on above: Interpretive Data: [employer] (CHEST, 1991, 102:312S-25S) [...] 06-12-2025 Cholesterol [Mass/Vol] 130 mg/dL Normal 0-200 [facility] Comment on above: Result Comment: Chol esterol Reference Interval: Less than 200 Desirable 200-239 Borderline high risk 240 and above High risk Performed By: #### A DIFF, PSA, TSHR, 332488, LIPID, [id number], GFR, FES, PHOS, CBC, 936563, A1C, 797476, FERR, PRO, 775576, MG, ANEU, 949305, CMP #### [address] [address] #### PRALMarichuy, B12, FOL #### [address] [address] Cholesterol in HDL [Mass/Vol] 50 mg/dL Normal 40-60 [facility] Comment on above: Performed By: #### A DIFF, PSA, TSHR, 549415, LIPID, [id number], GFR, FES, PHOS, CBC, 689830, A1C, 311700, FERR, PRO, 834740, MG, ANEU, 447107, CMP #### [address] [address] #### PRALB, B12, FOL #### [address] [address] Cholesterol in LDL [Mass/Vol] 65 mg/dL Normal 0-130 [facility] Comment on above: Performed By: #### A DIFF, PSA, TSHR, 067794, LIPID, [id number], GFR, FES, PHOS, CBC, 863300, A1C, 432440, FERR, PRO, 020136, MG, ANEU, 526594, CMP #### [address] [address] #### PRALB, B12, FOL #### [address] [address] Triglyceride [Mass/Vol] 77 mg/dL Normal 0-150 [facility] Comment on above: Result Comment: Trig lyceride Reference Interval: Less than 150 Normal 150-199 Borderline high risk 200-499 High risk 500 or higher Very high risk Performed By: #### A DIFF, PSA, TSHR, 005123, LIPID, [id number], GFR, FES, PHOS, CBC, 099223, A1C, 638595, FERR, PRO, 737921, MG, ANEU, 014482, CMP #### [place] [address] #### PRALB, B12, FOL #### [address] [address] MGon 06-12-2025 Magnesium [Mass/Vol] 2.2 mg/dL Normal 1.8-2.4 [facility] Comment on above: Performed By: #### A DIFF, PSA, TSHR, 224752, LIPID, [id number], GFR, FES, PHOS, CBC, 628849, A1C, 048922, FERR, PRO, 896851, MG, ANEU, 669312, CMP #### [place] [address] #### PRALB, B12, FOL #### [place] [address] PHOSon 06-12-2025 Phosphate [Mass/Vol] 3.6 mg/dL Normal 2.7-4.5 [facility] Comment on above: Performed By: #### A DIFF, PSA, TSHR, 603924, LIPID, [id number], GFR, FES, PHOS, CBC, 384578, A1C, 079734, FERR, PRO, 567732, MG, ANEU, 514703, CMP #### [place] [address] #### PRALB, B12, FOL #### [place] [address] PRALBon 06-12-2025 Prealbumin [Mass/Vol] 21.6 mg/dL Normal 10.0-40.0 [facility] Comment on above: Performed By: #### A DIFF, PSA, TSHR, 823623, LIPID, [id number], GFR, FES, PHOS, CBC, 622839, A1C, 412847, FERR, PRO, 940986, MG, ANEU, 709810, CMP #### [address] [address] #### GRACY B12, FOL #### [address] [address] PROon 06-12-2025 PT Coag (PPP) [Time] 15.0 s High 9.0-14.4 [facility] Comment on above: Performed By: #### A DIFF, PSA, TSHR, 464721, LIPID, [id number], GFR, FES, PHOS, CBC, 097311, A1C, 200544, FERR, PRO, 179750, MG, ANEU, 787545, CMP #### [address] [address] #### Meena DUBOSE, FOL #### [place] [address] PT International Ratio 1.3 Normal [facility] Comment on above: Result Comment: [employer] (CHEST, 1992, 102:312S-25S) recommended therapeutic range for oral anticoagulant therapy is: LOW RISK: Prophylaxis of venous thrombosis INR: 2.0-3.0 Treatment of pulmonary embolism 2.0-3.0 Prevention of systemic embolism 2.0-3.0 HIGH RISK: Mechanical prosthetic valves 2.5-3.5 Performed By: #### A DIFF, PSA, TSHR, 608224, LIPID, [id number], GFR, FES, PHOS, CBC, 137304, A1C, 757855, FERR, PRO, 270657, MG, ANEU, 995427, CMP #### [address] [address] #### PRALMarichuy B12, FOL #### [address] [address] PSAon 06-12-2025 Prostate Specific Antigen 0.12 ng/mL Normal 0.00-4.00 [facility] Comment on above: Performed By: #### A DIFF, PSA, TSHR, 694361, LIPID, [id number], GFR, FES, PHOS, CBC, 476851, A1C, 638956, FERR, PRO, 254889, MG, ANEU, 780013, CMP #### [address] [address] #### PRALB, B12, FOL #### [address] [address] TSHRon 06-12-2025 TSH Qn 2.39 m[IU]/L Normal 0.36-3.74 [facility] Comment on above: Performed By: #### A DIFF, PSA, TSHR, 636828, LIPID, [id number], GFR, FES, PHOS, CBC, 068060, A1C, 765602, FERR, PRO, 978536, MG, ANEU, 708888, CMP #### [address] [address] #### PRALB, B12, FOL #### [place] [address] Final Surgical Pathology Rep [facility] 02-26-2025 Final Surgical Pathology Report . Pathology Reports Accession: Collected Date/Time: Received Date/Time: Pathologist: [id number] 02/24/2025 09:09 EDT 02/25/2025 08:36 EDT SEN ACRDOZA MD Final Surgical Pathology Report DIAGNOSIS: A. TRANSVERSE COLON POLYP: - TUBULAR ADENOMA B. HEPATIC FLEXURE POLYP: - TUBULAR ADENOMA CLINICAL INFORMATION: Procedure: COLONOSCOPY WITH POLYPECTOMY Preoperative diagnosis: SCREENING, FAMILY HISTORY OF COLON CANCER Postoperative diagnosis: SCREENING, FAMILY HISTORY OF COLON CANCER SPECIMEN: A TRANSVERSE COLON POLYP B HEPATIC FLEXURE COLON POLYP GROSS DESCRIPTION: All parts labelled with patient name and [id number] A. Received in formalin labeled transverse colon [...] not survive processing. TS-1 Matilde Mcdaniel, Grossing Lining Sewer/ Dr. Harshil Hilario, Pathologist Performed by Matilde Mcdaniel MICROSCOPIC DESCRIPTION: The microscopic examination is performed, except in the case of Gross Only. Verified by Pathology Report verified by [facility] SEN CARDOZA Sign out Date: 02/26/2025 11:10 Performing Lab: [facility], [address] [place], [place] [id number] [facility] Pathology Dept Disclaimer If ancillary studies were utilized, the following Laboratory Developed Test (LDT) disclaimer will apply: Under CLIA requirements, [facility] Pathology Laboratory is qualified to perform high complexity testing. For all ancillary stains, positive and negative controls stain appropriately. Performance characteristics of immunohistochemical and chromogenic in-situ hybridization tests have been determined by [facility] Pathology Laboratory. These tests are used for clinical purposes, They should not be regarded as investigational or for research. Normal [facility] Office Visiton 10-01-2024 Follow-up visit [id number] Any Johnston 1970 Date Provider Department Center 10/01/2024 [facility] ONC None Family History Problem Relation Age [...] Maternal Grandfather Paternal Grandmother Brother Level of Service:53532 [place] OFFICE/OUTPATIENT ESTABLISHED LOW MDM 20 MIN Reason for Visit and Comments: Follow-up [293774] - Up coming dental work and would like to know blood thinner medication to continue or not. Getting tooth pulled. Normal [facility] Progress Noteon 10-01-2024 Progress Note Hematology/Oncology [...] thiazide 2 (more content not included)... Normal [facility] .Auto Diffon 02-20-2024 Basophil, Absolute 0.1 10 3/mcL Normal 0.0-0.2 [facility] ([place]) Comment on above: Performed By: #### G FR, LIPID, ADIFF, ANEU, FT4, FERR, PHOS, TSH, CBC, PSA, FES, VIDH, CMP #### [address] [address] #### B12, FOL #### [address] [address] Basophils/100 WBC (Bld) 0.9 % Normal 0.0-2.5 [facility] ([place]) Comment on above: Performed By: #### G FR, LIPID, ADIFF, ANEU, FT4, FERR, PHOS, TSH, CBC, PSA, FES, VIDH, CMP #### [address] [address] #### B12, FOL #### [address] [address] Eosinophil, Absolute 0.1 10 3/mcL Normal 0.0-0.4 [facility] ([place]) Comment on above: Performed By: #### G FR, LIPID, ADIFF, ANEU, FT4, FERR, PHOS, TSH, CBC, PSA, FES, VIDH, CMP #### [address] [address] #### B12, FOL #### [address] [address] Eosinophils/100 WBC (Bld) 1.0 % Normal 0.0-7.0 [facility] ([place]) Comment on above: Performed By: #### G FR, LIPID, ADIFF, ANEU, FT4, FERR, PHOS, TSH, CBC, PSA, FES, VIDH, CMP #### [address] [address] #### B12, FOL #### [address] [address] Lymphocyte, Absolute 1.6 10 3/mcL Normal 0.8-3.9 [facility] ([place]) Comment on above: Performed By: #### G FR, LIPID, ADIFF, ANEU, FT4, FERR, PHOS, TSH, CBC, PSA, FES, VIDH, CMP #### [address] [address] #### B12, FOL #### [address] [address] Lymphocytes/100 WBC (Bld) 24.4 % Normal 10.0-50.0 [facility] ([place]) Comment on above: Performed By: #### G FR, LIPID, ADIFF, ANEU, FT4, FERR, PHOS, TSH, CBC, PSA, FES, VIDH, CMP #### [place] [address] #### B12, FOL #### [address] [address] Monocyte, Absolute 0.6 10 3/mcL Normal 0.2-1.0 [facility] ([place]) Comment on above: Performed By: #### G FR, LIPID, ADIFF, ANEU, FT4, FERR, PHOS, TSH, CBC, PSA, FES, VIDH, CMP #### [place] [address] #### B12, FOL #### [address] [address] Monocytes/100 WBC (Bld) 9.4 % Normal 1.7-13.0 [facility] ([place]) Comment on above: Performed By: #### G FR, LIPID, ADIFF, ANEU, FT4, FERR, PHOS, TSH, CBC, PSA, FES, VIDH, CMP #### [place] [address] #### B12, FOL #### [address] [address] Neutrophils/100 WBC (Bld) 64.3 % Normal 37.0-80.0 [facility] ([place]) Comment on above: Performed By: #### G FR, LIPID, ADIFF, ANEU, FT4, FERR, PHOS, TSH, CBC, PSA, FES, VIDH, CMP #### [place] [address] #### B12, FOL #### [address] [address] .GFRon 02-20-2024 GFR 108 ml/min/1.73sqm Normal [facility] ([place]) Comment on above: Result Comment: GFR Population [...] TSH, CBC, PSA, FES, VIDH, CMP #### [address] [address] #### B12, FOL #### [place] [address] GFR Non- 89 ml/min/1.73sqm Normal [facility] ([place]) Comment on above: Result Comment: GFR Population [...] TSH, CBC, PSA, FES, VIDH, CMP #### [address] [address] #### B12, FOL #### [address] [address] .NEUABSon 02-20-2024 Neutrophil, Absolute 4.2 10 3/mcL Normal 2.9-6.2 [facility] ([place]) Comment on above: Performed By: #### G FR, LIPID, ADIFF, ANEU, FT4, FERR, PHOS, TSH, CBC, PSA, FES, VIDH, CMP #### [address] [address] #### B12, FOL #### [address] [address] B12on 02-20-2024 Cobalamin (Vitamin B12) [Mass/Vol] 511 pg/mL Normal 211-911 [facility] ([place]) Comment on above: Performed By: #### G FR, LIPID, ADIFF, ANEU, FT4, FERR, PHOS, TSH, CBC, PSA, FES, VIDH, CMP #### [address] [address] #### B12, FOL #### [address] [address] CBCon 02-20-2024 Erythrocyte distribution width (RBC) [Ratio] 14.4 % Normal 11.5-14.5 [facility] ([place]) Comment on above: Performed By: #### G FR, LIPID, ADIFF, ANEU, FT4, FERR, PHOS, TSH, CBC, PSA, FES, VIDH, CMP #### [address] [address] #### B12, FOL #### [address] [address] Hematocrit (Bld) [Volume fraction] 43.5 % Normal 42.0-52.0 [facility] ([place]) Comment on above: Performed By: #### G FR, LIPID, ADIFF, ANEU, FT4, FERR, PHOS, TSH, CBC, PSA, FES, VIDH, CMP #### [address] [address] #### B12, FOL #### [place] [address] Hgb 14.8 G/dL Normal 14.0-18.0 [facility] ([place]) Comment on above: Performed By: #### G FR, LIPID, ADIFF, ANEU, FT4, FERR, PHOS, TSH, CBC, PSA, FES, VIDH, CMP #### [place] [address] #### B12, FOL #### [place] [address] MCH (RBC) [Entitic mass] 29.5 pg Normal 27.0-31.2 [facility] ([place]) Comment on above: Performed By: #### G FR, LIPID, ADIFF, ANEU, FT4, FERR, PHOS, TSH, CBC, PSA, FES, VIDH, CMP #### [place] [address] #### B12, FOL #### [place] [address] MCHC 34.1 G/dL Normal 31.8-35.4 [facility] ([place]) Comment on above: Performed By: #### G FR, LIPID, ADIFF, ANEU, FT4, FERR, PHOS, TSH, CBC, PSA, FES, VIDH, CMP #### [place] [address] #### B12, FOL #### [place] [address] MCV (RBC) [Entitic vol] 86.7 fL Normal 80.0-94.0 [facility] ([place]) Comment on above: Performed By: #### G FR, LIPID, ADIFF, ANEU, FT4, FERR, PHOS, TSH, CBC, PSA, FES, VIDH, CMP #### [place] [address] #### B12, FOL #### [place] [address] Platelet 317 10 3/mcL Normal 130-400 [facility] ([place]) Comment on above: Performed By: #### G FR, LIPID, ADIFF, ANEU, FT4, FERR, PHOS, TSH, CBC, PSA, FES, VIDH, CMP #### [place] [address] #### B12, FOL #### [place] [address] Platelet mean volume (Bld) [Entitic vol] 7.4 fL Normal 7.4-10.4 [facility] ([place]) Comment on above: Performed By: #### G FR, LIPID, ADIFF, ANEU, FT4, FERR, PHOS, TSH, CBC, PSA, FES, VIDH, CMP #### [place] [address] #### B12, FOL #### [place] [address] RBC 5.02 10 6/mcL Normal 4.04-6.13 [facility] ([place]) Comment on above: Performed By: #### G FR, LIPID, ADIFF, ANEU, FT4, FERR, PHOS, TSH, CBC, PSA, FES, VIDH, CMP #### [place] [address] #### B12, FOL #### [place] [address] WBC 6.6 10 3/mcL Normal 4.6-10.8 [facility] ([place]) Comment on above: Performed By: #### G FR, LIPID, ADIFF, ANEU, FT4, FERR, PHOS, TSH, CBC, PSA, FES, VIDH, CMP #### [place] [address] #### B12, FOL #### [place] [address] CMPon 02-20-2024 Albumin Level 3.5 G/dL Normal 3.5-5.0 [facility] ([place]) Comment on above: Performed By: #### G FR, LIPID, ADIFF, ANEU, FT4, FERR, PHOS, TSH, CBC, PSA, FES, VIDH, CMP #### [place] [address] #### B12, FOL #### [address] [address] Albumin/Globulin [Mass ratio] 0.9 {ratio} Low 1.1-2.5 [facility] ([place]) Comment on above: Performed By: #### G FR, LIPID, ADIFF, ANEU, FT4, FERR, PHOS, TSH, CBC, PSA, FES, VIDH, CMP #### [place] [address] #### B12, FOL #### [address] [address] ALP [Catalytic activity/Vol] 84 U/L Normal 40-135 [facility] ([place]) Comment on above: Performed By: #### G FR, LIPID, ADIFF, ANEU, FT4, FERR, PHOS, TSH, CBC, PSA, FES, VIDH, CMP #### [place] [address] #### B12, FOL #### [address] [address] ALT [Catalytic activity/Vol] 32 U/L Normal 16-63 [facility] ([place]) Comment on above: Performed By: #### G FR, LIPID, ADIFF, ANEU, FT4, FERR, PHOS, TSH, CBC, PSA, FES, VIDH, CMP #### [place] [address] #### B12, FOL #### [place] [id number] AST [Catalytic activity/Vol] 20 U/L Normal 10-40 [facility] ([place]) Comment on above: Performed By: #### G FR, LIPID, ADIFF, ANEU, FT4, FERR, PHOS, TSH, CBC, PSA, FES, VIDH, CMP #### [place] [address] #### B12, FOL #### [place] [id number] Bili Total 0.8 mg/dL Normal 0.2-1.0 [facility] ([place]) Comment on above: Result Comment: Use of this assay is not recommended for patients undergoing treatment with eltrombopag due to the potential for falsely elevated results. Performed By: #### G FR, LIPID, ADIFF, ANEU, FT4, FERR, PHOS, TSH, CBC, PSA, FES, VIDH, CMP #### [place] [address] #### B12, FOL #### [address] [address] BUN/Creatinine Ratio 21 ratio Normal 7-27 [facility] ([place]) Comment on above: Performed By: #### G FR, LIPID, ADIFF, ANEU, FT4, FERR, PHOS, TSH, CBC, PSA, FES, VIDH, CMP #### [place] [address] #### B12, FOL #### [address] [address] Calcium [Mass/Vol] 8.9 mg/dL Normal 8.4-10.2 [facility] ([place]) Comment on above: Performed By: #### G FR, LIPID, ADIFF, ANEU, FT4, FERR, PHOS, TSH, CBC, PSA, FES, VIDH, CMP #### [address] [address] #### B12, FOL #### [address] [address] Chloride [Moles/Vol] 100 mmol/L Normal 98-107 [facility] ([place]) Comment on above: Performed By: #### G FR, LIPID, ADIFF, ANEU, FT4, FERR, PHOS, TSH, CBC, PSA, FES, VIDH, CMP #### [place] [address] #### B12, FOL #### [address] [address] CO2 [Moles/Vol] 32 mmol/L High 22-29 [facility] ([place]) Comment on above: Performed By: #### G FR, LIPID, ADIFF, ANEU, FT4, FERR, PHOS, TSH, CBC, PSA, FES, VIDH, CMP #### [address] [address] #### B12, FOL #### [address] [address] Creatinine [Mass/Vol] 0.89 mg/dL Normal 0.70-1.30 [facility] ([place]) Comment on above: Performed By: #### G FR, LIPID, ADIFF, ANEU, FT4, FERR, PHOS, TSH, CBC, PSA, FES, VIDH, CMP #### [place] [address] #### B12, FOL #### [place] [address] Electrolyte Balance 7.0 mEq/L Normal 4.0-15.0 [facility] ([place]) Comment on above: Performed By: #### G FR, LIPID, ADIFF, ANEU, FT4, FERR, PHOS, TSH, CBC, PSA, FES, VIDH, CMP #### [place] [address] #### B12, FOL #### [place] [address] Globulin 3.9 G/dL Normal [facility] ([place]) Comment on above: Performed By: #### G FR, LIPID, ADIFF, ANEU, FT4, FERR, PHOS, TSH, CBC, PSA, FES, VIDH, CMP #### [address] [address] #### B12, FOL #### [address] [address] Glucose [Mass/Vol] 110 mg/dL High 70-105 [facility] ([place]) Comment on above: Performed By: #### G FR, LIPID, ADIFF, ANEU, FT4, FERR, PHOS, TSH, CBC, PSA, FES, VIDH, CMP #### [place] [address] #### B12, FOL #### [address] [address] Potassium [Moles/Vol] 4.5 mmol/L Normal 3.5-5.1 [facility] ([place]) Comment on above: Performed By: #### G FR, LIPID, ADIFF, ANEU, FT4, FERR, PHOS, TSH, CBC, PSA, FES, VIDH, CMP #### [address] [address] #### B12, FOL #### [address] [address] Sodium [Moles/Vol] 139 mmol/L Normal 136-145 [facility] ([place]) Comment on above: Performed By: #### G FR, LIPID, ADIFF, ANEU, FT4, FERR, PHOS, TSH, CBC, PSA, FES, VIDH, CMP #### [place] [address] #### B12, FOL #### [address] [address] Total Protein 7.4 G/dL Normal 6.4-8.2 [facility] ([place]) Comment on above: Performed By: #### G FR, LIPID, ADIFF, ANEU, FT4, FERR, PHOS, TSH, CBC, PSA, FES, VIDH, CMP #### [address] [address] #### B12, FOL #### [address] [address] Urea nitrogen [Mass/Vol] 19 mg/dL High 7-18 [facility] ([place]) Comment on above: Performed By: #### G FR, LIPID, ADIFF, ANEU, FT4, FERR, PHOS, TSH, CBC, PSA, FES, VIDH, CMP #### [place] [address] #### B12, FOL #### [address] [address] Perez 02-20-2024 Ferritin [Mass/Vol] 49.0 ng/mL Normal 26.0-388.0 [facility] ([place]) Comment on above: Performed By: #### G FR, LIPID, ADIFF, ANEU, FT4, FERR, PHOS, TSH, CBC, PSA, FES, VIDH, CMP #### [address] [address] #### B12, FOL #### [address] 02-20-2024 Iron [Mass/Vol] 114 ug/dL Normal 65-175 [facility] ([place]) Comment on above: Performed By: #### G FR, LIPID, ADIFF, ANEU, FT4, FERR, PHOS, TSH, CBC, PSA, FES, VIDH, CMP #### [address] [address] #### B12, FOL #### [place] [address] Iron Sat 37 % Normal [facility] ([place]) Comment on above: Performed By: #### G FR, LIPID, ADIFF, ANEU, FT4, FERR, PHOS, TSH, CBC, PSA, FES, VIDH, CMP #### [place] [address] #### B12, FOL #### [place] [address] TIBC 307 mcg/dL Normal 250-450 [facility] ([place]) Comment on above: Performed By: #### G FR, LIPID, ADIFF, ANEU, FT4, FERR, PHOS, TSH, CBC, PSA, FES, VIDH, CMP #### [address] [address] #### B12, FOL #### [place] [address] FOLon 02-20-2024 Folate 12.01 ng/mL Normal 5.38-24.00 [facility] ([place]) Comment on above: Performed By: #### G FR, LIPID, ADIFF, ANEU, FT4, FERR, PHOS, TSH, CBC, PSA, FES, VIDH, CMP #### [address] [address] #### B12, FOL #### [address] [address] FT4on 02-20-2024 Free T4 [Mass/Vol] 0.89 ng/dL Normal 0.76-1.46 [facility] ([place]) Comment on above: Performed By: #### G FR, LIPID, ADIFF, ANEU, FT4, FERR, PHOS, TSH, CBC, PSA, FES, VIDH, CMP #### [address] [address] #### B12, FOL #### [address] [address] LIPIDon 02-20-2024 Cholesterol [Mass/Vol] 128 mg/dL Normal 0-200 [facility] ([place]) Comment on above: Result Comment: Chol esterol Reference Interval: Less than 200 Desirable 200-239 Borderline high risk 240 and above High risk Performed By: #### G FR, LIPID, ADIFF, ANEU, FT4, FERR, PHOS, TSH, CBC, PSA, FES, VIDH, CMP #### [address] [address] #### B12, FOL #### [address] [address] Cholesterol in HDL [Mass/Vol] 51 mg/dL Normal 40-60 [facility] ([place]) Comment on above: Performed By: #### G FR, LIPID, ADIFF, ANEU, FT4, FERR, PHOS, TSH, CBC, PSA, FES, VIDH, CMP #### [address] [address] #### B12, FOL #### [address] [address] Cholesterol in LDL [Mass/Vol] 63 mg/dL Normal 0-130 [facility] ([place]) Comment on above: Performed By: #### G FR, LIPID, ADIFF, ANEU, FT4, FERR, PHOS, TSH, CBC, PSA, FES, VIDH, CMP #### [address] [address] #### B12, FOL #### [address] [address] Triglyceride [Mass/Vol] 69 mg/dL Normal 0-150 [facility] ([place]) Comment on above: Result Comment: Trig lyceride Reference Interval: Less than 150 Normal 150-199 Borderline high risk 200-499 High risk 500 or higher Very high risk Performed By: #### G FR, LIPID, ADIFF, ANEU, FT4, FERR, PHOS, TSH, CBC, PSA, FES, VIDH, CMP #### [address] [address] #### B12, FOL #### [address] [address] MALBRon 02-20-2024 U Creatinine 177.9 mg/dL Normal 39.0-259.0 [facility] ([place]) Comment on above: Performed By: #### G FR, LIPID, ADIFF, ANEU, FT4, FERR, PHOS, TSH, CBC, PSA, FES, VIDH, CMP #### [address] [address] #### B12, FOL #### [address] [address] U Microalb 1126 mcg/dL Normal [facility] ([place]) Comment on above: Performed By: #### G FR, LIPID, ADIFF, ANEU, FT4, FERR, PHOS, TSH, CBC, PSA, FES, VIDH, CMP #### [address] [address] #### B12, FOL #### [address] [address] U Ratio Alb/Cre 6 mcg/mg Normal 0-30 [facility] ([place]) Comment on above: Performed By: #### G FR, LIPID, ADIFF, ANEU, FT4, FERR, PHOS, TSH, CBC, PSA, FES, VIDH, CMP #### [place] [address] #### B12, FOL #### [address] [address] PHOSon 02-20-2024 Phosphate [Mass/Vol] 4.0 mg/dL Normal 2.7-4.5 [facility] ([place]) Comment on above: Performed By: #### G FR, LIPID, ADIFF, ANEU, FT4, FERR, PHOS, TSH, CBC, PSA, FES, VIDH, CMP #### [address] [address] #### B12, FOL #### [address] [address] PSAon 02-20-2024 Prostate Specific Antigen 0.26 ng/mL Normal 0.00-4.00 [facility] ([place]) Comment on above: Performed By: #### G FR, LIPID, ADIFF, ANEU, FT4, FERR, PHOS, TSH, CBC, PSA, FES, VIDH, CMP #### [address] [address] #### B12, FOL #### [address] [address] TSHon 02-20-2024 TSH Qn 2.84 m[IU]/L Normal 0.36-3.74 [facility] ([place]) Comment on above: Performed By: #### G FR, LIPID, ADIFF, ANEU, FT4, FERR, PHOS, TSH, CBC, PSA, FES, VIDH, CMP #### [address] [address] #### B12, FOL #### [address] [address] VIDHon 02-20-2024 Vit. D 25-Hydroxy 45.2 ng/mL Normal [facility] ([place]) Comment on above: Result Comment: Inte rpretive Values Based on Total 25(OH) Vitamin D: Deficient <20 ng/mL Insufficient 20 - <30 ng/mL Sufficient 30-100 ng/mL Performed By: #### G FR, LIPID, ADIFF, ANEU, FT4, FERR, PHOS, TSH, CBC, PSA, FES, VIDH, CMP #### [place] [place] [address] [place], [place] [address] #### B12, FOL #### [address] [address] MR/BMSRicoYESENIAEj 03-29-2023 MR/BMS.NILDA [facility] Vascular Surgery [address] [place] [address] OFFICE VISIT Date of Service: 03/29/23 MR#: [id number] Acct: [id number] Name: ARIAS JOHNSTON Rep #: [id number] : 1970 Provider: Dr. Ethan Reese MD Age/Sex: 52/M Location: [facility] Status: Signed Intake Vital Signs 12/31/22 10:41 [...] mg PO BID 03/29/23 [History Confirmed 03/29/23] [facility] Medical History Deep vein thrombosis (DVT) [...] respiratory eff (more content not included)... Normal [facility] Venous Duplex US, Unilateral on 03-22-2023 Venous Duplex US, Unilateral [facility] Cardiovascular Services [address] 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, [address] CA,Total 9.3 mg/dL Normal 8.5-10.1 [facility] Comment on above: Performed By: #### L 500.2500, L100.0500 #### [facility] Laboratory [address] [place], [address] Chloride [Moles/Vol] 100 mmol/L Normal 98-107 [facility] Comment on above: Performed By: #### L 500.2500, L100.0500 #### [facility] Laboratory [address] [place], [address] CO2 [Moles/Vol] 32.0 mmol/L Normal 21.0-32.0 [facility] Comment on above: Performed By: #### L 500.2500, L100.0500 #### [facility] Laboratory [address] [place], [address] Creatinine [Mass/Vol] 0.98 mg/dL Normal 0.70-1.30 [facility] Comment on above: Result Comment: The validity of the calculated GFR GFRAA in patients over 70 years has not been determined. Clinical correlation is essential. Performed By: #### L 500.2500, L100.0500 #### [facility] Laboratory [address] [place], [address] ECRCL 97.38 ml/min Normal [facility] Comment on above: Performed By: #### L 500.2500, L100.0500 #### [facility] [address] [place], [address] EST GFR - AA 102 mL/min Normal >60 [facility] Comment on above: Result Comment: Afri can Martiniquais GFR Calc Performed By: #### L 500.2500, L100.0500 #### [facility] Laboratory [address] [place], [address] GAP 5 Normal 5-15 [facility] Comment on above: Performed By: #### L 500.2500, L100.0500 #### [facility] [address] [place], [address] GFR/1.73 sq M.predicted among non-blacks MDRD (S/P/Bld) [Vol rate/Area] 84 mL/min/{1.73_m2} Normal >60 [facility] Comment on above: Result Comment: Non- GFR Calc Performed By: #### L 500.2500, L100.0500 #### [facility] Laboratory [address] [place], [address] Glucose [Mass/Vol] 116 mg/dL High 74-106 [facility] Comment on above: Result Comment: Fast ing Glucose result from 100 to 125 mg/dL suggests IMPAIRED HOMEOSTASIS per A.D.A. criteria. Performed By: #### L 500.2500, L100.0500 #### [facility] [address] [place], [address] Potassium [Moles/Vol] 4.1 mmol/L Normal 3.5-5.1 [facility] Comment on above: Performed By: #### L 500.2500, L100.0500 #### [facility] [address] [place], [address] Sodium [Moles/Vol] 137 mmol/L Normal 136-145 [facility] Comment on above: Performed By: #### L 500.2500, L100.0500 #### [facility] [address] [place], [address] Urea nitrogen [Mass/Vol] 18 mg/dL Normal 7-18 [facility] Comment on above: Performed By: #### L 500.2500, L100.0500 #### [facility] [address] [place], [address] Basophil percentageOrdered B y: Ethan Reese on 03-09-2023 Chloride [Moles/Vol] 100 mmol/L 98-107 [facility] Glucose [Mass/Vol] 116 mg/dL 74-106 [facility] Comment on above: Fasting Glucose resu lt from 100 to 125 mg/dL suggests IMPAIRED HOMEOSTASIS per A.D.A. criteria. Potassium [Moles/Vol] 4.1 mmol/L 3.5-5.1 [facility] Sodium [Moles/Vol] 137 mmol/L 136-145 [facility] WBC (Bld) [#/Vol] 7.1 10*3/uL 4.4-11.0 [facility] Blood erythrocytes count (nu mber/volume)Ordered By: Ethan Reese on 03-09-2023 RBC (Bld) [#/Vol] 5.30 10*6/uL 4.6-6.2 [facility] Blood hemoglobin measurement (mass/volume)Ordered By: Ethan Reese on 03-09-2023 Hemoglobin (Bld) [Mass/Vol] 15.2 g/dL 13.0-16.5 [facility] Blood platelet mean volumeOr dered By: Ethan Reese on 03-09-2023 Platelet mean volume (Bld) [Entitic vol] 8.5 fL 6.2-12.0 [facility] CBC-Complete Blood Cnt No Di ffon 03-09-2023 Erythrocyte distribution width (RBC) [Ratio] 13.4 % Normal 11.6-14.6 [facility] Comment on above: Performed By: #### L 500.2500, L100.0500 #### [facility] Laboratory [address] [place], [address] Hematocrit (Bld) [Volume fraction] 46.3 % Normal 40-54 [facility] Comment on above: Performed By: #### L 500.2500, L100.0500 #### [facility] Laboratory [address] [place], [address] Hemoglobin (Bld) [Mass/Vol] 15.2 g/dL Normal 13.0-16.5 [facility] Comment on above: Performed By: #### L 500.2500, L100.0500 #### [facility] [address] [place], [address] MCH (RBC) [Entitic mass] 28.7 pg Normal 27.0-32.0 [facility] Comment on above: Performed By: #### L 500.2500, L100.0500 #### [facility] [address] [place], [address] MCHC (RBC) [Mass/Vol] 32.8 g/dL Normal 32-36 [facility] Comment on above: Performed By: #### L 500.2500, L100.0500 #### [facility] [address] [place], [address] MCV (RBC) [Entitic vol] 87.4 fL Normal 80-94 [facility] Comment on above: Performed By: #### L 500.2500, L100.0500 #### [facility] Laboratory [address] [place], [address] Platelet mean volume (Bld) [Entitic vol] 8.5 fL Normal 6.2-12.0 [facility] Comment on above: Performed By: #### L 500.2500, L100.0500 #### [facility] Laboratory [address] [place], [address] Platelets (Bld) [#/Vol] 321 10*3/uL Normal 150-450 [facility] Comment on above: Performed By: #### L 500.2500, L100.0500 #### [facility] Laboratory [address] [place], [address] RBC (Bld) [#/Vol] 5.30 10*6/uL Normal 4.6-6.2 [facility] Comment on above: Performed By: #### L 500.2500, L100.0500 #### [facility] [address] [place], [address] RDW SD 43.0 fl Normal 35.1-43.9 [facility] Comment on above: Performed By: #### L 500.2500, L100.0500 #### [facility] [address] [place], [address] WBC (Bld) [#/Vol] 7.1 10*3/uL Normal 4.4-11.0 [facility] Comment on above: Performed By: #### L 500.2500, L100.0500 #### [facility] [address] [place], [address] Determination of erythrocyte mean corpuscular volume (MCV)Ordered By: Ethan Reese on 03-09-2023 MCV (RBC) [Entitic vol] 87.4 fL 80-94 [facility] Hematocrit Auto (Bld) [Volum e fraction]Ordered By: Ethan Reese on 03-09-2023 Hematocrit (Bld) [Volume fraction] 46.3 % 40-54 [facility] Laboratory - Chemistry and C hemistry - challengeOrdered By: Ethan Reese on 03-09-2023 CO2 [Moles/Vol] 32.0 mmol/L 21.0-32.0 [facility] Urea nitrogen/Creatinine [Mass ratio] 18.3 mg/mg 10-20 [facility] Laboratory - Hematology and Cell countsOrdered By: Ethan Reese on 03-09-2023 Erythrocyte distribution width (RBC) [Entitic vol] 43.0 fL 35.1-43.9 [facility] Erythrocyte distribution width (RBC) [Ratio] 13.4 % 11.6-14.6 [facility] MCH (RBC) [Entitic mass] 28.7 pg 27.0-32.0 [facility] MCHC Auto (RBC) [Mass/Vol]Or dered By: Ethan Reese on 03-09-2023 MCHC (RBC) [Mass/Vol] 32.8 g/dL 32-36 [facility] No Panel InformationOrdered By: Ethan Reese on 03-09-2023 Estimated Creatinine Clearance Calc 97.38 ml/min [facility] Estimated GFR (MDRD) Amer 102 mL/min >60 [facility] Comment on above: GFR Calc Estimated GFR (MDRD) Non-Af Amer 84 mL/min >60 [facility] Comment on above: Non- GFR Calc Operative Reporton 3 Operative Report [facility] Medical Records Department [address] [place] [address] Operative Report 03/09/23 0939 MR#: [id number] Acct: [id number] Name: ARIAS JOHNSTON Rep #: [id number] : 1970 52 From: Ethan Reese MD PCP: Dr. Atul Higgins, DO Status:REG [facility] Location: [facility] Report of Operation Date of Procedure: [...] patient procedure site patient taken to the [employer] where he was positioned prepped and draped in usual sterile fashion. Timeout was performed and conscious sedation administered with Versed. Ultrasound used to evaluate the saphenous vein along the length of this course and a satisfactory access point was identified in the mid calf just above the a confluence of multiple varicosities and a lubricating engineer. Skin was anesthetized with 1% lidocaine and the vessel accessed in retrograde fashion with a micropuncture needle and wire under ultrasound guidance. This was then exchanged out for the 7 Ivorian ablation sheath. Through this the glue delivery guide was advanced to the saphenofemoral junction. Delivery catheter was then advanced via the guide and positioned appropriately inferior to the saphenofemoral junction. Manual pressure was held with the ultrasound probe over the saphenofemoral junction as the initial aliquots of glue were infused. Manual pressure was then held for 3 minutes per rivet heater instructions. Next the glue was infused sequentially [...] MD; Dr. Atul Higgins DO Signed Normal [facility] Platelets bldOrdered By: Kassi Reese on 03-09-2023 Platelets (Bld) [#/Vol] 321 10*3/uL 150-450 [facility] Serum or plasma calcium jaime urement (mass/volume)Ordered By: Ethan Reese on 03-09-2023 Calcium [Mass/Vol] 9.3 mg/dL 8.5-10.1 [facility] Serum or plasma creatinine m easurement (mass/volume)Ordered By: Ethan Reese on 03-09-2023 Creatinine [Mass/Vol] 0.98 mg/dL 0.70-1.30 [facility] Comment on above: The validity of the calculated GFR & GFRAA in patients over 70 years has not been determined. Clinical correlation is essential. Serum or plasma urea nitroge n measurement (mass/volume)Ordered By: Ethan Reese on 03-09-2023 Urea nitrogen [Mass/Vol] 18 mg/dL 7-18 [facility] Thin prep Papanicolaou smear with manual screeningOrdered By: Ethan Reese on 03-09-2023 Thin prep Papanicolaou smear with manual screening 5 5-15 [facility] CBC W Auto Differential pane l (Bld)on 01-20-2023 Basophils (Bld) [#/Vol] 43 10*3/uL [facility] Basophils/100 WBC (Bld) 0.6 % [facility] Eosinophils (Bld) [#/Vol] 50 10*3/uL [facility] Eosinophils/100 WBC (Bld) 0.7 % [facility] Erythrocyte distribution width (RBC) [Ratio] 12.9 % 11.0 - 15.0 % [facility] [employer] Hematocrit (Bld) [Volume fraction] 45.3 % 38.5 - 50.0 % [facility] Hemoglobin (Bld) [Mass/Vol] 15.2 g/dL 13.2 - 17.1 g/dL [facility] Lymphocytes (Bld) [#/Vol] 1562 10*3/uL [facility] Lymphocytes/100 WBC (Bld) 22.0 % [facility] MCH (RBC) [Entitic mass] 28.6 pg 27.0 - 33.0 pg [facility] MCHC (RBC) [Mass/Vol] 33.6 g/dL 32.0 - 36.0 g/dL [facility] MCV (RBC) [Entitic vol] 85.2 fL 80.0 - 100.0 fL [facility] Monocytes (Bld) [#/Vol] 710 10*3/uL [facility] Monocytes/100 WBC (Bld) 10.0 % [facility] Neutrophils (Bld) [#/Vol] 4736 10*3/uL [facility] Neutrophils/100 WBC (Bld) 66.7 % [facility] Platelet mean volume (Bld) [Entitic vol] 9.1 fL 7.5 - 12.5 fL [facility] Platelets (Bld) [#/Vol] 368 10*3/uL [facility] RBC (Bld) [#/Vol] 5.32 10*6/uL [facility] WBC (Bld) [#/Vol] 7.1 10*3/uL [facility] Comprehensive metabolic 1998 panelon 01-20-2023 Albumin [Mass/Vol] 4.2 g/dL 3.6 - 5.1 g/dL [facility] ALP [Catalytic activity/Vol] 77 U/L 35 - 144 U/L [facility] ALT [Catalytic activity/Vol] 16 U/L 9 - 46 U/L [facility] Anion gap [Moles/Vol] 8 mmol/L [facility] AST [Catalytic activity/Vol] 18 U/L 10 - 35 U/L [facility] Bilirubin [Mass/Vol] 0.7 mg/dL 0.2 - 1 .2 mg/dL [facility] Calcium [Mass/Vol] 9.2 mg/dL 8.6 - 10. 3 mg/dL [facility] Chloride [Moles/Vol] 99 mmol/L 98 - 11 0 mmol/L [facility] CO2 [Moles/Vol] 31 mmol/L 20 - 32 mmol/L [facility] Creatinine [Mass/Vol] 0.88 mg/dL 0.70 - 1.30 mg/dL [facility] GFR/1.73 sq M.predicted among non-blacks MDRD (S/P/Bld) [Vol rate/Area] 102 mL/min/{1.73_m2} > OR = 60 mL/min/1.73m 2 [facility] Comment on above: The eGFR is based on the CKD-EPI 2020 equation. To calculate the new eGFR from a previous Creatinine or Cystatin C result, go to https://www.kidney.org/professionals/ kdoqi/gfr%5Fcalculator Glucose [Mass/Vol] 112 mg/dL High 65 - 99 mg/dL [facility] [employer] Comment on above: Fasting reference interval For someone without known diabetes, a glucose value between 100 and 125 mg/dL is consistent with prediabetes and should be confirmed with a follow-up test. Interpretation and review of laboratory results Abnormal [facility] Potassium [Moles/Vol] 4.3 mmol/L 3.5 - 5.3 mmol/L [facility] Protein [Mass/Vol] 7.4 g/dL 6.1 - 8.1 g/dL [facility] Sodium [Moles/Vol] 138 mmol/L 135 - 146 mmol/L [facility] Urea nitrogen [Mass/Vol] 20 mg/dL 7 - 25 mg/dL [facility] No Panel Informationon 01-20 [facility] MR/BMS.BVEj 01-19-2023 MR/BMS.BVS [facility] Vascular Surgery [address] [place] [address] OFFICE VISIT Date of Service: 01/19/23 MR#: [id number] Acct: [id number] Name: ARIAS JOHNSTON Daniel Rep #: [id number] : 1970 Provider: KATRINA decker Age/Sex: 52/M Location: [facility] Status: Signed Intake Vital Signs 01/19/23 14:07 Weight: 393 lb BP 126/78 H Blood Pressure Location Lt brachial Position Sitting Respiration 16 Pulse 90 Pulse Source Monitor Pulse Oximetry (%) 95 Oxygen Delivery Method room air Intake Visit Reasons: DVT FU Chief Complaint: testing results Is patient in pain?: No Allergies No Known Allergies Allergy (Verified 01/19/23 14:09) [facility] Medical History Deep vein thrombosis (DVT) [...] carotid b (more content not included)... Normal [facility] Venous Duplex US - Kenny [facility] 01-12-2023 Venous Duplex US - Kenny [facility] Cardiovascular Services [address] [place] [address] Venous Duplex US - Kenny [facility] 01/12/23 1055 MR#: [id number] Acct: [id number] Name: ARIAS JOHNSTON Rep #: [id number] : 1970 52 From: Ethan Reese MD [...] seconds GSV INCOMPETENT throughout for greater than Hydrochloric Acid Operator Vein INCOMPETENT for greater than 0.5 seconds 0.5 seconds at mid/distal calf approximately Hydrochloric Acid Operator Vein INCOMPETENT for greater than 16cm above [...] great saphenous vein, accessory saphenous vein, calf lubricating engineer veins. Positive for reflux in the left saphenofemoral junction, great saphenous vein, accessory saphenous vein, calf lubricating engineer veins. Ordering Physician: Es Forte Referring Physician: Atul Higgins Performed By: Charlie Baires RVT 01/12/23 1438 Date Ethan Reese MD CC: KATRINA Forte; Dr. Atul Higgins, Date Dictated: 01/12/23 1055 Date Transcribed: 01/12/23 1438 Kiln Door Repairer: Jayce [facility] MR/BMSAria 01-05-2023 MR/JAZZMINE [facility] Vascular Surgery [address] [place] [address]. [address] [place] [address] OFFICE VISIT Date of Service: 01/05/23 MR#: [id number] Acct: [id number] Name: ARIAS JOHNSTON Rep #: [id number] : 1970 Provider: KATRINA decker Age/Sex: 52/M Location: [facility] Status: Signed Intake Vital Signs 12/28/22 07:52 [...] mg subcut QWEEK 01/05/23 [History Confirmed 01/05/23] [facility] Medical History (Updated 01/05/23 @ 09:19 by [...] veins. Patient has been evaluated at the [facility] ER 4 times over the last [...] VTE. He had bilateral PEs back in 2459-2369 and was ultimately diagnosed with anticardiolipin syndrome. [...] of meet (more content not included)... Normal [facility] Emergency Department Summary on 12-31-2022 Emergency Department Summary [facility] Medical Records Department [address] [place] [address] Emergency Department Summary 12/31/22 MR#: [id number] Acct: [id number] Name: ARIAS JOHNSTON Rep #: [id number] : 1970 52 From: Dominick De La Cruz [employer] INSTALLER-C PCP: Dr. Atul Higgins DO Status:REG ER [...] was concerned. He denies any other injury. [facility] Medical History Deep vein thrombosis (DVT) of [...] Ox 98 Oxygen Delivery Method Room Air [facility] Treatment and Re-Evaluation :: Patient appears generally [...] week. He (more content not included)... Normal [facility] Emergency Department Summary on 12-28-2022 Emergency Department Summary [facility] Medical Records Department [address] [place] [address] Emergency Department Summary 12/28/22 MR#: [id number] Acct: [id number] Name: ARIAS JOHNSTON Rep #: [id number] : 1970 52 From: Howard Corrigan MD [...] so tight, but he denies pain anywhere. [facility] Medical History Deep vein thrombosis (DVT) of [...] at home) (more content not included)... Normal [facility] LABORATORYOrdered By: Yenny Reese on 11-01-2022 Albumin [...] 150 mg/dL AO ADM SS LABORATORYOrdered By: [employer] on 11-01-2022 Albumin BCP dye [Mass/Vol] [...] 10-30-2019 Zinc, Serum 89.2 ug/dL Normal 60.0-120.0 [facility] Comment on above: Result Comment: INTE RPRETIVE [...] absorption. Test developed and characteristics determined by [employer] See Compliance Statement B: [employer] Performed by [employer] [address] [place] [id number] [email or web address], Shashi Anders MD, Lab. Director Performed By: #### H EMOG, IRON3, LIPD2, CMP3, MG3, FERR3, FOLT3, B12 #### [facility] [employer] [facility] [address] [place] [address] #### VD25H #### [facility] [address] [place] [address] #### ZINC2 #### The performing lab is in the report. CBCon 10-28-2019 Erythrocyte distribution width (RBC) [Ratio] 14.1 % 11.5 - 14.5 % [facility] Work Phone: Hematocrit (Bld) [Volume fraction] 48.3 % 40 - 52 % [facility] Work Phone: Hemoglobin (Bld) [Mass/Vol] 15.9 g/dL 13 - 18 g/dL [facility] Work Phone: Interpretation and review of laboratory results Abnormal [facility] Work Phone: MCH (RBC) [Entitic mass] 29.3 pg 26 - 34 pg [facility] Work Phone: MCHC (RBC) [Mass/Vol] 33.0 % 32 - 36 % [facility] Work Phone: MCV (RBC) [Entitic vol] 88.7 fL 80 - 98 fL [facility] Work Phone: Platelet mean volume (Bld) [Entitic vol] 7.2 fL Low 7.4 - 10.4 fL [facility] Work Phone: Platelets (Bld) [#/Vol] 354 10*3/uL 140 - 440 10*3/uL [facility] Work Phone: RBC (Bld) [#/Vol] 5.45 10*6/uL 4.4 - 5.9 10*6/uL [facility] Work Phone: WBC (Bld) [#/Vol] 5.8 10*3/uL 3.6 - 10.7 10*3/uL [facility] Work Phone: Test Performed by [facility] [employer] [facility], [address] [place] [id number] [place] [address] Work Phone: Comp Metabolic Panelon 10-28 ALP [Catalytic activity/Vol] 88 U/L Normal 38-126 [facility] Comment on above: Performed By: #### H EMOG, IRON3, LIPD2, CMP3, MG3, FERR3, FOLT3, B12 #### [facility] [employer] [address] [place] [address] #### VD25H #### [facility] [employer] [address] [place] [address] #### ZINC2 #### The performing lab is in the report. ALT [Catalytic activity/Vol] 35 U/L Normal 13-69 [facility] Comment on above: Performed By: #### H EMOG, IRON3, LIPD2, CMP3, MG3, FERR3, FOLT3, B12 #### [facility] [address] [place] [address] #### VD25H #### [facility] [address] [place] [address] #### ZINC2 #### The performing lab is in the report. Calcium [Mass/Vol] 9.2 mg/dL Normal 8.4-10.4 [facility] Comment on above: Performed By: #### H EMOG, IRON3, LIPD2, CMP3, MG3, FERR3, FOLT3, B12 #### [facility] [address] [place] [address] #### VD25H #### [address] [place] [address] #### ZINC2 #### The performing lab is in the report. Glucose [Mass/Vol] 96 mg/dL Normal 70-100 [facility] Comment on above: Performed By: #### H EMOG, IRON3, LIPD2, CMP3, MG3, FERR3, FOLT3, B12 #### [facility] [place] [address] #### VD25H #### [address] [place] [address] #### ZINC2 #### The performing lab is in the report. Urea nitrogen [Mass/Vol] 18 mg/dL Normal 7-20 [facility] Comment on above: Performed By: #### H EMOG, IRON3, LIPD2, CMP3, MG3, FERR3, FOLT3, B12 #### [facility] [place] [address] #### VD25H #### [facility] [address] [place] [address] #### ZINC2 #### The performing lab is in the report. Anion gap [Moles/Vol] 8 Normal [facility] Comment on above: Performed By: #### H EMOG, IRON3, LIPD2, CMP3, MG3, FERR3, FOLT3, B12 #### [address] [place] [address] #### VD25H #### [place] [address] [place] [address] #### ZINC2 #### The performing lab is in the report. AST [Catalytic activity/Vol] 28 U/L Normal 15-46 [facility] Comment on above: Performed By: #### H EMOG, IRON3, LIPD2, CMP3, MG3, FERR3, FOLT3, B12 #### [facility] [place] [address] #### VD25H #### [address] [place] [address] #### ZINC2 #### The performing lab is in the report. Bilirubin [Mass/Vol] 0.6 mg/dL Normal 0.2-1.3 [facility] Comment on above: Performed By: #### H EMOG, IRON3, LIPD2, CMP3, MG3, FERR3, FOLT3, B12 #### [address] [place] [address] #### VD25H #### [address] [place] [address] #### ZINC2 #### The performing lab is in the report. CO2 [Moles/Vol] 30 mmol/L Normal 22-30 [facility] Comment on above: Performed By: #### H EMOG, IRON3, LIPD2, CMP3, MG3, FERR3, FOLT3, B12 #### [facility] [place] [address] #### VD25H #### [address] [place] [address] #### ZINC2 #### The performing lab is in the report. Creatinine [Mass/Vol] 0.77 mg/dL Normal 0.52-1.25 [facility] Comment on above: Performed By: #### H EMOG, IRON3, LIPD2, CMP3, MG3, FERR3, FOLT3, B12 #### [address] [place] [address] #### VD25H #### [place] [address] [place] [address] #### ZINC2 #### The performing lab is in the report. GFR/1.73 sq M predicted among blacks MDRD (S/P/Bld) [Vol rate/Area] mL/min/{1.73_m2} Normal >60 [facility] Comment on above: Performed By: #### H EMOG, IRON3, LIPD2, CMP3, MG3, FERR3, FOLT3, B12 #### [address] [place] [address] #### VD25H #### [address] [place] [address] #### ZINC2 #### The performing lab is in the report. GFR/1.73 sq M predicted among non-blacks MDRD (S/P/Bld) [Vol rate/Area] mL/min/{1.73_m2} Normal >60 [facility] Comment on above: Result Comment: Sour ce- MDRD equation with creatinine calibration to IDMS(NKDEP) eGFR not recommended for drug dose adjustment Performed By: #### H EMOG, IRON3, LIPD2, CMP3, MG3, FERR3, FOLT3, B12 #### [address] [place] [address] #### VD25H #### [address] [place] [address] #### ZINC2 #### The performing lab is in the report. Protein [Mass/Vol] 7.2 g/dL Normal 6.3-8.2 [facility] Comment on above: Performed By: #### H EMOG, IRON3, LIPD2, CMP3, MG3, FERR3, FOLT3, B12 #### [address] [place] [address] #### VD25H #### [place] [address] [place] [address] #### ZINC2 #### The performing lab is in the report. Chloride [Moles/Vol] 99 mmol/L Normal 98-107 [facility] Comment on above: Performed By: #### H EMOG, IRON3, LIPD2, CMP3, MG3, FERR3, FOLT3, B12 #### [facility] [address] [place] [address] #### VD25H #### [facility] [address] [place] [address] #### ZINC2 #### The performing lab is in the report. Potassium [Moles/Vol] 4.7 mmol/L Normal 3.5-5.1 [facility] Comment on above: Performed By: #### H EMOG, IRON3, LIPD2, CMP3, MG3, FERR3, FOLT3, B12 #### [facility] [address] [facility] [place] [address] #### VD25H #### [place] [address] [place] [address] #### ZINC2 #### The performing lab is in the report. Sodium [Moles/Vol] 137 mmol/L Normal 135-145 [facility] Comment on above: Performed By: #### H EMOG, IRON3, LIPD2, CMP3, MG3, FERR3, FOLT3, B12 #### [facility] [address] [facility] [place] [address] #### VD25H #### [facility] [address] [place] [address] #### ZINC2 #### The performing lab is in the report. Albumin [Mass/Vol] 4.0 g/dL Normal 3.5-5.0 [facility] Comment on above: Performed By: #### H EMOG, IRON3, LIPD2, CMP3, MG3, FERR3, FOLT3, B12 #### [facility] [address] [place] [address] #### VD25H #### [facility] [address] [place] [address] #### ZINC2 #### The performing lab is in the report. Comprehensive Metabolic Pane mallory 10-28-2019 Albumin [Mass/Vol] 4.0 g/dL 3.5 - 5 g/dL [facility] Work Phone: ALP [Catalytic activity/Vol] 88 U/L 38 - 126 U/L [facility] Work Phone: ALT [Catalytic activity/Vol] 35 U/L 13 - 69 U/L [facility] Work Phone: Anion gap [Moles/Vol] 8 mmol/L [facility] Work Phone: AST [Catalytic activity/Vol] 28 U/L 15 - 46 U/L [facility] Work Phone: Bilirubin Ql (U) 0.6 mg/dL 0.2 - 1.3 mg/dL [facility] Work Phone: Calcium [Mass/Vol] 9.2 mg/dL 8.4 - 10. 4 mg/dL [facility] Work Phone: Chloride [Moles/Vol] 99 mmol/L 98 - 10 7 mmol/L [facility] Work Phone: CO2 [Moles/Vol] 30 mmol/L 22 - 30 mmol/L [facility] Work Phone: Creatinine [Mass/Vol] 0.77 mg/dL 0.52 - 1.25 mg/dL [facility] Work Phone: EGFR IF NonAfrican Martiniquais >60.0 >60 mL/min [facility] Work Phone: Comment on above: Source- MDRD equatio n with creatinine calibration to IDMS(NKDEP) eGFR not recommended for drug dose adjustment GFR/1.73 sq M predicted among blacks MDRD (S/P/Bld) [Vol rate/Area] mL/min/{1.73_m2} >60 mL/min [facility] Work Phone: Glucose [Mass/Vol] 96 mg/dL 70 - 100 mg/dL [facility] Work Phone: Potassium [Moles/Vol] 4.7 mmol/L 3.5 - 5.1 mmol/L [facility] Work Phone: Protein [Mass/Vol] 7.2 g/dL 6.3 - 8.2 g/dL [facility] Work Phone: Sodium [Moles/Vol] 137 mmol/L 135 - 145 mmol/L [facility] Work Phone: Urea nitrogen [Mass/Vol] 18 mg/dL 7 - 20 mg/dL [facility] Work Phone: Ferritinon 10-28-2019 Ferritin [Mass/Vol] 77 ng/mL Normal 18-464 [facility] Work Phone: Comment on above: Performed By: #### H EMOG, IRON3, LIPD2, CMP3, MG3, FERR3, FOLT3, B12 #### [employer] [address] [facility] [place] [address] #### VD25H #### [employer] [address] [facility] [place] [address] #### ZINC2 #### The performing lab is in the report. Test Performed by [facility] [employer], [address] [place] [address]. [address] Work Phone: Folateon 10-28-2019 Folate 11.8 ng/mL Normal 2.8-20.0 [facility] [employer] Comment on above: Performed By: #### H EMOG, IRON3, LIPD2, CMP3, MG3, FERR3, FOLT3, B12 #### [facility] [address] [place] [address]. [place] [address] #### VD25H #### [facility] [address] [facility] [place] [address] #### ZINC2 #### The performing lab is in the report. Folate 11.8 ng/mL 2.8 - 20 ng/mL [facility] Work Phone: Hemogramon 10-28-2019 Erythrocyte distribution width (RBC) [Ratio] 14.1 % Normal 11.5-14.5 [facility] [employer] Comment on above: Performed By: #### H EMOG, IRON3, LIPD2, CMP3, MG3, FERR3, FOLT3, B12 #### [facility] [address] [facility] [place] [address] #### VD25H #### [facility] [address] [place] [address] #### ZINC2 #### The performing lab is in the report. Hematocrit (Bld) [Volume fraction] 48.3 % Normal 40.0-52.0 [facility] Comment on above: Performed By: #### H EMOG, IRON3, LIPD2, CMP3, MG3, FERR3, FOLT3, B12 #### [facility] [address] [facility] [place] [address] #### VD25H #### [facility] [address] [facility] [place] [address] #### ZINC2 #### The performing lab is in the report. Hemoglobin (Bld) [Mass/Vol] 15.9 g/dL Normal 13.0-18.0 [facility] Comment on above: Performed By: #### H EMOG, IRON3, LIPD2, CMP3, MG3, FERR3, FOLT3, B12 #### [facility] [place] [address] #### VD25H #### [facility] [address] [place] [address] #### ZINC2 #### The performing lab is in the report. MCH (RBC) [Entitic mass] 29.3 pg Normal 26.0-34.0 [facility] Comment on above: Performed By: #### H EMOG, IRON3, LIPD2, CMP3, MG3, FERR3, FOLT3, B12 #### [facility] [place] [address] #### VD25H #### [facility] [address] [facility] [place] [address] #### ZINC2 #### The performing lab is in the report. MCHC (RBC) [Mass/Vol] 33.0 % Normal 32.0-36.0 [facility] Comment on above: Performed By: #### H EMOG, IRON3, LIPD2, CMP3, MG3, FERR3, FOLT3, B12 #### [facility] [address] [facility] [place] [address] #### VD25H #### [facility] [address] [facility] [place] [address] #### ZINC2 #### The performing lab is in the report. MCV (RBC) [Entitic vol] 88.7 fL Normal 80.0-98.0 [facility] Comment on above: Performed By: #### H EMOG, IRON3, LIPD2, CMP3, MG3, FERR3, FOLT3, B12 #### [facility] [address] [facility] [place] [address] #### VD25H #### [facility] [address] [facility] [place] [address] #### ZINC2 #### The performing lab is in the report. Platelet mean volume (Bld) [Entitic vol] 7.2 fL Low 7.4-10.4 [facility] Comment on above: Performed By: #### H EMOG, IRON3, LIPD2, CMP3, MG3, FERR3, FOLT3, B12 #### [facility] [address] [facility] [place] [address] #### VD25H #### [facility] [address] [facility] [place] [address] #### ZINC2 #### The performing lab is in the report. Platelets (Bld) [#/Vol] 354 10*3/uL Normal 140-440 [facility] Comment on above: Performed By: #### H EMOG, IRON3, LIPD2, CMP3, MG3, FERR3, FOLT3, B12 #### [facility] [address] [facility] [place] [address] #### VD25H #### [facility] [address] [place] [address] #### ZINC2 #### The performing lab is in the report. RBC (Bld) [#/Vol] 5.45 10*6/uL Normal 4.40-5.90 [facility] Comment on above: Performed By: #### H EMOG, IRON3, LIPD2, CMP3, MG3, FERR3, FOLT3, B12 #### [facility] [address] [facility] [place] [address] #### VD25H #### [facility] [address] [place] [address] #### ZINC2 #### The performing lab is in the report. WBC (Bld) [#/Vol] 5.8 10*3/uL Normal 3.6-10.7 [facility] Comment on above: Performed By: #### H EMOG, IRON3, LIPD2, CMP3, MG3, FERR3, FOLT3, B12 #### [facility] [address] [facility] [place] [address] #### VD25H #### [facility] [address] [place] [address] #### ZINC2 #### The performing lab is in the report. Ironon 10-28-2019 Iron [Mass/Vol] 102 ug/dL 49 - 181 ug/dL [facility] Work Phone: Test Performed by [facility], [address] [place] [address] Work Phone: Iron, Totalon 10-28-2019 Iron, Total 102 ug/dL Normal 49-181 [facility] Comment on above: Performed By: #### H EMOG, IRON3, LIPD2, CMP3, MG3, FERR3, FOLT3, B12 #### [address] [place] [address] #### VD25H #### [facility] [address] [place] [address] #### ZINC2 #### The performing lab is in the report. Lipid Panelon 10-28-2019 Cholesterol in HDL [Mass/Vol] 40 mg/dL Normal 40-60 [facility] Comment on above: Performed By: #### H EMOG, IRON3, LIPD2, CMP3, MG3, FERR3, FOLT3, B12 #### [facility] [address] [facility] [place] [address] #### VD25H #### [facility] [address] [place] [address] #### ZINC2 #### The performing lab is in the report. Cholesterol.total/Cho lesterol in HDL [Mass ratio] 4 Normal [facility] Comment on above: Result Comment: Ref Range: < 3 Low Risk for CHD 3-6 Mod Risk for CHD > 6 High Risk for CHD Performed By: #### H EMOG, IRON3, LIPD2, CMP3, MG3, FERR3, FOLT3, B12 #### [facility] [address] [place] [address] #### VD25H #### [facility] [address] [place] [address] #### ZINC2 #### The performing lab is in the report. Protein [Mass/Vol] 100 mg/dL Abnormal <100 [facility] Comment on above: Performed By: #### H EMOG, IRON3, LIPD2, CMP3, MG3, FERR3, FOLT3, B12 #### [facility] [address] [place] [address] #### VD25H #### [facility] [address] [place] [address] #### ZINC2 #### The performing lab is in the report. Triglyceride [Mass/Vol] 48 mg/dL Normal <150 [facility] Comment on above: Performed By: #### H EMOG, IRON3, LIPD2, CMP3, MG3, FERR3, FOLT3, B12 #### [facility] [place] [address] #### VD25H #### [facility] [address] [facility] [place] [address] #### ZINC2 #### The performing lab is in the report. Cholesterol [Mass/Vol] 150 mg/dL Normal < 200 [facility] Comment on above: Performed By: #### H EMOG, IRON3, LIPD2, CMP3, MG3, FERR3, FOLT3, B12 #### [facility] [place] [address] #### VD25H #### [facility] [employer] [address] [place] [address] #### ZINC2 #### The performing lab is in the report. Cholesterol [Mass/Vol] 150 mg/dL <200 [facility] Work Phone: Cholesterol in HDL [Mass/Vol] 40 mg/dL 40 - 60 mg/dL [facility] Work Phone: Cholesterol in LDL [Mass/Vol] 100 mg/dL Abnormal <100 [facility] Work Phone: Cholesterol.total/Cho lesterol in HDL [Mass ratio] 4 {ratio} [employer] Work Phone: Comment on above: Ref Range: < 3 Low Risk for CHD 3-6 Mod Risk for CHD > 6 High Risk for CHD Interpretation and review of laboratory results Abnormal [facility] Work Phone: Triglyceride [Mass/Vol] 48 mg/dL <150 [facility] Work Phone: Magnesiumon 10-28-2019 Magnesium [Mass/Vol] 2.0 mg/dL Normal 1.6-2.3 [facility] [employer] Comment on above: Performed By: #### H EMOG, IRON3, LIPD2, CMP3, MG3, FERR3, FOLT3, B12 #### [facility] [address] [place] [address] #### VD25H #### [facility] [employer] [address] [place] [address] #### ZINC2 #### The performing lab is in the report. Magnesium [Mass/Vol] 2.0 mg/dL 1.6 - 2 .3 mg/dL [facility] Work Phone: Otheron 10-28-2019 Test Performed by [employer], [address] , [address] Work Phone: Test Performed by [employer], [address] , [address] Work Phone: Vit D 25-OH, Totalon 020 Vit D 25-OH, Total 54 ng/mL Normal 30-100 [facility] Comment on above: Result Comment: Ther apy is based on measurement of Total 25- OHD with the following classification levels: Less than 20 ng/mL: Indicative of Vit D deficiency 20-30 ng/mL: Suggests Vit D insufficiency Optimal: Greater than or equal to 30 ng/mL Test performed by [employer], measuring Total Vitamin D, not individual fractions. Performed By: #### H EMOG, IRON3, LIPD2, CMP3, MG3, FERR3, FOLT3, B12 #### [facility] [address] [place] [address] #### VD25H #### [facility] [address] [facility] [place] [address] #### ZINC2 #### The performing lab is in the report. Vitamin B12on 10-28-2019 Cobalamin (Vitamin B12) [Mass/Vol] 816 pg/mL Normal 239-931 [facility] Comment on above: Performed By: #### H EMOG, IRON3, LIPD2, CMP3, MG3, FERR3, FOLT3, B12 #### [facility] [address] [place] [address] #### VD25H #### [facility] [facility] [address] [place] [address] #### ZINC2 #### The performing lab is in the report. Cobalamin (Vitamin B12) [Mass/Vol] 816 pg/mL 239 - 931 pg/mL [employer] Work Phone: Vitamin D 25 Hydroxyon 10-28 Vit D, 25-Hydroxy 54 ng/mL 30 - 100 ng/mL [employer] Work Phone: Comment on above: Therapy is based on measurement of Total 25-OHD with the following classification levels: Less than 20 ng/mL: Indicative of Vit D deficiency 20-30 ng/mL: Suggests Vit D insufficiency Optimal: Greater than or equal to 30 ng/mL Test performed by [employer], measuring Total Vitamin D, not individual fractions. Test Performed by [facility], [address] [place] [address] [facility] Work Phone: Zinc, Serumon 05-02-2019 Zinc, Serum 79.7 ug/dL Normal 60.0-120.0 [facility] Comment on above: Result Comment: INTE RPRETIVE [...] absorption. Test developed and characteristics determined by [employer] See Compliance Statement B: [employer] Performed by [employer] [address] [place] [id number] [email or web address], Shashi Anders MD - Lab. Director Performed By: #### H EMOG, IRON3, LIPD2, CMP3, MG3, FERR3, FOLT3, B12 #### [facility] [address] [place] [address] #### VD25H #### [facility] [address] [place] [address] #### ZINC2 #### The performing lab is in the report. CBCon 04-29-2019 Erythrocyte distribution width (RBC) [Ratio] 14.2 % 11.5 - 14.5 % [place] Hematocrit (Bld) [Volume fraction] 42.7 % 40 - 52 % [place] Hemoglobin (Bld) [Mass/Vol] 14.6 g/dL 13 - 18 g/dL [place] Interpretation and review of laboratory results Abnormal [place] MCH (RBC) [Entitic mass] 29.5 pg 26 - 34 pg [place] MCHC (RBC) [Mass/Vol] 34.3 % 32 - 36 % [place], [place] MCV (RBC) [Entitic vol] 86.2 fL 80 - 98 fL [place] Platelet mean volume (Bld) [Entitic vol] 7.0 fL Low 7.4 - 10.4 fL [place] Platelets (Bld) [#/Vol] 358 10*3/uL 140 - 440 10*3/uL [place] RBC (Bld) [#/Vol] 4.96 10*6/uL 4.4 - 5.9 10*6/uL [place] WBC (Bld) [#/Vol] 7.7 10*3/uL 3.6 - 10.7 10*3/uL [place] Test Performed by [facility], [address] [facility]. , [address] Comp Metabolic Panelon 04-29 ALT [Catalytic activity/Vol] 28 U/L Normal 13-69 [facility] Comment on above: Performed By: #### H EMOG, IRON3, LIPD2, CMP3, MG3, FERR3, FOLT3, B12 #### [facility] [address] [place] [address] #### VD25H #### [facility] [address] [place] [address] #### ZINC2 #### The performing lab is in the report. Calcium [Mass/Vol] 9.1 mg/dL Normal 8.4-10.4 [facility] Comment on above: Performed By: #### H EMOG, IRON3, LIPD2, CMP3, MG3, FERR3, FOLT3, B12 #### [facility] [address] [place] [address] #### VD25H #### [facility] [address] [place] [address] #### ZINC2 #### The performing lab is in the report. ALP [Catalytic activity/Vol] 98 U/L Normal 38-126 [facility] Comment on above: Performed By: #### H EMOG, IRON3, LIPD2, CMP3, MG3, FERR3, FOLT3, B12 #### [facility] [address] [facility] [place] [address] #### VD25H #### [facility] [address] [place] [address] #### ZINC2 #### The performing lab is in the report. Anion gap [Moles/Vol] 10 Normal [facility] Comment on above: Performed By: #### H EMOG, IRON3, LIPD2, CMP3, MG3, FERR3, FOLT3, B12 #### [facility] [address] [place] [address] #### VD25H #### [facility] [address] [place] [address] #### ZINC2 #### The performing lab is in the report. AST [Catalytic activity/Vol] 25 U/L Normal 15-46 [facility] Comment on above: Performed By: #### H EMOG, IRON3, LIPD2, CMP3, MG3, FERR3, FOLT3, B12 #### [facility] [place] [address] #### VD25H #### [facility] [address] [place] [address] #### ZINC2 #### The performing lab is in the report. Bilirubin [Mass/Vol] 0.5 mg/dL Normal 0.2-1.3 [facility] Comment on above: Performed By: #### H EMOG, IRON3, LIPD2, CMP3, MG3, FERR3, FOLT3, B12 #### [facility] [place] [address] #### VD25H #### [place] [address] [place] [address] #### ZINC2 #### The performing lab is in the report. CO2 [Moles/Vol] 30 mmol/L Normal 22-30 [facility] Comment on above: Performed By: #### H EMOG, IRON3, LIPD2, CMP3, MG3, FERR3, FOLT3, B12 #### [facility] [place] [address] #### VD25H #### [address] [place] [address] #### ZINC2 #### The performing lab is in the report. Creatinine [Mass/Vol] 0.73 mg/dL Normal 0.52-1.25 [facility] Comment on above: Performed By: #### H EMOG, IRON3, LIPD2, CMP3, MG3, FERR3, FOLT3, B12 #### [facility] [address] [facility] [place] [address] #### VD25H #### [facility] [address] [place] [address] #### ZINC2 #### The performing lab is in the report. GFR/1.73 sq M predicted among blacks MDRD (S/P/Bld) [Vol rate/Area] mL/min/{1.73_m2} Normal >60 [facility] Comment on above: Performed By: #### H EMOG, IRON3, LIPD2, CMP3, MG3, FERR3, FOLT3, B12 #### [address] [place] [address] #### VD25H #### [place] [address] [place] [address] #### ZINC2 #### The performing lab is in the report. GFR/1.73 sq M predicted among non-blacks MDRD (S/P/Bld) [Vol rate/Area] mL/min/{1.73_m2} Normal >60 [facility] Comment on above: Result Comment: Sour ce- MDRD equation with creatinine calibration to IDMS(NKDEP) eGFR not recommended for drug dose adjustment Performed By: #### H EMOG, IRON3, LIPD2, CMP3, MG3, FERR3, FOLT3, B12 #### [facility] [address] [facility] [place] [address] #### VD25H #### [place] [address] [place] [address] #### ZINC2 #### The performing lab is in the report. Glucose [Mass/Vol] 96 mg/dL Normal 70-100 [facility] Comment on above: Performed By: #### H EMOG, IRON3, LIPD2, CMP3, MG3, FERR3, FOLT3, B12 #### [facility] [address] [place] [address] #### VD25H #### [facility] [address] [place] [address] #### ZINC2 #### The performing lab is in the report. Protein [Mass/Vol] 7.3 g/dL Normal 6.3-8.2 [facility] Comment on above: Performed By: #### H EMOG, IRON3, LIPD2, CMP3, MG3, FERR3, FOLT3, B12 #### [facility] [address] [facility] [place] [address] #### VD25H #### [facility] [address] [place] [address] #### ZINC2 #### The performing lab is in the report. Urea nitrogen [Mass/Vol] 16 mg/dL Normal 7-20 [facility] Comment on above: Performed By: #### H EMOG, IRON3, LIPD2, CMP3, MG3, FERR3, FOLT3, B12 #### [facility] [address] [facility] [place] [address] #### VD25H #### [facility] [address] [place] [address] #### ZINC2 #### The performing lab is in the report. Chloride [Moles/Vol] 99 mmol/L Normal 98-107 [facility] Comment on above: Performed By: #### H EMOG, IRON3, LIPD2, CMP3, MG3, FERR3, FOLT3, B12 #### [facility] [address] [facility] [place] [address] #### VD25H #### [facility] [address] [place] [address] #### ZINC2 #### The performing lab is in the report. Potassium [Moles/Vol] 4.4 mmol/L Normal 3.5-5.1 [facility] Comment on above: Performed By: #### H EMOG, IRON3, LIPD2, CMP3, MG3, FERR3, FOLT3, B12 #### [facility] [address] [place] [address] #### VD25H #### [facility] [address] [place] [address] #### ZINC2 #### The performing lab is in the report. Sodium [Moles/Vol] 139 mmol/L Normal 135-145 [facility] Comment on above: Performed By: #### H EMOG, IRON3, LIPD2, CMP3, MG3, FERR3, FOLT3, B12 #### [facility] [address] [place] [address] #### VD25H #### [facility] [address] [place] [address] #### ZINC2 #### The performing lab is in the report. Albumin [Mass/Vol] 3.9 g/dL Normal 3.5-5.0 [facility] Comment on above: Performed By: #### H EMOG, IRON3, LIPD2, CMP3, MG3, FERR3, FOLT3, B12 #### [facility] [address] [place] [address] #### VD25H #### [facility] [address] [place] [address] #### ZINC2 #### The performing lab is in the report. Comprehensive Metabolic Pane mallory 04-29-2019 Albumin [Mass/Vol] 3.9 g/dL 3.5 - 5 g/dL [place], [place] ALP [Catalytic activity/Vol] 98 U/L 38 - 126 U/L [place] ALT [Catalytic activity/Vol] 28 U/L 13 - 69 U/L [place] Anion gap [Moles/Vol] 10 mmol/L [place], [place] AST [Catalytic activity/Vol] 25 U/L 15 - 46 U/L [place] Bilirubin Ql (U) 0.5 mg/dL 0.2 - 1.3 mg/dL [place] Calcium [Mass/Vol] 9.1 mg/dL 8.4 - 10. 4 mg/dL [place] Chloride [Moles/Vol] 99 mmol/L 98 - 10 7 mmol/L [place] CO2 [Moles/Vol] 30 mmol/L 22 - 30 mmol/L [place] Creatinine [Mass/Vol] 0.73 mg/dL 0.52 - 1.25 mg/dL [place] EGFR IF NonAfrican Martiniquais >60.0 >60 mL/min [place] Comment on above: Source- MDRD equatio n with creatinine calibration to IDMS(NKDEP) eGFR not recommended for drug dose adjustment GFR/1.73 sq M predicted among blacks MDRD (S/P/Bld) [Vol rate/Area] mL/min/{1.73_m2} >60 mL/min [place] Glucose [Mass/Vol] 96 mg/dL 70 - 100 mg/dL [place] Potassium [Moles/Vol] 4.4 mmol/L 3.5 - 5.1 mmol/L [place] Protein [Mass/Vol] 7.3 g/dL 6.3 - 8.2 g/dL [place] Sodium [Moles/Vol] 139 mmol/L 135 - 145 mmol/L [place] Urea nitrogen [Mass/Vol] 16 mg/dL 7 - 20 mg/dL [place] Ferritinon 04-29-2019 Ferritin [Mass/Vol] 121 ng/mL Normal 18-464 [facility] Comment on above: Performed By: #### H EMOG, IRON3, LIPD2, CMP3, MG3, FERR3, FOLT3, B12 #### [facility] [address] [place] [address] #### [id number] #### [facility] [address] [place] [address] #### ZINC2 #### The performing lab is in the report. Ferritin [Mass/Vol] 121 ng/mL 18 - 464 ng/mL [place] Test Performed by [facility], [address] , [place], [place] [id number] [place] [address] Folateon 04-29-2019 Folate 11.0 ng/mL Normal 2.8-20.0 [facility] Comment on above: Performed By: #### H EMOG, IRON3, LIPD2, CMP3, MG3, FERR3, FOLT3, B12 #### [facility] [address] [place] [address] #### [id number] #### [address] [place] [address] #### ZINC2 #### The performing lab is in the report. Folate 11 ng/mL 2.8 - 20 ng/mL [place] Hemogramon 04-29-2019 Erythrocyte distribution width (RBC) [Ratio] 14.2 % Normal 11.5-14.5 [facility] Comment on above: Performed By: #### H EMOG, IRON3, LIPD2, CMP3, MG3, FERR3, FOLT3, B12 #### [facility] [address] [facility] [place] [address] #### [id number] #### [address] [place] [address] #### ZINC2 #### The performing lab is in the report. Hematocrit (Bld) [Volume fraction] 42.7 % Normal 40.0-52.0 [facility] Comment on above: Performed By: #### H EMOG, IRON3, LIPD2, CMP3, MG3, FERR3, FOLT3, B12 #### [facility] [address] [facility] [place] [address] #### [id number] #### [facility] [address] [facility] [place] [address] #### ZINC2 #### The performing lab is in the report. Hemoglobin (Bld) [Mass/Vol] 14.6 g/dL Normal 13.0-18.0 [facility] Comment on above: Performed By: #### H EMOG, IRON3, LIPD2, CMP3, MG3, FERR3, FOLT3, B12 #### [facility] [address] [facility] [place] [address] #### [id number] #### [address] [place] [address] #### ZINC2 #### The performing lab is in the report. MCH (RBC) [Entitic mass] 29.5 pg Normal 26.0-34.0 [facility] Comment on above: Performed By: #### H EMOG, IRON3, LIPD2, CMP3, MG3, FERR3, FOLT3, B12 #### [facility] [place] [address] #### [id number] #### [facility] [address] [facility] [place] [address] #### ZINC2 #### The performing lab is in the report. MCHC (RBC) [Mass/Vol] 34.3 % Normal 32.0-36.0 [facility] Comment on above: Performed By: #### H EMOG, IRON3, LIPD2, CMP3, MG3, FERR3, FOLT3, B12 #### [facility] [place] [address] #### [id number] #### [address] [address] #### ZINC2 #### The performing lab is in the report. MCV (RBC) [Entitic vol] 86.2 fL Normal 80.0-98.0 [facility] Comment on above: Performed By: #### H EMOG, IRON3, LIPD2, CMP3, MG3, FERR3, FOLT3, B12 #### [facility] [place] [address] #### [id number] #### [facility] [address] [place] [address] #### ZINC2 #### The performing lab is in the report. Platelet mean volume (Bld) [Entitic vol] 7.0 fL Low 7.4-10.4 [facility] Comment on above: Performed By: #### H EMOG, IRON3, LIPD2, CMP3, MG3, FERR3, FOLT3, B12 #### [facility] [place] [address] #### [id number] #### [facility] [address] [place] [address] #### ZINC2 #### The performing lab is in the report. Platelets (Bld) [#/Vol] 358 10*3/uL Normal 140-440 [facility] Comment on above: Performed By: #### H EMOG, IRON3, LIPD2, CMP3, MG3, FERR3, FOLT3, B12 #### [facility] [address] [place] [address] #### [id number] #### [facility] [address] [place] [address] #### ZINC2 #### The performing lab is in the report. RBC (Bld) [#/Vol] 4.96 10*6/uL Normal 4.40-5.90 [facility] Comment on above: Performed By: #### H EMOG, IRON3, LIPD2, CMP3, MG3, FERR3, FOLT3, B12 #### [facility] [address] [place] [address] #### [id number] #### [facility] [address] [place] [address] #### ZINC2 #### The performing lab is in the report. WBC (Bld) [#/Vol] 7.7 10*3/uL Normal 3.6-10.7 [facility] Comment on above: Performed By: #### H EMOG, IRON3, LIPD2, CMP3, MG3, FERR3, FOLT3, B12 #### [facility] [address] [place] [address] #### [id number] #### [facility] [address] [place] [address] #### ZINC2 #### The performing lab is in the report. Ironon 04-29-2019 Iron [Mass/Vol] 69 ug/dL 49 - 181 ug/dL [place] Test Performed by [facility], [facility] , [place], [place] [id number] [place] [address], [place] Iron, Totalon 04-29-2019 Iron, Total 69 ug/dL Normal 49-181 [facility] Comment on above: Performed By: #### H EMOG, IRON3, LIPD2, CMP3, MG3, FERR3, FOLT3, B12 #### [facility] [address] [facility] [place] [address] #### [id number] #### [facility] [address] [place] [address] #### ZINC2 #### The performing lab is in the report. Lipid Panelon 04-29-2019 Cholesterol in HDL [Mass/Vol] 32 mg/dL Low 40-60 [facility] Comment on above: Performed By: #### H EMOG, IRON3, LIPD2, CMP3, MG3, FERR3, FOLT3, B12 #### [facility] [address] [facility] [place] [address] #### [id number] #### [address] [place] [address] #### ZINC2 #### The performing lab is in the report. Cholesterol.total/Cho lesterol in HDL [Mass ratio] 4 Normal [facility] Comment on above: Result Comment: Ref Range: < 3 Low Risk for CHD 3-6 Mod Risk for CHD > 6 High Risk for CHD Performed By: #### H EMOG, IRON3, LIPD2, CMP3, MG3, FERR3, FOLT3, B12 #### [facility] [address] [facility] [place] [address] #### [id number] #### [facility] [address] [place] [address] #### ZINC2 #### The performing lab is in the report. Protein [Mass/Vol] 79 mg/dL Normal <100 [facility] Comment on above: Performed By: #### H EMOG, IRON3, LIPD2, CMP3, MG3, FERR3, FOLT3, B12 #### [facility] [address] [facility] [place] [address] #### [id number] #### [address] [place] [address] #### ZINC2 #### The performing lab is in the report. Triglyceride [Mass/Vol] 104 mg/dL Normal <150 [facility] Comment on above: Performed By: #### H EMOG, IRON3, LIPD2, CMP3, MG3, FERR3, FOLT3, B12 #### [facility] [address] [place] [address] #### [id number] #### [facility] [address] [place] [address] #### ZINC2 #### The performing lab is in the report. Cholesterol [Mass/Vol] 132 mg/dL Normal < 200 [facility] Comment on above: Performed By: #### H EMOG, IRON3, LIPD2, CMP3, MG3, FERR3, FOLT3, B12 #### [facility] [address] [place] [address] #### [id number] #### [facility] [address] [place] [address] #### ZINC2 #### The performing lab is in the report. Cholesterol [Mass/Vol] 132 mg/dL <200 [place] Cholesterol in HDL [Mass/Vol] 32 mg/dL Low 40 - 60 mg/dL [place] Cholesterol in LDL [Mass/Vol] 79 mg/dL <100 [place] Cholesterol.total/Cho lesterol in HDL [Mass ratio] 4 {ratio} [place] Comment on above: Ref Range: < 3 Low Risk for CHD 3-6 Mod Risk for CHD > 6 High Risk for CHD Interpretation and review of laboratory results Abnormal [place] Triglyceride [Mass/Vol] 104 mg/dL <150 [place] Magnesiumon 04-29-2019 Magnesium [Mass/Vol] 1.9 mg/dL Normal 1.6-2.3 [facility] Comment on above: Performed By: #### H EMOG, IRON3, LIPD2, CMP3, MG3, FERR3, FOLT3, B12 #### [facility] [address] [place] [address] #### [id number] #### [facility] [address] [place] [address] #### ZINC2 #### The performing lab is in the report. Magnesium [Mass/Vol] 1.9 mg/dL 1.6 - 2 .3 mg/dL [facility], [place] Otheron 04-29-2019 Test Performed by [facility], [address] , [place], [place] [id number] [place] [address], [place] Test Performed by [facility], [address] , [address], [place] Vit D 25-OH, Totalon 019 Vit D 25-OH, Total 44 ng/mL Normal 30-100 [facility] Comment on above: Result Comment: Ther apy is based on measurement of Total 25- OHD with the following classification levels: Less than 20 ng/mL: Indicative of Vit D deficiency 20-30 ng/mL: Suggests Vit D insufficiency Optimal: Greater than or equal to 30 ng/mL Test performed by [employer], measuring Total Vitamin D, not individual fractions. Performed By: #### H EMOG, IRON3, LIPD2, CMP3, MG3, FERR3, FOLT3, B12 #### [facility] [address] [place] [address] #### [id number] #### [facility] [address] [place] [address] #### ZINC2 #### The performing lab is in the report. Vitamin B12on 04-29-2019 Cobalamin (Vitamin B12) [Mass/Vol] 838 pg/mL Normal 239-931 [facility] Comment on above: Performed By: #### H EMOG, IRON3, LIPD2, CMP3, MG3, FERR3, FOLT3, B12 #### [facility] [address] [place] [address] #### [id number] #### [facility] [address] [place] [address] #### ZINC2 #### The performing lab is in the report. Cobalamin (Vitamin B12) [Mass/Vol] 838 pg/mL 239 - 931 pg/mL [facility], [place] Vitamin D 25 Hydroxyon 04-29 Vit D, 25-Hydroxy 44 ng/mL 30 - 100 ng/mL [place] Comment on above: Therapy is based on measurement of Total 25-OHD with the following classification levels: Less than 20 ng/mL: Indicative of Vit D deficiency 20-30 ng/mL: Suggests Vit D insufficiency Optimal: Greater than or equal to 30 ng/mL Test performed by [employer], measuring Total Vitamin D, not individual fractions. Test Performed by [facility], [address], [place], [place] [address] [place] Zinc, Serumon 03-02-2019 Zinc, Serum 82.2 ug/dL Normal 60.0-120.0 [facility] Comment on above: Result Comment: INTE [...] absorption. Test developed and characteristics determined by [employer] [facility] See Compliance Statement B: [employer] Performed by [employer] [facility]), [address] [place] [address] www.[employer], Shashi Anders MD - Lab. Director Performed By: #### H EMOG, MG3, CMP3, IRON3, FERR3, B12, FOLT3 #### [address] [place] [address] Comp Metabolic Panelon 02-26 Calcium [Mass/Vol] 9.6 mg/dL Normal 8.4-10.4 [facility] Comment on above: Performed By: #### H EMOG, MG3, CMP3, IRON3, FERR3, B12, FOLT3 #### [facility] [address] [place] [address] ALP [Catalytic activity/Vol] 79 U/L Normal 38-126 [facility] Comment on above: Performed By: #### H EMOG, MG3, CMP3, IRON3, FERR3, B12, FOLT3 #### [address] [address] [place], [place] ALT [Catalytic activity/Vol] 22 U/L Normal 13-69 [facility] Comment on above: Performed By: #### H EMOG, MG3, CMP3, IRON3, FERR3, B12, FOLT3 #### [address] [address] [address] [place], [place] Anion gap [Moles/Vol] 14 Normal [facility] Comment on above: Performed By: #### H EMOG, MG3, CMP3, IRON3, FERR3, B12, FOLT3 #### [address] [address] [place], [place] AST [Catalytic activity/Vol] 39 U/L Normal 15-46 [facility] Comment on above: Performed By: #### H EMOG, MG3, CMP3, IRON3, FERR3, B12, FOLT3 #### [address] [address] [address] [place], [place] Bilirubin [Mass/Vol] 0.6 mg/dL Normal 0.2-1.3 [facility] Comment on above: Performed By: #### H EMOG, MG3, CMP3, IRON3, FERR3, B12, FOLT3 #### [address] [address] [address] [place], [place] CO2 [Moles/Vol] 30 mmol/L Normal 22-30 [facility] Comment on above: Performed By: #### H EMOG, MG3, CMP3, IRON3, FERR3, B12, FOLT3 #### [address] [address] [address] [place], [place] Creatinine [Mass/Vol] 0.85 mg/dL Normal 0.52-1.25 [facility] Comment on above: Performed By: #### H EMOG, MG3, CMP3, IRON3, FERR3, B12, FOLT3 #### [address] [address] [place], [place] GFR/1.73 sq M predicted among blacks MDRD (S/P/Bld) [Vol rate/Area] mL/min/{1.73_m2} Normal >60 [facility] Comment on above: Performed By: #### H EMOG, MG3, CMP3, IRON3, FERR3, B12, FOLT3 #### [address] [address] [place], [place] GFR/1.73 sq M predicted among non-blacks MDRD (S/P/Bld) [Vol rate/Area] mL/min/{1.73_m2} Normal >60 [facility] Comment on above: Result Comment: Sour ce- MDRD equation with creatinine calibration to IDMS(NKDEP) eGFR not recommended for drug dose adjustment Performed By: #### H EMOG, MG3, CMP3, IRON3, FERR3, B12, FOLT3 #### [address] Glucose [Mass/Vol] 89 mg/dL Normal 70-100 [facility] Comment on above: Performed By: #### H EMOG, MG3, CMP3, IRON3, FERR3, B12, FOLT3 #### [address] Protein [Mass/Vol] 7.9 g/dL Normal 6.3-8.2 [facility] Comment on above: Performed By: #### H EMOG, MG3, CMP3, IRON3, FERR3, B12, FOLT3 #### [address] Urea nitrogen [Mass/Vol] 23 mg/dL High 7-20 [facility] Comment on above: Performed By: #### H EMOG, MG3, CMP3, IRON3, FERR3, B12, FOLT3 #### [address] Potassium [Moles/Vol] 4.6 mmol/L Normal 3.5-5.1 [facility] Comment on above: Performed By: #### H EMOG, MG3, CMP3, IRON3, FERR3, B12, FOLT3 #### [address] [address] [address] [place], [place] Sodium [Moles/Vol] 140 mmol/L Normal 135-145 [facility] Comment on above: Performed By: #### H EMOG, MG3, CMP3, IRON3, FERR3, B12, FOLT3 #### [address] [address] [place], [place] Albumin [Mass/Vol] 4.2 g/dL Normal 3.5-5.0 [facility] Comment on above: Performed By: #### H EMOG, MG3, CMP3, IRON3, FERR3, B12, FOLT3 #### [address] [address] [place], [place] Chloride [Moles/Vol] 96 mmol/L Low 98-107 [facility] Comment on above: Performed By: #### H EMOG, MG3, CMP3, IRON3, FERR3, B12, FOLT3 #### [address] [address] [place], [place] Ferritinon 02-26-2019 Ferritin [Mass/Vol] 117 ng/mL Normal 18-464 [facility] Comment on above: Performed By: #### H EMOG, MG3, CMP3, IRON3, FERR3, B12, FOLT3 #### [address] Folateon 02-26-2019 Folate 8.7 ng/mL Normal 2.8-20.0 [facility] Comment on above: Performed By: #### H EMOG, MG3, CMP3, IRON3, FERR3, B12, FOLT3 #### [address] [address] [place], [place] Hemogramon 02-26-2019 Erythrocyte distribution width (RBC) [Ratio] 14.5 % Normal 11.5-14.5 [facility] Comment on above: Performed By: #### H EMOG, MG3, CMP3, IRON3, FERR3, B12, FOLT3 #### [address] [address] [place], [place] Hematocrit (Bld) [Volume fraction] 44.3 % Normal 40.0-52.0 [facility] Comment on above: Performed By: #### H EMOG, MG3, CMP3, IRON3, FERR3, B12, FOLT3 #### [address] Hemoglobin (Bld) [Mass/Vol] 15.2 g/dL Normal 13.0-18.0 [facility] Comment on above: Performed By: #### H EMOG, MG3, CMP3, IRON3, FERR3, B12, FOLT3 #### [address] MCH (RBC) [Entitic mass] 30.0 pg Normal 26.0-34.0 [facility] Comment on above: Performed By: #### H EMOG, MG3, CMP3, IRON3, FERR3, B12, FOLT3 #### [address] MCHC (RBC) [Mass/Vol] 34.3 % Normal 32.0-36.0 [facility] Comment on above: Performed By: #### H EMOG, MG3, CMP3, IRON3, FERR3, B12, FOLT3 #### [address] MCV (RBC) [Entitic vol] 87.6 fL Normal 80.0-98.0 [facility] Comment on above: Performed By: #### H EMOG, MG3, CMP3, IRON3, FERR3, B12, FOLT3 #### [address] Platelet mean volume (Bld) [Entitic vol] 8.4 fL Normal 7.4-10.4 [facility] Comment on above: Performed By: #### H EMOG, MG3, CMP3, IRON3, FERR3, B12, FOLT3 #### [address] Platelets (Bld) [#/Vol] 342 10*3/uL Normal 140-440 [facility] Comment on above: Performed By: #### H EMOG, MG3, CMP3, IRON3, FERR3, B12, FOLT3 #### [address] [address] [address] [place], [place] RBC (Bld) [#/Vol] 5.05 10*6/uL Normal 4.40-5.90 [facility] Comment on above: Performed By: #### H EMOG, MG3, CMP3, IRON3, FERR3, B12, FOLT3 #### [address] [address] [address] [place], [place] WBC (Bld) [#/Vol] 9.6 10*3/uL Normal 3.6-10.7 [facility] Comment on above: Performed By: #### H EMOG, MG3, CMP3, IRON3, FERR3, B12, FOLT3 #### [address] [address] [address] [place], [place] Iron, Totalon 02-26-2019 Iron, Total 60 ug/dL Normal 49-181 [facility] Comment on above: Performed By: #### H EMOG, MG3, CMP3, IRON3, FERR3, B12, FOLT3 #### [address] [address] [address] [place], [place] Magnesiumon 02-26-2019 Magnesium [Mass/Vol] 2.0 mg/dL Normal 1.6-2.3 [facility] Comment on above: Performed By: #### H EMOG, MG3, CMP3, IRON3, FERR3, B12, FOLT3 #### [address] [address] [address] [place], [place] Vitamin B12on 02-26-2019 Cobalamin (Vitamin B12) [Mass/Vol] 657 pg/mL Normal 239-931 [facility] Comment on above: Performed By: #### H EMOG, MG3, CMP3, IRON3, FERR3, B12, FOLT3 #### [address] [address] [address] [place], [place] Zinc, Serumon 01-11-2019 Zinc, Serum 87 ug/dL Normal 60-120 [facility] Comment on above: Result Comment: INTE RPRETIVE INFORMATION: Zinc, Serum or Plasma Circulating zinc concentrations are dependent on albumin status and are depressed with malnutrition. Zinc may also be lowered with infection, inflammation, stress, oral contraceptives, and . Zinc may be elevated with zinc supplementation or fasting. Elevated zinc concentrations may interfere with copper absorption. Test developed and characteristics determined by [employer] [facility] See Compliance Statement B: [employer] Performed by [employer] [facility]), [address] [place] [address] www.[employer], Shashi Anders MD - Lab. Director Performed By: #### H EMOG, MG3, CMP3, IRON3, FERR3, B12, FOLT3 #### [address] Comp Metabolic Panelon 01-08 ALT [Catalytic activity/Vol] 34 U/L Normal 13-69 [facility] Comment on above: Performed By: #### H EMOG, MG3, CMP3, IRON3, FERR3, B12, FOLT3 #### [address] Calcium [Mass/Vol] 9.1 mg/dL Normal 8.4-10.4 [facility] Comment on above: Performed By: #### H EMOG, MG3, CMP3, IRON3, FERR3, B12, FOLT3 #### [address] ALP [Catalytic activity/Vol] 81 U/L Normal 38-126 [facility] Comment on above: Performed By: #### H EMOG, MG3, CMP3, IRON3, FERR3, B12, FOLT3 #### [address] Anion gap [Moles/Vol] 9 Normal [facility] Comment on above: Performed By: #### H EMOG, MG3, CMP3, IRON3, FERR3, B12, FOLT3 #### [address] AST [Catalytic activity/Vol] 39 U/L Normal 15-46 [facility] Comment on above: Performed By: #### H EMOG, MG3, CMP3, IRON3, FERR3, B12, FOLT3 #### [address] [address] [address] [place], [place] Bilirubin [Mass/Vol] 0.8 mg/dL Normal 0.2-1.3 [facility] Comment on above: Performed By: #### H EMOG, MG3, CMP3, IRON3, FERR3, B12, FOLT3 #### [address] [address] [place], [place] CO2 [Moles/Vol] 32 mmol/L High 22-30 [facility] Comment on above: Performed By: #### H EMOG, MG3, CMP3, IRON3, FERR3, B12, FOLT3 #### [address] Creatinine [Mass/Vol] 0.76 mg/dL Normal 0.52-1.25 [facility] Comment on above: Performed By: #### H EMOG, MG3, CMP3, IRON3, FERR3, B12, FOLT3 #### [address] [address] [place], [place] GFR/1.73 sq M predicted among blacks MDRD (S/P/Bld) [Vol rate/Area] mL/min/{1.73_m2} Normal >60 [facility] Comment on above: Performed By: #### H EMOG, MG3, CMP3, IRON3, FERR3, B12, FOLT3 #### [address] [address] [address] [place], [place] GFR/1.73 sq M predicted among non-blacks MDRD (S/P/Bld) [Vol rate/Area] mL/min/{1.73_m2} Normal >60 [facility] Comment on above: Result Comment: Sour ce- MDRD equation with creatinine calibration to IDMS(NKDEP) eGFR not recommended for drug dose adjustment Performed By: #### H EMOG, MG3, CMP3, IRON3, FERR3, B12, FOLT3 #### [address] Glucose [Mass/Vol] 90 mg/dL Normal 70-100 [facility] Comment on above: Performed By: #### H EMOG, MG3, CMP3, IRON3, FERR3, B12, FOLT3 #### [address] [address] [address] [place], [place] Protein [Mass/Vol] 7.7 g/dL Normal 6.3-8.2 [facility] Comment on above: Performed By: #### H EMOG, MG3, CMP3, IRON3, FERR3, B12, FOLT3 #### [address] [address] [address], [place] Urea nitrogen [Mass/Vol] 17 mg/dL Normal 7-20 [facility] Comment on above: Performed By: #### H EMOG, MG3, CMP3, IRON3, FERR3, B12, FOLT3 #### [address] Potassium [Moles/Vol] 3.8 mmol/L Normal 3.5-5.1 [facility] Comment on above: Performed By: #### H EMOG, MG3, CMP3, IRON3, FERR3, B12, FOLT3 #### [address] Sodium [Moles/Vol] 139 mmol/L Normal 135-145 [facility] Comment on above: Performed By: #### H EMOG, MG3, CMP3, IRON3, FERR3, B12, FOLT3 #### [address] Albumin [Mass/Vol] 4.0 g/dL Normal 3.5-5.0 [facility] Comment on above: Performed By: #### H EMOG, MG3, CMP3, IRON3, FERR3, B12, FOLT3 #### [address] Chloride [Moles/Vol] 97 mmol/L Low 98-107 [facility] Comment on above: Performed By: #### H EMOG, MG3, CMP3, IRON3, FERR3, B12, FOLT3 #### [address] Ferritinon 01-08-2019 Ferritin [Mass/Vol] 89 ng/mL Normal 18-464 [facility] Comment on above: Performed By: #### H EMOG, MG3, CMP3, IRON3, FERR3, B12, FOLT3 #### [facility] [address] [place] [address] Folateon 01-08-2019 Folate 9.3 ng/mL Normal 2.8-20.0 [facility] Comment on above: Performed By: #### H EMOG, MG3, CMP3, IRON3, FERR3, B12, FOLT3 #### [facility] [address] [place], [place] Iron, Totalon 01-08-2019 Iron, Total 66 ug/dL Normal 49-181 [facility] Comment on above: Performed By: #### M G3, IRON3, CMP3, FERR3, FOLT3, B12 #### [address] [address] [address], [place] Magnesiumon 01-08-2019 Magnesium [Mass/Vol] 2.1 mg/dL Normal 1.6-2.3 [facility] Comment on above: Performed By: #### M G3, IRON3, CMP3, FERR3, FOLT3, B12 #### [address] [address] [address], [place] Vitamin B12on 01-08-2019 Cobalamin (Vitamin B12) [Mass/Vol] 594 pg/mL Normal 239-931 [facility] Comment on above: Performed By: #### H EMOG, MG3, CMP3, IRON3, FERR3, B12, FOLT3 #### [place] [address] [place] [id number] Zinc, Serumon 12-08-2018 Zinc, Serum 99 ug/dL Normal 60-120 [facility] Comment on above: Result Comment: INTE RPRETIVE INFORMATION: Zinc, Serum or Plasma Circulating zinc concentrations are dependent on albumin status and are depressed with malnutrition. Zinc may also be lowered with infection, inflammation, stress, oral contraceptives, and . Zinc may be elevated with zinc supplementation or fasting. Elevated zinc concentrations may interfere with copper absorption. Test developed and characteristics determined by [employer] ([place] See Compliance Statement B: [employer]/ Performed by [employer] ([place]), [address] [place] [address] [email or web address], Shashi Anders MD - Lab. Director Performed By: #### [employer] #### The performing lab is in the report. Comp Metabolic Panelon 12-06 Calcium [Mass/Vol] 9.2 mg/dL Normal 8.4-10.4 [facility] Comment on above: Performed By: #### H EMOG, MG3, CMP3, IRON3, FERR3, B12, FOLT3 #### [place] [address] [place], [place] Glucose [Mass/Vol] 116 mg/dL High 70-100 [facility] Comment on above: Performed By: #### H EMOG, MG3, CMP3, IRON3, FERR3, B12, FOLT3 #### [address] [address] [place], [place] ALP [Catalytic activity/Vol] 77 U/L Normal 38-126 [facility] Comment on above: Performed By: #### H EMOG, MG3, CMP3, IRON3, FERR3, B12, FOLT3 #### [address] ALT [Catalytic activity/Vol] 57 U/L Normal 13-69 [facility] Comment on above: Performed By: #### H EMOG, MG3, CMP3, IRON3, FERR3, B12, FOLT3 #### [address] [address] [place], [place] Anion gap [Moles/Vol] 12 Normal [facility] Comment on above: Performed By: #### H EMOG, MG3, CMP3, IRON3, FERR3, B12, FOLT3 #### [address] AST [Catalytic activity/Vol] 41 U/L Normal 15-46 [facility] Comment on above: Performed By: #### H EMOG, MG3, CMP3, IRON3, FERR3, B12, FOLT3 #### [address], [place] Bilirubin [Mass/Vol] 1.0 mg/dL Normal 0.2-1.3 [facility] Comment on above: Performed By: #### H EMOG, MG3, CMP3, IRON3, FERR3, B12, FOLT3 #### [address] CO2 [Moles/Vol] 31 mmol/L High 22-30 [facility] Comment on above: Performed By: #### H EMOG, MG3, CMP3, IRON3, FERR3, B12, FOLT3 #### [address] Creatinine [Mass/Vol] 0.78 mg/dL Normal 0.52-1.25 [facility] Comment on above: Performed By: #### H EMOG, MG3, CMP3, IRON3, FERR3, B12, FOLT3 #### [address] GFR/1.73 sq M predicted among blacks MDRD (S/P/Bld) [Vol rate/Area] mL/min/{1.73_m2} Normal >60 [facility] Comment on above: Performed By: #### H EMOG, MG3, CMP3, IRON3, FERR3, B12, FOLT3 #### [address] GFR/1.73 sq M predicted among non-blacks MDRD (S/P/Bld) [Vol rate/Area] mL/min/{1.73_m2} Normal >60 [facility] Comment on above: Result Comment: Sour ce- MDRD equation with creatinine calibration to IDMS(NKDEP) eGFR not recommended for drug dose adjustment Performed By: #### H EMOG, MG3, CMP3, IRON3, FERR3, B12, FOLT3 #### [address] Protein [Mass/Vol] 7.8 g/dL Normal 6.3-8.2 [facility] Comment on above: Performed By: #### H EMOG, MG3, CMP3, IRON3, FERR3, B12, FOLT3 #### [address] [address] [address] [place], [place] Urea nitrogen [Mass/Vol] 19 mg/dL Normal 7-20 [facility] Comment on above: Performed By: #### H EMOG, MG3, CMP3, IRON3, FERR3, B12, FOLT3 #### [address] [address] [place], [place] Potassium [Moles/Vol] 3.4 mmol/L Low 3.5-5.1 [facility] Comment on above: Performed By: #### H EMOG, MG3, CMP3, IRON3, FERR3, B12, FOLT3 #### [address] [address] [place], [place] Albumin [Mass/Vol] 4.1 g/dL Normal 3.5-5.0 [facility] Comment on above: Performed By: #### H EMOG, MG3, CMP3, IRON3, FERR3, B12, FOLT3 #### [address] [address] [address] [place], [place] Chloride [Moles/Vol] 96 mmol/L Low 98-107 [facility] Comment on above: Performed By: #### H EMOG, MG3, CMP3, IRON3, FERR3, B12, FOLT3 #### [address] [address] [address] [place], [place] Sodium [Moles/Vol] 139 mmol/L Normal 135-145 [facility] Comment on above: Performed By: #### H EMOG, MG3, CMP3, IRON3, FERR3, B12, FOLT3 #### [address] [address] [place], [place] Ferritinon 12-06-2018 Ferritin [Mass/Vol] 92 ng/mL Normal 18-464 [facility] Comment on above: Performed By: #### H EMOG, MG3, CMP3, IRON3, FERR3, B12, FOLT3 #### [address] [address] [place], [place] Folateon 12-06-2018 Folate 9.0 ng/mL Normal 2.8-20.0 [facility] Comment on above: Performed By: #### H EMOG, MG3, CMP3, IRON3, FERR3, B12, FOLT3 #### [address] Hemogramon 12-06-2018 Erythrocyte distribution width (RBC) [Ratio] 16.8 % High 11.5-14.5 [facility] Comment on above: Performed By: #### H EMOG, MG3, CMP3, IRON3, FERR3, B12, FOLT3 #### [address] [address] [place], [place] Hematocrit (Bld) [Volume fraction] 44.6 % Normal 40.0-52.0 [facility] Comment on above: Performed By: #### H EMOG, MG3, CMP3, IRON3, FERR3, B12, FOLT3 #### [address] Hemoglobin (Bld) [Mass/Vol] 15.3 g/dL Normal 13.0-18.0 [facility] Comment on above: Performed By: #### H EMOG, MG3, CMP3, IRON3, FERR3, B12, FOLT3 #### [address] MCH (RBC) [Entitic mass] 28.4 pg Normal 26.0-34.0 [facility] Comment on above: Performed By: #### H EMOG, MG3, CMP3, IRON3, FERR3, B12, FOLT3 #### [address] MCHC (RBC) [Mass/Vol] 34.3 % Normal 32.0-36.0 [facility] Comment on above: Performed By: #### H EMOG, MG3, CMP3, IRON3, FERR3, B12, FOLT3 #### [address] MCV (RBC) [Entitic vol] 83.0 fL Normal 80.0-98.0 [facility] Comment on above: Performed By: #### H EMOG, MG3, CMP3, IRON3, FERR3, B12, FOLT3 #### [address] [address] [place], [place] Platelet mean volume (Bld) [Entitic vol] 8.1 fL Normal 7.4-10.4 [facility] Comment on above: Performed By: #### H EMOG, MG3, CMP3, IRON3, FERR3, B12, FOLT3 #### [address] [address] [place], [place] Platelets (Bld) [#/Vol] 317 10*3/uL Normal 140-440 [facility] Comment on above: Performed By: #### H EMOG, MG3, CMP3, IRON3, FERR3, B12, FOLT3 #### [address] [address] [place], [place] RBC (Bld) [#/Vol] 5.38 10*6/uL Normal 4.40-5.90 [facility] Comment on above: Performed By: #### H EMOG, MG3, CMP3, IRON3, FERR3, B12, FOLT3 #### [address] [address] [place], [place] WBC (Bld) [#/Vol] 6.4 10*3/uL Normal 3.6-10.7 [facility] Comment on above: Performed By: #### H EMOG, MG3, CMP3, IRON3, FERR3, B12, FOLT3 #### [address] [address] [place], [place] Iron, Totalon 12-06-2018 Iron, Total 88 ug/dL Normal 49-181 [facility] Comment on above: Performed By: #### H EMOG, MG3, CMP3, IRON3, FERR3, B12, FOLT3 #### [address] [place], [place] Magnesiumon 12-06-2018 Magnesium [Mass/Vol] 2.0 mg/dL Normal 1.6-2.3 [facility] Comment on above: Performed By: #### H EMOG, MG3, CMP3, IRON3, FERR3, B12, FOLT3 #### [facility] [address] [place] [address] Vitamin B12on 12-06-2018 Cobalamin (Vitamin B12) [Mass/Vol] 635 pg/mL Normal 239-931 [facility] Comment on above: Performed By: #### H EMOG, MG3, CMP3, IRON3, FERR3, B12, FOLT3 #### [facility] [address] [place] [address] Vital Signs Date Time Vital Sign Value Performing Clinician Facility 10-01-2024 11:42-0500 Body height 185.4 cm Darleen Sinan DO Work Phone: [facility] 10-01-2024 11:42-0500 Body mass index (BMI) [Ratio] 53.34 kg/m2 Darleen Sinan DO Work Phone: [facility] 10-01-2024 11:42-0500 Body temperature 97.39 [degF] Darleen Sinan DO Work Phone: [facility] 10-01-2024 11:42-0500 Body weight 183.39 kg Darleen Sinan DO Work Phone: [facility] 10-01-2024 11:42-0500 Diastolic blood pressure 67 mm[Hg] Darleen Sinan DO Work Phone: [facility] 10-01-2024 11:42-0500 Heart rate 73 /min Darleen Sinan DO Work Phone: [facility] 10-01-2024 11:42-0500 SaO2% (BldA) [Mass fraction] 98 % Darleen Sinan DO Work Phone: [facility] 10-01-2024 11:42-0500 Systolic blood pressure 120 mm[Hg] Darleen Sinan DO Work Phone: [facility] 09-07-2023 09:00-0500 Body height 185.4 cm Darleen Sinan DO Work Phone: [facility] 09-07-2023 09:00-0500 Body mass index (BMI) [Ratio] 51.4 kg/m2 Darleen Sinan DO Work Phone: [facility] 09-07-2023 09:00-0500 Body temperature 97.81 [degF] Darleen Sinan DO Work Phone: [facility] 09-07-2023 09:00-0500 Body weight 176.72 kg Darleen Sinan DO Work Phone: [facility] 09-07-2023 09:00-0500 Diastolic blood pressure 71 mm[Hg] Darleen Sinan DO Work Phone: [facility] 09-07-2023 09:00-0500 Heart rate 79 /min Darleen Sinan DO Work Phone: [facility] 09-07-2023 09:00-0500 SaO2% (BldA) [Mass fraction] 98 % Darleen Sinan DO Work Phone: [facility] 09-07-2023 09:00-0500 Systolic blood pressure 116 mm[Hg] Darleen Sinan DO Work Phone: [facility] 03-09-2023 07:25-0400 Body height 185.[address] Atul Higgins Work Phone: [facility] 03-09-2023 07:25-0400 Body weight 178.[address] Atul Higgins Work Phone: [facility] 03-08-2023 08:06-0400 Body mass index (BMI) [Ratio] 51.8 kg/m2 Dr. Atul Higgins Work Phone: [facility] 01-19-2023 14:07-0400 Body weight 178.[address] Atul Higgins Work Phone: [facility] 01-19-2023 14:07-0400 Diastolic blood pressure 78 mm[Hg] Dr. Atul Higgins Work Phone: [facility] 01-19-2023 14:07-0400 Heart rate 90 /min Dr. Atul Higgins Work Phone: [facility] 01-19-2023 14:07-0400 Respiratory rate 16 /min Dr. Atul Higgins Work Phone: [facility] 01-19-2023 14:07-0400 SaO2% (BldA) [Mass fraction] 95 % Dr. Atul Higgins Work Phone: [facility] 01-19-2023 14:07-0400 Systolic blood pressure 126 mm[Hg] Dr. Atul Higgins Work Phone: [facility] 01-19-2023 09:20-0400 Body height 185.4 cm Darleen Sinan DO Work Phone: [facility] 01-19-2023 09:20-0400 Body mass index (BMI) [Ratio] 52.02 kg/m2 Darleen Sinan DO Work Phone: [facility] 01-19-2023 09:20-0400 Body temperature 98.1 [degF] Darleen Sinan DO Work Phone: [facility] 01-19-2023 09:20-0400 Body weight 178.85 kg Darleen Sinan DO Work Phone: [facility] 01-19-2023 09:20-0400 Diastolic blood pressure 81 mm[Hg] Darleen Sinan DO Work Phone: [facility] 01-19-2023 09:20-0400 Heart rate 72 /min Darleen Sinan DO Work Phone: [facility] 01-19-2023 09:20-0400 SaO2% (BldA) [Mass fraction] 95 % Darleen Sinan DO Work Phone: [facility] 01-19-2023 09:20-0400 Systolic blood pressure 136 mm[Hg] Darleen Sinan DO Work Phone: [facility] 01-05-2023 08:53-0400 Body weight 178.[address] Atul Higgins Work Phone: [facility] 01-05-2023 08:53-0400 Diastolic blood pressure 71 mm[Hg] Dr. Atul Higgins Work Phone: [facility] 01-05-2023 08:53-0400 Heart rate 85 /min Dr. Atul Higgins Work Phone: [facility] 01-05-2023 08:53-0400 Respiratory rate 16 /min Dr. Atul Higgins Work Phone: [facility] 01-05-2023 08:53-0400 SaO2% (BldA) [Mass fraction] 96 % Dr. Atul Higgins Work Phone: [facility] 01-05-2023 08:53-0400 Systolic blood pressure 109 mm[Hg] Dr. Atul Higgins Work Phone: [facility] 12-31-2022 10:41-0400 Body height 185.42 cm [facility] 12-31-2022 10:41-0400 Body mass index (BMI) [Ratio] 52 kg/m2 [facility] 12-31-2022 10:41-0400 Body temperature 97.8 [degF] [facility] 12-31-2022 10:41-0400 Body weight 178.71 kg [facility] 12-31-2022 10:41-0400 Diastolic blood pressure 86 mm[Hg] [facility] 12-31-2022 10:41-0400 Heart rate 86 /min [facility] 12-31-2022 10:41-0400 Respiratory rate 18 /min [facility] 12-31-2022 10:41-0400 SaO2% (BldA) [Mass fraction] 98 % [facility] 12-31-2022 10:41-0400 Systolic blood pressure 131 mm[Hg] [facility] 12-28-2022 07:52-0400 Body height 185.42 cm [facility] 12-28-2022 07:52-0400 Body mass index (BMI) [Ratio] 52.1 kg/m2 [facility] 12-28-2022 07:52-0400 Body temperature 98.4 [degF] [facility] 12-28-2022 07:52-0400 Body weight 179.16 kg [facility] 12-28-2022 07:52-0400 Diastolic blood pressure 77 mm[Hg] [facility] 12-28-2022 07:52-0400 Heart rate 94 /min [facility] 12-28-2022 07:52-0400 Respiratory rate 14 /min [facility] 12-28-2022 07:52-0400 SaO2% (BldA) [Mass fraction] 97 % [facility] 12-28-2022 07:52-0400 Systolic blood pressure 137 mm[Hg] [facility] 09-21-2022 09:25-0500 Body height 185.4 cm Darleen Sinan DO Work Phone: [facility] 09-21-2022 09:25-0500 Body mass index (BMI) [Ratio] 52.39 kg/m2 Darleen Sinan DO Work Phone: [facility] 09-21-2022 09:25-0500 Body temperature 97.5 [degF] Darleen Sinan DO Work Phone: [facility] 09-21-2022 09:25-0500 Body weight 180.12 kg Darleen Sinan DO Work Phone: [facility] 09-21-2022 09:25-0500 Diastolic blood pressure 64 mm[Hg] Darleen Sinan DO Work Phone: [facility] 09-21-2022 09:25-0500 Heart rate 69 /min Darleen Sinan DO Work Phone: [facility] 09-21-2022 09:25-0500 SaO2% (BldA) [Mass fraction] 96 % Darleen Sinan DO Work Phone: [facility] 09-21-2022 09:25-0500 Systolic blood pressure 121 mm[Hg] Darleen Menon DO Work Phone: [facility] 03-04-2022 20:25-0400 Heart rate 107 /min [facility] Work Phone: 03-04-2022 20:25-0400 Respiratory rate 18 /min [facility] Work Phone: 03-04-2022 19:47-0400 Body height 185.42 cm [facility] Work Phone: 03-04-2022 19:47-0400 Body mass index (BMI) [Ratio] 50.1 kg/m2 [facility] Work Phone: 03-04-2022 19:47-0400 Body temperature 96.4 [degF] [facility] Work Phone: 03-04-2022 19:47-0400 Body weight 172.36 kg [facility] Work Phone: 03-04-2022 19:47-0400 Diastolic blood pressure 78 mm[Hg] [facility] Work Phone: 03-04-2022 19:47-0400 SaO2% (BldA) [Mass fraction] 95 % [facility] Work Phone: 03-04-2022 19:47-0400 Systolic blood pressure 128 mm[Hg] [facility] Work Phone: Encounters Encounter Date Encounter Type Care Provider Facility Start: 06-12-2025 End: 06-12-2025 ambulatory ATUL HIGGINS DO [facility] Start: 06-12-2025 End: 06-12-2025 Patient encounter procedure ATUL HIGGINS DO [facility] Start: 02-24-2025 End: 02-24-2025 ambulatory ATUL HIGGINS DO [facility] Start: 02-24-2025 End: 02-24-[address] CONCHITA KEITH MD [facility] Start: 10-01-2024 End: 10-01-2024 Office outpatient visit 15 minutes Darleen E Sinan DO Work Phone: [facility] - [facility] Comment on above: Acute deep vein thro mbosis (DVT) of tibial vein of right lower extremity (HCC) (Primary Dx); Malignant melanoma of right shoulder (HCC) Start: 10-01-2024 End: 10-01-2024 ambulatory DARLEEN E SINAN [facility] Start: 02-20-2024 End: 02-20-2024 ambulatory ATUL HIGGINS DO Facility:[facility] Start: 09-07-2023 End: 09-07-2023 Office outpatient visit 25 minutes Darleen E Sinan DO Work Phone: [facility] Comment on above: Acute deep vein thro mbosis (DVT) of tibial vein of right lower extremity (HCC) (Primary Dx); Malignant melanoma of right shoulder (HCC) Start: 07-18-2023 Refill Darleen E Goebe l DO Work Phone: [facility] Comment on above: Acute deep vein thro mbosis (DVT) of tibial vein of right lower extremity (HCC) Start: 07-16-2023 Refill Darleen E Goebe l DO Work Phone: [facility] Comment on above: Acute deep vein thro mbosis (DVT) of tibial vein of right lower extremity (HCC) Start: 03-29-2023 End: 03-29-2023 ambulatory Atul Higgins Facility:[facility] Start: 03-22-2023 ambulatory Es Rojas lity:[facility] Start: 03-22-2023 Non-patient / Non-visit Dr. Jonnathan Higgins Work Phone: [facility] Start: 03-22-2023 End: 03-22-[address] Atul Higgins Work Phone: [facility] Work Phone: Start: 03-22-2023 End: 03-22-[address] Atul Higgins Work Phone: [facility] Work Phone: Start: 03-09-2023 End: 03-09-2023 ambulatory Atul Higgins Facility:[facility] Start: 03-09-2023 Non-patient / Non-visit Dr. Jonnathan Higgins Work Phone: [facility] Start: 03-09-2023 End: 03-09-2023 Admission to same day surgery center Dr. Atul Higgins Work Phone: [facility] [facility]/Special Procedures Work Phone: Start: 01-19-2023 End: 01-19-2023 ambulatory Atul Higgins Facility:[facility] Start: 01-19-2023 End: 01-19-[address] Atul Higgins Work Phone: [facility] Work Phone: Start: 01-19-2023 End: 01-19-2023 Office outpatient visit 25 minutes Darleen Menon DO Work Phone: [facility] Comment on above: Malignant melanoma o f right shoulder (HCC) (Primary Dx); Acute deep vein thrombosis (DVT) of tibial vein of right lower extremity (HCC); On anticoagulant therapy Start: 01-12-2023 End: 01-12-2023 ambulatory [facility] Facility:[facility] Start: 01-12-2023 Non-patient / Non-visit Dr. Jonnathan Higgins Work Phone: [facility] Start: 01-12-2023 End: 01-12-[address] Atul Higgins Work Phone: [facility]Cardi[facility] Work Phone: Start: 01-05-2023 End: 01-05-2023 ambulatory Atul Higgins Facility:[facility] Start: 01-05-2023 End: 01-05-[address] Atul Higgins Work Phone: [facility] Work Phone: Start: 12-31-2022 End: 12-31-2022 Emergency department patient visit Vivek Ramirez Facility:[facility] Start: 12-31-2022 End: 12-31-2022 Emergency department patient visit [facility] Start: 12-28-2022 End: 12-28-2022 Emergency department patient visit Howard Corrigan Facility:[facility] Start: 12-28-2022 End: 12-28-2022 Emergency department patient visit [facility] Start: 11-01-2022 End: 11-01-2022 Patient encounter procedure ATUL HIGGINS DO [facility] Start: 11-01-2022 End: 11-01-2022 Well adult monitoring check done ATUL HIGGINS DO [facility] Start: 09-21-2022 End: 09-21-2022 Office outpatient visit 25 minutes Darleen Menon DO Work Phone: [facility] On[facility] Ward Comment on above: Malignant melanoma o f right shoulder (HCC) (Primary Dx); Acute deep vein thrombosis (DVT) of tibial vein of right lower extremity (HCC); On anticoagulant therapy Start: 06-01-2022 End: 06-01-2022 Patient encounter procedure ATUL HIGGINS DO [facility] Start: 03-04-2022 End: 03-04-2022 Emergency department patient visit [facility] Start: 08-25-2020 End: 08-25-2020 Subsequent hospital visit by physician Darleen Menon Work Phone: [facility] Start: 07-02-2020 End: 07-02-2020 Subsequent hospital visit by physician Esther Rios Work Phone: [facility] Start: 11-07-2019 End: 11-07-2019 Subsequent hospital visit by physician Augie Berkowitz Work Phone: [facility] Start: 10-28-2019 End: 10-28-2019 Subsequent hospital visit by physician Beverley Wright Work Phone: [facility] Comment on above: Iron deficiency; Vitamin D deficiency; Deficiency of multiple nutrient elements; Low serum potassium Start: 07-29-2019 End: 07-29-2019 Subsequent hospital visit by physician Anthony Rizo Work Phone: [facility] Start: 05-07-2019 End: 05-07-2019 Subsequent hospital visit by physician Beverley Wright Work Phone: [facility] Start: 04-29-2019 End: 04-29-2019 Subsequent hospital visit by physician Beverley Wright Work Phone: [facility] Comment on above: Iron deficiency; Vitamin D deficiency; Deficiency of multiple nutrient elements; Type 2 diabetes mellitus with other neurologic complication, unspecified whether detention insulin use (HCC); Low serum potassium; TOOTIE (obstructive sleep apnea); Morbid obesity with BMI of 50.0-59.9, adult ([facility]) Procedures Date Procedure Procedure Detail Performing Clinician [...] Work Phone: Start: 11-05-2018 Bypass of stomach ATUL HIGGINS DO Start: 11-05-2018 Total gastrectomy ATUL [...] for Adults (1 - 1-dose 75+ series) [facility] Start: 2028 RSV Immunization age d 60 or older (1 - 1-dose 60+ series) RSV Immunization aged 60 or older (1 - 1-dose 60+ series) [facility] Start: 09-06-2024 Depression Screening Depression Scre ening [facility] Start: 09-05-2024 End: 09-05-2024 Patient encounter procedure 09/05/2024 8:30 AM EST Office Visit [facility] [address] [place] [address] Darleen Menon DO [address] [place] [address] [facility] Start: 05-19-2024 COVID-19 Vaccine ( season) COVID-19 Vaccine ( season) [facility] Start: 05-19-2024 Influenza vaccination Influenza Vacc ine (#1) [facility] Start: 01-20-2024 Diabetes: Estimated Glomerular Filtration Rate for Kidney Health Diabetes: Estimated Glomerular Filtration Rate for Kidney Health [facility] Start: 01-19-2024 Depression Screening Depression Scre ening [facility] Start: 09-21-2023 End: 09-21-2023 Patient encounter procedure 09/21/2023 8:30 AM EST Office Visit [facility] [address] [place] [address] SinanDarleen hair DO [address] [place] [address] [facility] Start: 07-25-2023 End: 07-25-2023 Patient encounter procedure 07/25/2023 Office Visit Hematology and Oncology Darleen Menon DO [address] [place] [address] [facility] Start: 05-19-2023 COVID-19 Vaccine () COVID-19 Vaccine () [facility] Start: 05-19-2023 Influenza vaccination Influenza Vacc ine (#1) [facility] Start: 01-19-2023 End: 01-20-2024 CBC W Auto Differential panel - Blood CBC auto differential Lab Routine Malignant melanoma of right shoulder (HCC) Expected: 01/19/2023 (Approximate), Expires: 01/20/2024 [facility] Work Phone: Comment on above: Expected: 01/19/2023 (Approximate), Expires: 01/20/2024 Start: 01-19-2023 End: 01-20-2024 Comprehensive metabolic 1998 panel - Serum or Plasma Comprehensive metabolic panel Lab Routine Malignant melanoma of right shoulder (HCC) Expected: 01/19/2023 (Approximate), Expires: 01/20/2024 [facility] Comment on above: Expected: 01/19/2023 (Approximate), Expires: 01/20/2024 Start: 01-19-2023 End: 01-20-2024 CT Abdomen and Pelvis WO and W contrast IV CT chest abdomen pelvis with contrast Imaging Routine Malignant melanoma of right shoulder (HCC) Acute deep vein thrombosis (DVT) of tibial vein of right lower extremity (HCC) Expected: 01/19/2023, Expires: 01/20/2024 [facility] Comment on above: Expected: 01/19/2023 , Expires: 01/20/2024 Start: 11-26-2021 COVID-19 Vaccine (4 - Booster for Moderna series) COVID-19 Vaccine (4 - Booster for Moderna series) [facility] Start: 11-26-2021 COVID-19 Vaccine (4 - Moderna series) COVID-19 Vaccine (4 - Moderna series) [facility] Start: 08-25-2021 End: 08-25-2021 Office Visit 08/25/2021 Office Visit Hematology and Oncology Sinan Darleen ManuelDO [address] [place] [address] [phone] [facility] Oncology Ward Start: 04-28-2021 Creatinine measurement Creatinine mo nitoring [place], [place] Start: 04-28-2021 Lipid panel [facility] Start: 04-28-2021 Potassium monitoring Potassium monit [place], [place] Start: 11-19-2020 End: 11-19-2020 Initial consult 11/19/2020 Initial consult Plastic Surgery Preet Dickens MD [address], [place] [id number] [facility] [place] Start: 10-28-2020 Creatinine monitoring Creatinine mon [place], [place] Start: 10-28-2020 Lipid screen Lipid screen [place], [place] Start: 10-28-2020 Potassium monitoring Potassium monit [place] Start: 08-03-2020 End: 08-03-2020 Office Visit [facility] Oncology Ward Start: 05-19-2020 Influenza vaccination Flu vaccine (# 1) [place], [place] Start: 04-29-2020 Creatinine monitoring Creatinine mon [place] Start: 04-29-2020 Lipid screen Lipid screen [place] Start: 04-29-2020 Potassium monitoring Potassium monit [place] Start: 02-27-2020 Creatinine monitoring Creatinine mon [place] Start: 02-27-2020 Potassium monitoring Potassium monit [place] Start: 11-07-2019 End: 11-07-2019 Office Visit 11/07/2019 Office Visit Bariatrics Augie Berkowitz MD [address] [facility] [place] [address] [phone] [facility] Start: 10-11-2019 A1C test (Diabetic o r Prediabetic) A1C test (Diabetic or Prediabetic) [place] Start: 10-11-2019 HbA1c (Bld) [Mass fraction] A1C test (Diabetic or Prediabetic) [place] Start: 08-02-2019 Lipid screen Lipid screen [place], [place] Start: 07-30-2019 End: 07-30-2019 Office Visit 07/30/2019 Office Visit Hematology and Oncology [facility] Oncology Ward Start: 05-19-2019 Influenza vaccination Flu vaccine (# 1) [place] Start: 05-07-2019 End: 05-07-2019 Office Visit 05/07/2019 Office Visit Bariatrics Beverley Wright, BAG PRINTER - FINGERNAIL TECHNICIAN [address] [place] [address] [phone] [facility] Start: 2018 Colon cancer screen colonoscopy Colon cancer screen colonoscopy [place] Start: 2018 Screening for malign ant neoplasm of colon Colon cancer screen colonoscopy [place] Start: 2018 Shingles Vaccine (1 of 2) Shingles V accine (1 of 2) [place] Start: 2018 Zoster Vaccines (1 of 2) Zoster Vacc anna (1 of 2) [facility] Start: 12-12-2015 Pneumococcal Vaccine : 50+ Years (2 of 2 - PCV) Pneumococcal Vaccine: 50+ Years (2 of 2 - PCV) [facility] Start: 12-12-2015 Pneumococcal Vaccine : Pediatrics (0 to 5 Years) and At-Risk Patients (6 to 64 Years) (2 - PCV) Pneumococcal Vaccine: Pediatrics (0 to 5 Years) and At-Risk Patients (6 to 64 Years) (2 - PCV) [facility] Start: 12-12-2015 Pneumococcal Vaccine : Pediatrics (0 to 5 Years) and At-Risk Patients (6 to 64 Years) (2 of 2 - PCV) Pneumococcal Vaccine: Pediatrics (0 to 5 Years) and At-Risk Patients (6 to 64 Years) (2 of 2 - PCV) [facility] Start: 1987 DTaP/Tdap/Td vaccine (1 - Tdap) DTaP/Tdap/Td vaccine (1 - Tdap) [place] Start: 1987 DTaP/Tdap/Td Vaccine s (1 - Tdap) DTaP/Tdap/Td Vaccines (1 - Tdap) [facility] Start: 1987 Hepatitis A Vaccines (1 of 2 - Risk 2-dose series) Hepatitis A Vaccines (1 of 2 - Risk 2-dose series) [facility] Start: 1987 Hepatitis B Vaccine (1 of 3 - Risk 3-dose series) Hepatitis B Vaccine (1 of 3 - Risk 3-dose series) [place] Start: 1987 Hepatitis B Vaccines (1 of 3 - 19+ 3-dose series) Hepatitis B Vaccines (1 of 3 - 19+ 3-dose series) [facility] Start: 1987 Urine screening for protein Diabetes: Urine Protein Screening [facility] Start: 1986 Diabetes: Urine Albumin-Creatinine Ratio for Kidney Health Diabetes: Urine Albumin-Creatinine Ratio for Kidney Health [facility] Start: 1986 Diabetic microalbumi cammy test Diabetic microalbuminuria test [place] Start: 1986 Hepatitis C screening Hepatitis C Sc reening [facility] Start: 1983 HIV screen HIV screen [place], [place] Start: 1983 HIV screening HIV screen [facility] [place] Start: 1979 DTaP/Tdap/Td vaccine (1 - Tdap) DTaP/Tdap/Td vaccine (1 - Tdap) [place] Start: 1978 [object Object] Diabetic foot exam [place], [place] Start: 1978 Diabetic foot examination [facility] Start: 1978 Diabetic retinal exam Diabetic retin al exam [place] Start: 1978 Glaucoma screening Diabetes: R etinopathy Screening [facility] Start: 1978 Preventive dental service Diabetes: Dental Exam [facility] Start: 1974 Pneumococcal 0-64 ye ars Vaccine (1 of 1 - PPSV23) Pneumococcal 0-64 years Vaccine (1 of 1 - PPSV23) [place] Start: 1969 Hepatitis A Vaccines (1 of 2 - Risk 2-dose series) Hepatitis A Vaccines (1 of 2 - Risk 2-dose series) [facility] Start: 03-11-1969 Examination of skin Derm Melanoma Sk in Check [facility] Start: 1968 Hemoglobin A1c measurement Diabetes: Hemoglobin A1C [facility] Start: 1968 Hepatitis B Vaccines (1 of 3 - 3-dose series) Hepatitis B Vaccines (1 of 3 - 3-dose series) [facility] Start: 1968 HIV screening HIV Screening [facility] Start: 1968 Screening for malign ant neoplasm of colon [facility] Patient Education ED Varicose Veins [facility] Work Phone: Patient referral [facility] Work Phone: End: 04-29-2019 Zinc Zinc Lab Routine Once for 1 Occurrences starting 04/29/2019 until 04/29/2019 [place] Comment on above: Once for 1 Occurrenc es starting 04/29/2019 until 04/29/2019 Zinc [place] End: 10-28-2019 Zinc Zinc Lab Routine Iron deficiency Vitamin D deficiency Deficiency of multiple nutrient elements Low serum potassium 1 Occurrences starting 10/28/2019 until 10/28/2019 [facility] Work Phone: Comment on above: 1 Occurrences starti ng 10/28/2019 until 10/28/2019 Immunizations Immunization Date Immunization Notes Care Provider Carlos peacock 05-30-2025 tetanus toxoid, redu hyacinth diphtheria toxoid, and acellular pertussis vaccine, adsorbed; Translations: [Boostrix (Tdap)] ATUL HIGGINS DO [facility] 07-16-2024 influenza, injectabl e, quadrivalent, contains preservative; Translations: [Fluarix PF Prefilled Syringe ] DR CONCHITA KEITH MD [facility] 08-29-2023 influenza, injectabl e, quadrivalent, contains preservative; Translations: [Fluarix PF Quadrivalent ] DR CONCHITA KEITH MD [facility] 06-21-2022 influenza, injectabl e, quadrivalent, contains preservative; Translations: [Fluarix PF Quadrivalent ] ATUL HIGGINS DO [facility] 06-21-2022 influenza virus vacc ine, unspecified formulation Darleen Menon DO Work Phone: [facility] 10-01-2021 influenza virus vacc ine, unspecified formulation ATUL HIGGINS DO [facility] 10-01-2021 SARS-CoV-2 (COVID-19 ) mRNA-1273 vaccine ATUL HIGGINS DO [facility] 01-20-2021 SARS-CoV-2 (COVID-19 ) mRNA-1273 vaccine ATUL HIGGINS DO [facility] 12-23-2020 SARS-CoV-2 (COVID-19 ) mRNA-1273 vaccine ATUL HIGGINS DO [facility] 06-01-2020 influenza, injectabl e, quadrivalent, preservative free; Translations: [Fluarix PF Quadrivalent ] ATUL HIGGINS DO [facility] 08-15-2018 influenza virus vacc ine, unspecified formulation ATUL HIGGINS DO [facility] 07-08-2017 influenza virus vacc ine, unspecified formulation ATUL HIGGINS DO [facility] 05-26-2016 influenza virus vacc ine, unspecified formulation ATUL HIGGINS DO [facility] 06-18-2015 influenza virus vacc ine, unspecified formulation ATUL HIGGINS DO [facility] 12-11-2014 pneumococcal polysaccharide vaccine, 23 valent ATUL ROEINS DO [facility] 08-11-2014 influenza virus vacc ine, unspecified formulation ATUL HIGGINS DO [facility] 06-27-2013 influenza virus vacc ine, unspecified formulation ATUL HIGGINS DO [facility] 03-04-2009 measles/mumps/rubell a virus vaccine ATUL HIGGINS DO [facility] Payers Date Payer Category Payer Unknown [id number] 2022 Self-pay [id number] 2022 Private Health Insurance 2f [id number] 2022 Commercial Managed C [facility] [place] [id number] 2022 Unknown [employer] [id number] 2022-Present [address] [place] [address] Commercial [id number] 2018 Unknown [employer] xxxxxxxxxxx 2018-Present [phone] [address] [place], [facility] xxxxxxxxxxx [id number] 2018 Unknown [employer]I xxxxxxxxxxx 2018-Present [phone] [address] [place], [facility] xxxxxxxxxxx [id number] 2018 Unknown [employer]I [id number] 2018-Present [phone] PO [facility] [address] [place], [place] [address] [id number] 2016 Unknown [id number] 1970 Unknown [id number] .627 1970 Unknown [id number] 2.840.1.340323.3.579.2 .627 1970 Unknown [id number] 2.840.1.683638.3.579.2 .627 Unknown [id number] 2.16840.1.188872.3.579.2 .462 Unknown [id number] 2.16840.1.483989.3.579.2 .462 Unknown [id number] 2.16840.1.498388.3.579.2 .462 Unknown [id number] 2.16840.1.545101.3.579.2 .462 Unknown [id number] 2.16.840.1.990062.3.579.2 .462 Unknown [id number] 2.16.840.1.761958.3.579.2 .462 Unknown [id number] 2.16.840.1.550476.3.579.2 .462 Unknown [id number] 2.16.840.1.296009.3.579.2 .462 Unknown [id number] 2.16.840.1.072793.3.579.2 .462 Unknown [id number] 2.16.840.1.211186.3.579.2 .462 Unknown [id number] [id number] .462 Social History Date Type Detail Facility Start: 02-26-2019 End: 05-30-2019 Tobacco smoking status MSIS Former smoker [facility] Comment on above: no tobacco smoke exp osure End: 04-16-1998 History of tobacco use [place] End: 04-16-1998 History of tobacco use Cigar [place] Start: 02-26-2019 End: 10-01-2024 Alcohol intake Not Currently [place] Start: 05-10-2018 Tobacco Comment Socially [place] Start: 07-18-2018 Alcohol Comment occas maybe on ce every few months [place] Sex Assigned At [place] on file [place] Start: 05-07-2019 End: 07-31-2019 Alcohol intake Ex-drinker (finding) [facility] Start: 11-07-2019 End: 10-01-2024 Alcohol intake Current drinker of alcohol (finding) [place] Start: 11-07-2019 History SDOH Alcohol Frequency 4 [place] Start: 07-02-2020 End: 09-21-2022 Tobacco use and exposure Never used [place] Start: 03-04-2022 End: 03-09-2023 Tobacco smoking status MSIS Unknown if ever smoked [facility] Start: 1970 Sex Assigned At Male [facility] End: 04-16-1998 History of tobacco use Cigarette Smoker [facility] Start: 01-19-2023 End: 10-01-2024 Alcohol intake [facility] Start: 09-11-2022 End: 01-19-2023 Exposure to SARS-CoV-2 (event) Not sure [facility] Start: 09-17-2022 Gender identity Identifies as male gender (finding) [facility] Start: 09-17-2022 Sexual orientation Heterosexual (fin ding) [facility] Start: 03-13-2019 End: 04-18-2022 Sex Male (finding) [facility] Sexual Orientation Linda Joyceltman [place] [facility] Procedure Code Equipment Code Equipment Origin al Text Equipment Identifier Dates Varicose vein adhesive-treatment kit ([id number] FDA Start: 03-09-2023 Mental Status Date Assessment Result Facility 03-04-2022 Cognitive function Level Of Cons ciousness Awake;Alert;Appropriate;Follow s Commands [facility] Work Phone: Clinical Notes 09-21-2022 to 02-24-2025 Note Date & Type Note Facility 02-24-2025 Evaluation + Plan note Extrac robson from: Title:Clinical Document Author:CONCHITA KEITH Date:02/24/25 [place] ADMISSION HISTORY AN D PHYSICIAL CHIEF COMPLAINT: HISTORY OF PRESENT ILLNESS: REVIEW OF SYSTEMS: ACTIVE PROBLEMS: (18) Arthritis (8563979) Arthritis of left knee (6840524431) Benign essential hypertension (6287162) BMI 50.0-59.9, adult (7835413842) Dental caries (097507545) Dribbling urine (820564209) Elevated vitamin B12 level (400978398) Family history of rectal cancer (7788010829) Grade A1 albuminuria (0224955426) History of DVT (deep vein thrombosis), several, 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 stopped heme 2023 (1837172373) History of melanoma, right shoulder s/p removal (737531635) History of pulmonary embolism (582297515) Knee effusion, left (0643157227) TOOTIE treated with BiPAP (851273594) S/P laparoscopic sleeve gastrectomy, 2017 (0510954002) Stasis dermatitis (79202555) Type 2 diabetes mellitus with obesity (6686894924) Varicose vein of leg (892984300) MEDICATIONS: Active Inpt Meds: None Active PRN Meds: None One Time Meds: None Active IV Meds: Lactated Ringers Infusion 1,000 mL (LR 1,000 mL) Start: 02/24/25 8:02:00 EDT, Rate: 50 mL/hr, 02/24/25 8:02:00 EDT ALLERGIES: (1) NKA FAMILY HISTORY: SOCIAL HISTORY: PHYSICAL EXAM: VITALS: [id number]z(kg) 02/24 08:09----[id number]/26329.0 24 Hr Tmax: No Data Available 36 [...] Date:04/15/2025 02:00:00 PM Scheduled Provider:ATUL HIGGINS DO Location:[facility] Appointment Type: Wellness Annual Future Scheduled Tests [...] Panel 01/14/25 * Complete Metabolic Panel 01/14/25 [facility] Lindastalin Devlin 06-09-2025 Hospital Discharge instructions Patient [...] until you are awake and alert. Take qvyn-ngb-duihptn and prescription medicines only as told by [...] 06/25/2014 Document Revised: 08/17/2018 Document Reviewed: 12/24/2016 [employer] Patient Education 2020 [employer] 02/24/2025 09:11:43 Colonoscopy, Adult, Care After, Wqny-ph-Phsr Colonoscopy, Adult, Care After This sheet gives [...] are soft and easy to digest. Take yxhd-neo-ssruxlt or prescription medicines only as told by [...] 10/07/2011 Document Revised: 07/05/2018 Document Reviewed: 05/29/2017 [employer] Patient Education 2020 [employer]. 02/24/2025 09:11:41 Colon Polyps Colon Polyps Polyps [...] 05/31/2005 Document Revised: 12/20/2018 Document Reviewed: 12/20/2018 [employer] Patient Education 2020 [employer]. Follow Up Care 01/20/2025 14:02:41 With:CONCHITA KEITH MD [address] [facility] [address] [place] [phone] When: Unknown Comments:Repeat colonoscopy in 3 years. [facility] 06-09-2025 Summary of episode note Discharge Instructions Thank you for allowing [facility] to assist you with your healthcare needs. The following is importantdischarge information regarding your hospital visit. Your Care Team ATUL HIGGINS DO What to do next Scheduled Follow-Up Appointments Appointment Type When With Where Contact Information [facility] Wellness Annual 04/15/2025 02:00 PM EDT ATUL HIGGINS DO [facility] [address] [address] Confirmed Follow Up Appointments Follow Up with CONCHITA KEITH MD Where:[address] [facility] [address] [place] [phone] Additional Information: Repeat colonoscopy in 3 years. [...] until you are awake and alert. Take wbta-mtx-yhnjcdx and prescription medicines only as told by [...] 06/25/2014 Document Revised: 08/17/2018 Document Reviewed: 12/24/2016 [employer] Patient Education 2020 [employer]. Colonoscopy, Adult, Care After This sheet gives [...] are soft and easy to digest. Take apom-rfz-hqqqbma or prescription medicines only as told by [...] 10/07/2011 Document Revised: 07/05/2018 Document Reviewed: 05/29/2017 [employer] Patient Education 2020 [employer] Colon Polyps Polyps are tissue growths [...] 05/31/2005 Document Revised: 12/20/2018 Document Reviewed: 12/20/2018 [employer] Patient Education 2020 [employer]. Additional Information VACCINATE! IT SAVES LIVES! Members of the community who have not yet received the COVID-19 vaccine and would like to receive it can visit one of [facility] vaccine clinics. There are many vaccine clinic locations within the [facility]. For locations and available times, please visit [email or web address].[place].gov/. It is important to note that some COVID mobile vaccine clinics are held outdoors and may be canceled in rainy or stormy conditions. To learn more about pediatric vaccinations (ages 5-11), we invite you to visit the [facility] webpage. [email or web address]/[email or web address] [email or web address] learn more about the COVID-19 vaccine, we invite you to visit the CDC website for a list of frequently asked questions.https://www.cdc.gov/coronavirus/2019-ncov/vaccines/faq.html [employer] Patient Portal Access Instructions: Stay connected with your healthcare team and access your personal medical information anytime with the [employer] Patient Portal. Please follow the directions below to create your [employer] account: 1.Access the email account you provided upon registration to the hospital/physician office.2.Look for an invitation email from [facility].3.Open the email and access the invitation link: AcceptInvitation to [facility].4.Fill in the required man to create your account. To access your account, visit [email or web address]. Click the blue button labeled Access Patient [...] who you will allowto register on the [facility] Patient Portal for access to your information. You can also access the [facility] Patient Portal on the [facility] nikolas. Simply click on Patient Portal and then log into your account. If you would like to receive a full copy of your medical records, please contact the [facility] Medical Records Department by calling [phone], Monday through Monday between 8 a.m. and [...] Call your local pharmacy or go to http://[email or web address] to find one close to you.3.Make use of household items: Use cat litter or old coffee grounds to dispose medications if other options arenot available. Mix your drugs with these household products, seal them in an airtight container andthrow it into the garbage. Call [facility]: [phone] to be sure your drugs can be [...] Adult, Care After Colonoscopy, Adult, Care After, Wtyu-st-Wgmb Colon Polyps Medication Leaflets My discharge plan and instructions have been reviewed and explained to me and I,ARIAS JOHNSTON understand my current condition and have read and understand these discharge instructions. I have received a written copy of the plan/instructions. If I have questions, I am aware that I should contact my doctor. Patient/[place] Signature: Date/Time: Relationship to Patient: Witness Name/Signature: Date/Time: [facility] [id number] Note Date of Service February 24, 2025 Procedure Name Colonoscopy with biopsy Consent Taken before procedure Indication Family history of colon cancer high risk screening colonoscopy Location [facility] Pre-Procedure Exam High risk screening colonoscopy [...] FAMILY HISTORY OF COLON CANCER, Preferred Lab: [facility], [id number] Post Procedure Assessment, 02/24/25 9:09:00 EDT, Stop [...] CONCHITA KEITH MD on 02/24/2025 09:12 AM [facility]06-09-2025 Anesthesiology Consult note Patient: ARIAS JOHNSTON Age: [...] by SHAYLEE ACEVES on 02/24/2025 09:11 AM [facility]06-09-2025 Note [place] ADMISSION HISTORY AND PHYSICIAL CHIEF COMPLAINT: HISTORY OF PRESENT ILLNESS: REVIEW OF SYSTEMS: ACTIVE PROBLEMS: (18) Arthritis (0466502) Arthritis of left knee (2439062537) Benign essential hypertension (2707951) BMI 50.0-59.9, adult (1792939872) Dental caries (046344175) Dribbling urine (509882037) Elevated vitamin B12 level (354899761) Family history of rectal cancer (9255448915) Grade A1 albuminuria (7755576256) History of DVT (deep vein thrombosis), several, detention Eliquis Rx by PCP stopped heme 2023 (2572772039) History of melanoma, right shoulder s/p removal (404191833) History of pulmonary embolism (508413979) Knee effusion, left (6773233481) TOOTIE treated with BiPAP (501250411) S/P laparoscopic sleeve gastrectomy, 2017 (5272726102) Stasis dermatitis (53565911) Type 2 diabetes mellitus with obesity (1233857249) Varicose vein of leg (605080750) MEDICATIONS: Active Inpt Meds: None Active PRN Meds: None One Time Meds: None Active IV Meds: Lactated Ringers Infusion 1,000 mL (LR 1,000 mL) Start: 02/24/25 8:02:00 EDT, Rate: 50 mL/hr, 02/24/25 8:02:00 EDT ALLERGIES: (1) NKA FAMILY HISTORY: SOCIAL HISTORY: PHYSICAL EXAM: VITALS: [id number](kg) 02/24 08:09----[id number]/66725.0 24 Hr Tmax: No Data Available 36 [...] CONCHITA KEITH MD on 02/24/2025 08:47 AM [facility]06-09-2025 Anesthesiology Consult note Patient: ARIAS JOHNSTON Age: 54 years Sex: Male : 1970 Associated Diagnoses: None Author: SHAYLEE ACEVES BAG PRINTER-INSET CUTTER Preoperative Information Time of last food or [...] Problem list: Medical Arthritis / SNOMED CT 7807752 / Confirmed Arthritis of left knee / SNOMED CT 7037587421 / Confirmed Benign essential hypertension / SNOMED CT 3879676 / Confirmed BMI 50.0-59.9, adult / SNOMED CT 6520400169 / Confirmed Dental caries / SNOMED CT 319274936 / Confirmed Dribbling urine / SNOMED CT 984664544 / Confirmed Knee effusion, left / SNOMED CT 8894584868 / Confirmed Family history of rectal cancer / SNOMED CT 5842509903 / Confirmed Grade A1 albuminuria / SNOMED CT 1462841007 / Confirmed History of melanoma, right shoulder s/p removal / SNOMED CT 320468296 / Confirmed History of pulmonary embolism / SNOMED CT 942413233 / Confirmed History of DVT (deep vein thrombosis), several, detention Eliquis Rx by PCP stopped heme 2023 / SNOMED CT 3295170442 / Confirmed S/P laparoscopic sleeve gastrectomy, 2017 / SNOMED CT 4789125398 / Confirmed Elevated vitamin B12 level / SNOMED CT 757145888 / Confirmed TOOTIE treated with BiPAP / SNOMED CT 960711187 / Confirmed Stasis dermatitis / SNOMED CT 97562060 / Confirmed Type 2 diabetes mellitus with obesity / SNOMED CT 7799144502 / Confirmed Varicose vein of leg / SNOMED CT 568712071 / Confirmed Canceled: Severe obesity (BMI >= 40) / SNOMED CT 7796447458 Canceled: DVT (deep venous thrombosis) / SNOMED CT 106791876 Canceled: Diabetes / SNOMED CT 438685531 Canceled: Grade A2 albuminuria / SNOMED CT 6436680609 Canceled: Left knee pain / SNOMED CT 60179880 Canceled: Morbid obesity / SNOMED CT 262356534 Canceled: Nodular melanoma / SNOMED CT 408019985 Canceled: Pulmonary embolism / SNOMED CT 14180367 Canceled: Type 2 diabetes mellitus with renal complication / SNOMED CT 489257883 Canceled: Type 2 diabetes mellitus with albuminuria / SNOMED CT 766323250 Canceled: Type 2 diabetes mellitus without complication / SNOMED CT 213474347, Active Problems (18) Arthritis Arthritis of left knee Benign essential hypertension BMI 50.0-59.9, adult Dental caries Dribbling urine Elevated vitamin B12 level Family history of rectal cancer Grade A1 albuminuria History of DVT (deep vein thrombosis), several, 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 Gastric bypass (8582966175) on 11/05/2018 at 48 Years. Bilateral inguinal hernia repair ([id number]) on 04/09/2018 at 47 Years. Excision of melanoma ([id number]) on 05/20/2016 at 45 Years. Comments: 05/30/2019 9:43 EDT - CHERY Tang right shoulder Bone graft ([id number]) in 1973 at 1 Years. Social History: Social & Psychosocial Habits Alcohol 01/14/2025Risk Assessment: Low Risk 01/14/2025 Use: Never Type: Beer Frequency: 1-2 times per month Substance Abuse 01/14/2025Risk Assessment: Denies Substance Abuse 01/14/2025 Use: Never Tobacco 01/14/2025 Tobacco Use: Former smoker, quit more Comment: no tobacco smoke exposure - 05/30/2019 09:44 - CHERY Tang Home/Environment 01/14/2025 Primary Cage Manager: self Nutrition/Health 01/14/2025 Caffeine intake amount: 1-2 servings per day Physical Examination Vital Signs 02/24/2025 8:09 EDT Apical Heart Rate 91 bpm Respiratory Rate 15 br/min Systolic Blood Pressure Non-Invasive 132 mmHg Diastolic Blood Pressure Non-Invasive 79 mmHg Vital Signs (last 24 hrs) Last Charted Heart Rate [id number] bpm (FEB 24 08:09) FGT364 mmHg (FEB 24 08:09) DBP79 mmHg (FEB 24 08:09) Measurements from flowsheet : Measurements 02/24/2025 8:09 EDT Height 180 cm Admission Weight 181 kg [place] Body Weight 74.99 kg Pain assessment: Pain [...] Allergies No Anesthesia Extension Set Applied Yes Java Mobile Developer On Yes Colon Prep Results Excellent Consent [...] Height 180 cm Admission Weight 181 kg [place] Body Weight 74.99 kg Apical Heart Rate [...] Safety level maintained . Assessment and Plan [place] Society of Anesthesiologists (ASA) physical status classification: Class III. Anesthetic Preoperative Plan Premedication: intravenous. Anesthetic technique: MAC. Induction: intravenously. Maintenance airway: Mask. Risks discussed: nausea, vomiting, headache, sore throat, dental injury, hypotension, allergic reaction, serious complications. Informed consent: signed by patient. 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 Adjuvant therpay was not recommended and he [...] qDay, # 90 tab(s), 3 Refill(s), Pharmacy: [facility]/pharmacy #[id number], 183, cm, 10/14/21 10:32:00 EST, Height, [...] BEDTIME, # 90 tab(s), 3 Refill(s), Pharmacy: [facility]/pharmacy #[id number], 183, cm, 10/14/21 10:32:00 EST, Height, [...] by mouth daily. biotin 5000 MCG capsule Bddocgh-Zdammynuv-Udnqwzl D (CITRACAL CALCIUM+D PO) Take 3 capsules [...] Narrative: Patient Name: ARIAS JOHNSTON : 1970 [facility]#: [id number] Exam Date/Time: 02/10/2023 09:04 Procedure: CT CHEST [...] DO Hematology/Medical Oncology documented in this 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 Adjuvant therpay was not recommended and he [...] Current Outpatient Medications Medication Sig Dispense Refill Bfpzedz-Poiqlcgiv-Wspwouh D (CITRACAL CALCIUM+D PO) Take 3 capsules [...] Narrative: Patient Name: ARIAS JOHNSTON : 1970 [facility]#: [id number] Exam Date/Time: 02/10/2023 09:04 Procedure: CT CHEST [...] DO Hematology/Medical Oncology documented in this [facility]10-31-2023 Telephone encounter Note* Telephone Encounter - Cat Vidal RN - 07/18/2023 8:11 AM EDT Refill request received for Eliquis. [facility] p[facility]. [id number] Miscellaneous Notes* Telephone Encounter - Cat Vidal RN - 07/18/2023 8:11 AM EDT Refill request received for Eliquis. Prescription pended. documented in this [facility]10-30-2023 Telephone encounter Note* Telephone Encounter - Cat Vidal RN - 07/17/2023 12:50 PM EDT Refill request received for Eliquis. Prescription is pended. [id number] Miscellaneous Notes* Telephone Encounter - Cat Vidal RN - 07/17/2023 12:50 PM EDT Refill request received for Eliquis. Prescription is pended. documented in this [facility]06-22-2023 [facility] Medical Records Department [address] [place] [address] History Physical Exam 03/09/23 0718 MR#: [id number] Acct: [id number] Name: ARIAS JOHNSTON Rep #: [id number] : 1970 52 From: Es HERNDON PCP: Dr. Atul Higgins, DO Status:REG [facility] Location: [facility] HPI - General General Date of Service: 03/09/23 HPI Narrative ARIAS PRESTON, is a 52 M who presents today for venous glue ablation secondary to RLE varicosity which bleeds recurrently. Venous duplex 01/12/23 was positive for reflux in the right saphenofemoral junction, great saphenous vein, accessory saphenous vein, calf lubricating engineer veins. After discussion of risks/benefits/recovery of venous [...] palpitations, new or worsening pain/swelling in BLE. 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 Adjuvant therpay was not recommended and he [...] mouth 2 times daily. 60 tablet 5 Rvvhmek-Etnnspqjc-Ymllerf D (CITRACAL CALCIUM+D PO) Take 3 capsules [...] 04/28/2020 45.8 42.0 - 52.0 % Final [facility] MEAN CORPUSCULAR VOLU* 04/28/2020 88.6 80.0 - 94.0 fL Final MCH 04/28/2020 29.3 27.0 - 31.2 pg Final [facility] MEAN CORPUSCULAR HEMO* 04/28/2020 33.0 31.8 - 35.4 G/dL Final [facility] RED CELL DISTRIBUTION* 04/28/2020 13.9 11.5 - 14.5 % Final Platelets 04/28/2020 331 130 - 400 10 3/mcL Final [facility] MEAN PLATELET VOLUME 04/28/2020 7.0 (L) 7.4 - 10.4 fL Final [facility] VITAMIN D 25-HYDROXY 04/28/2020 42.6 ng/mL Final [...] 32 (H) 22 - 29 mmol/L Final [facility] ELECTROLYTE BALANCE 04/28/2020 4.0 mEq/L Final [facility]REA NITROGEN 04/28/2020 23 (H) 7 - 18 mg/dL Final CREATININE 04/28/2020 0.90 0.70 - 1.30 mg/dL Final [facility] BUN / CREAT RATIO 04/28/2020 26 7 - 27 ratio Final CALCIUM 04/28/2020 9.5 8.4 - 10.2 mg/dL Final TOTAL PROTEIN 04/28/2020 7.2 6.4 - 8.2 G/dL Final ALBUMIN 04/28/2020 3.5 3.5 - 5.0 G/dL Final [facility] GLOBULIN 04/28/2020 3.7 G/dL Final A/G RATIO 04/28/2020 0.9 (L) 1.1 - 2.5 ratio Final BILIRUBIN, TOTAL 04/28/2020 0.7 0.2 - 1.0 mg/dL Final Comment: Use of this assay is not recommended for patients undergoing treatment with eltrombopag due to the potential for falsely elevated results. [facility] ALK PHOSPHATASE 04/28/2020 85 40 - 135 [...] its performance characteristics determined by [facility]'s Kevin Ayoub Pathology [facility] [place] ( [facility]). It has not been cleared or approved by the FDA. [facility] is regulated under CLIA as qualified to perform high complexity testing. This test is used for clinical purposes. It should not be regarded as investigational or for research. Performed By: [facility] [address] [place] [address] Territory Sales Professional: Jose Robb III, M.D. CLIA#: [id number] Phone#: [phone] 04/28/2020 108 ml/min/1.73sqm Final Comment: [...] 04/28/2020 22.8 10.0 - 50.0 % Final [facility] Ghost MONOCYTES RELATIVE PE* 04/28/2020 8.2 1.7 - 13.0 % Final [facility] Ghost EOSINOPHILS RELATIVE * 04/28/2020 0.8 0.0 - 7.0 % Final [facility] Ghost BASOPHILS RELATIVE PE* 04/28/2020 0.8 0.0 - 2.5 % Final [facility] Ghost LYMPHOCYTES ABSOLUTE 04/28/2020 1.30 0.77 - 3.85 10 3/mcL Final [facility] MONOCYTES ABSOLUTE 04/28/2020 0.50 0.15 - [...] Return to office in 6 months Darleen eMnon DO Hematology/Medical Oncology documented in this 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 Adjuvant therpay was not recommended and he [...] (HCC) 12/07/2016 Malignant melanoma of right shoulder ([facility]) 04/16/2016 Family History Problem Relation Name Age [...] Current Outpatient Medications Medication Sig Dispense Refill Gvqdzqg-Dwjrjjjjr-Mmgwimy D (CITRACAL CALCIUM+D PO) Take 3 capsules [...] 04/28/2020 45.8 42.0 - 52.0 % Final [facility] MEAN CORPUSCULAR VOLU* 04/28/2020 88.6 80.0 - 94.0 fL Final MCH 04/28/2020 29.3 27.0 - 31.2 pg Final [facility] MEAN CORPUSCULAR HEMO* 04/28/2020 33.0 31.8 - 35.4 G/dL Final [facility] RED CELL DISTRIBUTION* 04/28/2020 13.9 11.5 - 14.5 % Final Platelets 04/28/2020 331 130 - 400 10 3/mcL Final [facility] MEAN PLATELET VOLUME 04/28/2020 7.0 (L) 7.4 - 10.4 fL Final [facility] VITAMIN D 25-HYDROXY 04/28/2020 42.6 ng/mL Final [...] 32 (H) 22 - 29 mmol/L Final [facility] ELECTROLYTE BALANCE 04/28/2020 4.0 mEq/L Final [facility]REA NITROGEN 04/28/2020 23 (H) 7 - 18 mg/dL Final CREATININE 04/28/2020 0.90 0.70 - 1.30 mg/dL Final [facility] BUN / CREAT RATIO 04/28/2020 26 7 - 27 ratio Final CALCIUM 04/28/2020 9.5 8.4 - 10.2 mg/dL Final TOTAL PROTEIN 04/28/2020 7.2 6.4 - 8.2 G/dL Final ALBUMIN 04/28/2020 3.5 3.5 - 5.0 G/dL Final [facility] GLOBULIN 04/28/2020 3.7 G/dL Final A/G RATIO 04/28/2020 0.9 (L) 1.1 - 2.5 ratio Final BILIRUBIN, TOTAL 04/28/2020 0.7 0.2 - 1.0 mg/dL Final Comment: Use of this assay is not recommended for patients undergoing treatment with eltrombopag due to the potential for falsely elevated results. [facility] ALK PHOSPHATASE 04/28/2020 85 40 - 135 [...] its performance characteristics determined by [facility]'s Kevin Bolden [facility] Pathology and Laboratory Medicine [place] ([facility]). It has not been cleared or approved by the FDA. [facility] is regulated under CLIA as qualified to perform high complexity testing. This test is used for clinical purposes. It should not be regarded as investigational or for research. Performed By: [facility] [address] [place] [address] Territory Sales Professional: Jose Robb III, M.D. CLIA#: [id number] Phone#: [phone] 04/28/2020 108 ml/min/1.73sqm Final Comment: [...] 04/28/2020 22.8 10.0 - 50.0 % Final [facility] MONOCYTES RELATIVE PE* 04/28/2020 8.2 1.7 - 13.0 % Final [facility] EOSINOPHILS RELATIVE * 04/28/2020 0.8 0.0 - 7.0 % Final [facility] BASOPHILS RELATIVE PE* 04/28/2020 0.8 0.0 - 2.5 % Final [facility] LYMPHOCYTES ABSOLUTE 04/28/2020 1.30 0.77 - 3.85 10 3/mcL Final [facility] MONOCYTES ABSOLUTE 04/28/2020 0.50 0.15 - [...] Menon DO Hematology/Medical Oncology documented in this [facility] summary Author Dr. Corrigan [facility] December 28, 2022 8:07am Note Date/Time December 28, 2022 8:0 2am [facility] Medical Records Department [address] [place] [address] Emergency Department Summary 12/28/22 MR#: [id number] Acct: [id number] Name: ARIAS JOHNSTON Rep #:[id number] : 1970 52 From: Howard Corrigan MD [...] so tight, but he denies pain anywhere. [facility] Medical History Deep vein thrombosis (DVT) of [...] your Primary Care Provider. Call [facility] ([phone]) or report to the closest Emergency Room. Call 911 if necessary. 12/28/22 0807 <Electronically signed by Howard Corrigan MD> Cosigner Signature (if applicable): CC: Dr. Shania Barajas MD ~ Signed [facility] Work Phone: Discharge summary Author Dr. Ramirez [facility] December 31, 2022 11:22am Note Date/Time December 31, 2022 11: 07am [facility] Medical Records Department [address] [place] [address] Emergency Department Summary 12/31/22 MR#: [id number] Acct: [id number] Name: ARIAS JOHNSTON Rep #:[id number] : 1970 52 From: Dominick De La Cruz FIRE CONTROL SYSTEM INSTALLER-C PCP: Dr. Atul Higgins, DO Status:REG ER [...] was concerned. He denies any other injury. [facility] <APOLINAR Gann - Last Filed: 12/31/22 11:07> [facility] Medical History Deep vein thrombosis (DVT) [...] Ox 98 Oxygen Delivery Method Room Air [facility] <APOLINAR Gann - Last Filed: 12/31/22 11:07> [facility] Treatment and Re-Evaluation :: Patient appears [...] Ramirez MD - Last Filed: 12/31/22 11:22> [facility] MDM Narrative Medical decision making narrative: [...] your Primary Care Provider. Call [facility] ([phone]) or report to the closest Emergency Room. Call 911 if necessary. 12/31/22 1107 <Electronically signed by Dominick JIANG> Cosigner Signature (if applicable): 12/31/22 1122 <Electronically signed by Slim SINCLAIR> CC: Dr. Atul Higgins, DO ~ Signed [facility] Work Phone: Evaluation + Plan note Future Appointments Appointment Date:06/21/2022 11:30:00 AM Scheduled Provider:ATUL HIGGINS DO Location:[facility] Appointment Type:PC OV Follow Up Diagnostic Tests Pending * Glutamic Acid Decarboxylase 06/01/22 Future Scheduled Tests Laboratory* Microalbumin Level Urine 05/31/22 [facility] Evaluation + Plan note Future Appointments Appointment Date:02/28/2023 01:00:00 PM Scheduled Provider:ATUL HIGGINS DO Location:[facility] Appointment Type:PC OV [facility] Evaluation + Plan note Future Appointments Appointment Date:07/11/2025 08:45:00 AM Scheduled Provider:ATUL HIGGINS DO Location:[facility] Appointment Type: OV Diagnostic Tests Pending * Lipoprotein (a) 06/12/25 * Vitamin B6, Plasma 06/12/25 * Vitamin B1 (Thiamine), Blood 06/12/25 * Copper, Serum 06/12/25 * Apolipoprotein B 06/12/25 * Zinc, Plasma or Serum 06/12/25 Future Scheduled Tests Laboratory* Albumin/Creatinine Ratio, Random Urine 01/14/25 [facility] Evaluation noteNo assessment information available [facility] Work Phone: Evignbncrm note* Diagnosis Malignant melanoma of right shoulder (HCC)- Primary Acute deep vein thrombosis (DVT) of tibial vein of right lower extremity (HCC) On anticoagulant therapy [facility] Malignant melanoma of right shoulder (HCC)- Primary Acute deep vein thrombosis (DVT) of tibial vein of right lower extremity (HCC) On anticoagulant therapy documented in this encounter [facility] note* Diagnosis Onset Date Resolution Status Bleeding from varicose veins of right lower extremity acute Deep venous thrombosis of leg acute Edema leg chronic Bleeding from varicose veins of right lower extremity acute Bleeding from varicose veins of right lower extremity acute [facility] Work Phone: Evaluation note* Diagnosis Acute deep vein thrombosis (DVT) of tibial vein of right lower extremity (HCC) documented in this encounter [facility] note* Diagnosis Acute deep vein thrombosis (DVT) of tibial vein of right lower extremity (HCC)- Primary Malignant melanoma of right shoulder (HCC) documented in this encounter [facility] note* Diagnosis Malignant melanoma of right shoulder (HCC)- Primary Acute deep vein thrombosis (DVT) of tibial vein of right lower extremity (HCC) On anticoagulant therapy documented in this encounter [facility] note* Diagnosis Acute deep vein thrombosis (DVT) of tibial vein of right lower extremity (HCC)- Primary Malignant melanoma of right shoulder (HCC) [facility] Narrative No data available for this section [facility] Discharge instructions No data available for this section [facility] Discharge instructions Additional Instructions Please follow-up with vascular surgeon as [facility] Work Phone: Progress note No data available for this section [facility] Assessments Diagnosis Iron deficiency Other disorders of iron metabolism Vitamin D deficiency Unspecified vitamin D deficiency Deficiency of multiple nutrient elements Other nutritional deficiency Type 2 diabetes mellitus with other neurologic complication, unspecified whether joint terminal attack controller insulin use ([facility]) Low serum potassium TOOTIE (obstructive sleep apnea) Obstructive sleep apnea (adult) (pediatric) Morbid obesity with BMI of 50.0-59.9, adult (HCC) Diagnosis Iron deficiency Other disorders of iron metabolism Vitamin D deficiency Unspecified vitamin D deficiency Deficiency of multiple nutrient elements Other nutritional deficiency Low serum potassium Advance Directives No Advanced Directives Records FoundDocuments on File Type Date Recorded Patient Crop Ranch Hand Expl anation Advance Directives and Living Will Power of Parks Recreation Coordinator Latest Code Status on File Code Status Date Activated Date Inactivated Comments Full Code 11/06/2018 8:23 AM 11/06/2018 6:56 PM Full Code 11/05/2018 4:11 PM 11/06/2018 8:23 AM Full Code 11/04/2018 11:12 AM 11/05/2018 4:11 PM Full Code 04/09/2018 10:50 PM 04/12/2018 6:33 PM Full Code 04/08/2018 3:08 AM 04/09/2018 10:50 PM Documents on File Type Date Recorded Patient Crop Ranch Hand Expl anation ACP-Advance Directive ACP-Power of Parks Recreation Coordinator Advance Directive Response Recorded Date/ Time Living Will No March 04, 2022 7:56pm Power of Parks Recreation Coordinator No March 04 7:56pm Advance Directive Response Recorded Date/ Time Living Will No December 28, 2022 8:05am Power of Parks Recreation Coordinator No December 28 8:05am Advance Directive Response Recorded Date/ Time Living Will No December 31, 2022 11:25am Power of Parks Recreation Coordinator No December 31 11:25am Advance Directive Response Recorded Date/ Time Advance Directives No March 09 7:25am Living Will No March 09, 2023 7:25am Power of Parks Recreation Coordinator No March 09 7:25am Summary Purpose Family [...] abdomen pelvis with contrast Darleen Menon DO [address] [place] [address] Referral ID Status Reason Start Date Expiration Date V isits Requested Visits Authorized [id number] Pending Review 01/19/2023 07/18/2023 1 1 Additional Source Comments (unrecognized sect ion and content) No Status Records FoundNo Status Records FoundNo Status Records FoundNo Status Records FoundNo Status Records FoundNo Status Records Found INFORMATION SOURCE (unrecogn ized section and content) DATE CREATED AUTHOR 10/30/2019 [facility] DATE CREATED AUTHOR AUTHOR'S ORGANIZ ATION 11/12/2019 [facility] DATE CREATED AUTHOR AUTHOR'S ORGANIZ ATION 04/27/2023 [facility] DATE CREATED AUTHOR AUTHOR'S ORGANIZ ATION 02/23/2024 [facility] ([place] DATE CREATED AUTHOR AUTHOR'S ORGANIZ ATION 10/04/2024 [facility] DATE CREATED AUTHOR AUTHOR'S ORGANIZ ATION 06/21/2025 [facility] Goals (unrecognized section and content) Goals may [...] Parmery Rodriguez PT Position: P3 Scheduling - It Desktop Support Specialist Advanced Member Role: Other Name: Brenda Galloway Position: Quality Review Member Role: Lawn Care Technician Name: ATUL HIGGINS DO Position: P4 Physician - Primary Care Member Role: Primary Care Physician Address: Address: [address] [place] [address] Care Team Related Persons Name: CARLOTTA JOHNSTON Address: Home [address], [place] [id number] Name: CARLOTTA JOHNSTON Address: Home [address], [place] [phone] Care Team Personnel Name: Jordyn Pa PT Position: P3 Scheduling - It Desktop Support Specialist Advanced Member Role: Other Name: Brenda Galloway Position: Quality Review Member Role: Lawn Care Technician Name: ATUL HIGGINS DO Position: P4 Physician - Primary Care Member Role: Primary Care Physician Address: Address: [address] [place] [address] [facility] [place] [address] Care Team Related Persons Name: CARLOTTA JOHNSTON Address: Home [address] [place], [place] [phone] [place] Name: CARLOTTA JOHNSTON Address: Home [address] [place], [place] [phone] [place] Care Teams (unrecognized sec tion and [...] Care Provider Active Dr. Vivek Ramirez MD Emergency Provider Active Rod Mill Tender Relationship Specialty Start Date End Date Shania Barajas MD [address] [place] [phone] PCP - General 04/18/16 Darleen Menon DO [address] [place] [address] Consulting Physician Hematology and Oncology 09/21/22 Rod Mill Tender Relationship Specialty Start Date End Date Shania Barajas MD [address] [place] [phone] PCP - General 04/18/16 Darleen Menon DO [address] [place] [address] Consulting Physician Hematology and Oncology 09/21/22 Team [...] MD Attending Provider, Referring Pro vider Active Rod Mill Tender Relationship Specialty Start Date End Date Shania Barajas MD [address] [place] [phone] PCP - General 04/18/16 Darleen Menon DO [address] [address] Consulting Physician Hematology and Oncology 09/21/22 Rod Mill Tender Relationship Specialty Start Date End Date Shania Barajas MD [address] [place] [phone] PCP - General 04/18/16 Darleen Menon DO [address] [address] Consulting Physician Hematology and Oncology 09/21/22 Rod Mill Tender Relationship Specialty Start Date End Date Shania Barajas MD [address] [place] [phone] PCP - General 04/18/16 Darleen Menon DO [address] [place] [address] Consulting Physician Hematology and Oncology 09/21/22 Rod Mill Tender Relationship Specialty Start Date End Date Shania Barajas MD [address] [place] [phone] PCP - General 04/18/16 Darleen Menon DO [address] [place] [address] Consulting Physician Hematology and Oncology 09/21/22 Reason [...] BE BASED ON THE PRIMARY CLINICAL RECORDS. [employer] provides no warranty or guarantee of the accuracy or completeness of information in this document.
[2025-08-16 19:54] LABS: Reflex Lactate? Y
[2025-08-16] MEDS: 0.9% Normal Saline (1000mL) 1,000 ML 100 ML IV (20:34)
[2025-08-16] MEDS: 0.9% Saline Lock 10 ML Syringe IV (20:38)
[2025-08-16] MEDS: Vancomycin HCl 2,000 MG in 0.9% Normal Saline (500mL Bag) 500 ML 250 MG IV (21:07)
--- NOTE | 2025-08-16 21:28 | PCM.RX.CS ---
Consult Antibiotic Management Pharmacy has been consulted to manage selected antibiotic: Vancomycin Type of Intervention Type of Consult: New start Labs Labs: Sodium 135 mmol/L (133-145) 08/16/25 15:53 Potassium 3.3 mmol/L (3.3-5.1) 08/16/25 15:53 Chloride 96 mmol/L (98-108) L 08/16/25 15:53 Carbon Dioxide 22.7 mmol/L (21.0-32.0) 08/16/25 15:53 Anion Gap 16 (5-15) H 08/16/25 15:53 BUN 22 mg/dL (4-19) H 08/16/25 15:53 Creatinine 1.26 mg/dL (0.70-1.20) H 08/16/25 15:53 Est GFR (MDRD) Non-Af 67 (>60) 08/16/25 15:53 BUN/Creatinine Ratio 17.5 RATIO (10-20) 08/16/25 15:53 Glucose 161 mg/dL (70-99) H 08/16/25 15:53 Dosing Weight Weight used for dosin.4 kg Estimated Creatinine Clearance Estimated Creatinine Clearance: 104 Goal Trough Goal Trough: 15-20 mcg/mL Pharmacy Plan for Drug Dosing Pharmacy Plan for Drug Dosing: Pharmacy Service will continue to monitor and adjust dosing as required. LOADING DOSE 2GM GIVEN 08/16 @ 2106. START 1500MG Q8H AND DRAW TROUGH PRIOR TO 4TH DOSE Follow-Up Labs Follow-Up Labs: Trough: Vancomycin Date/Time Labs Ordered Labs to be done on [date and time ordered]: 08/17 @ 2030
--- NOTE | 2025-08-16 21:37 | CPS ---
[2103] Pt.'s home BiPAP unit set up in room ()
[2025-08-16] MEDS: APIXABAN 5 MG TABLET PO (23:00)
[2025-08-17] MEDS: Piperacil/Tazobactam 3.375 GM in 0.9% Normal Saline (50mL MB+) 50 ML IV ×3 (00:14→14:40)
[2025-08-17 03:46] VITALS: BP 119/74; PULSE 82; RESP 18; TEMP 36.7; O2SAT 96
[2025-08-17] MEDS: Vancomycin HCl 1,500 MG in 0.9% Normal Saline (500mL Bag) 500 ML 250 MG IV ×2 (05:04→12:26)
[2025-08-17 05:07] LABS: Hematocrit 38.0 % (40-54); Hemoglobin 13.0 g/dL (13.0-16.5); Immature Granulocytes Count 0.030 X10^3/uL (0.0-0.0); Mean Corp Hgb Conc 34.2 g/dL (32-36); Mean Corpuscular Volume 85.8 fL (80-94); Mean Platelet Vol. 9.3 fl (6.2-12.0); NRBC Flagged by Analyzer 0 % (0-5); Platelet Count 287 K/mm3 (150-450); RBC Distribution Width CV 13.3 % (11.6-14.6); RBC Distribution Width SD 41.9 fl (35.1-43.9); Red Blood Count 4.43 M/mm3 (4.6-6.2); White Blood Count 7.5 K/mm3 (4.4-11.0)
[2025-08-17 05:30] LABS: AST(SGOT) 38 U/L (<=37); Alanine Aminotransfer ALT/SGPT 27 U/L (<=46); Albumin, Serum 3.2 g/dL (3.5-5.0); Alkaline Phosphatase 82 U/L (40-129); Anion Gap 10 (5-15); BUN 17 mg/dL (4-19); BUN/Creat Ratio 16.3 RATIO (10-20); Calcium,Total 8.5 mg/dL (7.6-11.0); Carbon Dioxide 28.7 mmol/L (21.0-32.0); Chloride 96 mmol/L (98-108); Estimated Creatinine Clearance 135.50 ml/min (50-250); Globulin 3.3 g/dL (2.2-4.2); Glucose 127 mg/dL (70-99); Potassium 3.3 mmol/L (3.3-5.1)
[2025-08-17 07:05] VITALS: O2SAT 97
[2025-08-17 08:13] VITALS: BP 140/70; PULSE 85; RESP 16; TEMP 36.5; O2SAT 97
[2025-08-17] MEDS: APIXABAN 5 MG TABLET PO (08:21)
--- NOTE | 2025-08-17 09:29 | PN.HOSP_ITS ---
Reason for Visit Chief Complaint: RLE edema, redness. Subjective Subjective Still having swelling in right lower extremity, reports he thinks it feels a little bit better and slightly less tight, still warm and erythematous Objective Data Objective Data Vital Signs: Vital Signs Temp Pulse Resp BP Pulse Ox O2 Del Method 97.7 F L 85 16 140/70 H 97 Room Air 08/17/25 08:13 08/17/25 08:13 08/17/25 08:13 08/17/25 08:13 08/17/25 08:13 08/17/25 08:13 Oxygen Delivery Method Room Air Weight: 173.4 kg Body Mass Index (BMI) 50.4 Intake & Output: Intake and Output for Last 24 Hours 08/15/25 08/16/25 08/17/25 23:59 23:59 23:59 Intake Total 590 / 590 1979 Balance 590 / 590 1979 Lab / Micro Data 08/17/25 04:04 08/17/25 04:04 Labs: Laboratory Results - last 24 hr 08/16/25 15:53: WBC 8.4, RBC 4.95, Hgb 14.4, Hct 43.0, MCV 86.9, MCH 29.1, MCHC 33.5, RDW Std Deviation 42.3, RDW Coeff of Samuel 13.3, Plt Count 278, MPV 9.8, Immature Gran % (Auto) 0.400, Neut % (Auto) 77.7 H, Lymph % (Auto) 11.3 L, Sac % (Auto) 9.8, Eos % (Auto) 0.4, Baso % (Auto) 0.4, Absolute Neuts (auto) 6.5, Absolute Lymphs (auto) 0.95, Nucleated RBC % 0, Sodium 135, Potassium 3.3, C hloride 96 L, Carbon Dioxide 22.7, Anion Gap 16 H, BUN 22 H, Creatinine 1.26 H, Estim Creat Clear Calc 104.45, Est GFR (MDRD) Non-Af 67, BUN/Creatinine Ratio 17.5, Glucose 161 H, Lactic Acid 2.1 H*, Calcium 8.6, Total Bilirubin 0.58, AST 38, ALT 22, Alkaline Phosphatase 85, Total Protein 7.1, Albumin 3.4 L, Globulin 3.7, Albumin/Globulin Ratio 0.9 08/16/25 20:35: Lactic Acid 1.7 08/16/25 22:59: POC Glucose 144 H 08/17/25 04:04: WBC 7.5, RBC 4.43 L, Hgb 13.0, Hct 38.0 L, MCV 85.8, MCH 29.3, MCHC 34.2, RDW Std Deviation 41.9, RDW Coeff of Samuel 13.3, Plt Count 287, MPV 9.3, Immature Gran % (Auto) 0.400, Neut % (Auto) 71.8 H, Lymph % (Auto) 16.8 L, Sac % (Auto) 10.3 H, Eos % (Auto) 0.4, Baso % (Auto) 0.3, Absolute Neuts (auto) 5.4, Absolute Lymphs (auto) 1.26, Nucleated RBC % 0, Sodium 135, Potassium 3.3, Chloride 96 L, Carbon Dioxide 28.7, Anion Gap 10, BUN 17, Creatinine 1.01, Estim Creat Clear Calc 135.50, Est GFR (MDRD) Non-Af 87, BUN/Creatinine Ratio 16.3, G lucose 127 H, Calcium 8.5, Total Bilirubin 0.47, AST 38, ALT 27, Alkaline Phosphatase 82, Total Protein 6.5, Albumin 3.2 L, Globulin 3.3, Albumin/Globulin Ratio 1.0 08/17/25 07:06: POC Glucose 117 H Micro: Microbiology 08/17/25 03:50 Nasal Secretion MRSA (PCR) - Final Radiography Diagnostic Testing: Radiology Impression Tibia/Fibula X-Ray 08/16/25 16:00 IMPRESSION: Right leg soft tissue swelling. No acute osseous abnormality. Reading Location: [facility] Physical Exam Narrative General: Alert, oriented, no apparent distress HEENT: Atraumatic, normocephalic Eyes: Anicteric, normal conjunctiva, extraocular movements grossly intact Neck: Supple Respiratory: normal respiratory effort Cardiovascular: Regular rate GI: nondistended Extremities: Bilateral lower extremity edema right greater than left, right leg warm Musculoskeletal: Moving all extremities Neuro: No overt focal neurological deficits Skin: Right leg patchy erythema more so along anterior villatoro and patchy onto foot, as outlined and remains within the outline Psych: Cooperative Assessment & Plan Assessment/Plan (1) Cellulitis of right lower extremity: PLAN: Plan # Acute right lower extremity cellulitis - Does appear to be cellulitic in nature, warm, erythematous and erythematous patchy - Continue IV antibiotics - Will order lower extremity duplex as patient reports he has clotted on multiple anticoagulants previously and while this is most likely cellulitis does have the significant swelling with history of recurrent lower extremity DVTs - Will switch to full dose Lovenox while awaiting lower extremity duplex # 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 - Reports history of DVTs and PEs, has clotted on Coumadin previously and another agent - Follows with hematology and they have him on Eliquis - Reports he has only ever been on Lovenox subcu to bridge to surgeries and this has not yet been explored as a long-term option - Also has not been considered for IVC filter per patient, if he does have new DVT may need to consider vascular consult for possible IVC filter given patient would have failed multiple anticoagulants #GERD -Continue PPI #Chronic BPH with obstruction -Continue home medications #Type 2 diabetes mellitus -Glucose checks and sliding scale insulin #TOOTIE -Continue home NIPPV if applicable #DVT ppx: Patient switched to full dose Lovenox Tammy Heard MD Charges/Coding Visit Charges Inpatient E&M: 83443 Subs Hosp L2
--- NOTE | 2025-08-17 12:12 | VDLE_ITS ---
Reason For Study Reason For Study: Right leg swelling RIGHT CFV is compressible, spontaneous, phasic, competent and demonstrates normal augmentation. FV is compressible, spontaneous, phasic, competent and demonstrates normal augmentation. POP V is compressible, spontaneous, phasic, competent and demonstrates normal augmentation. T/P Trunk is compressible. PTV is compressible. RT PerV is compressible. GSV above knee is absent s/p ablation. GSV below knee is compressible. Procedure This is a venous duplex using B-mode, color flow and spectral Doppler. Exam performed portable in patient room. A preliminary report was called and/or faxed to [facility]. VL/Venous Duplex US, Unilateral Interpretation Summary Deep veins of the right lower extremity are patent and compressible segmentally . There is no evidence of right lower extremity deep vein thrombosis. Valvular competence appears intact within the p roximal deep venous system on the right . The right great saphenous vein is absent above the knee. The right great saphen ous vein is patent and compressible below the knee. Ordering Physician: Tammy Heard Referring Physician: Atul Higgins Performed By: Brenda Crump RVT
[2025-08-17 14:38] VITALS: BP 110/71; PULSE 81; RESP 16; TEMP 36.6; O2SAT 94
[2025-08-17 20:56] LABS: Vancomycin, Trough Level 13.6 ug/mL (5.0-15.0)
[2025-08-17 21:23] VITALS: BP 125/70; PULSE 85; RESP 18; TEMP 36.9; O2SAT 97
--- NOTE | 2025-08-17 21:44 | PCM.RX.CS ---
Consult Antibiotic Management Pharmacy has been consulted to manage selected antibiotic: Vancomycin Type of Intervention Type of Consult: Follow-up Labs Labs: Sodium 135 mmol/L (133-145) 08/17/25 04:04 Potassium 3.3 mmol/L (3.3-5.1) 08/17/25 04:04 Chloride 96 mmol/L (98-108) L 08/17/25 04:04 Carbon Dioxide 28.7 mmol/L (21.0-32.0) 08/17/25 04:04 Anion Gap 10 (5-15) 08/17/25 04:04 BUN 17 mg/dL (4-19) 08/17/25 04:04 Creatinine 1.01 mg/dL (0.70-1.20) 08/17/25 04:04 Est GFR (MDRD) Non-Af 87 (>60) 08/17/25 04:04 BUN/Creatinine Ratio 16.3 RATIO (10-20) 08/17/25 04:04 Glucose 127 mg/dL (70-99) H 08/17/25 04:04 Vancomycin Trough 13.6 ug/mL (5.0-15.0) 08/17/25 20:25 Microbiology Microbiology: Microbiology 08/17/25 03:50 Nasal Secretion MRSA (PCR) - Final Goal Trough Goal Trough: 15-20 mcg/mL Pharmacy Plan for Drug Dosing Pharmacy Plan for Drug Dosing: Pharmacy Service will continue to monitor and adjust dosing as required. TROUGH 13.6 @ 8 HOURS. INCREASE TO 1750MG Q8H AND DRAW TROUGH PRIOR TO 4TH DOSE Follow-Up Labs Follow-Up Labs: Trough: Vancomycin Date/Time Labs Ordered Labs to be done on [date and time ordered]: 08/18 @ 2100
[2025-08-17] MEDS: 0.9% Saline Lock 10 ML Syringe IV (21:50)
[2025-08-17] MEDS: Vancomycin HCl 1,750 MG in 0.9% Normal Saline (500mL Bag) 500 ML 250 MG IV (21:53)
[2025-08-18] MEDS: Piperacil/Tazobactam 3.375 GM in 0.9% Normal Saline (50mL MB+) 50 ML IV ×4 (00:17→21:32)
[2025-08-18 04:33] VITALS: BP 120/74; PULSE 79; RESP 18; TEMP 36.9; O2SAT 96
[2025-08-18] MEDS: Vancomycin HCl 1,750 MG in 0.9% Normal Saline (500mL Bag) 500 ML 250 MG IV ×3 (05:48→22:46)
[2025-08-18] MEDS: 0.9% Normal Saline (250mL Bag) 250 ML 15 ML IV ×2 (05:49→22:52)
[2025-08-18 06:00] VITALS: BMI 50.7
[2025-08-18 07:13] LABS: Hematocrit 40.8 % (40-54); Hemoglobin 13.5 g/dL (13.0-16.5); Immature Granulocytes Count 0.160 X10^3/uL (0.0-0.0); Mean Corp Hgb Conc 33.1 g/dL (32-36); Mean Corpuscular Volume 88.1 fL (80-94); Mean Platelet Vol. 9.6 fl (6.2-12.0); NRBC Flagged by Analyzer 0 % (0-5); Platelet Count 288 K/mm3 (150-450); RBC Distribution Width CV 13.5 % (11.6-14.6); RBC Distribution Width SD 43.8 fl (35.1-43.9); Red Blood Count 4.63 M/mm3 (4.6-6.2); White Blood Count 8.4 K/mm3 (4.4-11.0)
[2025-08-18 07:41] VITALS: BP 123/69; PULSE 79; RESP 15; TEMP 36.5; O2SAT 97
[2025-08-18 07:47] LABS: Anion Gap 9 (5-15); BUN 9 mg/dL (4-19); BUN/Creat Ratio 11.2 RATIO (10-20); Calcium,Total 8.8 mg/dL (7.6-11.0); Carbon Dioxide 29.9 mmol/L (21.0-32.0); Chloride 97 mmol/L (98-108); Estimated Creatinine Clearance 165.44 ml/min (50-250); Glucose 120 mg/dL (70-99); Potassium 3.4 mmol/L (3.3-5.1)
--- NOTE | 2025-08-18 11:53 | PCM.PROGNOTE ---
Subjective Subjective Patient seen and examined with his nurse by his bedside. He still complain of pain and swelling in his right lower extremity. He said the redness in the right lower extremity had improved but the leg was still swollen. Review of systems otherwise negative. He did have the duplex of the lower extremity done today. Objective Data Objective Data Vital Signs: Vital Signs Temp Pulse Resp BP Pulse Ox O2 Del Method 97.7 F L 79 15 123/69 H 97 Room Air 08/18/25 07:41 08/18/25 07:41 08/18/25 07:41 08/18/25 07:41 08/18/25 07:41 08/18/25 07:41 Oxygen Delivery Method Room Air Weight: 384 lb 7.779 oz Body Mass Index (BMI) 50.7 Intake & Output: Intake and Output for Last 24 Hours 08/16/25 08/17/25 08/18/25 23:59 23:59 23:59 Intake Total 590 / 590 2610 / 2960 1850 / 1850 Balance 590 / 590 2610 / 2960 1850 / 1850 Lab / Micro Data 08/18/25 06:24 08/18/25 06:24 Labs: Laboratory Results - last 24 hr 08/17/25 11:54: POC Glucose 125 H 08/17/25 20:25: Vancomycin Trough 13.6 08/17/25 22:03: POC Glucose 162 H 08/18/25 06:24: WBC 8.4, RBC 4.63, Hgb 13.5, Hct 40.8, MCV 88.1, MCH 29.2, MCHC 33.1, RDW Std Deviation 43.8, RDW Coeff of Samuel 13.5, Plt Count 288, MPV 9.6, Immature Gran % (Auto) 1.900 H, Neut % (Auto) 68.3, Lymph % (Auto) 17.3 L, [place] % (Auto) 11.7 H, Eos % (Auto) 0.4, Baso % (Auto) 0.4, Absolute Neuts (auto) 5.7, Absolute Lymphs (auto) 1.45, Nucleated RBC % 0, Sodium 136, Potassium 3.4, Chloride 97 L, Carbon Dioxide 29.9, Anion Gap 9, BUN 9, Creatinine 0.83, Estim Creat Clear Calc 165.44, Est GFR (MDRD) Non-Af 103, BUN/Creatinine Ratio 11.2, Glucose 120 H, Calcium 8.8 08/18/25 06:42: POC Glucose 118 H 08/18/25 11:00: POC Glucose 132 H Micro: Microbiology 08/17/25 03:50 Nasal Secretion MRSA (PCR) - Final Physical Exam Const alert, oriented x3 and no apparent distress Constitutional Narrative: class III obesity General Appearance: cooperative HEENT normocephalic, head/scalp atraumatic, moist oral mucous membranes, oropharynx normal and gingiva normal Eyes EOMs intact bilaterally Neck supple and no JVD Lymph Lymphatic: no lymphadenopathy noted Resp normal respiratory effort, normal air movement and clear to auscultation bilaterally Cardio regular rate, regular rhythm, S1 normal heart sound, S2 normal heart sound and no murmurs GI normal to inspection, nondistended, normoactive bowel sounds, soft to palpation, non-tender and non-distended Extremity Extremity Narrative: RLE is edematous, erythematous, with mild differential warmth, nontender to touch. Has varicose veins on LLE Skin Skin Narrative: as under extremities Neuro no focal motor deficits and no sensory deficits noted Motor Exam: general weakness Psych thought process normal, cooperative and affect normal Appearance: appropriate Assessment & Plan Assessment/Plan (1) Cellulitis of right lower extremity: PLAN: Plan #Acute RLE cellulitis Right lower extremity still edematous though he states it is improving. He still has some erythema and differential warmth. On IV Zosyn. Duplex of the lower extremity pending due to his history of type body to make sure that he does not have a DVT of the lower extremity. His home anticoagulant on hold and he is on full dose Lovenox pending bed duplex #History of DVT and PE in the setting of anticardiolipin antibody syndrome Has had previous DVTs and PEs. He formed a blood clot whilst on Coumadin and now on Eliquis. Follow-up with hematology on outpatient basis. 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 Insulin sliding scale. Checks ACHS #TOOTIE: Continue noninvasive pressure ventilation if. #Class III obesity: BMI is 50.7. Complicates acute care, expected recovery and prognosis. #DVT Prophylaxis: Not indicated as patient currently on therapeutic dose of Lovenox pending duplex results. Charges/Coding Visit Charges Inpatient E&M: 38282 Subs Hosp L2
--- NOTE | 2025-08-18 12:56 | CASEMGMT ---
Noted wound care orders for wet to dry dressing. Spoke with pt nurse, no open areas of skin for wound care. Wound nurse not consulted. 6cl=24. RN CM to follow.
[2025-08-18 13:53] VITALS: BP 113/69; PULSE 90; RESP 15; TEMP 36.7; O2SAT 96
--- NOTE | 2025-08-18 14:29 | CHAPLAIN ---
Type of Pastoral Visit _x__ Initial Visit ___ Follow-up Visit ___ On-call Visit ___ General Patient Visit ___ Spiritual Assessment ___ Family Conference ___ Bereavement ___ Rapid Response ___ Code Blue ___ Other (describe below) Pastoral Care Referral From _x__ Patient ___ Family ___ Nurse ___ Physician ___ Instructor Flying ___ Heat Plant Specialist ___ Other (describe below) Sacrament/Intervention _x__ Active listening ___ Anointing ___ Zoroastrianism ___ Bereavement ___ Communion _x__ Sonia exploration ___ _x__ Life review _x__ Prayer ___ Reconciliation ___ Sacrament of Sick _x__ Supportive presence ___ Wedding ___ Other (describe below) Pastoral Comments patient is open to spiritual care support and reviews his own sonia experiences with yazidi and with people in his life; pt gives some life review and speaks of his recent job change that gives him some concern since he is missing work now; pt believes that his employer will be understanding; pt has good family support too; pt welcomes prayer and presence; more family members arrive at this time and are interactive with this director inpatient headache program too
[2025-08-18 18:00] VITALS: BP 119/73; PULSE 99; RESP 15; TEMP 36.6
[2025-08-18 21:19] VITALS: BP 120/71; PULSE 83; RESP 18; TEMP 36.6; O2SAT 96
[2025-08-18] MEDS: APIXABAN 5 MG TABLET PO (21:46)
[2025-08-18 21:48] LABS: Vancomycin, Trough Level 19.3 ug/mL (5.0-15.0)
--- NOTE | 2025-08-19 02:16 | PCM.RX.CS ---
Consult Antibiotic Management Pharmacy has been consulted to manage selected antibiotic: Vancomycin Type of Intervention Type of Consult: Follow-up Labs Labs: Sodium 136 mmol/L (133-145) 08/18/25 06:24 Potassium 3.4 mmol/L (3.3-5.1) 08/18/25 06:24 Chloride 97 mmol/L (98-108) L 08/18/25 06:24 Carbon Dioxide 29.9 mmol/L (21.0-32.0) 08/18/25 06:24 Anion Gap 9 (5-15) 08/18/25 06:24 BUN 9 mg/dL (4-19) 08/18/25 06:24 Creatinine 0.83 mg/dL (0.70-1.20) 08/18/25 06:24 Est GFR (MDRD) Non-Af 103 (>60) 08/18/25 06:24 BUN/Creatinine Ratio 11.2 RATIO (10-20) 08/18/25 06:24 Glucose 120 mg/dL (70-99) H 08/18/25 06:24 Vancomycin Trough 19.3 ug/mL (5.0-15.0) H 08/18/25 21:15 Microbiology Microbiology: Microbiology 08/17/25 03:50 Nasal Secretion MRSA (PCR) - Final Goal Trough Goal Trough: 15-20 mcg/mL Pharmacy Plan for Drug Dosing Pharmacy Plan for Drug Dosing: Pharmacy Service will continue to monitor and adjust dosing as required. TROUGH 19.3 @ 7.25 HOURS. NO CHANGES, FOLLOW UP TROUGH IN 2 DAYS Follow-Up Labs Follow-Up Labs: Trough: Vancomycin Date/Time Labs Ordered Labs to be done on [date and time ordered]: 08/20 2100
[2025-08-19 05:08] VITALS: BMI 50.1
[2025-08-19 05:13] VITALS: BP 120/73; PULSE 97; RESP 18; TEMP 36.3; O2SAT 98
[2025-08-19] MEDS: Vancomycin HCl 1,750 MG in 0.9% Normal Saline (500mL Bag) 500 ML 250 MG IV ×3 (05:15→21:27)
[2025-08-19] MEDS: Piperacil/Tazobactam 3.375 GM in 0.9% Normal Saline (50mL MB+) 50 ML IV ×3 (05:17→23:30)
[2025-08-19 06:15] LABS: Hematocrit 39.9 % (40-54); Hemoglobin 13.2 g/dL (13.0-16.5); Immature Granulocytes Count 0.060 X10^3/uL (0.0-0.0); Mean Corp Hgb Conc 33.1 g/dL (32-36); Mean Corpuscular Volume 88.3 fL (80-94); Mean Platelet Vol. 9.3 fl (6.2-12.0); NRBC Flagged by Analyzer 0 % (0-5); Platelet Count 301 K/mm3 (150-450); RBC Distribution Width CV 13.3 % (11.6-14.6); RBC Distribution Width SD 43.5 fl (35.1-43.9); Red Blood Count 4.52 M/mm3 (4.6-6.2); White Blood Count 8.7 K/mm3 (4.4-11.0)
[2025-08-19 06:37] LABS: Anion Gap 10 (5-15); BUN 9 mg/dL (4-19); BUN/Creat Ratio 10.3 RATIO (10-20); Calcium,Total 8.9 mg/dL (7.6-11.0); Carbon Dioxide 28.6 mmol/L (21.0-32.0); Chloride 99 mmol/L (98-108); Estimated Creatinine Clearance 158.53 ml/min (50-250); Glucose 117 mg/dL (70-99); Potassium 3.6 mmol/L (3.3-5.1)
[2025-08-19 07:58] VITALS: BP 130/85; PULSE 81; RESP 14; TEMP 36.7; O2SAT 100
[2025-08-19] MEDS: APIXABAN 5 MG TABLET PO ×2 (08:01→20:50)
[2025-08-19 09:23] VITALS: O2SAT 97
--- NOTE | 2025-08-19 10:27 | PN_ITS ---
Subjective Subjective Patient seen and examined With his nurse by his bedside. He still complain of swelling of his right lower extremity. His RLE is still erythematous and tender to touch. Duplex of the RLE yesterday was negative for any evidence of DVT. He has remained hemodynamically stable. Objective Data Objective Data Vital Signs: Vital Signs Temp Pulse Resp BP Pulse Ox O2 Del Method 98.1 F 81 14 130/85 H 97 Room Air 08/19/25 07:58 08/19/25 07:58 08/19/25 07:58 08/19/25 07:58 08/19/25 09:23 08/19/25 09:23 Oxygen Delivery Method Room Air Weight: 379 lb 13.703 oz Body Mass Index (BMI) 50.1 Intake & Output: Intake and Output for Last 24 Hours 08/17/25 08/18/25 08/19/25 23:59 23:59 23:59 Intake Total 2610 / 2960 3185 / 3185 1676.75 / 1676.75 Balance 2610 / 2960 3185 / 3185 1676.75 / 1676.75 Lab / Micro Data 08/19/25 05:41 08/19/25 05:41 Labs: Laboratory Results - last 24 hr 08/18/25 11:00: POC Glucose 132 H 08/18/25 16:04: POC Glucose 176 H 08/18/25 21:15: Vancomycin Trough 19.3 H 08/18/25 21:30: POC Glucose 137 H 08/19/25 05:41: WBC 8.7, RBC 4.52 L, Hgb 13.2, Hct 39.9 L, MCV 88.3, MCH 29.2, MCHC 33.1, RDW Std Deviation 43.5, RDW Coeff of Samuel 13.3, Plt Count 301, MPV 9.3, Immature Gran % (Auto) 0.700, Neut % (Auto) 69.2, Lymph % (Auto) 19.2, [place] % (Auto) 9.7, Eos % (Auto) 0.7, Baso % (Auto) 0.5, Absolute Neuts (auto) 6.1, Absolute Lymphs (auto) 1.68, Nucleated RBC % 0, Sodium 138, Potassium 3.6, Chloride 99, Carbon Dioxide 28.6, Anion Gap 10, BUN 9, Creatinine 0.86, Estim Creat Clear Calc 158.53, Est GFR (MDRD) Non-Af 102, BUN/Creatinine Ratio 10.3, G lucose 117 H, Calcium 8.9 08/19/25 06:14: POC Glucose 116 H Micro: Microbiology 08/17/25 03:50 Nasal Secretion MRSA (PCR) - Final Radiography Diagnostic Testing: Radiology Impression Venous Doppler Study 08/17/25 12:12 Interpretation Summary Deep veins of the right lower extremity are patent and compressible segmentally. There is no evidence of right lower extremity deep vein thrombosis. Valvular competence appears intact within the proximal deep venous system on the right . The right great saphenous vein is absent above the knee. The right great saphenous vein is patent and compressible below the knee. Ordering Physician: Tammy Heard Referring Physician: Atul Higgins Performed By: Brenda Crump RVT Physical Exam Const alert, oriented x3 and no apparent distress Constitutional Narrative: class III obesity General Appearance: cooperative HEENT normocephalic, head/scalp atraumatic, moist oral mucous membranes, oropharynx normal and gingiva normal Eyes EOMs intact bilaterally Neck supple and no JVD Lymph Lymphatic: no lymphadenopathy noted Resp normal respiratory effort, normal air movement and clear to auscultation bilaterally Cardio regular rate, regular rhythm, S1 normal heart sound, S2 normal heart sound and no murmurs GI normal to inspection, nondistended, normoactive bowel sounds, soft to palpation, non-tender and non-distended Extremity Extremity Narrative: RLE is still edematous, erythematous, with mild differential warmth, mild tenderness. Has varicose veins on LLE Skin Skin Narrative: as under extremities Neuro no focal motor deficits and no sensory deficits noted Motor Exam: general weakness Psych thought process normal, cooperative and affect normal Appearance: appropriate Assessment & Plan Assessment/Plan (1) Cellulitis of right lower extremity: PLAN: Plan #Acute RLE cellulitis * Right lower extremity still edematous though he states it is improving. He still has some erythema and differential warmth. * On IV vancomycin and Zosyn. Duplex of the lower extremity pending due to his history of type body to make sure that he does not have a DVT of the lower extremity. * duplex of the RLE was negative for DVT so therapeutic lovenox discontinued and patient on his home dose of eliquis 5mg bid. * get CT of the RLE to ensure there is no abscess. * PT/OT on board. * MRSA PCR is negative. IF CT is negative, will dc vancomycin * #History of DVT and PE in the setting of anticardiolipin antibody syndrome * Has had previous DVTs and PEs. He formed a blood clot whilst on Coumadin and now on Eliquis. * Follow-up with hematology on outpatient basis. 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 Insulin sliding scale. Checks ACHS #TOOTIE: Continue noninvasive pressure ventilation if. #Class III obesity: BMI is 50.7. Complicates acute care, expected recovery and prognosis. #DVT Prophylaxis: Not indicated as patient on eliquis. Charges/Coding Visit Charges Inpatient E&M: 01881 Subs Hosp L2
--- NOTE | 2025-08-19 10:45 | CT_ITS ---
PROCEDURE: EXTREMITY LOWER WITHOUT CONTRA 08/19/2025 REASON FOR EXAM: RLE CELLULITIS, CONCERN FOR ABSCESS TECHNIQUE: Procedure Code: CTELWO Modality: CT Procedure: EXTREMITY LOWER WITHOUT CONTRA Coronal and Sagittal reconstruction series were provided. CONTRAST: None. One or more dose reduction techniques were used (e.g., Automated exposure control, adjustment of the mA and/or kV according to patient size, use of iterative reconstruction technique). RADIATION DOSE SUMMARY: CTDlvol: 15.35 mGy DLP: 940.94 mGycm COMPARISON: None FINDINGS: Bones: No bony abnormality is seen. Joints: Degenerative changes are present Soft Tissues: Diffuse increased markings in the subcutaneous fat suggestive of cellulitis. No focal abscess is seen. There is evidence of calcified popliteal artery and vessels in the distal runoff of the leg. CT/Extremity Lower without Contra IMPRESSION: Diffuse soft tissue swelling as described suggestive of cellulitis. No evidenc e of focal abscess collection. No bony destruction is seen. There is evidence of degenerative changes. Vascular calcification. Reading Location: [id number]
--- NOTE | 2025-08-19 11:39 | CASEMGMT ---
CHERY POZO Assessment Face to Face with patient for initial transition planning/care coordination assessment. CHERY POZO introduced self and role at [facility], pt voices understanding. Pt is A&Ox4 and is resting comfortably in bed and is calm. Care providers, pharmacy, and demographics verified. Admitting dx: LLE Cellulitis LACE Strata: 3 PCP: Atul Higgins Specialists: Mello (Urology) Preferred Pharmacy: [facility] Insurance: [employer] Prescription Benefit: Yes LNOK: Neelam (W) Living Arrangements: Pt lives with his in a single story home with a flat entrance ADLs/IADLs: Indep, 6-Click score is 24 Transportation: Self, DME: BiPAP @ [facility] with no additional oxygen. BGM with sufficient supplies HHC/SNF: Reports HH history x 7-8 years ago but cannot recall the name of the agency. Denies current needs. Denies SNF Pt?s goal: Home Plan: Home with pt's SO support. Pt states that he and his can care for his wound at home. Pt denies any further questions, concerns, or DC needs at this time. Report given to MSAnne GOTTLIEB CM. Marichuy Baez RN, CM
--- NOTE | 2025-08-19 13:22 | WOUNDNOTE ---
wound photo: right medial lower leg
--- NOTE | 2025-08-19 13:23 | WOUNDNOTE ---
Pt with very small slightly scabbed over wound to the right medial lower leg. pt with moderate erythema and edema to right lower leg. the redness has very slightly receded. pt states some discomfort when up ambulating but has also improved. will apply compression to assist with the edema. pt appreciative.
[2025-08-19 14:00] VITALS: BP 126/72; PULSE 90; RESP 14; TEMP 36.7; O2SAT 96
[2025-08-19] MEDS: 0.9% Saline Lock 10 ML Syringe IV (14:02)
[2025-08-19 20:39] VITALS: BP 123/78; PULSE 82; RESP 15; TEMP 36.9; O2SAT 99
[2025-08-20] MEDS: Vancomycin HCl 1,750 MG in 0.9% Normal Saline (500mL Bag) 500 ML 250 MG IV ×2 (05:08→13:37)
[2025-08-20 06:00] VITALS: BMI 50.6
[2025-08-20] MEDS: Piperacil/Tazobactam 3.375 GM in 0.9% Normal Saline (50mL MB+) 50 ML IV ×3 (06:05→22:11)
[2025-08-20] MEDS: 0.9% Normal Saline (250mL Bag) 250 ML 15 ML IV (06:08)
[2025-08-20 06:09] LABS: Hematocrit 42.9 % (40-54); Hemoglobin 13.9 g/dL (13.0-16.5); Immature Granulocytes Count 0.210 X10^3/uL (0.0-0.0); Mean Corp Hgb Conc 32.4 g/dL (32-36); Mean Corpuscular Volume 88.3 fL (80-94); Mean Platelet Vol. 9.0 fl (6.2-12.0); NRBC Flagged by Analyzer 0 % (0-5); Platelet Count 370 K/mm3 (150-450); RBC Distribution Width CV 13.3 % (11.6-14.6); RBC Distribution Width SD 43.2 fl (35.1-43.9); Red Blood Count 4.86 M/mm3 (4.6-6.2); White Blood Count 8.7 K/mm3 (4.4-11.0)
[2025-08-20 06:53] LABS: Anion Gap 12 (5-15); BUN 8 mg/dL (4-19); BUN/Creat Ratio 9.4 RATIO (10-20); Calcium,Total 8.8 mg/dL (7.6-11.0); Carbon Dioxide 26.2 mmol/L (21.0-32.0); Chloride 99 mmol/L (98-108); Estimated Creatinine Clearance 153.76 ml/min (50-250); Glucose 123 mg/dL (70-99); Potassium 3.6 mmol/L (3.3-5.1)
[2025-08-20] MEDS: APIXABAN 5 MG TABLET PO ×2 (08:05→21:34)
[2025-08-20 08:36] VITALS: BP 123/73; PULSE 74; RESP 16; TEMP 36.8; O2SAT 100
--- NOTE | 2025-08-20 10:22 | PN_ITS ---
Subjective Subjective Patient seen and examined. He had no active complaints. The redness and swelling of his RLE is improving. Review of systems is otherwise negative. Objective Data Objective Data Vital Signs: Vital Signs Temp Pulse Resp BP Pulse Ox O2 Del Method 98.2 F 74 16 123/73 H 100 Room Air 08/20/25 08:36 08/20/25 08:36 08/20/25 08:36 08/20/25 08:36 08/20/25 08:36 08/20/25 08:37 Oxygen Delivery Method Room Air Weight: 382 lb 4.505 oz Body Mass Index (BMI) 50.6 Intake & Output: Intake and Output for Last 24 Hours 08/18/25 08/19/25 08/20/25 23:59 23:59 23:59 Intake Total 3185 / 3185 2796.75 / 2796.75 635 / 635 Balance 3185 / 3185 2796.75 / 2796.75 635 / 635 Lab / Micro Data 08/20/25 05:45 08/20/25 05:45 Labs: Laboratory Results - last 24 hr 08/19/25 11:31: POC Glucose 116 H 08/19/25 16:33: POC Glucose 139 H 08/19/25 22:39: POC Glucose 178 H 08/20/25 05:45: WBC 8.7, RBC 4.86, Hgb 13.9, Hct 42.9, MCV 88.3, MCH 28.6, MCHC 32.4, RDW Std Deviation 43.2, RDW Coeff of Samuel 13.3, Plt Count 370, MPV 9.0, I mmature Gran % (Auto) 2.400 H, Neut % (Auto) 70.3 H, Lymph % (Auto) 17.8 L, [place] % (Auto) 8.2, Eos % (Auto) 0.8, Baso % (Auto) 0.5, Absolute Neuts (auto) 6.1, Absolute Lymphs (auto) 1.55, Nucleated RBC % 0, Sodium 137, Potassium 3.6, Chloride 99, Carbon Dioxide 26.2, Anion Gap 12, BUN 8, Creatinine 0.89, Estim Creat Clear Calc 153.76, Est GFR (MDRD) Non-Af 101, BUN/Creatinine Ratio 9.4 L, Glucose 123 H, Calcium 8.8 08/20/25 07:57: POC Glucose 122 H Micro: Microbiology 08/19/25 12:30 Wound - Leg, Right Gram Stain - Final 08/19/25 12:30 Wound - Leg, Right Wound Culture - Preliminary Coag Negative Staph 08/17/25 03:50 Nasal Secretion MRSA (PCR) - Final Radiography Diagnostic Testing: Radiology Impression Lower Extremity CT 08/19/25 10:45 IMPRESSION: Diffuse soft tissue swelling as described suggestive of cellulitis. No evidence of focal abscess collection. No bony destruction is seen. There is evidence of degenerative changes. Vascular calcification. Reading Location: [facility] Physical Exam Const alert, oriented x3 and no apparent distress Constitutional Narrative: class III obesity General Appearance: cooperative HEENT normocephalic, head/scalp atraumatic, moist oral mucous membranes, oropharynx normal and gingiva normal Eyes EOMs intact bilaterally Neck supple and no JVD Lymph Lymphatic: no lymphadenopathy noted Resp normal respiratory effort, normal air movement and clear to auscultation bilaterally Cardio regular rate, regular rhythm, S1 normal heart sound, S2 normal heart sound and no murmurs GI normal to inspection, nondistended, normoactive bowel sounds, soft to palpation, non-tender and non-distended Extremity Extremity Narrative: RLE swelling, erythema and differential warmth has improved markedlyedematous, erythematous, with mild differential warmth, mild tenderness. Has varicose veins on LLE Skin Skin Narrative: as under extremities Neuro no focal motor deficits and no sensory deficits noted Motor Exam: general weakness Psych thought process normal, cooperative and affect normal Appearance: appropriate Assessment & Plan Assessment/Plan (1) Cellulitis of right lower extremity: PLAN: Plan #Acute RLE cellulitis * Right lower extremity still edematous though he states it is improving. He still has some erythema and differential warmth. * On IV vancomycin and Zosyn. Duplex of the lower extremity pending due to his history of type body to make sure that he does not have a DVT of the lower extremity. * duplex of the RLE was negative for DVT so therapeutic lovenox discontinued and patient on his home dose of eliquis 5mg bid. * get CT of the RLE to ensure there is no abscess. * PT/OT on board. * CT negative for any evidence of abscess in RLE. 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 * He formed a blood clot whilst on Coumadin and now on Eliquis. * Follow-up with hematology on outpatient basis. 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 Insulin sliding scale. Accuchecks ACHS #TOOTIE: Continue noninvasive pressure ventilation if. #Class III obesity: BMI is 50.7. Complicates acute care, expected recovery and prognosis. #DVT Prophylaxis: Not indicated as patient on eliquis. Disposition: Anticipate to discharge by tomorrow. Charges/Coding Visit Charges Inpatient E&M: 47635 Subs Hosp L2
[2025-08-20] MEDS: 0.9% Saline Lock 10 ML Syringe IV ×2 (13:37→22:13)
[2025-08-20 14:36] VITALS: BP 121/65; PULSE 86; RESP 16; TEMP 36.9; O2SAT 97
[2025-08-20 20:00] VITALS: BP 125/76; PULSE 79; RESP 15; TEMP 36.8; O2SAT 95; O2SAT 97
[2025-08-20 21:47] LABS: Vancomycin, Trough Level 28.3 ug/mL (5.0-15.0)
--- NOTE | 2025-08-20 21:57 | PCM.RX.CS ---
Consult Antibiotic Management Pharmacy has been consulted to manage selected antibiotic: Vancomycin Type of Intervention Type of Consult: Follow-up Suspected Infection Suspected Infection: Skin/Soft tissue Labs Labs: Sodium 137 mmol/L (133-145) 08/20/25 05:45 Potassium 3.6 mmol/L (3.3-5.1) 08/20/25 05:45 Chloride 99 mmol/L (98-108) 08/20/25 05:45 Carbon Dioxide 26.2 mmol/L (21.0-32.0) 08/20/25 05:45 Anion Gap 12 (5-15) 08/20/25 05:45 BUN 8 mg/dL (4-19) 08/20/25 05:45 Creatinine 0.89 mg/dL (0.70-1.20) 08/20/25 05:45 Est GFR (MDRD) Non-Af 101 (>60) 08/20/25 05:45 BUN/Creatinine Ratio 9.4 RATIO (10-20) L 08/20/25 05:45 Glucose 123 mg/dL (70-99) H 08/20/25 05:45 Vancomycin Trough 28.3 ug/mL (5.0-15.0) H 08/20/25 21:03 Microbiology Microbiology: Microbiology 08/16/25 15:53 Blood Culture (Wb) - Right Forearm Blood Culture - Preliminary No growth in 48 hours. 08/16/25 15:53 Blood Culture (Wb) - Left Forearm Blood Culture - Preliminary No growth in 48 hours. 08/19/25 12:30 Wound - Leg, Right Gram Stain - Final 08/19/25 12:30 Wound - Leg, Right Wound Culture - Preliminary Coag Negative Staph 08/17/25 03:50 Nasal Secretion MRSA (PCR) - Final Dosing Weight Weight used for dosin kg Estimated Creatinine Clearance Estimated Creatinine Clearance: 154 Goal Trough Goal Trough: 15-20 mcg/mL Pharmacy Plan for Drug Dosing Pharmacy Plan for Drug Dosing: Vancomycin trough level of 28.3, drawn 7.5hrs post-dose, was above the target range of 15-20. Will suspend current dosing, and will draw a random vanco level in 8 hours to determine further orders. Pharmacy Service will continue to monitor and adjust dosing as required. Follow-Up Labs Follow-Up Labs: Trough: Vancomycin (random) Date/Time Labs Ordered Labs to be done on [date and time ordered]: 08/21/25 @0304
[2025-08-21 05:23] LABS: Hematocrit 38.8 % (40-54); Hemoglobin 13.2 g/dL (13.0-16.5); Immature Granulocytes Count 0.120 X10^3/uL (0.0-0.0); Mean Corp Hgb Conc 34.0 g/dL (32-36); Mean Corpuscular Volume 86.6 fL (80-94); Mean Platelet Vol. 8.5 fl (6.2-12.0); NRBC Flagged by Analyzer 0 % (0-5); Platelet Count 398 K/mm3 (150-450); RBC Distribution Width CV 13.5 % (11.6-14.6); RBC Distribution Width SD 42.6 fl (35.1-43.9); Red Blood Count 4.48 M/mm3 (4.6-6.2); White Blood Count 8.3 K/mm3 (4.4-11.0)
[2025-08-21 05:58] LABS: Vancomycin, Random Level 19.2 ug/mL (0.0-15.0)
[2025-08-21 05:59] LABS: Anion Gap 10 (5-15); BUN 12 mg/dL (4-19); BUN/Creat Ratio 9.7 RATIO (10-20); Calcium,Total 8.7 mg/dL (7.6-11.0); Carbon Dioxide 28.9 mmol/L (21.0-32.0); Chloride 102 mmol/L (98-108); Estimated Creatinine Clearance 115.00 ml/min (50-250); Glucose 115 mg/dL (70-99); Potassium 3.7 mmol/L (3.3-5.1)
[2025-08-21] MEDS: Piperacil/Tazobactam 3.375 GM in 0.9% Normal Saline (50mL MB+) 50 ML IV (06:03)
--- NOTE | 2025-08-21 06:15 | PCM.RX.CS ---
Consult Antibiotic Management Pharmacy has been consulted to manage selected antibiotic: Vancomycin Type of Intervention Type of Consult: Follow-up Suspected Infection Suspected Infection: Skin/Soft tissue Labs Labs: Sodium 140 mmol/L (133-145) 08/21/25 05:04 Potassium 3.7 mmol/L (3.3-5.1) 08/21/25 05:04 Chloride 102 mmol/L (98-108) 08/21/25 05:04 Carbon Dioxide 28.9 mmol/L (21.0-32.0) 08/21/25 05:04 Anion Gap 10 (5-15) 08/21/25 05:04 BUN 12 mg/dL (4-19) 08/21/25 05:04 Creatinine 1.19 mg/dL (0.70-1.20) 08/21/25 05:04 Est GFR (MDRD) Non-Af 72 (>60) 08/21/25 05:04 BUN/Creatinine Ratio 9.7 RATIO (10-20) L 08/21/25 05:04 Glucose 115 mg/dL (70-99) H 08/21/25 05:04 Vancomycin Trough 28.3 ug/mL (5.0-15.0) H 08/20/25 21:03 Random Vancomycin 19.2 ug/mL (0.0-15.0) H 08/21/25 05:04 Microbiology Microbiology: Microbiology 08/16/25 15:53 Blood Culture (Wb) - Right Forearm Blood Culture - Preliminary No growth in 48 hours. 08/16/25 15:53 Blood Culture (Wb) - Left Forearm Blood Culture - Preliminary No growth in 48 hours. 08/19/25 12:30 Wound - Leg, Right Gram Stain - Final 08/19/25 12:30 Wound - Leg, Right Wound Culture - Preliminary Coag Negative Staph 08/17/25 03:50 Nasal Secretion MRSA (PCR) - Final Dosing Weight Weight used for dosin kg Estimated Creatinine Clearance Estimated Creatinine Clearance: 115 Goal Trough Goal Trough: 15-20 mcg/mL Pharmacy Plan for Drug Dosing Pharmacy Plan for Drug Dosing: Random vancomycin level was down to 19.2. Per dosing calculator, a new dose [place] 1750mg q12h should give an estimated trough of 16.7. This will be started now and a trough level will be drawn prior to the fourth dose. Pharmacy Service will continue to monitor and adjust dosing as required. Follow-Up Labs Follow-Up Labs: Trough: Vancomycin Date/Time Labs Ordered Labs to be done on [date and time ordered]: 08/22/25 @1800
[2025-08-21] MEDS: Vancomycin HCl 1,750 MG in 0.9% Normal Saline (500mL Bag) 500 ML 250 MG IV (06:18)
[2025-08-21 08:10] VITALS: BP 126/75; PULSE 84; RESP 17; TEMP 36.6; O2SAT 95
[2025-08-21] MEDS: APIXABAN 5 MG TABLET PO ×2 (08:16)
--- NOTE | 2025-08-21 11:46 | DCINST_ITS ---
Discharge Instructions DC O2, CPAP, BIPAP needs Home O2 Discharge instructions: No Dressing / Incision Discharge Activity: Return to Normal Activity Weight Bearing Status: Weight bearing as tolerated Dressing / Incision Call your doctor if you observe: Fever of 101 or Higher, Shortness of breath, Dizziness, Swelling in the ankles, Chest pain and Increased palpitations (irregular heartbeat) Follow Up Care Test Results: Test results from this visit will be discussed in further detail at your follow- up appointment, if applicable. Discharge Plan Admission Admit Date/Time: 08/17/25 09:29 Primary Reason for Your Visit: RLE cellulitis Attending Provider: Sintia Mayer Primary Care Provider: Atul Higgins Consulting Providers: Leatha Ibarra; Tammy Heard Instructions Forms: Work / School Excuse Patient Instructions: Cellulitis Discharge Orders/Prescriptions Prescriptions: New cephalexin 500 mg tablet 500 mg PO Q8H 5 Days Qty: 15 0RF Continued omeprazole 20 mg capsule,delayed release(DR/EC) 20 mg PO DAILY coenzyme Q10 [CoQ-10] 100 mg capsule 100 mg PO TID Eliquis 5 mg tablet 5 mg PO BID lisinopril-hydrochlorothiazide [Zestoretic] 1 EACH tablet 1 ea PO DAILY aspirin 81 MG tablet,chewable 81 mg PO DAILY@0800 atorvastatin 10 mg tablet 10 mg PO QHS tamsulosin 0.4 mg capsule 0.8 mg PO QHS finasteride 5 mg tablet 5 mg PO DAILY Ozempic 2 mg/dose (8 mg/3 mL) pen injector 2 mg subcut QWEEK Flintstones Complete Tablet,Chewable 1 tab PO DAILY CPAP - Continuous Positive Airway Pressure([facility] INFORMATIONAL USE ONLY) Patient Comments: Cpap at home, not sure of settings. DME:unknown Referrals / Follow Up: Atul Higgins DO [Primary Care Provider, Medical] - Within 1 Week Disposition Disposition (needs filled in before D/C Order can be placed): Home, Self Care
--- NOTE | 2025-08-21 11:47 | DS.PCM_ITS ---
Providers Date of Admission: 08/17/25 Date of Discharge: 08/21/25 Primary Care Physician: Dr. Atul Higgins, Reason For Visit: LLE CELLULITIS Diagnosis Discharge Diagnosis (1) Cellulitis of right lower extremity: Status: Acute Code(s): L03.115 - Cellulitis of right lower limb Plan #Acute RLE cellulitis * Right lower extremity still edematous though he states it is improving. He still has some erythema and differential warmth. * On IV vancomycin and Zosyn. Duplex of the lower extremity pending due to his history of type body to make sure that he does not have a DVT of the lower extremity. * duplex of the RLE was negative for DVT so therapeutic lovenox discontinued and patient on his home dose of eliquis 5mg bid. * get CT of the RLE to ensure there is no abscess. * PT/OT on board. * CT negative for any evidence of abscess in RLE. 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 * He formed a blood clot whilst on Coumadin and now on Eliquis. * Follow-up with hematology on outpatient basis. 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 Insulin sliding scale. Accuchecks ACHS #TOOTIE: Continue noninvasive pressure ventilation if. #Class III obesity: BMI is 50.7. Complicates acute care, expected recovery and prognosis. #DVT Prophylaxis: Not indicated as patient on eliquis. Disposition: Anticipate to discharge by tomorrow. Medications at Discharge Home Medications aspirin 81 mg chewable tablet 81 mg PO DAILY@0800 11/23/16 lisinopril 20 mg-hydrochlorothiazide 25 mg tablet (Zestoretic) 1 ea PO DAILY 11/23/16 coenzyme Q10 100 mg capsule (CoQ-10) 100 mg PO TID 01/05/23 omeprazole 20 mg capsule,delayed release 20 mg PO DAILY 01/05/23 apixaban 5 mg tablet (Eliquis) 5 mg PO BID 03/29/23 atorvastatin 10 mg tablet 10 mg PO QHS 08/16/25 finasteride 5 mg tablet 5 mg PO DAILY 08/16/25 pediatric multivitamin no.76 (Flintstones Complete chewable tablet) 1 tab PO DAILY 08/16/25 semaglutide 2 mg/dose (8 mg/3 mL) subcutaneous pen injector (Ozempic) 2 mg subcut QWEEK 08/16/25 tamsulosin 0.4 mg capsule 0.8 mg PO QHS 08/16/25 CPAP - Continuous Positive Airway Pressure([facility] INFORMATIONAL USE ONLY) TOOTIE 08/19/25 cephalexin 500 mg tablet 500 mg PO Q8H 5 days #15 tabs 08/21/25 Hospital Course Operations None Procedures None Summary of Care Provided Minutes Spent on Discharge: 45 Hospital Course: Patient is a 54-year-old male with a past medical history as outlined was admitted by the ED on 08/16/2025 with a complaint of right lower extremity swelling and redness and pain with associated subjective fever and chills, nausea and fatigue as well as malaise. His symptoms worsened especially with ambulation so he came into the ED. He did have a history of DVT and was on Eliquis. On admission WBC was 8.4. Lactic acid was 2.1. X-ray of the right lower extremity showed no evidence of subcutaneous emphysema or fracture. He was admitted and managed for cellulitis of the right lower extremity. He was started on broad-spectrum antibiotics namely vancomycin and Zosyn. MRSA screen was negative. Duplex of the right lower extremity done was negative for any DVT. CT of the lower extremity was also negative for any evidence of abscess. The swelling and redness gradually improved and patient felt better. He was able to ambulate without pain. He was discharged home on p.o. Keflex on 08/24/2025 for 5-day course. He is follow-up with his primary care doctor within 1 to 2 weeks. Patient seen and examined prior to discharge. He felt well and had no active complaints. Review of systems otherwise negative. Labs and vitals reviewed. Home medication reviewed and reconciled. Physical Exam Const alert, oriented x3 and no apparent distress Constitutional Narrative: class III obesity General Appearance: cooperative and comfortable HEENT normocephalic, head/scalp atraumatic, hearing grossly normal bilaterally, moist oral mucous membranes and oropharynx normal Mouth: oral and palatal mucosa normal Eyes EOMs intact bilaterally Neck supple and no JVD Lymph Lymphatic: no lymphadenopathy noted Resp normal respiratory effort, normal air movement and clear to auscultation bilaterally Cardio regular rate, regular rhythm, S1 normal heart sound, S2 normal heart sound and no murmurs GI normal to inspection, nondistended, normoactive bowel sounds, soft to palpation, non-tender and non-distended Extremity Extremity Narrative: RLE swelling, erythema and differential warmth has improved markedly. Has varicose veins on both LLE Skin Skin Narrative: as under extremities Neuro oriented x3, moves all extremities, no focal motor deficits and no sensory deficits noted Sensorium / Orientation: awake Motor Exam: general weakness Psych thought process normal, cooperative and affect normal Appearance: appropriate Weight / BMI Weight Weight: 382 lb 4.505 oz Body Mass Index (BMI) 50.6 ABG / Lab / Microbiology Data 08/21/25 05:04 08/21/25 05:04 Laboratory: Laboratory Results - last 24 hr 08/20/25 16:13: POC Glucose 121 H 08/20/25 21:03: Vancomycin Trough 28.3 H 08/20/25 21:36: POC Glucose 127 H 08/21/25 05:04: WBC 8.3, RBC 4.48 L, Hgb 13.2, Hct 38.8 L, MCV 86.6, MCH 29.5, MCHC 34.0, RDW Std Deviation 42.6, RDW Coeff of Samuel 13.5, Plt Count 398, MPV 8.5, Immature Gran % (Auto) 1.400 H, Neut % (Auto) 68.6, Lymph % (Auto) 18.0 L, [place] % (Auto) 10.4 H, Eos % (Auto) 1.1, Baso % (Auto) 0.5, Absolute Neuts (auto) 5.7, Absolute Lymphs (auto) 1.50, Nucleated RBC % 0, Sodium 140, Potassium 3.7, Chloride 102, Carbon Dioxide 28.9, Anion Gap 10, BUN 12, Creatinine 1.19, Estim Creat Clear Calc 115.00, Est GFR (MDRD) Non-Af 72, BUN/Creatinine Ratio 9.7 L, G lucose 115 H, Calcium 8.7, Random Vancomycin 19.2 H 08/21/25 06:10: POC Glucose 125 H 08/21/25 11:11: POC Glucose 104 Microbiology: Microbiology 08/19/25 12:30 Wound - Leg, Right Gram Stain - Final 08/19/25 12:30 Wound - Leg, Right Wound Culture - Preliminary Coag Negative Staph Staphylococcus aureus 11/29/25 15:53 Blood Culture (Wb) - Right Forearm Blood Culture - Preliminary No growth in 48 hours. 08/16/25 15:53 Blood Culture (Wb) - Left Forearm Blood Culture - Preliminary No growth in 48 hours. 08/17/25 03:50 Nasal Secretion MRSA (PCR) - Final D/C Instructions Discharge Activity: Return to Normal Activity Weight Bearing Status: Weight bearing as tolerated Call your doctor if you observe: Fever of 101 or Higher, Shortness of breath, Dizziness, Swelling in the ankles, Chest pain and Increased palpitations (irregular heartbeat) DC O2, CPAP, BIPAP Needs Home O2 Discharge instructions: No DC home with Oxygen: No Meaningful Use Info Meaningful Use Meaningful Use Diagnoses (Choose all that apply): None applicable Discharge Plan Admission Admit Date/Time: 08/17/25 09:29 Primary Reason for Your Visit: RLE cellulitis Attending Provider: Sintia Mayer Primary Care Provider: Atul Higgins Consulting Providers: Leatha Ibarra; Tammy Heard Instructions Forms: Work / School Excuse Patient Instructions: Cellulitis Discharge Orders/Prescriptions Prescriptions: New cephalexin 500 mg tablet 500 mg PO Q8H 5 Days Qty: 15 0RF Continued omeprazole 20 mg capsule,delayed release(DR/EC) 20 mg PO DAILY coenzyme Q10 [CoQ-10] 100 mg capsule 100 mg PO TID Eliquis 5 mg tablet 5 mg PO BID lisinopril-hydrochlorothiazide [Zestoretic] 1 EACH tablet 1 ea PO DAILY aspirin 81 MG tablet,chewable 81 mg PO DAILY@0800 atorvastatin 10 mg tablet 10 mg PO QHS tamsulosin 0.4 mg capsule 0.8 mg PO QHS finasteride 5 mg tablet 5 mg PO DAILY Ozempic 2 mg/dose (8 mg/3 mL) pen injector 2 mg subcut QWEEK [place] Complete Tablet,Chewable 1 tab PO DAILY CPAP - Continuous Positive Airway Pressure([facility] INFORMATIONAL USE ONLY) Patient Comments: Cpap at home, not sure of settings. DME:unknown Referrals / Follow Up: Atul Higgins DO [Primary Care Provider, Medical] - 08/27/25 11:00 am Disposition Disposition (needs filled in before D/C Order can be placed): Home, Self Care Charges/Coding Visit Charges Inpatient E&M: 29087 Disch Hosp >30min
--- NOTE | 2025-08-21 12:25 | PHA.DC_ITS ---
Pharmacy [facility] has performed discharge medication counseling for this patient. The patient was counseled on the following discharge medications and changes in medications for homegoing review. - Cephalexin 500 mg tablet The Reason for Use, instructions for use, and potential side effects were reviewed for all new medications. The patient's questions regarding all of their medications were answered. The patient was able to verbally demonstrate an understanding of their discharge medications. Medications at Discharge Home Medications aspirin 81 mg chewable tablet 81 mg PO DAILY@0800 11/23/16 lisinopril 20 mg-hydrochlorothiazide 25 mg tablet (Zestoretic) 1 ea PO DAILY 11/23/16 coenzyme Q10 100 mg capsule (CoQ-10) 100 mg PO TID 01/05/23 omeprazole 20 mg capsule,delayed release 20 mg PO DAILY 01/05/23 apixaban 5 mg tablet (Eliquis) 5 mg PO BID 03/29/23 atorvastatin 10 mg tablet 10 mg PO QHS 08/16/25 finasteride 5 mg tablet 5 mg PO DAILY 08/16/25 pediatric multivitamin no.76 (Flintstones Complete chewable tablet) 1 tab PO DAILY 08/16/25 semaglutide 2 mg/dose (8 mg/3 mL) subcutaneous pen injector (Ozempic) 2 mg subcut QWEEK 08/16/25 tamsulosin 0.4 mg capsule 0.8 mg PO QHS 08/16/25 CPAP - Continuous Positive Airway Pressure([facility] INFORMATIONAL USE ONLY) TOOTIE 08/19/25 cephalexin 500 mg tablet 500 mg PO Q8H 5 days #15 tabs 08/21/25
[2025-08-21 13:50] VITALS: BP 137/73; PULSE 86; RESP 16; TEMP 36.5; O2SAT 95
== END 2025-08-21 16:40 | disposition home or self-care (01) | DRG 603 ==
LOC: ED 17:01 → MS3 18:18
PROVIDERS: Internal Medicine; Admitting Provider Family Medicine; Emergency Provider Emergency Medicine; Visit Provider Student in an Organized Health Care Education/Training Program
DX: L03.115 Cellulitis of right lower limb (principal); D68.61 Antiphospholipid syndrome; Z68.43 Body mass index [BMI] 50.0-59.9, adult; N13.8 Other obstructive and reflux uropathy; Z99.81 Dependence on supplemental oxygen; I10 Essential (primary) hypertension; I83.93 Asymptomatic varicose veins of bilateral lower extremities; E78.5 Hyperlipidemia, unspecified; G47.33 Obstructive sleep apnea (adult) (pediatric); K21.9 Gastro-esophageal reflux disease without esophagitis; E66.813 Obesity, class 3; Z86.718 Personal history of other venous thrombosis and embolism; Z79.85 Long-term (current) use of injectable non-insulin antidiabetic drugs; Z79.01 Long term (current) use of anticoagulants; N40.1 Benign prostatic hyperplasia with lower urinary tract symptoms; Z79.82 Long term (current) use of aspirin; Z79.899 Other long term (current) drug therapy; Z90.3 Acquired absence of stomach [part of]
CPT/HCPCS: 36415; 73590; 73700; 80048; 80053; 80202; 82962; 83605; 85025; 87040; 87070; 87077; 87186; 87205; 87641; 93971; 94668; 99285; A4216